=== PATIENT | female | born 1975 | race Caucasian/White ===

== ENCOUNTER 2021-07-19 21:49 | Emergency (ER) | payer OTHER, SELFPAY ==
[2021-07-19 22:13] VITALS: BP 134/78; PULSE 82; RESP 14; TEMP 36.7; O2SAT 98; BMI 38.0
[2021-07-20 02:16] VITALS: BP 127/75; PULSE 82; RESP 24; O2SAT 100
--- NOTE | 2021-07-20 03:51 | ED.GENADULT ---
HPI - General Adult General Chief complaint: Extremity Problem Stated complaint: ?Shingles/Feet swelling Time Seen by Provider: 07/20/21 03:42 Source: patient and family Mode of arrival: ambulatory Limitations: no limitations History of Present Illness HPI narrative: 46 years old female came in for evaluation of increased lower extremities edema, also rash on the left side of the neck. Patient was chronic lymphedema use Lasix p.r.n., came in for increase bilateral lower extremity edema for the past few days, patient declined chest pain or shortness of breath, no calf tenderness, no recent travel or prolonged immobilization, no history of DVT or PE. Patient also complaining of rash and itching on the left side of the neck , and under her eyelid,started 2 days ago patient declined any change of her daily routine or changing the detergent or the soap, no concern of allergy to food either. Related Data Previous Rx's Medication Instructions Recorded prednisone 20 mg tablet 20 mg PO BID #10 tab 07/20/21 Allergies Allergy/AdvReac Type Severity Reaction Status Date / Time No Known Allergies Allergy Verified 07/19/21 22:12 Review of Systems Review of Systems: All other systems are reviewed and are negative Constitutional: Reports as per HPI and Reports no additional constitutional complaints Eyes: Reports as per HPI and Reports no additional eye complaints Reports system reviewed and no additional complaints, except as documented Cardiovascular: Reports as per HPI and Reports no additional cardiovascular complaints Respiratory: Reports as per HPI and Reports no additional respiratory complaints Gastrointestinal: Reports as per HPI and Reports no additional gastrointestinal complaints Genitourinary: Reports no additional female genitourinary complaints Musculoskeletal: Reports no additional musculoskeletal complaints Skin/Breast: Reports system reviewed and no additional complaints, except as docu Psychiatric: Reports no additional psychiatric complaints Endocrine: Reports no additional endocrine complaints Hematologic/Lymphatic: Reports no additional hematologic/lymphatic complaints Allergic/Immunologic: Reports no additional allergic/immunologic complaints Reports system reviewed and no additional complaints, except as documented and Reports Abnormal speech present [facility] Social History Social History Advance Directives: No Patient : No Physical Exam ED Vital Signs: Vital Signs - 24 hr 07/19/21 22:13 07/20/21 02:16 Temperature 98.1 F Pulse Rate 82 82 Respiratory Rate 14 24 H Blood Pressure 134/78 127/75 Pulse Oximetry 98 100 BMI result Body Mass Index 38.0 vital signs have been reviewed as appeared to be correct. Blood pressure normal. Heart rate normal. Respiration rate normal. Temperature normal. Oxygen saturation normal. Appearance: Alert. Oriented X3. No acute distress. Head: Normal external exam. Normocephalic. Atraumatic. No Santos signs noted. No raccoon eyes noted Eyes: PERRLA. EOMI. Conjunctiva and sclera normal. Eyelids normal. ENT: TM's Normal. Pharynx normal. Uvula midline. Moist mucous membranes. No trismus noted. No drooling noted. No muffled voice noted. Neck: Normal inspection. Neck supple. FROM. No adenopathy. Thyroid Normal. No meningeal signs. No neck mass noted. CVS: Normal heart rate and rhythm. Heart sound normal. No murmurs noted. Pulses normal throughout. Respiratory: No respiratory distress. Painless inspiration. Breath sounds normal. No wheezes/rales/rhonchi noted. Chest nontender. No accessory muscle usage noted or decreased air movement noted. Abdomen: Soft and nontender. Bowel sounds normal in all 4 quadrants. No distention noted. No organomegaly noted. No visible injury noted. Back: No CVA tenderness. Full range of motion noted. Skin: Skin warm and dry. Normal skin color. Normal skin turgor. Left neck mild redness with hives like rash on the left side of the neck. No fluctuation or abscess formation. Extremities:+3 nonpitting edema of bilateral lower extremity edema. Extremities exhibit normal range of motion. Extremities nontender. Neuro: Oriented X 3. Cranial nerve exam: II-XII are grossly intact No motor deficit. No sensory deficit. Reflexes normal. Course Course Course Narrative: Assessment and plan. 46-year-old female came in for evaluation of increasing edema in lower extremities patient with chronic lymphedema and using Lasix. Labs are on remarkable, will instruct the patient to keep using Lasix with leg elevation and follow-up with PCP. No concern of DVT patient has no risk factor for it Focal area of hives will start the patient on prednisone. Discharge Plan Discharge Clinical Impression: Lower extremity edema, Hives Patient Disposition: Home, Self-Care Instructions: Lymphedema (ED) Prescriptions: New prednisone 20 mg tablet 20 mg PO BID Qty: 10 0RF Referrals: Physician,Unknown J [Primary Care Provider] - 2 days
[2021-07-20 04:04] VITALS: BP 98/60; PULSE 70; RESP 18; TEMP 36.6; O2SAT 100
[2021-07-20 04:07] LABS: MANUAL DIFF FLAG NO
[2021-07-20 04:08] LABS: Basophils Absolute Auto 0.1 X10*3/uL (0.0-0.2); Basophils Percent Auto 1.5 % (0-2); Eosinophils Absolute Auto 0.5 X10*3/uL (0.0-0.4); Eosinophils Percent Auto 5.6 % (0-4); Hematocrit 33.3 % (37.0-47.0); Hemoglobin 10.6 g/dl (12.0-16.0); Imm Gran Abs Auto 0.03 X10*3/uL (0.00-0.03); Imm Gran Pct Auto 0.3 % (0.0-0.4); Lymphocytes Absolute Auto 1.7 X10*3/uL (1.2-4.9); Lymphocytes Percent Auto 18.8 % (20-40); Mean Corpuscular HGB Conc 31.8 g/dl (31.0-35.0); Mean Corpuscular Hemoglobin 28.1 pg (27.0-33.0); Mean Corpuscular Volume 88.3 fL (80.0-98.0); Mean Platelet Volume 9.6 fL (9.4-12.3); Monocytes Absolute Auto 0.7 X10*3/uL (0.1-1.2); Monocytes Percent Auto 7.7 % (2-11); Neutrophils Percent Auto 66.1 % (45-73); Platelet Count 440 X10*3/uL (160-400); Red Blood Count 3.77 X10*6/uL (4.20-5.50); Red Cell Distribution Width 15.3 % (11.0-16.0); White Blood Count 9.1 X10*3/uL (4.8-10.8)
[2021-07-20] MEDS: predniSONE 20 MG TABLET 40 MG PO (04:13)
[2021-07-20 04:20] LABS: D Dimer High Sensitivity < 150 NG/ML
[2021-07-20 04:25] LABS: Alanine Aminotransferase 12 U/L (0-31); Albumin Level 3.7 g/dL (3.5-5.0); Alkaline Phosphatase 56 U/L (39-117); Anion Gap 13 (12-20); Aspartate Amino Transferase 21 U/L (5-31); Bilirubin Direct < 0.2 mg/dL (0.0-0.5); Bilirubin Total 0.2 mg/dL (0.0-1.0); Blood Urea Nitrogen 11 mg/dL (9-16); Calcium 8.8 mg/dL (8.4-10.2); Carbon Dioxide 25 mmol/L (22-29); Chloride 104 mmol/L (96-108); Creatinine Clr Calc Pharmacy 86.8; Estimated Glomerular Filt Rate > 60; Glucose Random 89 mg/dL (60-115); Lipase 24 U/L (8-78); Potassium 3.8 mmol/L (3.3-5.1); Sodium 138 mmol/L (135-145); Total Protein 6.1 g/dL (6.5-8.0)
[2021-07-20 04:30] LABS: B Type Natriuretic Peptide 26 pg/mL (<100); Troponin-I High Sensitivity < 3.5 ng/L (<3.5-17.0)
[2021-07-20 06:43] LABS: Appearance Urine CLEAR; Color Urine YELLOW; Glucose Urine UA NEG (NEG); Leukocyte Esterase Urine NEG (NEG); Nitrite Urine NEG (NEG); PH 5.5 (5.0-8.0); Specific Gravity - Urine 1.015 (1.005-1.025); Urine Blood NEG (NEG); Urine Ketones NEG (NEG); Urine Protein NEG (NEG-TRACE)
== END 2021-07-20 06:38 | disposition home or self-care (01) ==
PROVIDERS: Emergency Provider Emergency Medicine
DX: R60.0 Localized edema (principal); L50.9 Urticaria, unspecified; Z79.899 Other long term (current) drug therapy
CPT/HCPCS: 36415; 80048; 80076; 81003; 83690; 83880; 84484; 85025; 85379; 99283

== ENCOUNTER → 2022-10-11 10:50 | Outpatient (BNVA) | payer OTHER, SELFPAY | PROVIDERS: Visit Provider Orthopaedic Surgery ==

== ENCOUNTER 2022-10-27 10:59 | Day surgery (SDC) | payer OTHER, SELFPAY ==
[2022-10-27 11:41] VITALS: BMI 38.1
--- NOTE | 2022-10-27 12:49 | MHC.SHP ---
Pre-Procedural Eval Section A Date of Service: 10/27/22 The patient is an INPATIENT: No Changes since office visit: No Cold of Flu in the past 2 weeks, No New Medical Problems, No Changes in Medication and No Patient answered all questions The History & Physical has been completed within 30 days and I have reviewed it.: Yes Section B Chief Complaint: Carpal tunnel syndrome, right upper limb Allergies: Allergies Allergy/AdvReac Type Severity Reaction Status Date / Time No Known Allergies Allergy Verified 10/11/22 11:17 Plan I have reviewed the history and physical and performed a pertinent physical examination on my patient. No changes have occurred unless specified. Time Spent With Patient Time: Total time managing care of this patient today ____ minutes.
--- NOTE | 2022-10-27 12:49 | W.PM.OPN ---
Operative Note Operative Note Date of Service: 10/27/22 Narrative: Preop diagnosis: 1. Right Carpal tunnel syndrome Postop diagnosis: same Procedure: 1. Right Carpal tunnel release Surgeon: Elisa Singh MD Anesthesia: local block using 1% lidocaine with epinephrine Findings: Thickened transverse carpal ligament. EBL: Less than 5 mL Specimens: None Complications: None Disposition: Brought to recovery room in stable condition Plan: Follow-up for 10-14 days for wound check and suture removal Indications: The patient is 47 years old, with right carpal tunnel syndrome that has been unresponsive to nonoperative management. The risks and benefits of operative treatment including but not limited to risk of damage to blood vessels, nerves, tendons, infection, persistent pain, persistent symptoms, or possible need for additional surgery were discussed with the patient and the patient wishes to proceed with surgery. Procedure: Once consent was obtained a local block was performed using a combination of 1% lidocaine with epinephrine. The patient was then brought back to the operating suite and placed on the operative table in supine position. The right upper extremity was prepped and draped in a standard surgical fashion. Once assured that we had a good block, a 2.0 cm longitudinal incision was made centered over the carpal tunnel. The incision was made through the skin to the subcutaneous tissues using a #15 blade. Dissection was made down to the level of the transverse carpal ligament with care being taken to protect the palmar cutaneous nerve. Once the transverse carpal ligament was clearly visualized, a longitudinal incision was made in the transverse carpal ligament 1st using a #15 blade, then using tenotomy scissors under direct visualization. Care was taken to look for and protect the motor branch of the median nerve when seen in this area. Once satisfied with our carpal tunnel release the wound was copiously irrigated with normal saline and hemostasis was obtained with a brief period of local pressure. The skin edges were reapproximated with some 5.0 nylon suture material and a sterile dressing was applied. The patient appears to have tolerated the procedure well and with no complications. All digits were well vascularized at the conclusion of the case.
[2022-10-27 13:29] VITALS: BP 123/72; PULSE 87; RESP 18; O2SAT 100
== END 2022-10-27 14:43 | disposition home or self-care (01) ==
PROVIDERS: PCP Internal Medicine; Visit Provider Orthopaedic Surgery
PROC: (CPT 64721; principal; 2022-10-27 13:10)
DX: G56.01 Carpal tunnel syndrome, right upper limb (principal); R20.0 Anesthesia of skin; R20.2 Paresthesia of skin
CPT/HCPCS: 64721; J0171

== ENCOUNTER → 2022-11-09 08:37 | Outpatient (BNVA) | payer OTHER, SELFPAY | PROVIDERS: PCP Internal Medicine; Visit Provider Orthopaedic Surgery ==

== ENCOUNTER 2024-08-02 07:09 | Outpatient (REF) | payer OTHER, SELFPAY ==
--- NOTE | ~2024-08-02 | XR_ITS ---
EXAMINATION: XR HIP 2 OR MORE VIEWS LEFT HISTORY: M25.559 - Pain in unspecified hip COMPARISON: There are no prior studies for comparison. FINDINGS: A single AP view of the pelvis and two views of the left hip are submitted. Osseous mineralization is normal. There is no fracture or dislocation. The joint space is maintained. IUD is seen in the pelvis, to the left of midline. XR/XR hip LT min 2V IMPRESSION: Unremarkable examination of the left hip. Electronically signed by: Enrique Escobedo MD 08/02/2024 09:44 AM YANET
--- OUTSIDE RECORDS SUMMARY | 2024-08-03 07:13 | XMS_ITS | Data Portability ---
Author Organization [facility] Address [address] [place] [address] Care Team Providers Care Elastic Yarn Twister Name Role Phone CINTHYA MCDONNELL Primary Care Provider [phone] CINTHYA MCDONNELL Referring Provider [phone] Assessment No assessment recorded. Plan of Treatment Reminders Order Date Submit Date Provider Last Modified By Organization Details Last Modified Time Details Appointments PCP-Physi agata-30 Min 2024 02:00P M CINTHYA MCDONNELL MD Not available Not available Not available AMB TELEMED ([facility]MEL) 30 2024 11:30A M Yaya mclain MD Not available Not available Not available PCP-Offic e Visit-15 Min 2024 11:30A M Saima Sykes NP Not available Not available Not available Lab None recorded. Referral None recorded. Procedures None recorded. Surgeries None recorded. Imaging electroca rdiogram 2023 024 [email or web address] [facility], [address] [place], [address], 12/13/2023 12:04:22 Medication Orders Wegovy 1.7 mg/0.75 mL subcutane ous pen injector 2023 025 [facility], [address] [place], [address], 07/02/2024 10:14:30 Patient TargetsNo targets recorded. Patient InstructionsNo instructions recorded. Reason for Referral None Reported. Results Created Date Observation Date Name Description Value Unit Range Abnormal Flag Note LastModifiedBy Organization Detail LastModifiedTime 11/15/19 24 11/15/2023 COMPL ETE BLOOD COUNT NO DIFF white blood count 7.17 K/uL 3.5-11 .0 normal Not Available [facility] [address] [place] [address], [id number] 11/15/2023 16:25:45 11/15/19 24 11/15/2023 COMPL ETE BLOOD COUNT NO DIFF red blood count 4.19 M/uL 3.60-4 .80 normal Not Available [facility] [address] [place] [address], [id number] 11/15/2023 16:25:45 11/15/19 24 11/15/2023 COMPL ETE BLOOD COUNT NO DIFF hemoglobin 10.7 g/dL 12.0-1 6.0 low Not Available [facility] [address] [place] [address], [id number] 11/15/2023 16:25:45 11/15/19 24 11/15/2023 COMPL ETE BLOOD COUNT NO DIFF hematocrit 35.9 % 36.0-4 8.0 low Not Available [facility] [address] [place] [address], [id number] 11/15/2023 16:25:45 11/15/19 24 11/15/2023 COMPL ETE BLOOD COUNT NO DIFF mean corpuscular volume 85.7 fL 79.0-9 8.0 normal Not Available [facility] [address] [place] [address], [id number] 11/15/2023 16:25:45 11/15/19 24 11/15/2023 COMPL ETE BLOOD COUNT NO DIFF mean corpuscular hemoglobin 25.5 pg 25.4-3 4.6 normal Not Available [facility] [address] [place] [address], [id number] 11/15/2023 16:25:45 11/15/19 24 11/15/2023 COMPL ETE BLOOD COUNT NO DIFF mean corpuscular HGB conc 29.8 g/dL 30.0-3 6.0 low Not Available [facility] [address] [place] [address], [id number] 11/15/2023 16:25:45 11/15/19 24 11/15/2023 COMPL ETE BLOOD COUNT NO DIFF red cell distribution width 15.7 % 11.5-1 4.5 high Not Available [facility] [address] [place], [address] 11/15/2023 16:25:45 11/15/19 24 11/15/2023 COMPL ETE BLOOD COUNT NO DIFF platelet count 536 K/uL 150-40 0 high Not Available [facility] [address] [place] [address], [id number] 11/15/2023 16:25:45 11/15/19 24 11/15/2023 COMPL ETE BLOOD COUNT NO DIFF NRBC pct auto 0.0 /100_ WBC 0.0 normal Not Available [facility] [address] [place] [address], [id number] 11/15/2023 16:25:45 11/15/19 24 11/15/2023 COMPL ETE BLOOD COUNT NO DIFF neutrophils absolute auto 4.75 K/uL 1.5-7. 5 normal Not Available [facility] [address] [place] [address], [id number] 11/15/2023 16:25:45 11/15/19 24 11/15/2023 COMPL ETE BLOOD COUNT NO DIFF NRBC abs auto 0.00 K/uL 0.00 normal Not Available [facility] [address] [place] [address], [id number] 11/15/2023 16:25:45 11/15/19 24 11/15/2023 IRON PROFI LE iron 47.0 ug/dL 37-145 normal Not Available [facility] [address] [place] [address], [id number] 11/15/2023 16:37:27 11/15/19 24 11/15/2023 IRON PROFI LE total iron binding capacity 430.4 ug/dL 250-45 0 normal Not Available [facility] [address] [place] [address], 93692 11/15/2023 16:37:27 11/15/19 24 11/15/2023 IRON PROFI LE transferrin 301 mg/dL 200-36 0 normal Not Available [facility] [address] [place] [address], [id number] 11/15/2023 16:37:27 11/15/19 24 11/15/2023 IRON PROFI LE transferrin percent saturation 11 % 20-50 low Not Available [facility] Department [address] [place], [address] 11/15/2023 16:37:27 11/15/19 24 11/15/2023 TSH REFLE X FREE T4 free T4 (free thyroxine) TNP NG/dL 0.9-1. 7 Not Available [facility] [address] [place] [address], [id number] 11/15/2023 16:37:28 11/15/19 24 11/15/2023 TSH REFLE X FREE T4 TSH reflex free T4 2.56 uIU/m L 0.27-4 .20 normal Not Available [facility] [address] [place] [address], [id number] 11/15/2023 16:37:28 11/15/19 24 11/15/2023 COMPR EHENS BEVERLEY MET. PANEL sodium 140 mmol/ L 136-14 5 normal Not Available [facility] [address] [place] [address], [id number] 11/15/2023 16:40:02 11/15/19 24 11/15/2023 COMPR EHENS BEVERLEY MET. PANEL potassium 4.84 mmol/ L 3.5-5. 1 normal Not Available [facility] [address] [place] [address], [id number] 11/15/2023 16:40:02 11/15/19 24 11/15/2023 COMPR EHENS BEVERLEY MET. PANEL chloride 106 mmol/ L 98-107 normal Not Available [facility] [address] [place] [address], 52138 11/15/2023 16:40:02 11/15/19 24 11/15/2023 COMPR EHENS BEVERLEY MET. PANEL carbon dioxide 25 mmol/ L 22-29 normal Not Available [facility] [address] [place] [address], 26003 11/15/2023 16:40:02 11/15/19 24 11/15/2023 COMPR EHENS BEVERLEY MET. PANEL anion gap 14 mmol/ L 10-20 normal Not Available [facility] [address] [place] [address], 46154 11/15/2023 16:40:02 11/15/19 24 11/15/2023 COMPR EHENS BEVERLEY MET. PANEL blood urea nitrogen 11 mg/dL 6-20 normal Not Available [facility] [address] [place], [address] 11/15/2023 16:40:02 11/15/19 24 11/15/2023 COMPR EHENS BEVERLEY MET. PANEL creatinine 0.96 mg/dL 0.51-0 .95 high Not Available [facility] [address] [place], [address] 11/15/2023 16:40:02 11/15/19 24 11/15/2023 COMPR EHENS BEVERLEY MET. PANEL estimated glomerular filt rate 73 GFR Value : mL/mi n/1.7 3 squar e meter s Calcu latio n: CKD-E PI Creat inine Equat ion (2020 ) Chron ic Kidne y Disea se is defin ed as eithe r of the follo wing prese nt for >= 3 month s: - GFR less than 60 mL/mi n/1.7 3 squar e meter s. - Micro album in:Ur . Creat inine Ratio >= 30 mg/g or other marke rs of kidne y damag e Kidne y failu re is less than 15 mL/mi n/1.7 3 squar e meter s This test is not perfo rmed in patie nts under the age of 18. Not Available [facility] [address] [place], [address] 11/15/2023 16:40:02 11/15/19 24 11/15/2023 COMPR EHENS BEVERLEY MET. PANEL glucose 77 mg/dL 70-106 normal Not Available [facility] [address] [place], [address] 11/15/2023 16:40:02 11/15/19 24 11/15/2023 COMPR EHENS BEVERLEY MET. PANEL calcium 9.4 mg/dL 8.6-10 .3 normal Not Available [facility] [address] [place], [address] 11/15/2023 16:40:02 11/15/19 24 11/15/2023 COMPR EHENS BEVERLEY MET. PANEL bilirubin total 0.2 mg/dL 0.2-1. 2 normal Not Available [facility] [address] [place], [address] 11/15/2023 16:40:02 11/15/19 24 11/15/2023 COMPR EHENS BEVERLEY MET. PANEL aspartate amino transferase 33 U/L 5-32 high Not Available [facility] [address] [place], [address] 11/15/2023 16:40:02 11/15/19 24 11/15/2023 COMPR EHENS BEVERLEY MET. PANEL alanine aminotransfe rase 19 U/L 5-33 normal Not Available [facility] [address] [place], [address] 11/15/2023 16:40:02 11/15/19 24 11/15/2023 COMPR EHENS BEVERLEY MET. PANEL total protein 6.5 g/dL 6.4-8. 3 normal Not Available [facility] [address] [place] [address], [id number] 11/15/2023 16:40:02 11/15/19 24 11/15/2023 COMPR EHENS BEVERLEY MET. PANEL albumin level 4.2 g/dL 3.5-5. 2 normal Not Available [facility] [address] [place], [address] 11/15/2023 16:40:02 11/15/19 24 11/15/2023 COMPR EHENS BEVERLEY MET. PANEL globulin 2.4 gm/dL 2.0-3. 5 normal Not Available [facility] [address] [place], [address] 11/15/2023 16:40:02 11/15/19 24 11/15/2023 COMPR EHENS BEVERLEY MET. PANEL albumin globulin ratio 1.7 % 1.1-2. 5 normal Not Available [facility] [address] [place], [address] 11/15/2023 16:40:02 11/15/19 24 11/15/2023 COMPR EHENS BEVERLEY MET. PANEL alkaline phosphatase 80 U/L 35-104 normal Not Available [facility] [address] [place], [address] 11/15/2023 16:40:02 11/15/19 24 11/15/2023 LIPID PANEL WITH REFLE X triglyceride s 79 mg/dL 30-150 normal Refer ence Range s: <150 mg/dl Shalonda l 150-1 99 mg/dl Borde rline High 200-4 99 mg/dl High >500 mg/dl Very High Not Available [facility] [address] [place], [address] 11/15/2023 16:40:04 11/15/19 24 11/15/2023 LIPID PANEL WITH REFLE X cholesterol 193 mg/dL 100-20 0 normal Not Available [facility] [address] [place] [address], 78490 11/15/2023 16:40:04 11/15/19 24 11/15/2023 LIPID PANEL WITH REFLE X LDL cholesterol direct TNP mg/dL 0-100 Not Available [facility] [address] [place], [address] 11/15/2023 16:40:04 11/15/19 24 11/15/2023 LIPID PANEL WITH REFLE X LDL cholesterol calculated 106.0 mg/dL 0-100 high Natio nal Laura stero l Educa tion Progr am sugge sts the follo wing refer ence range : Optim al <100 mg/dL Near optim al/ab ove optim al 100-1 29 mg/dL Borde rline high 130-1 59 mg/dL High 160-1 89 mg/dL Very high >190 mg/dL Not Available [facility] [address] [place], [address] 11/15/2023 16:40:04 11/15/19 24 11/15/2023 LIPID PANEL WITH REFLE X HDL cholesterol 71.5 mg/dL 40-60 high Major risk facto r for CHD: <40 mg/dL Negat beverley risk facto r for CHD: >=60 mg/dL Not Available [facility] [address] [place] [address], 86733 11/15/2023 16:40:04 11/15/19 24 11/15/2023 LIPID PANEL WITH REFLE X chol HDL ratio 2.70 Risk CHOL/ HDL CHOL/ HDL Ratio Male Femal e 1/2 AVERA GE 3.43 3.27 AVERA GE 4.97 4.44 2 X AVERA GE 9.55 7.05 3 X AVERA GE 23.39 11.04 Not Available [facility] [address] [place], [address] 11/15/2023 16:40:04 11/15/19 24 11/15/2023 VITAM IN D 25-OH TOTAL vitamin D 25-oh total 32.4 NG/mL Refer ence Range : Defic ient <20 ng/mL Insuf ficie nt 21-29 ng/mL Suffi cient >30 ng/mL Not Available [facility] [address] [place] [address], [id number] 11/15/2023 16:43:31 11/15/19 24 11/15/2023 HEMOG LOBIN A1C hemoglobin A1C % 5.6 % 4.0-5. 7 normal % of the total HgB Inter preta tion ----- ----- ----- --- ----- ----- ----- - <5.7 Consi stent with the absen ce of diabe maria 5.7-6 .4 Consi stent with incre ased risk for diabe maria (pred iabet es) > or = to 6.5 Consi stent with Diabe maria Not Available [facility] [address] [place] [address], 23345 11/15/2023 16:59:15 11/15/19 24 11/15/2023 KAYY TIN ferritin 5.6 NG/mL 13-150 low Not Available [facility] [address] [place] [address], 63858 11/15/2023 17:11:27 11/15/19 24 11/15/2023 VITAM IN B12 AND FOLAT E vitamin B12 557 pg/mL 232-12 45 normal Not Available [facility] [address] [place] [address], 07172 11/15/2023 17:16:01 11/15/19 24 11/15/2023 VITAM IN B12 AND FOLAT E folate 8.1 NG/mL 4.8-18 .8 normal Not Available [facility] [address] [place] [address], [id number] 11/15/2023 17:16:01 11/15/19 24 11/15/2023 INSUL IN insulin 6.3 i??IU /mL 2.6-24 .9 normal Not Available [facility] [address] [place], [address] 11/15/2023 17:16:03 11/15/19 24 11/27/2023 TOXAS SURE SELEC T 14 KRISTI-D IS report summary FINAL . ===== ===== ===== ===== ===== ===== ===== ===== ===== ===== ===== ===== ===== === TOXAS SURE SELEC T 14 KRISTI-D IS ===== ===== ===== ===== ===== ===== ===== ===== ===== ===== ===== ===== ===== === Test Resul t Flag Units Drug Prese nt Trama dol >9434 ng/mg creat O-Dread methy ltram adol >9434 ng/mg creat N-Dread methy ltram adol >9434 ng/mg creat Sourc e of trama dol is a presc ripti on medic ation . O-dread methy ltram adol and N-dread methy ltram adol are expec sydni metab olite s of trama dol. ===== ===== ===== ===== ===== ===== ===== ===== ===== ===== ===== ===== ===== === Test Resul t Flag Units Ref Range Creat inine 53 mg/dL >=20 ===== ===== ===== ===== ===== ===== ===== ===== ===== ===== ===== ===== ===== === Decla red Medic ation s: Medic ation list was not provi ded. ===== ===== ===== ===== ===== ===== ===== ===== ===== ===== ===== ===== ===== === For clini agata consu ltati on, pleas e call . ===== ===== ===== ===== ===== ===== ===== ===== ===== ===== ===== ===== ===== === Not Available [facility] [address] [place] [address], [id number] 11/27/2023 18:10:53 11/15/1911/27/2023 TOXAS SURE SELEC T 14 KRISTI-D IS urine creatinine 53 mg/dL . REFER ENCE RANGE : Ref Range >=20 Not Available [facility] [address] [place] [address], 57839 11/27/2023 18:10:53 11/15/19 24 11/27/2023 TOXAS SURE SELEC T 14 KRISTI-D IS ethanol biomarkers NEGATI VE . Not Available [facility] [address] [place] [address], 09847 11/27/2023 18:10:53 11/15/1911/27/2023 TOXAS SURE SELEC T 14 KRISTI-D IS ethyl glucuronide NOT DETECT ED . Resul t Units : ng/mg creat Not Available [facility] [address] [place] [address], 89534 11/27/2023 18:10:53 11/15/1911/27/2023 TOXAS SURE SELEC T 14 KRISTI-D IS ethyl sulfate NOT DETECT ED . Resul t Units : ng/mg creat Not Available [facility] [address] [place] [address], 31342 11/27/2023 18:10:53 11/15/1911/27/2023 TOXAS SURE SELEC T 14 KRISTI-D IS amphetamines NEGATI VE . Not Available [facility] [address] [place] [address], 08436 11/27/2023 18:10:53 11/15/1911/27/2023 TOXAS SURE SELEC T 14 KRISTI-D IS methamphetam ine NOT DETECT ED . Resul t Units : ng/mg creat Not Available [facility] [address] [place] [address], 14045 11/27/2023 18:10:53 11/15/19 24 11/27/2023 TOXAS SURE SELEC T 14 KRISTI-D IS amphetamine NOT DETECT ED . Resul t Units : ng/mg creat Not Available [facility] [address] [place] [address], [id number] 11/27/2023 18:10:53 11/15/19 24 11/27/2023 TOXAS SURE SELEC T 14 KRISTI-D IS MDMA (ecstasy) NOT DETECT ED . Resul t Units : ng/mg creat Not Available [facility] [address] [place] [address], 34948 11/27/2023 18:10:53 11/15/19 24 11/27/2023 TOXAS SURE SELEC T 14 KRISTI-D IS mda (ecstasy mtb) NOT DETECT ED . Resul t Units : ng/mg creat Not Available [facility] [address] [place] [address], 35444 11/27/2023 18:10:53 11/15/19 24 11/27/2023 TOXAS SURE SELEC T 14 KRISTI-D IS benzodiazepi anitha NEGATI VE . Not Available [facility] [address] [place] [address], 37227 11/27/2023 18:10:53 11/15/19 24 11/27/2023 TOXAS SURE SELEC T 14 KRISTI-D IS diazepam NOT DETECT ED . Resul t Units : ng/mg creat Not Available [facility] [address] [place] [address], 90529 11/27/2023 18:10:53 11/15/19 24 11/27/2023 TOXAS SURE SELEC T 14 KRISTI-D IS desmethyldia zepam NOT DETECT ED . Resul t Units : ng/mg creat Not Available [facility] [address] [place] [address], [id number] 11/27/2023 18:10:53 11/15/19 24 11/27/2023 TOXAS SURE SELEC T 14 KRISTI-D IS oxazepam NOT DETECT ED . Resul t Units : ng/mg creat Not Available [facility] [address] [place] [address], 84097 11/27/2023 18:10:53 11/15/19 24 11/27/2023 TOXAS SURE SELEC T 14 KRISTI-D IS temazepam NOT DETECT ED . Resul t Units : ng/mg creat Expec sydni metab olism of benzo diaze pine class drugs : Paren t Drug Detec sydni Metab olite s ----- ----- - ----- ----- ----- ----- Diaze say: Desme thyld iazep am, Temaz epam, Oxaze say Chlor diaze poxid e: Desme thyld iazep am, Oxaze say Clora zepat e: Desme thyld iazep am, Oxaze say Halaz epam: Desme thyld iazep am, Oxaze say Temaz epam: Oxaze say Oxaze say: None Not Available [facility] [address] [place] [address], [id number] 11/27/2023 18:10:53 11/15/19 24 11/27/2023 TOXAS SURE SELEC T 14 KRISTI-D IS alprazolam NOT DETECT ED . Resul t Units : ng/mg creat Not Available [facility] [address] [place] [address], 34545 11/27/2023 18:10:53 11/15/19 24 11/27/2023 TOXAS SURE SELEC T 14 KRISTI-D IS alpha-hydrox yalprazolam NOT DETECT ED . Resul t Units : ng/mg creat Not Available [facility] [address] [place] [address], 27192 11/27/2023 18:10:53 11/15/19 24 11/27/2023 TOXAS SURE SELEC T 14 KRISTI-D IS desalkylflur azepam NOT DETECT ED . Resul t Units : ng/mg creat Not Available [facility] [address] [place] [address], 15373 11/27/2023 18:10:53 11/15/19 24 11/27/2023 TOXAS SURE SELEC T 14 KRISTI-D IS lorazepam NOT DETECT ED . Resul t Units : ng/mg creat Not Available [facility] [address] [place] [address], 78918 11/27/2023 18:10:53 11/15/19 24 11/27/2023 TOXAS SURE SELEC T 14 KRISTI-D IS alpha-hydrox ytriazolam NOT DETECT ED . Resul t Units : ng/mg creat Not Available [facility] [address] [place] [address], 10675 11/27/2023 18:10:53 11/15/19 24 11/27/2023 TOXAS SURE SELEC T 14 KRISTI-D IS clonazepam NOT DETECT ED . Resul t Units : ng/mg creat Not Available [facility] [address] [place] [address], 72962 11/27/2023 18:10:53 11/15/19 24 11/27/2023 TOXAS SURE SELEC T 14 KRISTI-D IS 7-aminoclona zepam NOT DETECT ED . Resul t Units : ng/mg creat Not Available [facility] [address] [place] [address], 71631 11/27/2023 18:10:53 11/15/1911/27/2023 TOXAS SURE SELEC T 14 KRISTI-D IS midazolam NOT DETECT ED . Resul t Units : ng/mg creat Not Available [facility] [address] [place] [address], [id number] 11/27/2023 18:10:53 11/15/1911/27/2023 TOXAS SURE SELEC T 14 KRISTI-D IS alpha-hydrox ymidazolam NOT DETECT ED . Resul t Units : ng/mg creat Not Available [facility] [address] [place] [address], 66819 11/27/2023 18:10:53 11/15/1911/27/2023 TOXAS SURE SELEC T 14 KRISTI-D IS flunitrazepa m NOT DETECT ED . Resul t Units : ng/mg creat Not Available [facility] [address] [place] [address], 73047 11/27/2023 18:10:53 11/15/19 24 11/27/2023 TOXAS SURE SELEC T 14 KRISTI-D IS desmethylflu nitrazepam NOT DETECT ED . Resul t Units : ng/mg creat Not Available [facility] [address] [place] [address], [id number] 11/27/2023 18:10:53 11/15/19 24 11/27/2023 TOXAS SURE SELEC T 14 KRISTI-D IS cocaine metabolite NEGATI VE . Not Available [facility] [address] [place] [address], 62653 11/27/2023 18:10:53 11/15/19 24 11/27/2023 TOXAS SURE SELEC T 14 KRISTI-D IS cocaine NOT DETECT ED . Resul t Units : ng/mg creat Not Available [facility] [address] [place] [address], [id number] 11/27/2023 18:10:53 11/15/19 24 11/27/2023 TOXAS SURE SELEC T 14 KRISTI-D IS benzoylecgon ine NOT DETECT ED . Resul t Units : ng/mg creat Not Available [facility] [address] [place] [address], 78921 11/27/2023 18:10:53 11/15/19 24 11/27/2023 TOXAS SURE SELEC T 14 KRISTI-D IS cocaethylene NOT DETECT ED . Resul t Units : ng/mg creat Not Available [facility] [address] [place] [address], 18815 11/27/2023 18:10:53 11/15/19 24 11/27/2023 TOXAS SURE SELEC T 14 KRISTI-D IS cannabinoids NEGATI VE . Not Available [facility] [address] [place] [address], [id number] 11/27/2023 18:10:53 11/15/19 24 11/27/2023 TOXAS SURE SELEC T 14 KRISTI-D IS carboxy-THC NOT DETECT ED . Resul t Units : ng/mg creat Not Available [facility] [address] [place] [address], [id number] 11/27/2023 18:10:53 11/15/19 24 11/27/2023 TOXAS SURE SELEC T 14 KRISTI-D IS 6-acetylmorp stephanie scr NEGATI VE . Not Available [facility] [address] [place] [address], [id number] 11/27/2023 18:10:53 11/15/19 24 11/27/2023 TOXAS SURE SELEC T 14 KRISTI-D IS 6-acetylmorp stephanie NOT DETECT ED . Resul t Units : ng/mg creat Not Available [facility] [address] [place] [address], [id number] 11/27/2023 18:10:53 11/15/19 24 11/27/2023 TOXAS SURE SELEC T 14 KRISTI-D IS opiate class NEGATI VE . Not Available [facility] [address] [place] [address], [id number] 11/27/2023 18:10:53 11/15/1911/27/2023 TOXAS SURE SELEC T 14 KRISTI-D IS codeine NOT DETECT ED . Resul t Units : ng/mg creat Not Available [facility] [address] [place] [address], [id number] 11/27/2023 18:10:53 11/15/19 24 11/27/2023 TOXAS SURE SELEC T 14 KRISTI-D IS morphine NOT DETECT ED . Resul t Units : ng/mg creat Not Available [facility] [address] [place] [address], [id number] 11/27/2023 18:10:53 11/15/19 24 11/27/2023 TOXAS SURE SELEC T 14 KRISTI-D IS normorphine NOT DETECT ED . Resul t Units : ng/mg creat Not Available [facility] [address] [place] [address], [id number] 11/27/2023 18:10:53 11/15/19 24 11/27/2023 TOXAS SURE SELEC T 14 KRISTI-D IS norcodeine NOT DETECT ED . Resul t Units : ng/mg creat Not Available [facility] [address] [place] [address], [id number] 11/27/2023 18:10:53 11/15/19 24 11/27/2023 TOXAS SURE SELEC T 14 KRISTI-D IS hydrocodone NOT DETECT ED . Resul t Units : ng/mg creat Not Available [facility] [address] [place] [address], [id number] 11/27/2023 18:10:53 11/15/19 24 11/27/2023 TOXAS SURE SELEC T 14 KRISTI-D IS hydromorphon e NOT DETECT ED . Resul t Units : ng/mg creat Not Available [facility] [address] [place], [address] 11/27/2023 18:10:53 11/15/19 24 11/27/2023 TOXAS SURE SELEC T 14 KRISTI-D IS dihydrocodei ne NOT DETECT ED . Resul t Units : ng/mg creat Not Available [facility] Department [address] [facility] [place], [address] 11/27/2023 18:10:53 11/15/19 24 11/27/2023 TOXAS SURE SELEC T 14 KRISTI-D IS norhydrocodo ne NOT DETECT ED . Resul t Units : ng/mg creat Expec sydni metab olism of opiat e class drugs : Paren t Drug Detec sydni Metab olite s ----- ----- - ----- ----- ----- ----- Codei ne: Major : Morph ine, [place] deine Minor : [place] codon e, [place] morph one, Dihyd rocod eine, Norhy droco done, Normo rphin e Morph ine: Major : Normo rphin e Minor : [place] morph one [place] codon e: [place] morph one, Dihyd rocod eine, Norhy droco done [place] morph one: None Dihyd rocod eine: None Heroi n: 6-Reji tylmo rphin e (if inclu ded), Morph ine, Normo rphin e Codei ne, in small amoun ts in toshia rison to morph ine, is often detec sydni when heroi n is the sourc e drug. Not Available [facility] Department [address] [facility] [place], [address] 11/27/2023 18:10:53 11/15/19 24 11/27/2023 TOXAS SURE SELEC T 14 KRISTI-D IS oxycodone class NEGATI VE . Not Available [facility] Department [address] [facility] [place], [address] 11/27/2023 18:10:53 11/15/19 24 11/27/2023 TOXAS SURE SELEC T 14 KRISTI-D IS oxycodone NOT DETECT ED . Resul t Units : ng/mg creat Not Available [facility] Department [address] [place] [address], [id number] 11/27/2023 18:10:53 11/15/19 24 11/27/2023 TOXAS SURE SELEC T 14 KRISTI-D IS oxymorphone NOT DETECT ED . Resul t Units : ng/mg creat Not Available [facility] Department [address] [place] [address], [id number] 11/27/2023 18:10:53 11/15/19 24 11/27/2023 TOXAS SURE SELEC T 14 KRISTI-D IS noroxycodone NOT DETECT ED . Resul t Units : ng/mg creat Not Available [facility] Department [address] [place] [address], [id number] 11/27/2023 18:10:53 11/15/19 24 11/27/2023 TOXAS SURE SELEC T 14 KRISTI-D IS noroxymorpho ne NOT DETECT ED . Resul t Units : ng/mg creat Expec sydni metab olism of oxyco done class drugs : Paren t Drug Detec sydni Metab olite s ----- ----- - ----- ----- ----- ----- Oxyco done: Oxymo rphon e, Norox ycodo ne, Norox ymorp david Oxymo rphon e: Norox ymorp david Not Available [facility] Department [address] [place] [address], [id number] 11/27/2023 18:10:53 11/15/19 24 11/27/2023 TOXAS SURE SELEC T 14 KRISTI-D IS methadone scr NEGATI VE . Not Available [facility] Department [address] [place] [address], [id number] 11/27/2023 18:10:53 11/15/19 24 11/27/2023 TOXAS SURE SELEC T 14 KRISTI-D IS methadone NOT DETECT ED . Resul t Units : ng/mg creat Not Available [facility] Department [address] [place] [address], [id number] 11/27/2023 18:10:53 11/15/19 24 11/27/2023 TOXAS SURE SELEC T 14 KRISTI-D IS EDDP (methadone mtb) NOT DETECT ED . Resul t Units : ng/mg creat Not Available [facility] Department [address] [place] [address], [id number] 11/27/2023 18:10:53 11/15/19 24 11/27/2023 TOXAS SURE SELEC T 14 KRISTI-D IS fentanyl analogues NEGATI VE . Not Available [facility] Department [address] [place] [address], [id number] 11/27/2023 18:10:53 11/15/19 24 11/27/2023 TOXAS SURE SELEC T 14 KRISTI-D IS fentanyl NOT DETECT ED . Resul t Units : ng/mg creat Not Available [facility] Department [address] [place] [address], [id number] 11/27/2023 18:10:53 11/15/19 24 11/27/2023 TOXAS SURE SELEC T 14 KRISTI-D IS norfentanyl NOT DETECT ED . Resul t Units : ng/mg creat Not Available [facility] Department [address] [place] [address], [address] 11/27/2023 18:10:53 11/15/19 24 11/27/2023 TOXAS SURE SELEC T 14 KRISTI-D IS sufentanil NOT DETECT ED . Resul t Units : ng/mg creat Not Available [facility] Department [address] [place] [address], [id number] 11/27/2023 18:10:53 11/15/19 24 11/27/2023 TOXAS SURE SELEC T 14 KRISTI-D IS alfentanil NOT DETECT ED . Resul t Units : ng/mg creat Not Available [facility] Department [address] [place] [address], [address] 11/27/2023 18:10:53 11/15/19 24 11/27/2023 TOXAS SURE SELEC T 14 KRISTI-D IS buprenorphin e scr NEGATI VE . Not Available [facility] Department [address] [place] [address], [id number] 11/27/2023 18:10:53 11/15/19 24 11/27/2023 TOXAS SURE SELEC T 14 KRISTI-D IS buprenorphin e NOT DETECT ED . Resul t Units : ng/mg creat Not Available [facility] Department [address] [place] [address], [address] 11/27/2023 18:10:53 11/15/19 24 11/27/2023 TOXAS SURE SELEC T 14 KRISTI-D IS norbuprenorp stephanie NOT DETECT ED . Resul t Units : ng/mg creat Not Available [facility] Department [address] [place] [address], [address] 11/27/2023 18:10:53 11/15/19 24 11/27/2023 TOXAS SURE SELEC T 14 KRISTI-D IS tapentadol scr NEGATI VE . Not Available [facility] Department [address] [place] [address], [address] 11/27/2023 18:10:53 11/15/19 24 11/27/2023 TOXAS SURE SELEC T 14 KRISTI-D IS tapentadol NOT DETECT ED . Resul t Units : ng/mg creat Not Available [facility] Department [address] [place] [address], [address] 11/27/2023 18:10:53 11/15/19 24 11/27/2023 TOXAS SURE SELEC T 14 KRISTI-D IS other opioids +POSIT BEVERLEY+ . Not Available [facility] Department [address] [place] [address], [address] 11/27/2023 18:10:53 11/15/19 24 11/27/2023 TOXAS SURE SELEC T 14 KRISTI-D IS tramadol >9434 . Resul t Units : ng/mg creat Not Available [facility] Department [address] [place] [address], [id number] 11/27/2023 18:10:53 11/15/19 24 11/27/2023 TOXAS SURE SELEC T 14 KRISTI-D IS O-desmethylt ramadol >9434 . Resul t Units : ng/mg creat Not Available [facility] Department [address] [place] [address], [address] 11/27/2023 18:10:53 11/15/19 24 11/27/2023 TOXAS SURE SELEC T 14 KRISTI-D IS N-desmethylt ramadol >9434 . Resul t Units : ng/mg creat Not Available [facility] Department [address] [place], [address] 11/27/2023 18:10:53 11/15/19 24 11/27/2023 TOXAS SURE SELEC T 14 KRISTI-D IS barbiturates NEGATI VE . Not Available [facility] Department [address] [place], [address] 11/27/2023 18:10:53 11/15/19 24 11/27/2023 TOXAS SURE SELEC T 14 KRISTI-D IS amobarbital NOT DETECT ED . Not Available [facility] Department [address] [place], [address] 11/27/2023 18:10:53 11/15/19 24 11/27/2023 TOXAS SURE SELEC T 14 KRISTI-D IS barbital NOT DETECT ED . Not Available [facility] Department [address] [place], [address] 11/27/2023 18:10:53 11/15/19 24 11/27/2023 TOXAS SURE SELEC T 14 KRISTI-D IS butabarbital NOT DETECT ED . Not Available [facility] Department [address] [place], [address] 11/27/2023 18:10:53 11/15/19 24 11/27/2023 TOXAS SURE SELEC T 14 KRISTI-D IS butalbital NOT DETECT ED . Not Available [facility] Department [address] [place], [address] 11/27/2023 18:10:53 11/15/19 24 11/27/2023 TOXAS SURE SELEC T 14 KRISTI-D IS mephobarbita l NOT DETECT ED . Not Available [facility] Department [address] [place], [address] 11/27/2023 18:10:53 11/15/19 24 11/27/2023 TOXAS SURE SELEC T 14 KRISTI-D IS pentobarbita l NOT DETECT ED . Not Available [facility] Department [address] [place], [address] 11/27/2023 18:10:53 11/15/19 24 11/27/2023 TOXAS SURE SELEC T 14 KRISTI-D IS phenobarbita l NOT DETECT ED . Not Available [facility] Department [address] [place], [address] 11/27/2023 18:10:53 11/15/19 24 11/27/2023 TOXAS SURE SELEC T 14 KRISTI-D IS secobarbital NOT DETECT ED . Not Available [facility] Department [address] [place], [address] 11/27/2023 18:10:53 11/15/19 24 11/27/2023 TOXAS SURE SELEC T 14 KRISTI-D IS thiopental NOT DETECT ED . Not Available [facility] Department [address] [place], [address] 11/27/2023 18:10:53 11/15/19 24 11/27/2023 TOXAS SURE SELEC T 14 KRISTI-D IS other hallucinogen s NEGATI VE . Not Available [facility] Department [address] [place] [address], [address] 11/27/2023 18:10:53 11/15/19 24 11/27/2023 TOXAS SURE SELEC T 14 KRISTI-D IS phencyclidin e NOT DETECT ED . Not Available [facility] Department [address] [place] [address], [address] 11/27/2023 18:10:53 11/15/19 24 11/27/2023 TOXAS SURE SELEC T 14 KRISTI-D IS level of detection: MELLY HARRISON THRES HOLDS ARE FOLLO WS: AMPHE TAMIN ES: 50 ng/mL BENZO DIAZE PINES : 20 ng/mL COCAI NE / METAB OLITE : 50 ng/mL SERENA OL BIOMA RKERS : ETG-5 00 ng/mL ,ETS- 250 ng/mL CANNA BINOI DS: total -20 ng/mL , carbo xy-TH C-2 ng/mL 6-REJI TYLMO RPHIN E: 10 ng/mL OPIAT E CLASS : 50 ng/mL OXYCO DONE CLASS : 50 ng/mL METHA DONE: 50 ng/mL BUPRE NORPH INE: bupre norph ine-1 .0 ng/mL , norbu preno rphin e-5 ng/mL FENTA NYL / ANALO GUES: fenta nyl-1 .0 ng/mL , other s-5.0 ng/mL TAPEN TADOL : 50 ng/mL TRAMA DOL: 50 ng/mL SHANICE TURAT ES: 200 ng/mL PCP: 25 ng/mL This test was devel oped and its perfo rmanc e eduardo cteri stics deter mined by [facility]. It has not been clear ed or appro franck by the Food and Drug Admin istra tion. Perfo rmed at: 01 - [facility] [address] [place] [id number] Lab Direc tor: Mayra martínez [facility] , Phone : [phone] Not Available [facility] Department [address] [place], [address] 11/27/2023 18:10:53 11/13/19 24 11/02/2023 home sleep study No observ ation record ed. [facility] [address] [place], [address], 11/14/2023 10:28:03 12/13/19 24 12/13/2023 elect rocar diogr am No observ ation record ed. [email or web address] [address], [address], 12/13/2023 12:04:21 12/18/19 elect rocar diogr am No observ ation record ed. [email or web address] [address], [address], 12/18/2023 11:55:01 06/19/19 25 06/19/2024 XR, hip, unila teral , 2 or 3 view No observ ation record ed. [address], [address], 06/21/2024 10:08:01 Result Notes None recorded. 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 puerperi um - delivere d 050727969 Completed 09/25/2019 Yaya Brock III, MD [address] [place], [address] , [facility] 0 06:21:13 Abscess of Bartholi n's gland 42073071 Completed 09/20/2019 Yaya Brock III, MD [address] [facility] [place], [address] , [facility] 0 06:47:55 Complica tion of pregnanc y, childbir th and/or puerperi 803799617 Completed 09/20/2019 Yaya Brock III, MD [address] [facility] [place], [address] , [facility] 0 06:47:17 Abdomina l pain 64188734 Completed 09/20/2019 Yaya Brock III, MD [address] [facility] [place], [address] , [facility] 0 06:47:23 Chronic pain syndrome 159566071 Active UTOX done 11/2023 SAIMA RANDLE NP [address] [facility] [place], [address] , [facility] 4 19:54:27 Degenera tion of cervical interver tebral disc 65338250 Completed 201302/02/2023 SAIMA RANDLE NP [address] [facility] [place], [address] , [facility] 3 09:37:18 Cervical spondylo sis 804254369 Completed 09/20/2019 Yaya Brock III, MD [address] [place], [address] , [facility] 0 06:48:07 Primary fibromya lgia syndrome 05788881 Active Not Available [facility] 4 16:46:28 Hypoglyc emia 229205879 Completed 09/25/2019 Yaya Brock III, MD [address] [place], [address] , [facility] 0 06:21:18 Fibromyo sitis 64720661 Completed 201309/20/2019 Yaya Brock III, MD [address] [place], [address] , [facility] 0 06:48:16 Lymphade nopathy 79926768 Completed 200409/20/2019 Yaya Brock III, MD [address] [place], [address] , [facility] 0 06:47:41 Streptoc occal sore throat 74235257 Completed 201309/20/2019 Yaya Brock III, MD [address] [facility] [place], [address] , [facility] 0 06:47:47 Spasm 56524557 Completed 201309/20/2019 Yaya Brock III, MD [address] [facility] [place], [address] , [facility] 0 06:47:49 Cyst of Bartholi n's gland duct 03713968 Completed 201309/20/2019 Yaya Brock III, MD [address] [place], [place] [address], [address] , [facility] 0 06:47:53 Epigastr ic pain 10356375 Completed 200509/20/2019 Yaya Brock III, MD [address] [place], [address] , [facility] 0 06:47:59 Pain in limb 39517008 Completed 201309/20/2019 Yaya Brock III, MD [address] [place], [address] , [facility] 0 06:48:02 Generali zed abdomina l pain 707151562 Completed 200809/20/2019 Yaya Brock III, MD [address] [place], [address] , [facility] 0 06:47:08 Musculos keletal disorder of the neck 945562865 Completed 201309/20/2019 Yaya Brock III, MD [address] [facility] [place], [address] , [facility] 0 06:47:11 Extrinsi c asthma with asthma attack Completed 201309/20/2019 Yaya Brock III, MD [address] [facility] [place], [address] , [facility] 0 06:47:25 Gastroes ophageal reflux disease 332860817 Active 2013 Not Available [facility] 4 16:46:28 Edema 966644611 Completed 201309/20/2019 Taking furosemi de 20mg daily. SAIMA RANDLE NP [address] [facility] [place], [address] , [facility] 2 11:37:44 Anemia 719706907 Completed 201309/20/2019 Yaya Brock III, MD [address] [place] [address] [place], [address] , [facility] 0 06:47:30 Malaise and fatigue 085324867 Completed 200409/20/2019 Yaya Brock III, MD [address] [place], [place] [address], [address] , [facility] 0 06:47:33 Low back pain 803258242 Completed 200809/20/2019 Yaya Brock III, MD [address] [place], [address] , [facility] 0 06:47:38 Pain in wrist 40855308 Completed 09/20/2019 Yaya Brock III, MD [address] [place], [address] , [facility] 0 06:47:51 Closed fracture proximal phalanx, toe 075980811 Completed 09/20/2019 Yaya Brock III, MD [address] [place], [address] , [facility] 0 06:47:21 Acute bronchit is 34330855 Completed 03/08/2019 ROSAURA CHACKO NP [address] [place], [address] , [facility] 9 13:13:04 Asthma 426251410 Active Not Available [facility] 4 16:46:28 Iron deficien cy 65292560 Active 06/12/24 iron infusion note Taking a multivit padilla with iron in it. Heme denied referral per notice 08/21/23 SAIMA RANDLE NP [address] [place], [address] , [facility] 5 10:23:14 Menopaus al flushing 238355151 Completed 09/20/2019 Yaya Brock III, MD [address] [place], [address] , [facility] 0 06:47:15 Mammogra phy abnormal 495243484 Completed 09/20/2019 SAIMA RANDLE NP [address] [place], [place] [address], [address] , [facility] 2 20:31:12 Hypothyr oidism 86656582 Active 2016 Not Available [facility] 4 16:46:28 Allergic rhinitis 22944704 Active 2020 Not Available [facility] 4 16:46:28 Degenera tion of lumbar interver tebral disc 40280494 Completed 202102/02/2023 SAIMA RANDLE NP [address] [place], [address] , [facility] 3 09:37:19 Arthropa thy of lumbar facet joint 285932985 Completed 202102/02/2023 SAIMA RANDLE NP [address] [place], [address] , [facility] 3 09:37:14 Insomnia 898437023 Active 2021 Taking trazodon e 50-100mg prn. Not Available [facility] 4 16:46:28 Edema 579841403 Active 2013 Not Available [facility] 4 16:46:28 Carpal tunnel syndrome 59432931 Completed 202207/17/2023 SAIMA RANDLE NP [address] [place], [address] , [facility] 4 14:26:58 Vitamin D deficien cy 48882540 Active 2023 Not Available [facility] 4 16:46:28 Obstruct beverley sleep apnea syndrome 98502920 Active 202305/17/24 sleep note: Selected MAT tx, referred to Dr. Chow at [facility]. SAIMA RANDLE NP [address] [place], [address] , [facility] 4 10:27:03 Pain of left hip joint 21544182099 9100 Active 2023 SAIMA RANDLE NP [address] [place], [address] , [facility] 4 13:36:02 Restless legs 21937146 Active 202305/17/24 sleep note: Continue to manage with PCP. Plan to refer to heme if iron deficien cy persists after iron infusion . SAIMA RANDLE NP [address] [place], [address] , [facility] 4 10:27:36 Notes:Some problems listed i n Documents: #[id number], #[id number], #[id number], #[id number], #[id number] could not be added to this patient's chart. Please review these documents and add these problems to the patient's chart manually as needed. Problem Notes None recorded. Procedures Surgical History Date Name Laterality Status Provider Name and Address Organization Details Recorded Time 07/23/19 25 Telemedicine Documentation completed Saima Sykes NP [address] [place], [address], [facility] 07/23/2024 12:49:53 05/14/20 24 Telemedicine Documentation completed Saima Sykes NP [address] [place], [address], [facility] 05/14/2024 12:37:40 03/26/20 24 Telemedicine Documentation completed Saima Sykes NP [address] [place], [address], [facility] 03/26/2024 12:17:40 01/23/20 24 Telemedicine Documentation completed Saima Sykes NP [address] [place], [address], [facility] 01/23/2024 12:35:51 12/13/19 24 BEDS-7 completed Saima Sykes NP [address] [place], [place] [address], [address], [facility] 12/13/2023 11:38:00 12/13/19 24 [place] Sleepiness Scale completed Saima Sykes NP [address] [place], [address], [facility] 12/13/2023 11:38:42 10/05/19 24 Egd biopsy single/multiple completed Swapna Barrett LPN [facility] 10/05/2023 13:30:17 10/05/19 24 Colon ca scrn not hi rsk ind completed Swapna Barrett LPN [facility] 10/05/2023 13:31:39 09/26/19 24 IUD Insertion completed Feroz Potts MD [address] [place], [place] [address], [address], [facility] 09/26/2023 15:41:17 09/26/19 24 IUD Removal completed Feroz Potts MD [address] [place], [place] [address], [address], [facility] 09/26/2023 15:41:10 07/17/19 24 [place] Sleepiness Scale completed Mavis Akers [facility] 07/17/2023 15:00:40 05/11/20 21 PHQ-9 Patient Health Questionnaire completed Yaya Brock III, MD [address] [place], [place] [address], [address], [facility] 05/11/2021 11:48:53 10/29/19 21 Date of Last Mammogram completed Lore Eileen [facility] 05/10/2021 19:21:12 10/29/19 21 Date of Last Pap Smear completed Lore Arellano [facility] 05/10/2021 20:06:48 05/04/20 20 PHQ-9 Patient Health Questionnaire completed Yaya Brock III, MD [address] [place], [place] [address], [address], [facility] 05/04/2020 12:26:14 04/26/20 19 Corticosteroid Injection completed Yaya Brock III, MD [address] [place], [place] [address], [address], [facility] 04/26/2019 12:11:40 08/18/19 19 PHQ-9 Patient Health Questionnaire completed Sapna Quezada [facility] 08/17/2018 08:45:01 07/20/19 17 PHQ-9 Patient Health Questionnaire completed Amelia Coleman MA [facility] 07/20/2016 10:56:05 03/16/20 16 Mirena IUD Insertion completed Angel Yu MD [address] [place], [place] [address], [address], [facility] 03/16/2016 12:37:21 03/16/20 16 Hysteroscopy with Endometrial Biopsy or IUD Removal completed Angel Yu MD [address] [place], [place] [address], [address], [facility] 03/16/2016 12:36:38 07/17/19 16 PHQ-9 Patient Health Questionnaire completed Shweta Holden MA [facility] 07/17/2015 08:44:49 06/05/19 16 Egd biopsy single/multiple completed Yaya Brock III, MD [address] [facility] [place], [address], [facility] 05/31/2017 09:30:46 07/09/19 15 PHQ-9 Patient Health Questionnaire completed Deya Kemp MA [facility] 07/09/2014 08:58:22 02/29/20 13 I&D DOCUMENTATION NURSE completed Angel Yu MD [address] [facility] [place], [address], [facility] 02/28/2013 13:03:51 02/17/20 11 Mirena IUD Insertion completed Sahara Sellers [facility] 02/16/2011 09:49:32 02/17/20 11 IUD Removal completed Sahara Sellers [facility] 02/16/2011 09:49:32 02/02/20 06 delivery completed Not Available [facility] 04/20/2011 06:32:15 appendectomy completed Not Available [facility] 04/20/2011 06:32:29 gastric bypass completed Not Available [facility] 04/20/2011 06:32:29 dental extraction completed Not Available [facility] 04/20/2011 06:32:29 tonsillectomy completed Not Available [facility] 04/20/2011 06:32:29 Imaging Results Imaging Date Name Status LastModified by Organization Details LastModified Time 11/02/2023 home sleep study completed [facility] [address] [place], [address], 11/14/2023 10:28:03 12/13/2023 electrocardiogram completed [email or web address] [place], [address], 12/13/2023 12:04:21 12/18/2023 electrocardiogram completed [email or web address] [address] [place], [address], 12/18/2023 11:55:01 06/19/2024 XR, hip, unilateral, 2 or 3 view completed [facility] [address] , [place], [address], 06/21/2024 10:08:01 Procedure Notes None recorded. Medical Equipment None Reported. Allergies Allergen ID Allergen Name Allergen Category Reaction Reaction Severity Criticality Documentation Date Start Date Code Code System Note Provider Name and Address Organization Details Recorded Time 460821 amoxicill in medicatio n rash moderate Not available 08/17/2018 723 RxNorm BORIS Le [place] - [facility] 9 08:42:22 Medications Name Sig Start Date [...] 32 gauge x /32 USE DIRECTED WITH SHALONDA active Not Available Not Available No t [...] height Body mass index (BMI) Body weight Body temperature Oxygen saturation Oxygen saturation in Arterial blood by Pulse oximetry Heart rate Systolic blood pressure Diastolic blood pressure Provider Name and Address Organization Details Last Updated DateTime 161.29 cm 38.4 kg/m2 27916.7 6 g 98 [degF] 98 % 98 % 90 /min 126 mm[Hg] 62 mm[Hg] Dena Roth [facility] 4 11:10:40 Date Recorded Body height Body mass index (BMI) Body weight Provider Name and Address Organization Details Last Updated DateTime 01/23/2024 161.29 cm 37.2 kg/m2 78693.97 g Saima Sykes NP [address] [place], [address], [facility] 01/23/2024 12:32:26 Date Recorded Body height Body mass index (BMI) Body weight Provider Name and Address Organization Details Last Updated DateTime 07/23/2024 161.29 cm 33.9 kg/m2 39863.72 g Saima Sykes, [employer] [address] [facility], [place], [address], [facility] 07/23/2024 12:46:28 Social History Question Answer [...] Carbs And Sugars. No Desserts, Processed Foods, Croatian [employer]. Information not available 07/09/2014 Which Illicit Or Recreational Drugs Have You Used? 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 If Yes, How Long? No Information not available 11/28/2013 An Tool Adjuster Involved? If Yes, Who? No Information not [...] no t available 07/09/2014 Cholesterol/HDL Screen 07/17/2015 [email or web address] Information not available 07/17/2015 Tetanus/Adacel Vaccine 07/03/2012 Adacel Information not available 07/09/2014 Pain Contract/Contro lled Substances Yes - Date 06/17/15 Dr Brock [email or web address] Information not available 06/19/2015 Marital Status [email or web address] Informatio n not available 11/28/2013 What Was [...] Tdap 4 completed SAIMA RANDLE NP [address] [place], [address], [facility] 07/18/2023 07:31:00 Influenza, split virus, trivalent, preservative 4 completed Not Available [facility] 06/22/2019 02:11:20 Td(adult) unspecified formulation 5 completed Not Available [facility] 07/21/2023 16:46:28 Tdap 3 completed Not Available [facility] 07/21/2023 16:46:29 Novel [id number] , preservative-free 9 completed Not Available [facility] 07/21/2023 16:46:29 Influenza, split virus, quadrivalent, preservative 5 completed Not Available [facility] 06/22/2019 02:11:26 influenza, intradermal, quadrivalent, preservative free 6 completed Not Available [facility] 06/22/2019 02:12:33 Influenza, split virus, quadrivalent, preservative 8 completed Not Available [facility] 07/21/2023 16:46:28 Influenza, split virus, quadrivalent, PF 7 completed Not Available [facility] 06/22/2019 02:15:35 Influenza, split virus, quadrivalent, preservative 0 completed Not Available [facility] 07/21/2023 16:46:28 COVID-19, mRNA, LNP-S, PF, 100 mcg/0.5mL dose or 50 mcg/0.25mL dose 1 completed Not Available [facility] 07/21/2023 16:46:28 COVID-19, mRNA, LNP-S, PF, 100 mcg/0.5mL dose or 50 mcg/0.25mL dose 1 completed Not Available [facility] 07/21/2023 16:46:28 Influenza, split virus, quadrivalent, preservative 1 completed Not Available [facility] 07/21/2023 16:46:28 Past Encounters Encounter ID Performer Location Encounter Start Date Encounter Closed Date Diagnosis/Indication Diagnosis SNOMED-CT Code Diagnosis ICD10 Code Diagnosis Note [id number] [facility] [place] [address] 08/08/2005 16:03:21 08/08/2005 16:27:50 [id number] [facility] [place] [address] 10/03/2005 16:10:39 11/24/2005 12:24:29 [id number] [facility] [place] [address] 11/01/2005 16:11:15 11/01/2005 16:54:42 [id number] [facility] [place] [address] 07/26/2005 09:10:13 07/26/2005 10:26:41 [id number] [facility] Clay [facility] [place] [address] 09/05/2005 16:10:21 09/05/2005 16:43:55 [id number] [facility] [place] [address] 7 11/29/2005 15:52:30 11/29/2005 16:20:48 [id number] [facility] [address] [place] [address] [place] [address] 12/13/2005 09:15:52 12/13/2005 09:53:04 [id number] [facility] Clay [facility] [place] [address] 12/27/2005 09:26:19 12/27/2005 10:07:06 [id number] [facility] [place] [address] 7 01/10/2006 09:18:34 01/10/2006 10:01:38 [id number] [facility] [place] [address] 01/17/2006 13:01:06 01/17/2006 13:59:34 [id number] HH - Outpatien t [address] [place], [place] [address] [address] 01/23/2006 00:00:00 11/02/2010 03:30:06 [id number] [facility] [address] [place] [address] 7 01/26/2006 14:37:18 01/26/2006 15:40:44 [id number] HH - In-Patien t [address] [place], [place] [address] [address] 02/01/2006 09:43:32 02/09/2006 11:27:59 [id number] [facility] [address] [place] [id number] 7 04/06/2006 13:57:38 04/06/2006 14:47:18 [id number] [facility] [address] [place] [address] 7 04/19/2006 15:57:34 04/19/2006 16:03:27 [id number] [facility] [address] [place] [address] 7 06/27/2006 11:00:50 06/27/2006 11:25:38 [id number] [facility] [address] [address] 02/16/2011 09:00:05 02/16/2011 10:43:57 [id number] [facility] [address] [place] [address] 7 03/17/2011 08:57:46 03/17/2011 09:43:32 [id number] Marlin Rolon [facility] [address] [place] [id number] 7 02/28/2013 09:08:26 02/28/2013 10:28:28 [id number] [facility] [address] [place] [address] [place] [address] 11/28/2013 12:10:23 11/28/2013 14:01:52 Chronic pain syndrome 174921953 Degenerati on of cervical intervertebral disc 95555603 Cervical spondylosis 147395977 Primary fi bromyalgia syndrome 69747056 [id number] Georgiana De [facility] [address] [place] [address] 6 01/29/2014 08:27:29 01/29/2014 09:24:04 Chronic pain syndrome 614167171 Degenerati on of cervical intervertebral disc 27998835 Cervical spondylosis 431596541 Primary fi bromyalgia syndrome 76018327 [id number] Deya Kemp MA [facility] [address] [place] [id number] 7 03/07/2014 15:26:46 03/10/2014 12:32:56 Hypoglycemia 783910572 increase protein Chronic pain syndrome 832669211 Cervical spondylosis 761532099 Fibromyositis 47913800 [id number] [facility] [address] [place] [id number] 6 06/26/2009 00:00:00 [id number] [facility] [address] [place] [address] 6 06/29/2010 00:00:00 [id number] [facility] [address] [place] [address] 6 06/30/2011 00:00:00 [id number] [facility] [address] [place] [address] 6 07/03/2012 00:00:00 [id number] [facility] [address] [place] [address] 6 07/05/2013 00:00:00 [id number] [facility] [address] [place] [phone] 6 05/07/2009 00:00:00 [id number] [facility] [address] [place] [address] 6 10/13/2009 00:00:00 [id number] [facility] [address] [place] [address] 6 12/25/2009 00:00:00 [id number] [facility] [address] [place] [id number] 6 05/05/2010 00:00:00 [id number] [facility] [address] [place] [phone] 6 06/21/2010 00:00:00 [id number] [facility] [address] [place] [address] [place] [address] 6 01/12/2011 00:00:00 [id number] [facility] [address] [place] [address] [place] [address] 6 07/18/2012 00:00:00 [id number] [facility] [address] [place] [address] [place] [address] 6 02/28/2013 00:00:00 [id number] [facility] [address] [place] [phone] 6 04/05/2013 00:00:00 [id number] [facility] [address] [place] [address] [place] [address] 6 07/03/2013 00:00:00 [id number] [facility] [address] [place] [address] 6 10/10/2013 00:00:00 [id number] Georgiana De [facility] [address] [place] [address] 6 03/26/2014 08:40:46 03/26/2014 09:41:43 Chronic pain syndrome 098880460 Degenerati on of cervical intervertebral disc 78051382 Cervical spondylosis 267877949 Primary fi bromyalgia syndrome 08714786 [id number] Deya Kemp MA [facility] [address] [place] [address] 7 04/09/2014 08:12:34 04/09/2014 09:21:36 Chronic pain syndrome 353338728 she is following with Dr Uribe. Fibromyositis 10094545 i ncrease the gabapentin one more time. if unsuccessf ul, then stop gabapentin . Edema 747749392 she use s the furosemide as needed. Gastroesop hageal reflux disease 344460402 Influenza vaccine needed [id number] 106 Pt presents for influenza vaccinatio n. Patient screened with questions from Flu protocol. Patient presents for influenza vaccinatio n. Patient screened with questions from [id number] Flu Protocol. Discussed importance of influenza vaccine due to the patient's risk of contractin g the disease. A handout was given to enchance understand ing of the effects and side effects of the vaccine. [id number] Angeles Solis [facility] [address] [place] [address] 04/15/2014 08:58:17 04/15/2014 09:42:51 Influenza vaccine needed [id number] 106 Pt presents for influenza vaccinatio n. Patient screened with questions from Flu protocol. Patient presents for influenza vaccinatio n. Patient screened with questions from Flu Protocol. Discussed importance of influenza vaccine due to the patient's risk of contractin g the disease. A handout was given to jomar understand ing of the effects and side effects of the vaccine. [id number] Georgiana De [facility] [address] [place] [address] [place] [address] 6 05/21/2014 08:28:32 05/21/2014 09:39:34 Chronic pain syndrome 088797684 Degenerati on of cervical intervertebral disc 09641436 Cervical spondylosis 328313994 Primary fi bromyalgia syndrome 24993999 [id number] Amelia Lenz MA [facility] [address] [place] [address] 7 07/09/2014 08:25:45 07/09/2014 09:38:44 Adult health examination 421066271 Full code status. Plan colonoscop y at age 50 unless change in symptoms or family history. Mammogram will be booked for next year. Discussed abstinence , contracept ion and safe sex. Self Breast Examinatio n taught Encourage aerobic exercise 5x/week Discussed importance of healthy/ba lanced diet. Encouraged high fiber, adequate calcium, minimizing caffeine and alcohol. Fibromyositis 06782036 A dvised patient to take Cymbalta and instructed in use and potential side effects. Pt. took this medication successful ly in the past but discontinu ed since medication was not covered by insurance. Pt. has new insurance and would like to re-start if covered by new insurance. Pt. will follow up with no improvemen t or adverse side effects. Low back pain 436732707 Refill. Pt.'s new insurance no longer covers pain specialist . Will refer to new pain specialist . [id number] Jessi Yung MA [facility] [address] [place] [address] [place] [address] 07/16/2014 09:07:36 07/16/2014 09:31:44 Chronic pain syndrome 099866445 Degenerati on of cervical intervertebral disc 34009944 Cervical spondylosis 683116467 Primary fi bromyalgia syndrome 65113150 [id number] Georgiana De [facility] [address] [place], [place] [address] 09/17/2014 08:52:31 09/17/2014 09:32:00 Chronic pain syndrome 849147315 Degenerati on of cervical intervertebral disc 40815980 Cervical spondylosis 356085472 Primary fi bromyalgia syndrome 24327324 [id number] Jessi Yung [facility] [address] [place], [place] [address] 11/12/2014 09:04:36 11/12/2014 09:48:25 Chronic pain syndrome 424593658 Degenerati on of cervical intervertebral disc 70549354 Cervical spondylosis 148349107 Primary fi bromyalgia syndrome 80495697 [id number] Asia Wilde [facility] [address] [place] [address] [place] [address] 6 01/14/2015 09:00:57 01/14/2015 10:13:29 Chronic pain syndrome 152952537 Degenerati on of cervical intervertebral disc 25020073 Cervical spondylosis 295178200 Primary fi bromyalgia syndrome 56684294 [id number] [facility] [address] [facility] [address] [place] [address] 7 02/10/2015 16:02:02 02/10/2015 16:15:42 Closed fracture proximal phalanx, toe [id number] [facility] [id number] CADEN STEINBERG [facility] [address] [place], [place] [address] 03/18/2015 09:10:05 03/18/2015 10:06:52 Chronic pain syndrome 042266047 G89.4 Degenerati on of cervical intervertebral disc 33921098 M50.30 Cervical spondylosis 387 134881 M47.812 Primary fi bromyalgia syndrome 17435181 M79.7 [id number] Yaya Brock III, MD [facility] [address] [place] [address] 7 04/06/2015 13:20:18 04/06/2015 13:40:43 Acute bronchitis 57363038 J20.9 Asthma 802331445 J45.90 9 [id number] Octavia Hoff RN [address] [address] 7 04/15/2015 13:59:37 04/15/2015 14:21:50 Influenza vaccine needed 2940933150 106 Z23 Pt presents for influenza vaccinatio n. Patient screened with questions from 7209-9489 Flu protocol. Discussed importance of influenza vaccine due to the patient's risk of contractin g the disease. A handout was offered to enchance understand ing of the effects and side effects of the vaccine. [id number] Yaya Brock III, MD [address] [address] 05/13/2015 10:03:51 05/13/2015 10:52:11 Degeneration of cervical intervertebral disc 16271789 M50.30 she is not an operative candidate at this time. she has beenthroug h p.t. many times. and some injection therapy. she is managing well from a fucntional standpoint . she will see Dr Uribe next week for her last medication visit with him. I will take over medication management in June. She is aware of my plan as discussed above. Fibromyositis 37705741 M 79.7 on duloxetine at 60mg. will increase to 90 mg Chronic pain syndrome 37 4010255 G89.4 I will see her back in 1 month. Will then have pain contract signed, check UDS, and review GEOFFREY RAJAN. [id number] Yaya Brock III, MD [address] [address] 06/17/2015 08:16:34 06/17/2015 10:12:05 Chronic pain syndrome 160380972 G89.4 She has done very well minimizing her opiate use in the last month. try to get tramadol 100mg covered for steady use. , will use vicodin as needed ( as minimal as possible), and for muscle tightness soma as needed. GEOFFREY RAJAN consulted and on chart. Pain management contract signed today. Urine drug screen today. F/U 3 months. Degenerati on of cervical intervertebral disc 32694568 M50.30 she is not an operative candidate at this time. she has beenthroug h p.t. many times. and some injection therapy. she is managing well from a fucntional standpoint . She is in chiropract ic care as well. Fibromyositis 66880260 M 79.7 better on the cymbalta 90mg. [id number] Yaya Brock III, MD [address] [address] 7 07/17/2015 08:33:07 07/17/2015 09:18:29 Adult health examination 609565817 Z00.00 Full code status. Encouraged patient to discuss medical decisions with Health Care Proxy. Plan colonoscop y at age 50 unless change in symptoms or family history. Baseline mammogram age 50, unless earlier based on risk factors and discussion with patient. Discussed contracept ion and safe sex. Encouraged aerobic exercise 5x/week Discussed importance of healthy/ba lanced diet. Encouraged high fiber, adequate calcium, minimizing caffeine and alcohol. Screening mammography 24 833617 Z12.31 Iron deficiency 63783471 E61.1 History of. Will recheck. Menopausal flushing 1983 66837 N95.1 Would like FSH checked related to hot flashes. Pt. is getting Mirena taken out soon. Will f/u with results. History of multiple allergies 820878270 Z88.8 Uncontroll ed. Taking Zyrtec/[place] adryl and Flonase for allergies but continues to experience symptoms, including scratchy throat, puffy eyes, and fluids behind TMs. Allergic to animals, mold, dust, and trees. Had reaction to allergy shots in the past, even when taking Benadryl prior. Has not tried Singulair, which daughter takes successful ly. Has hardwood floors at home and cleans sheets regularly. Rx Singulair and instructed in use and potential side effects. F/u with no improvemen kye Randolph on of cervical intervertebral disc 54988589 M50.30 Controlled with Tramadol and Cymbalta. F/u PRN. Fibromyositis 65791132 M 79.7 Controlled with Cymbalta. F/u PRN. [id number] Yaya Brock III, MD [address] [address] 09/23/2015 08:49:36 09/23/2015 10:39:14 Chronic pain syndrome 950877859 G89.4 She had a tough month, has gone through the vicodin a bit faster than she usually does. We will give her 20 tabs today. Her pain has calmed and she is back to baseline. Contract on file. GEOFFREY VIDEO TAPE TRANSFERRER checked regularly. UDS is utd. Degenerati on of cervical intervertebral disc 94033979 M50.30 she hs new right hand and arm numbness/t ingling. She has weakness as well. We need to check a new MRI. has bee about 2 years since the last. continue chiropract ic and exercises. [id number] MD [facility] [address] [place] [address] 7 12/12/2015 13:53:53 12/12/2015 15:48:40 Injury of ankle 813983595 S99.912A Ankle and foot contusion from fall with normal xrays. Advised ankle support brace, RICE therapy, and Motrin/Tyl enol. F/u with PCP if not resolving or worsening over the next 1-2 weeks [id number] Yaya Brock III, MD [facility] [address] [place] [address] 7 12/23/2015 08:54:14 12/23/2015 10:03:48 Chronic pain syndrome 946810548 G89.4 She is stable on her current regimen of tramadol ER 100mg BID, hydrocodon e as needed for breakthrou gh pain. She uses soma as well as a muscle relaxant. She performs regular neck ROM and strengthen ing exercises. She is also followig with neurology and rheumatolo gy Pain contract in place. She needs UDS updated today. VIDEO TAPE TRANSFERRER checked regularly. Degenerati on of cervical intervertebral disc 93913526 M50.30 she hs new right hand and arm numbness/t ingling. She has weakness as well. We need to check a new MRI. has bee about 2 years since the last. continue chiropract ic and exercises. Injury of ankle 25188532 6 S99.912D take off ankle stirrup. rom exercises. moist heat to the tender lump medially Abnormal weight gain 161 466889 R63.5 decrease cymbalta from 90mg to 60 mg a day. call back 1 month with progress. [id number] MD Yash [facility] [address] [place] [address], [address] [address] 02/10/2016 09:31:04 02/25/2016 14:07:59 Contraception care 022015588 Z30.40 [id number] Feroz Potts MD [facility] [address] [place] [address] 7 02/24/2016 09:27:56 02/25/2016 15:26:26 Contraception care 419640074 Z30.40 [id number] Angel Yu MD [facility] [address] [place] [address] 7 03/16/2016 10:58:50 03/17/2016 14:51:46 Uses IUD (intrauterine device) contraception 446214329 Z97.5 Insertion of intrauterine contraceptive device 09958043 Z30.315 [id number] Yaya Brock III, MD [facility] [address] [address] 04/13/2016 09:05:12 04/13/2016 09:54:25 Chronic pain syndrome 807543176 G89.4 She has to be on the short acting formulatio n secondary to gastric bypass. That beng said, she does need to make sure that any controlled scripts come from me, or that I know about them before she gets from pharmacy. will restart her usual pain medicaton regimen. If she is recommednd ed any controlled meds by any specialist s, she will call me first to discuss/ prescribe. repeat uds today. [place] VIDEO TAPE TRANSFERRER checked today, appropriat e. And is checked at all rfs. Hypothyroidism 86418114 E03.9 on levothryox ine now. recheck numbers. [id number] Yaya Brock III, MD [facility] [address] [place] [address] 7 04/17/2016 15:17:38 04/17/2016 15:53:14 Pneumonia 008349751 J18.9 rest and hydrate. call me monday f not improved. [id number] Yaya Brock III, MD [facility] [address] [place] [address] 7 04/23/2016 11:38:59 04/23/2016 12:15:53 Influenza vaccine needed 2747837032 106 Z23 Pt presents for influenza vaccinatio n. Patient screened with questions from 1951-1731 Flu protocol. Discussed importance of influenza vaccine due to the patient's risk of contractin g the disease. A handout was offered to enhance understand ing of the effects and side effects of the vaccine. [id number] MD Santino Yoo III[address] [address] 7 07/20/2016 10:21:13 07/20/2016 12:44:03 Adult health examination 290294489 Z00.00 Full code status. Encouraged patient to discuss medical decisions with Health Care Proxy. Plan colonoscop y at age 50 unless change in symptoms or family history. Baseline mammogram age 50, unless earlier based on risk factors and discussion with patient. Discussed contracept ion and safe sex. Encouraged aerobic exercise 5x/week Discussed importance of healthy/ba lanced diet. Encouraged high fiber, adequate calcium, minimizing caffeine and alcohol. Hypothyroidism 86329762 E03.9 Acute asthma 472431256 J 45.901 Will give prednisone taper and then start back on Advair. Follow up as scheduled or sooner PRN. [id number] Yaya Brock III, MD [address] [address] 7 08/10/2016 08:08:20 08/10/2016 08:53:19 Chronic pain syndrome 015879991 G89.4 secondary to disc disease cervical spine. Contract in place.UDS is utd. GEOFFREY VIDEO TAPE TRANSFERRER checked at all rfs. she uses tramadol regularly, soma regularly, and vicodin intermitte ntly for pain exacerbati ons. she needs vicodin today. GEOFFREY VIDEO TAPE TRANSFERRER check, last fill 07/20/16 20 tabs. Asthma 249369506 J45.90 9 she is still feeling a hit flared.faisal gs clear. add some qvar to advair. At [facility] ed risk of sexually transmitted infection 822519240 Z20.2 she nad her boyfriend just broke up. she is concerned about risk. [id number] Yaya Brock III, MD [address] [address] 7 09/29/2016 08:09:11 09/29/2016 11:37:47 Medication monitoring 377229400 Z51.81 [id number] Yaya Brock III, MD [address] [address] 7 01/25/2017 08:14:49 01/25/2017 08:41:55 Chronic pain syndrome 171144990 G89.4 Things are stable. she would like the ability to take an extra soma on days when muscle tightness is severe. is ok. Contract in place. UDS is utd. [place] VIDEO TAPE TRANSFERRER checked at all refills. Neuropathy 205362922 G62 .[address] Mora. nothing specific found at this point. Degenerati on of cervical intervertebral disc 06658218 M50.30 underying issue causing the neck pain. Asthma 319186818 J45.90 9 mildinterm ittent. no current ics use. rare recent rescue use. [id number] Yaya Brock III, MD [address] [address] 04/06/2017 08:10:27 04/06/2017 13:00:14 Medication monitoring 354111031 Z51.81 Utox was obtained, temp was 96 degrees and color within normal limits/ka [id number] Yaya Brock III, MD [address] [address] 04/14/2017 13:15:33 04/14/2017 16:20:10 Influenza vaccine needed 9898335089 106 Z23 Pt presents for influenza vaccinatio n. Patient screened with questions from 7137-8975 Flu protocol. Patient presents for influenza vaccinatio n. Patient screened with questions from 1614-7636 Flu Protocol. Discussed importance of influenza vaccine due to the patient's risk of contractin g the disease. A handout was given to enchance understand ing of the effects and side effects of the vaccine. [id number] Yaya Brock III, MD [address] [address] 05/31/2017 09:10:20 05/31/2017 09:34:26 Chronic pain syndrome 434123302 G89.4 things are stable. she is using tramadol regularly and hydrocodon e for breakthrou gh. UDS is utd. contract in place. [place] [employer]SF[employer] checked at all rfs. Neuropathy 387050334 G62 .[address] Mora. nothing specific found at this point. he is setting up spinal tap as the last diagnostoc step. Degenerati on of cervical intervertebral disc 80461373 M50.30 underlying issue causing the neck pain. Asthma 660397721 J45.90 9 mild intermitte nt. no current ics use. rare recent rescue use. Gastroesop hageal reflux disease 654594582 K21.9 ppi Plantar fasciitis 768045 003 M72.2 [id number] Yaya Brock III, MD [address] [address] 08/25/2017 07:51:11 08/25/2017 08:15:16 Lower abdominal pain 84887925 R10.30 recurrent spells, but this was the worst she has had. she has had mltpl surgeries. I woul drecommend CT and cscope. Constipation 00581219 K5 9.00 she has had some issues with this chronicall y. start colace daily. Leukocytosis 048747816 D 72.829 recheck wbc. [id number] Mick Wells MD [facility] [address] [place] [address],[place] [address] 09/04/2017 10:59:14 09/04/2017 11:54:09 Abdominal pain 59215324 R10.9 Recurring episodes of abdominal pain, sometimes associated with nausea or vomiting, not well localized. CT finding of small bowel intussusce ption is in my experience due to normal phenomena of peristalsi s, not usually reproducib le. I doubt that is the cause of her symptoms. This certainly does not seem to be any definite or high-grade obstructio n on the CT. I have ordered a small bowel series to further investigat e the above findings. I will also wanted a gallbladde r ultrasound to rule out that as an etiology. [id number] Yaya Brock III, MD [address] [address] 09/28/2017 12:03:39 09/28/2017 13:52:59 Chronic pain syndrome 086538705 G89.4 [id number] Yaya Brock III, MD [address] [address] 02/14/2018 14:35:42 02/20/2018 14:31:47 Chronic pain syndrome 702681405 G89.4 things are stable. she is using tramadol regularly and hydrocodon e for breakthrou gh. UDS today. contract in place. [place] [employer] checked at all rfs. she is exercising some, which is great Neuropathy 974181388 G62 .9 stable. Degenerati on of cervical intervertebral disc 53062823 M50.30 underlying issue causing the neck pain. Asthma 887331287 J45.90 9 mild intermitte nt. no current ics use. rare recent rescue use. Gastroesop hageal reflux disease 233696662 K21.9 ppi Intussusce ption of intestine 27848204 K56.1 better. no recurrent sxs. Hypothyroidism 20431028 E03.9 [id number] Yaya Brock III, MD [address] [address] 06/15/2018 13:42:29 06/15/2018 16:26:09 Chronic pain syndrome 387196995 G89.4 things are stable. she is using tramadol regularly and hydrocodon e for breakthrou gh. UDS today. contract in place. [place] [employer] checked at all rfs. she is exercising some, which is great Neuropathy 963883464 G62 .9 stable. Degenerati on of cervical intervertebral disc 36637385 M50.30 underlying issue causing the neck pain. Asthma 447778181 J45.90 9 mild intermitte nt. no current ics use. rare recent rescue use. Gastroesop hageal reflux disease 918619377 K21.9 ppi Hypothyroidism 34135258 E03.9 Drug-induc ed constipation 85981096 K59.03 discussed movantik. she will stick with current regimen. Body mass index 30+ - obesity 491645251 Z68.39 she is exercising regularly now. [id number] MD Santino Yoo III[address] [address] 08/17/2018 08:38:08 08/17/2018 10:39:27 Adult health examination 906583807 Z00.00 labs are pretty much utd. last lipid wth excellent. she needs to lose weight. work on diet and exercise. Screening mammography 24 082164 Z12.31 Pain in right knee 38656 99115 81687 M25.561 correct the fallen arch with arch supports. let me know if that doesnt help. Allergic rhinitis 680865 04 J30.9 perennial allergic rhinitis, skin reactions, asthma. trial montelukas t. Chronic pain syndrome 37 5737952 G89.4 things are stable. she is using tramadol regularly and hydrocodon e for breakthrou gh. UDS today. contract in place. [place] [employer] checked at all rfs. she is exercising some, which is great Neuropathy 492566923 G62 .9 stable. Degenerati on of cervical intervertebral disc 25774335 M50.30 underlying issue causing the neck pain. Asthma 977649966 J45.90 9 mild intermitte nt. no current ics use. rare recent rescue use. Gastroesop hageal reflux disease 181740222 K21.9 ppi Hypothyroidism 87960171 E03.9 tsh good. Drug-induc ed constipation 63730125 K59.03 discussed movantik. she will stick with current regimen. Body mass index 30+ - obesity 623420642 Z68.39 she is exercising regularly now. [id number] Yaya Brock III, MD [facility] [address] [place] [address] 11/30/2018 14:38:25 11/30/2018 15:18:55 Low back pain 800039647 M54.5 walk, stretch, moist heat. will setup pt if that doesnt work. Allergic rhinitis 189602 04 J30.9 better on singulair Chronic pain syndrome 37 7604126 G89.4 things are stable. she is using tramadol regularly and hydrocodon e for breakthrou gh. UDS today. contract in place. [place] [employer] checked at all rfs. she is exercising some, which is great Neuropathy 154578291 G62 .9 stable. Degenerati on of cervical intervertebral disc 85277215 M50.30 underlying issue causing the neck pain. Asthma 638931939 J45.90 9 mild intermitte nt. no current ics use. rare recent rescue use. Gastroesop hageal reflux disease 201635949 K21.9 ppi Hypothyroidism 29840778 E03.9 tsh good. Drug-induc ed constipation 92299802 K59.03 discussed movantik. she will stick with current regimen. Body mass index 30+ - obesity 904250329 Z68.39 she is exercising regularly now. [id number] Yaya Brock III, MD [facility] [address] [place] [address] 04/26/2019 11:27:44 04/26/2019 12:18:51 Allergic rhinitis 90288565 J30.9 better on singulair Chronic pain syndrome 37 3698143 G89.4 neck has flared a bit. she will see how this goes. if doesnt improve soonish-ly , then re mri and referral to pain management for possible injection. she is using tramadol regularly and hydrocodon e for breakthrou gh. UDS today. contract in place. [employer] [employer] checked at all rfs. she is exercising some, which is great Neuropathy 910868159 G62 .9 stable. Degenerati on of cervical intervertebral disc 39893203 M50.30 underlying issue causing the neck pain. Asthma 512110011 J45.90 9 mild intermitte nt. no current ics use. rare recent rescue use. Gastroesop hageal reflux disease 268040751 K21.9 ppi Hypothyroidism 30495225 E03.9 tsh good. Drug-induc ed constipation 68748027 K59.03 discussed movantik. she will stick with current regimen. Body mass index 30+ - obesity 550253282 Z68.39 she is exercising regularly now. Adult heal th examination 083332393 Z00.00 labs today Plantar fasciitis 608500 003 M72.2 injected [id number] Yaya Brock III, MD [address] [address] 10/23/2019 10:43:16 10/23/2019 12:07:04 Eruption 547141437 R21 tinea vs eczematous . trial of topical steroid. Chronic constipation 236 599780 K59.09 try lactulose Allergic rhinitis 678875 04 J30.9 better on singulair Chronic pain syndrome 37 8904829 G89.4 neck has flared a bit. she will see how this goes. if doesnt improve soonish-ly , then re mri and referral to pain management for possible injection. she is using tramadol regularly and hydrocodon e for breakthrou gh. UDS today. contract in place. [employer] checked at all rfs. she is exercising some, which is great Neuropathy 797439090 G62 .9 stable. Degenerati on of cervical intervertebral disc 69865750 M50.30 underlying issue causing the neck pain. Asthma 007578011 J45.90 9 mild intermitte nt. no current ics use. rare recent rescue use. Gastroesop hageal reflux disease 838680146 K21.9 ppi Hypothyroidism 97287268 E03.9 tsh good. Body mass index 30+ - obesity 569939581 Z68.39 she is exercising regularly now. Low back pain 010532403 M54.5 check xray. she has a lot of morning stiffness. ok to use some morning alleve. monitor closely for stomach sxs. pt when they open. [id number] [facility] [address] [place] [address] 05/04/2020 11:50:31 05/04/2020 12:44:02 Adult health examination 956442771 Z00.00 Clara is having more [pain. see below. continue to work on weight loss, diet, exercise. full labs today. phq9 negative. Screening mammography 24 419327 Z12.31 Screening for malignant neoplasm of cervix 433223528 Z12.4 Chronic pain syndrome 37 6588735 G89.4 a flare. I will increase the strength of her as needed hydrocodon e ( same amt) I will refer her to [facility] to help us with med options. Pityriasis versicolor 56 709121 B36.0 Chronic constipation 236 107925 K59.09 lactulose helps. Allergic rhinitis 880024 04 J30.9 better on singulair Neuropathy 482029307 G62 .9 stable. Degenerati on of cervical intervertebral disc 53196527 M50.30 underlying issue causing the neck pain. Asthma 552565676 J45.90 9 mild intermitte nt. no current ics use. rare recent rescue use. Gastroesop hageal reflux disease 803504329 K21.9 ppi Hypothyroidism 56950251 E03.9 recheck tsh Body mass index 30+ - obesity 533465954 Z68.39 she is exercising regularly now. Low back pain 994344978 M54.5 disc related. [id number] [facility] [address] [place] [address] 05/11/2021 11:27:42 05/11/2021 12:07:36 Adult health examination 339184832 Z00.00 Clara is doing ok. labs today. phq9 negative. pap is utd. mammogram is utd.discus s cscope/col on screening. Screening mammography 24 354177 Z12.31 utd. Screening for malignant neoplasm of colon 458199659 Z12.11 I recommende d cscope. she is reluctant. she will consider. Chronic pain syndrome 37 3580415 G89.4 stable,due to cervical disc disease and fibromylag ia.she is functionin g well on current regimen. contract on file.UDS is due Chronic constipation 236 948539 K59.09 I will try some linzess and amitiza Neuropathy 335451710 G62 .9 stable. Degenerati on of cervical intervertebral disc 69326151 M50.30 underlying issue causing the neck pain. Asthma 212580877 J45.90 9 she has had a flare since uri.some prednisone Gastroesop hageal reflux disease 100844499 K21.9 ppi Hypothyroidism 87948756 E03.9 recheck tsh Body mass index 30+ - obesity 879585112 Z68.39 she is exercising regularly now. Lateral ep icondylitis of right humerus 7785203029 59361 M77.11 brace recommende d [id number] Yaya Brock III, MD [facility] [address] [place] [address] 11/02/2021 14:25:18 11/02/2021 15:43:38 Chronic pain syndrome 861374686 G89.4 stable,due to cervical disc disease and fibromyalg ia.she is functionin g well on current regimen. contract on file.UDS is due Chronic constipation 236 176883 K59.09 we tried amitiza, it didn work.she is doing better with the regular lactulose. Neuropathy 284451309 G62 .9 stable. Degenerati on of cervical intervertebral disc 09828554 M50.30 underlying issue causing the neck pain. Asthma 418119810 J45.90 9 she has had a flare since uri. Gastroesop hageal reflux disease 665959434 K21.9 ppi Hypothyroidism 42231084 E03.9 labs ok [place] Body mass index 30+ - obesity 900623819 Z68.39 she is exercising regularly now. [id number] Parrish Uribe MD [facility] [address] [place] [address] [place] [address] 12/03/2021 14:44:16 12/03/2021 16:03:19 Chronic pain syndrome 613034171 G89.4 Degenerati on of cervical intervertebral disc 52017027 M50.30 Primary fi bromyalgia syndrome 65212078 M79.7 Low back pain 490071585 M54.50 [id number] Parrish Uribe MD [facility] [address] [place] [address] [place] [address] 01/18/2022 14:22:53 01/18/2022 15:00:23 Chronic pain syndrome 870664631 G89.4 Degenerati on of cervical intervertebral disc 06730910 M50.30 Primary fi bromyalgia syndrome 28351794 M79.7 Degenerati on of lumbar intervertebral disc 39637072 M51.36 Arthropath y of lumbar facet joint 302921695 M47.640 [id number] Parrish Uribe MD [facility] [address] [place] [address] [place] [address] 02/10/2022 14:07:03 02/10/2022 14:33:33 Chronic pain syndrome 696598545 G89.4 Degenerati on of cervical intervertebral disc 66692623 M50.30 Primary fi bromyalgia syndrome 57908181 M79.7 Degenerati on of lumbar intervertebral disc 19201023 M51.36 Arthropath y of lumbar facet joint 024168801 M47.942 [id number] Ashley Gaitan MD [facility] [address] [place] [address] 05/09/2022 10:50:55 05/09/2022 12:05:53 Adult health examination 992133391 Z00.00 She is agreeable to her first colonoscop y. Pap smear done 10/28/20 WNL, repeat in 2025. Mammo done 10/28/20, she is agreeable for a repeat mammogram. Tetanus UTD 07/03/12. Flu vaccine UTD from work (04/07/22). STI screening declined. Planning dental care. Routine eye exam UTD. Discussed mindful eating and exercise. Seat belts and sunscreen encouraged . Check labs: CBC, CMP, TSH, A1C, & lipid panel. PHQ9 score 0. Follow up at annual physical, or sooner if needed. Screening mammography 24 943533 Z12.31 Mammo done 10/28/20, she is agreeable for a repeat mammogram. Screening for malignant neoplasm of cervix 114487041 Z12.4 Pap smear done 10/28/20 WNL, repeat in 2025. Screening for malignant neoplasm of colon 986939739 Z12.11 She is agreeable to her first colonoscop y. Bilateral wrist pain 675 3144008 0468752 M25.531 Patient has bilateral (R > L) wrist pain/numbn ess. 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 She has been wrist bracing and using NSAIDs prn with mild relief. Will refer to ortho. Body mass index 30+ - obesity 153040076 Z68.38 BMI 38.9 and weight 213lbs 6oz. She reports 20lb weight gain in the past couple of months. Check thyroid levels to rule out thyroid etiology. Continue healthy diet and exercise. Consider referral to medical weight program. Allergic rhinitis 577261 04 J30.9 Well managed with OTC meds. Arthropath y of lumbar facet joint 561511781 M47.816 See above under chronic pain syndrome . Chronic pain syndrome 37 3661507 G89[address] Uribe. She is taking She is taking Lyrica 100mg BID, chlorzoxaz one 500mg BID prn, and tramadol 100mg BID prn. Degenerati on of cervical intervertebral disc 12722134 M50.30 See above under chronic pain syndrome . Degenerati on of lumbar intervertebral disc 68086087 M51.36 See above under chronic pain syndrome . Primary fi bromyalgia syndrome 94305130 M79.7 See above under chronic pain syndrome . Asthma 789349723 J45.90 9 Well managed with Symbicort BID and Ventolin prn. Edema 470515829 R60.9 Continue furosemide 20mg daily prn. Gastroesop hageal reflux disease 620943087 K21.9 Continue omeprazole 40mg daily. Hypothyroidism 69579124 E03.9 Clara is taking levothyrox ine 50mcg daily. Check thyroid levels today. Insomnia 659024670 G47.0 0 Well managed with trazodone 50-100mg nightly prn. Iron deficiency 47691987 E61.1 Continue multivitam in with iron. [id number] MD [facility] [address] [place] [address] [place] [address] 05/03/2022 14:42:34 05/03/2022 15:31:40 Chronic pain syndrome 431528981 G89.4 Degenerati on of cervical intervertebral disc 89674715 M50.30 Primary fi bromyalgia syndrome 26140392 M79.7 Degenerati on of lumbar intervertebral disc 37731810 M51.36 Arthropath y of lumbar facet joint 558504613 M47.891 [id number] MD [facility] [address] [place] [address] [place] [address] 06/27/2022 10:45:12 06/27/2022 11:18:55 Chronic pain syndrome 536600747 G89.4 Degenerati on of cervical intervertebral disc 54763970 M50.30 Primary fi bromyalgia syndrome 28387451 M79.7 Degenerati on of lumbar intervertebral disc 59267331 M51.36 Arthropath y of lumbar facet joint 077529465 M47.514 [id number] Ashley Gaitan MD [facility] [address] [place] [address] 07/29/2022 13:24:55 07/29/2022 13:53:04 Congestion of nasal sinus 42440308 R09.81 Has had chronic congestion now w/ signficant amount of otc/prescr ibed therapies failed. Recommend we trial nasal steroid not trialed however needs further imaging d/t chronicity of symptoms. Will send to [facility] per pt request. [id number] MD [facility] [address] [place] [address] [place] [address] 08/29/2022 11:55:30 08/29/2022 12:43:27 Chronic pain syndrome 772025985 G89.4 Primary fi bromyalgia syndrome 40159870 M79.7 Degenerati on of lumbar intervertebral disc 66880217 M51.36 Arthropath y of lumbar facet joint 801354335 M47.816 Lumbar radiculopathy 128 884851 M54.16 left [id number] SAIMA RANDLE NP [facility] [address] [place] [address] 11/07/2022 15:25:18 11/07/2022 16:21:58 Body mass index 30+ - obesity 571393880 Z68.38 Weight 233lbs 2oz and BMI 39.2. She has struggled with obesity all of her life, and there is a genetic component. We reviewed her diet/exerc ise, and she appears to be doing a good job with portion size, healthy food choices, and prioritizi ng protein. We discussed GLP-1 agonists, which she wanted to try. Trial Ozempic ordered below. She is aware of possible side effects. She denies any hx MTC or pancreatit is. She is aware of the administra tion surroundin g this medication . Plan is to increase to next dose after 1 month. Follow up in 3 months. Starting weight: 233lbs 2 oz Addendum: Clara has been participat ing in behavioral modificati ons (healthy diet & exercise) for at least 3 months. Chronic pain syndrome 37 8124355 G89[address] Uribe. She is taking She is taking Lyrica 100mg BID, chlorzoxaz one 500mg BID prn, and tramadol 100mg TID prn. She has requested to transfer pain management back to her primary care. I advised that since this has been her regimen for some time now, I am willing to take it over. [facility] today. UTOX obtained today as well. Arthropath y of lumbar facet joint 021860927 M47.816 See above under chronic pain syndrome . Degenerati on of cervical intervertebral disc 78460075 M50.30 See above under chronic pain syndrome . Degenerati on of lumbar intervertebral disc 18151088 M51.36 See above under chronic pain syndrome . Primary fi bromyalgia syndrome 81728821 M79.7 See above under chronic pain syndrome . Edema 117317891 R60.9 Continue furosemide 20mg daily prn. Check CMP & microalbum in today. Hypothyroidism 87851872 E03.9 Clara is taking levothyrox ine 50mcg daily. TSH NL 05/2022, no need to repeat. Iron deficiency 07295804 E61.1 Continue multivitam in with iron. Check iron profiel today. Carpal laureano giovani syndrome 63900903 G56.01 She had the right wrist operated on last week, and notes it has been going well. She has an EMG scheduled for the left wrist. Continue to follow with orthopedic s. [id number] Parrish Uribe MD [facility] [address] [place] [address] [place] [address] 10/24/2022 10:59:08 10/24/2022 12:13:15 Chronic pain syndrome 364279376 G89.4 Primary fi bromyalgia syndrome 89725306 M79.7 Degenerati on of lumbar intervertebral disc 69211767 M51.36 Arthropath y of lumbar facet joint 711056164 M47.981 [id number] Ashley Gaitan MD [address] [address] 01/26/2023 13:26:46 01/26/2023 14:24:38 Body mass index 30+ - obesity 180920086 Z68.38 Weight is 213 pounds 6 ounces and BMI is 35.8. She is down 20 pounds since 2 months ago. She has been taking Saxenda 3 mg daily without side effects. She was commended on her progress thus far. We reviewed her diet and exercise. It appears that there is room to improve in the exercise category. She is encouraged to continue with her healthy habits. Continue Saxenda 3 mg daily. Follow-up at [facility] on 05/15/23. [id number] Ashley Gaitan MD [facility] [address] [place] [address] 07/17/2023 13:50:44 07/17/2023 14:39:27 Adult health examination 054814942 Z00.00 Colonoscop y is pending.Pa p smear 10/2020, repeat in 5 years (2025).Emma mo 06/2022, repeat ordered mammo below.Teta nus done 2012, booster administer ed today.Flu vaccine UTD.Dental care is due.Routin e eye exam is UTD.Discus sed mindful eating & exercise. Seat belts and sunscreen encouraged .Check labs: CBC, CMP, TSH, A1C, vitamin D, iron profile, ferritin, toxassure, microalbum in, & lipid panel.PHQ9 score 1. Follow up at annual physical, or sooner if needed. Screening mammography 24 910507 Z12.31 Mammo 06/2022, repeat ordered mammo below. Administra tion of diphtheria, pertussis, and tetanus vaccine 975871416 Z23 Tetanus booster administer ed today. Screening for malignant neoplasm of cervix 214734840 Z12.4 Pap smear done 10/28/20 WNL, repeat in 2025. Screening for malignant neoplasm of colon 658497838 Z12.11 She is agreeable to her first colonoscop y. Body mass index 30+ - obesity 046318980 Z68.38 Weight is 209 pounds and BMI 35.1. He has lost 4 pounds since the previous visit. We have not been able to get Saxenda due to stock issues. She has been taking bupropion XL 150 mg daily and naltrexone 50 mg once daily. She denies any side effects to these. Diet/exerc ise were reviewed. Allergic rhinitis 374736 04 J30.9 She is managing with OTC medication s. However, symptoms are still bothersome . She is seeing ENT, who is advising skin allergy testing. She has to call them to schedule. Chronic pain syndrome 37 1857030 G89.4 Clara no longer sees Dr. Uribe. She is taking She is taking Lyrica 100mg BID, chlorzoxaz one 500mg BID prn, and tramadol 100mg BID prn. CSRP 11/2022, repeat UTOX today. Arthropath y of lumbar facet joint 304641207 M47.816 See above under chronic pain syndrome . Degenerati on of cervical intervertebral disc 99003791 M50.30 See above under chronic pain syndrome . Degenerati on of lumbar intervertebral disc 74264362 M51.36 See above under chronic pain syndrome . Primary fi bromyalgia syndrome 12296762 M79.7 See above under chronic pain syndrome . Asthma 116641277 J45.90 9 Well managed with Symbicort BID and Ventolin prn. Edema 610358889 R60.9 Continue furosemide 20mg daily prn. Gastroesop hageal reflux disease 817821914 K21.9 Continue omeprazole 40mg daily and TUMS prn. Hypothyroidism 13502776 E03.9 Clara is taking levothyrox ine 50mcg daily. Check thyroid levels today. Insomnia 548621258 G47.0 0 Well managed with trazodone 50-100mg nightly prn. Iron deficiency 46688465 E61.1 She is not able to tolerate iron, even Slow Fe. Check CBC, iron profile, and ferritin today. Vitamin D deficiency 347 04681 E55.9 She is currently supplement ing with vitmain D 50,000 units weekly. Check vitamin D today. Sleep disorder 05570746 G47.9 Patient has had a month movement issues and irregular breathing at night when asleep. There is some question of KATHRYN as well as sleep movement disorder. Check home sleep study and referral sent to sleep medicine. [facility] ion care management [id number] Z30.9 She has had the IUD in for ~7 years, it is time to replace. Referral sent to [facility]. [id number] MD [facility] [address] [place] [phone] 08/29/2023 11:27:46 08/29/2023 12:30:20 Iron deficiency anemia [id number] D50.9 AnemiaIn 2019, the [employer] n has issued recommenda tions regarding GI evaluation of iron deficiency anemia (De GUERRERO, et al. Gastroente rology 2019Jan 17.) Same-day bidirectio nal endoscopy is recommende d. In our pt? s case, the etiology is highly likely her gastric bypass but, to leave no stone unturned, we have recommende d EGD and colonoscop y with 2-day liquid diet and a gallon of polyethyle ne glycol prep on each day spread out throughout the whole day.We can anticipate a difficult colonoscop y because she has a long and redundant colon as a result of her morbid obesity. In addition, after her multiple abdominal operations , we can anticipate adhesions. We have discussed this with the patient and she is aware that the procedure may not be able to be completed. In her case, is almost certainly explained by her previous gastric bypass as explained below. Chronic id iopathic constipation [id number] K59.04 She has a lifelong history of constipati on and this is probably related to her redundant long colon that of course increases the transfer time and allows for more efficient water absorption . She has previously not had easy results MiraLAX, Senokot, and lactulose and we will try a guanylate cyclase activator (once-adal y linaclotid e (290 ? ? ?g). If that does not work, we could try the chloride channel activator Lubiprosto ne Amitiza. History of bariatric surgical procedure [id number] Z98.84 After bariatric surgery, patients have a malnutriti on syndrome, that is what the surgery is all about. Not surprising ly therefore, this can cause deficienci es in vitamin B 12, iron, calcium, fat soluble vitamins (A, D, E, K), thiamine and folate. I am certain that multiple additional issues are involved that we are not aware of as yet. To avoid deficienci es, she should have regular f/u with her bariatric team. [id number] Feroz Potts MD [facility] [address] [place] [phone] 08/29/2023 12:53:11 08/29/2023 13:47:25 Contraception care management [id number] Z30.9 Wants IUD R&R Risks and side effects explained. [id number] Feroz Potts MD [facility] [address] [phone] 09/26/2023 14:35:09 09/26/2023 15:28:58 Uses IUD (intrauterine device) contraception [id number] Z97.5 [id number] CINTHYA MCDONNELL MD [facility] [address] [place] [phone] 7 11/15/2023 11:20:54 11/15/2023 14:05:43 Body mass index 30+ - obesity [id number] Z68.38 Weight is 224lbs 2oz, she has gained 3lbs since last month. She is not responding to naltrexone or buproprion . She has an upcoming appointmen t with the weight program, seeing Saima Sykes 12/13/23. Diet/exerc ise were reviewed. Allergic rhinitis 985236 04 J30.9 She is managing with OTC medication s. She saw ENT who noted a mild deviated septum, but did not recommend surgery. She would like a second opinion, ordered below. Chronic pain syndrome 37 9811219 G89.4 Clara no longer sees Dr. Uribe. She is taking She is taking Lyrica 100mg BID, chlorzoxaz one 500mg BID prn, and tramadol 100mg BID prn. CSRP signed today 11/15/23, repeat UTOX today. Arthropath y of lumbar facet joint [id number] M47.816 See above under chronic pain syndrome . Degenerati on of cervical intervertebral disc 98283100 M50.30 See above under chronic pain syndrome . Degenerati on of lumbar intervertebral disc 80332254 M51.36 See above under chronic pain syndrome . Primary fi bromyalgia syndrome 06320517 M79.7 See above under chronic pain syndrome . Asthma 210650615 J45.90 9 Well managed with Symbicort BID and Ventolin prn. Edema 031643883 R60.9 Continue furosemide 20mg daily prn. Gastroesop hageal reflux disease 142893246 K21.9 Continue omeprazole 40mg daily (indefinit chato as recommende d by GI) and TUMS prn. She is aware of chronic PPI use risks. Hypothyroidism 81997779 E03.9 Continue levothyrox ine 50mcg daily. Check thyroid levels today. Insomnia 661229406 G47.0 0 Well managed with trazodone 50-100mg nightly prn. Iron deficiency 55129409 E61.1 She is not able to tolerate iron, even Slow Fe. Check CBC, iron profile, and ferritin today. Consider infusions if ferritin is low. Vitamin D deficiency 347 98985 E55.9 She is no longer supplement ing with vitamin D, check vitamin D level today. Deviated nasal septum 12 3637996 J34.2 She has a deviated septum, but her ENT did not think surgery is indicated. She would like a second opinion, ordered below. Pain of le ft hip joint [id number] 75930 M25.552 Left hip/buttoc k pain could represent sciatica. Symptoms are intermitte nt. Recommende d PT, she is agreeable. Also check left hip x-ray per patient request. If symptoms worsen/per sist, consider ortho referral and/or MRI. Obstructiv e sleep apnea syndrome 61557913 G47.33 Patient with mild KATHRYN per HST done 11/02/23. She is not interested in CPAP at this time, she wants to consider ENT surgery for her deviated septum. In the meantime, recommende d sleeping on the side, with HOB elevated, and continued work on weight loss. [id number] Ashley Gaitan MD [facility] [address] [place] [phone] 12/13/2023 11:04:18 12/13/2023 11:46:37 Body mass index 30+ - obesity 066392283 Z68.38 Clara presents for OM consult. She was prescribed Saxenda by her PCP and was having difficulty getting this medication as there have been supply issues. Today we discussed diet, labs, ekg. Her lowest and highest adult weight: 175# was lowest adult weight 2002. Highest weight was 319# in 2001.Curre nt Diet: None but is on Saxenda which is suppressin g her appetite.D ieting/bar iatric surgery history: Gastric bypass surgery in 2001. in 2005 and she gained some of the weight back. She is also hypothyroi dExercise habits: No exercise. She works 80 hours a weekPerson al and weight goals: 175#John rs: Hypothyroi dism and work scheduleMe ds tried: Saxenda. She has been on this medication and is now on 2.1mg and will increase to 3mg. She has lost 4#. Today she will start 3mg Saxenda.We ight related Complicati ons: Asthma worse with weight gain. Back and knee painPlan: Diet given to follow. She will consume 100gms of protein daily with less than 50 gms of carbs and 1700 agata/day. . She will attempt to wean herself off simple carbs and not eat after 6pm. I will prescribe Wegovy as a weekly injection once she completes Saxenda 3mg dose which is next week. Side effects and mechanism of action discussed. She will RTC in 6 weeks.I spent a total of 50 minutes today on this patient encounter which included:? Preparing to see the patient with review of medical record including prior visits? Obtaining history and performing a medically appropriat e exam.? Ordering medication s? Documentin g clinical informatio n in the health record Obstructiv e sleep apnea syndrome [id number] G47.33 Had HST but some KATHRYN might be from deviated septum. She is following up with ENT Iron defic iency anemia 92100174 D50.9 She is being referred to hematology for IV iron infusions. Does not tolerate oral iron Insulin resistance 72760 5000 E88.819 We have discussed the adverse health consequenc es of obesity today as well the benefits of weight loss. We have focused on both diet and exercise management strategies in our discussion today. Will continue to monitor and assess. [id number] Ashley Gaitan MD [address] [phone] 01/23/2024 12:24:33 01/23/2024 13:46:53 Obesity 608404341 E66.9 Clara returns for follow up. She was able to get Wegovy 1.7mg. She transition ed from [facility] to [facility]. Diet: Coffee, Beninese yogurt, snack, Lunch: lean cuisine, dinner protein, vege. Exercise: She has been walking the dog a few times a week. Weight today 213.8#. She started at 224# so she has lost almost 11#. She denies side effects on Wegovy. On Saxenda she was a little nauseous. Plan: Continue Wegovy 1.7mg and continue with healthy lifestyle changes. RTC in 2 months. [id number] Ashley Gaitan MD [address] [phone] 03/26/2024 12:10:08 03/26/2024 12:20:29 Body mass index 30+ - obesity 882941661 Z68.38 Clara presents for follow up visit. She has had no side effects from Wegovy. Depression screen negative. Her diet has not changed since last visit. She is feeling better and has more energy. She is walking her new puppy daily. She is also working out with resistance bands. She has no appetite so she has to remind herself to eat. She is trying to eat more protein.Me dications to augment weight loss: Wegovy 2.4mg--she has been on this for 2 weeks.Init ial Weight: 224#KAYCEE (last office visit) weight: 213.8#Toda y? s weight: 204.4#Olmos ge since KAYCEE:9.4Tot al change:19. 6#Plan: Continue with Wegovy 2.4mg and healthy lifestyle changes. RTC 6 weeks. [id number] Ashley Gaitan MD [address] [phone] 05/14/2024 12:31:48 05/14/2024 12:41:35 Body mass index 30+ - obesity [id number] Z68.38 Clara presents for follow up visit. She has had no side effects from Wegovy 2.4mg. Depression screen negative. Her diet has not changed since last visit. Still has limited appetite. She is feeling better and has more energy. She is walking her new puppy daily but the weather isn't cooperatin g. She continues working out with resistance bands. She is down 3 sizes in her jeans.Medi cations to augment weight loss: Wegovy 2.4mg--she has been on this for 2 weeks.Init ial Weight: 224#KAYCEE (last office visit) weight: 204.4#Toda y? s weight: 198.8#Olmos ge since KAYCEE: 5.6Total change:25. 2#Plan: Continue with Wegovy 2.4mg and healthy lifestyle changes. RTC 6 weeks. [id number] Ashley Gaitan MD [address] [phone] 07/23/2024 12:43:13 07/23/2024 13:19:59 Body mass index 30+ - obesity [id number] E66.9 Clara presents for follow up visit. [...] Concerns Section Related Observation LastModified by Organization Detai ls LastModified Time None Recorded Concern Status LastModified by Organization Details LastModified Time None Recorded Advance Directives Directive N: Payers Encounter Date Sequence Insurance Name Policy Number Policy Dunaway Covered Member ID Dunaway Member ID Guarantor Name 12/13/2023 1 [facility] [id number] Clara L Marcil [id number] Clara L Marcil 01/23/2024 1 [facility] [id number] Clara L Marcil [id number] Clara L Marcil 03/26/2024 1 [facility] [id number] Clara L Marcil [id number] Clara L Marcil 05/14/2024 1 [facility] [id number] Clara L Marcil [id number] Clara L Marcil 07/23/2024 1 [facility] [id number] Clara L Marcil [id number] Clara L Marcil Notes Date Note Type Note Provider Name and Address Organization Details Recorded Time 4 text/html ObesityReported bypatient.Notes:Lowest and highest adult weight: 175# was lowest adult weight 2002. Highest weight was 319# in 2001.Current Diet: None but is on Saxenda which is suppressing her appetite.Dieting/bariatr ic surgery history: Gastric bypass surgery in 2001. in 2005 and she gained some of the weight back. She is also hypothyroidExercise habits: No exercise. She works 80 hours a weekPersonal and weight goals: 175#Barriers: Hypothyroidism and work scheduleMeds tried: Saxenda. She has been on this medication and is now on 2.1mg and will increase to 3mg. She has lost 4#. Today she will start 3mg Saxenda.Weight related Complications: Asthma worse with weight gain. Back and knee pain Ashley Gaitan MD [address] [place], [phone], [facility] 12/21/2023 18:22:28 4 text/html Clara returns for follow up. She was able to get Wegovy 1.7mg. She transitioned from Saxenda to Wegovy. Diet: Coffee, Beninese yogurt, snack, Lunch: lean cuisine, dinner protein, vege. Exercise: She has been walking the dog a few times a week. Weight today 213.8#. She started at 224# so she has lost almost 11#. She denies side effects on Wegovy. On Saxenda she was a little nauseous. Ashley Gaitan MD [address] [place], [phone], [facility] 01/23/2024 14:00:58 4 text/html ObesityReported bypatient.Notes:Clara presents for follow up visit. She has had no side effects from Wegovy. Depression screen negative. Her diet has not changed since last visit. She is feeling better and has more energy. She is walking her new puppy daily. She is also working out with resistance bands. She has no appetite so she has to remind herself to eat. She is trying to eat more protein.Medications to augment weight loss: Wegovy 2.4mg--she has been on this for 2 weeks. Initial Weight: 224# KAYCEE (last office visit) weight: 213.8# Today? ? ? s weight: 204.4# Change since KAYCEE:9.4 Total change:19.6# Ashley Gaitan MD [address] [place], [phone], [facility] 03/31/2024 11:37:53 4 text/html Clara presents for follow up visit. She has had no side effects from Wegovy 2.4mg. Depression screen negative. Her diet has not changed since last visit. Still has limited appetite. She is feeling better and has more energy. She is walking her new puppy daily but the weather isn't cooperating. She continues working out with resistance bands. She is down 3 sizes in her jeans.Medications to augment weight loss: Wegovy 2.4mg--she has been on this for 2 weeks.Initial Weight: 224#KAYCEE (last office visit) weight: 204.4#Today? s weight: 198.8#Change since KAYCEE: 5.6Total change:25.2#Plan: Continue with Wegovy 2.4mg and healthy lifestyle changes. RTC 6 weeks. Ashley Gaitan MD [address] [place], [phone], [facility] 05/19/2024 20:42:05 5 text/html Clara presents for follow up visit. She [...] since KAYCEE: 4.8Total change:30# Ashley Gaitan MD [address] [place] [address], [phone], [facility] 07/23/2024 19:02:09 OBGyn Episode Ob Episode Information Episode Created Date Number of Fetuses Patient Bloodtype Patient rh Status Prepregnancy Weight lbs Domestic Partner Domestic Partner Phone Father Name Wire Coater Status 06/23/19 07 1 CLOSED Fetus Data First Name Last Name Admitted to NICU Weight (g) Sex Living Outcome Pediatric Complications Fetus ID Race Codes Race Delivery Type [id number] Kurt Calculation Initial Kurt Date Initial Exam Date Initial Exam Provider Initial Ultrasound Date Last Menstrual Period Date Ultra Sound Weeks Gestation 0 Eighteen To Twenty Week Kurt Update Ultra Sound Date Fundal Height At Umbil Quickening Date Ultra Sound Latest Weeks Gestation Final Kurt Confirmed By Final Kurt Confirmed Date Final Kurt Date Ultra Sound Latest Days Gestation 0 0 Menstrual History Last Menstrual Date Menses Monthly On Bcp Conception Prior Menses Frequency Hcg Plus Date Menarche Onset Age Delivery Information Delivery Date Delivery Type Labor Anesthesia Weeks Gestation Incision Type Labor Labor Length Hrs Delivered By Post Complications Tubal Sterilization Discharge Date Comments 6 delivery Discharge Information Feeding Method Contraceptive Method Maternal HG B and HCT Levels
== END 2024-08-02 07:10 | disposition home or self-care (01) ==
LOC: HO.HOSX 07:09
PROVIDERS: Visit Provider Physician Assistant
DX: M53.3 Sacrococcygeal disorders, not elsewhere classified (principal); M25.552 Pain in left hip
CPT/HCPCS: 73502

== ENCOUNTER 2024-08-02 08:36 | Outpatient (AMB) | payer OTHER, SELFPAY ==
--- OUTSIDE RECORDS SUMMARY | 2024-08-02 08:54 | XMS_ITS | Continuity of Care Document ---
Author Organization [facility] Address [address] [place] [address] Care Team Providers Care Cellophane Worker Name Role Phone CINTHYA MCDONNELL Primary Care Provider CINTHYA MCDONNELL Referring Provider Assessment No assessment recorded. Plan of Treatment Reminders Order Date Submit Date Provider Last Modified By Organization Details Last Modified Time Details Appointments PCP-Phys ical-30 Min 2024 02:00P M CINTHYA MCDONNELL MD Not available Not available Not available AMB TELEMED (OSMEL) 30 2024 11:30A M Yaya mclain MD Not available Not available Not available PCP-Offi ce Visit-15 Min 2024 11:30A M Saima Sykes NP Not available Not available Not available Lab None recorded . Referral None recorded . Procedures None recorded . Surgeries None recorded . Imaging None recorded . Medication Orders None recorded . Patient TargetsNo targets recorded. Patient InstructionsNo instructions recorded. Reason for Referral None Reported. 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 puerperi - delivere d [id number] Completed 09/25/2019 Yaya Brock III, MD [address] [place] [address] [place], [address] , [facility] 0 06:21:13 Abscess of Bartholi n's gland 33723748 Completed 09/20/2019 Yaya Brock III, MD [address] [place] [address] [place], [address] , [facility] 0 06:47:55 Complica tion of pregnanc y, childbir th and/or puerperi um 341581649 Completed 09/20/2019 Yaya Brock III, MD [address] [facility] [place], [address] , [facility] 0 06:47:17 Abdomina l pain 46248028 Completed 09/20/2019 Yaya Brock III, MD [address] [facility] [place], [address] , [facility] 0 06:47:23 Chronic pain syndrome 532803596 Active UTOX done 11/2023 SAIMA RANDLE NP [address] [facility] [place], [address] , [facility] 4 19:54:27 Degenera tion of cervical interver tebral disc 67834377 Completed 201302/02/2023 SAIMA RANDLE NP [address] [facility] [place], [address] , [facility] 3 09:37:18 Cervical spondylo sis 873750869 Completed 09/20/2019 Yaya Brock III, MD [address] [place] [address] [place], [address] , [facility] 0 06:48:07 Primary fibromya lgia syndrome 90321114 Active Not Available [facility] 4 16:46:28 Hypoglyc emia 051326635 Completed 09/25/2019 Yaya Brock III, MD [address] [place] [address] [place], [address] , [facility] 0 06:21:18 Fibromyo sitis 12652574 Completed 201309/20/2019 Yaya Brock III, MD [address] [facility] [place], [address] , [facility] 0 06:48:16 Lymphade nopathy 11371478 Completed 200409/20/2019 Yaya Brock III, MD [address] [facility] [place], [address] , [facility] 0 06:47:41 Streptoc occal sore throat 52618459 Completed 201309/20/2019 Yaya Brock III, MD [address] [facility] [place], [address] , [facility] 0 06:47:47 Spasm 78271097 Completed 201309/20/2019 Yaya Brock III, MD [address] [facility] [place], [address] , [facility] 0 06:47:49 Cyst of Bartholi n's gland duct 94354588 Completed 201309/20/2019 Yaya Brock III, MD [address] [facility] [place], [address] , [facility] 0 06:47:53 Epigastr ic pain 40814243 Completed 200509/20/2019 Yaya Brock III, MD [address] [facility] [place], [address] , [facility] 0 06:47:59 Pain in limb 90565835 Completed 201309/20/2019 Yaya Brock III, MD [address] [facility] [place], [address] , [facility] 0 06:48:02 Generali zed abdomina l pain 505831137 Completed 200809/20/2019 Yaya Brock III, MD [address] [facility] [place], [address] , [facility] 0 06:47:08 Musculos keletal disorder of the neck 608479062 Completed 201309/20/2019 Yaya Brock III, MD [address] [facility] [place], [address] , [facility] 0 06:47:11 Extrinsi c asthma with asthma attack Completed 201309/20/2019 Yaya Brock III, MD [address] [facility] [place], [address] , [facility] 0 06:47:25 Gastroes ophageal reflux disease 455692720 Active 2013 Not Available [facility] 4 16:46:28 Edema 021768927 Completed 201309/20/2019 Taking furosemi de 20mg daily. SAIMA RANDLE NP [address] [facility] [place], [address] , [facility] 2 11:37:44 Anemia 377904653 Completed 201309/20/2019 Yaya Brock III, MD [address] [facility] [place], [address] , [facility] 0 06:47:30 Malaise and fatigue 578087040 Completed 200409/20/2019 Yaya Brock III, MD [address] [facility] [place], [address] , [facility] 0 06:47:33 Low back pain 609391267 Completed 200809/20/2019 Yaya Brock III, MD [address] [facility] [place], [address] , [facility] 0 06:47:38 Pain in wrist 58995169 Completed 09/20/2019 Yaya Brock III, MD [address] [facility] [place], [address] , [facility] 0 06:47:51 Closed fracture proximal phalanx, toe 652111420 Completed 09/20/2019 Yaya Brock III, MD [address] [facility] [place], [address] , [facility] 0 06:47:21 Acute bronchit is 13650679 Completed 03/08/2019 ROSAURA CHACKO NP [address] [place], [address] , [facility] 9 13:13:04 Asthma 529334253 Active Not Available [facility] 4 16:46:28 Iron deficien cy 23825898 Active 06/12/24 iron infusion note Taking a multivit padilla with iron in it. Heme denied referral per notice 08/21/23 SAIMA RANDLE NP [address] [place] [address], [address] , [facility] 5 10:23:14 Menopaus al flushing 791197824 Completed 09/20/2019 Yaya Brock III, MD [address] [place] [address], [address] , [facility] 0 06:47:15 Mammogra phy abnormal 942985018 Completed 09/20/2019 SAIMA RANDLE NP [address] [place] [address], [address] , [facility] 2 20:31:12 Hypothyr oidism 34777298 Active 2016 Not Available [facility] 4 16:46:28 Allergic rhinitis 92588750 Active 2020 Not Available [facility] 4 16:46:28 Degenera tion of lumbar interver tebral disc 47735644 Completed 202102/02/2023 SAIMA RANDLE NP [address] [place] [address], [address] , [facility] 3 09:37:19 Arthropa thy of lumbar facet joint 712249399 Completed 202102/02/2023 SAIMA RANDLE NP [address] [place], [place] [address], [address] , [facility] 3 09:37:14 Insomnia 031997631 Active 2021 Taking trazodon e 50-100mg prn. Not Available [facility] 4 16:46:28 Edema 794285735 Active 2013 Not Available [facility] 4 16:46:28 Carpal tunnel syndrome 03177815 Completed 202207/17/2023 YAMILE MEDINA [facility] [place], [address] , [facility] 4 14:26:58 Vitamin D deficien cy 74799874 Active 2023 Not Available [facility] 4 16:46:28 Obstruct naya sleep apnea syndrome 16560492 Active 202305/17/24 sleep note: Selected MAT tx, referred to Dr. Chow at [facility] in [facility]. SAIMA RANDLE NP [address] [place] [address] [place], [address] , [facility] 4 10:27:03 Pain of left hip joint 75530218733 9100 Active 2023 SAIMA RANDLE NP [address] [place] [address] [place], [address] , [facility] 4 13:36:02 Restless legs 66082125 Active 202305/17/24 sleep note: Continue to manage with PCP. Plan to refer to heme if iron deficien cy persists after iron infusion . SAIMA RANDLE NP [address] [place] [address] [place], [address] , [facility] 4 10:27:36 Notes:Some problems listed i n Documents: #[id number], #[id number], #[id number], #[id number], #[id number] could not be added to this patient's chart. Please review these documents and add these problems to the patient's chart manually as needed. Problem Notes None recorded. Procedures Surgical History Date Name Laterality Status Provider Name and Address Organization Details Recorded Time 07/23/19 25 Telemedicine Documentation completed YAMILE Nuñez [facility] [place], [address], [facility] 07/23/2024 12:49:53 05/14/20 24 Telemedicine Documentation completed Saima Sykes NP [address] [facility] [place], [address], [facility] 05/14/2024 12:37:40 03/26/20 24 Telemedicine Documentation completed Saima Sykes NP [address] [facility] [place], [address], [facility] 03/26/2024 12:17:40 01/23/20 24 Telemedicine Documentation completed Saima Sykes NP [address] [facility] [place], [address], [facility] 01/23/2024 12:35:51 12/13/19 24 BEDS-7 completed Saima Sykes NP [address] [facility] [place], [address], [facility] 12/13/2023 11:38:00 12/13/19 24 Purmela Sleepiness Scale completed Saima Sykes NP [address] [place], [place] [address], [address], [facility] 12/13/2023 11:38:42 10/05/19 24 Egd biopsy single/multiple completed Swapna Barrett LPN [facility] 10/05/2023 13:30:17 10/05/19 24 Colon ca scrn not hi rsk ind completed Swapna Barrett LPN [facility] 10/05/2023 13:31:39 09/26/19 24 IUD Insertion completed Feroz oPtts MD [address] [place], [place] [address], [address], [facility] 09/26/2023 15:41:17 09/26/19 24 IUD Removal completed Feroz Potts MD [address] [place], [place] [address], [address], [facility] 09/26/2023 15:41:10 07/17/19 24 Purmela Sleepiness Scale completed CHRISTIANO Morel [facility] 07/17/2023 15:00:40 05/11/20 21 PHQ-9 Patient Health Questionnaire completed Yaya Brock III, MD [address] [facility] [place], [address], [facility] 05/11/2021 11:48:53 10/29/19 21 Date of Last Mammogram completed Lore Eileen [facility] 05/10/2021 19:21:12 10/29/19 21 Date of Last Pap Smear completed Lore Arellano [facility] 05/10/2021 20:06:48 05/04/20 20 PHQ-9 Patient Health Questionnaire completed Yaya Brock III, MD [address] [place], [place] [address], [address], [facility] 05/04/2020 12:26:14 04/26/20 19 Corticosteroid Injection completed Yaya Brock III, MD [address] [place], [place] [address], [address], [facility] 04/26/2019 12:11:40 08/18/19 19 PHQ-9 Patient Health Questionnaire completed Sapna Quezada [facility] 08/17/2018 08:45:01 07/20/19 17 PHQ-9 Patient Health Questionnaire completed Amelia Coleman MA [facility] 07/20/2016 10:56:05 03/16/20 16 Mirena IUD Insertion completed Angel Yu MD [address] [place], [place] [address], [address], [facility] 03/16/2016 12:37:21 03/16/20 16 Hysteroscopy with Endometrial Biopsy or IUD Removal completed Angel Yu MD [address] [place], [place] [address], [address], [facility] 03/16/2016 12:36:38 07/17/19 16 PHQ-9 Patient Health Questionnaire completed Shweta Holden MA [facility] 07/17/2015 08:44:49 06/05/19 16 Egd biopsy single/multiple completed Yaya Brock III, MD [address] [place], [place] [address], [address], [facility] 05/31/2017 09:30:46 07/09/19 15 PHQ-9 Patient Health Questionnaire completed Deya Kemp MA [facility] 07/09/2014 08:58:22 02/29/20 13 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 completed Angel Yu MD [address] [place] [address], [address], [facility] 02/28/2013 13:03:51 02/17/20 11 Mirena IUD Insertion completed Sahara Sellers [facility] 02/16/2011 09:49:32 02/17/20 11 IUD Removal completed Sahara [facility] 02/16/2011 09:49:32 02/02/20 06 delivery completed Not Available [facility] 04/20/2011 06:32:15 appendectomy completed Not Available [facility] 04/20/2011 06:32:29 gastric bypass completed Not Available [facility] 04/20/2011 06:32:29 dental extraction completed Not Available [facility] 04/20/2011 06:32:29 tonsillectomy completed Not Available [facility] 04/20/2011 06:32:29 Imaging Results None recorded. Procedure Notes None recorded. Medical Equipment None Reported. Allergies Allergen ID Allergen Name Allergen Category Reaction Reaction Severity Criticality Documentation Date Start Date Code Code System Note Provider Name and Address Organization Details Recorded Time [id number] amoxicill in medicatio n rash moderate Not available 08/17/2018 723 RxNorm BORIS Le, [facility] 9 08:42:22 Medications Name Sig Start Date Stop Date Status Note LastModified by Organization Details LastModified Time cvs budesonid e nasal spray 32 mcg/act susp active Not Available Not Available Not Available omeprazol e dr 40 mg cpdr 10/22 completed Not Available Not Available Not Available baclofen 10 mg tabs active Not Available Not Available Not Available orphenadr ine citrate er 100 mg tb12 active Not Available Not Available Not Available furosemid e 20 mg tabs active Not Available Not Available Not Available omeprazol e 20 mg cpdr active Not Available Not Available Not Available duloxetin e hcl 30 mg cpep active Not Available Not Available Not Available ventolin hfa 108 (90 base) mcg/actae rs 05/11 completed Not Available Not Available Not Available promethaz ine vc plain 6.25-5 mg/5ml syrp active Not Available Not Available Not Available levothyro xine sodium 50 mcg tabs 10/22 completed Not Available Not Available Not Available nitrofura ntoin monohydra te/macroc rystals 100 mg caps 10/22 completed Not Available Not Available Not Available albuterol sulfate hfa 108 (90 base) mcg/act aers 05/04 completed Not Available Not Available Not Available tizanidin e hcl 4 mg tabs active Not Available Not Available Not Available carisopro dol 350 mg tabs 10/22 completed Not Available Not Available Not Available Prescript ion - Clarifica tion 08/10 completed scripts done in the last 12 months Not Available Not Available Not Available fluconazo le 150 mg tabs 10/22 completed Not Available Not Available Not Available Prescript ion - Prior Authoriza tion Request 05/11 completed Not Available Not Available Not Available trazodone hydrochlo ride 50 mg tabs 10/22 completed Not Available Not Available Not Available monteluka st sodium 10 mg tabs 10/22 completed Not Available Not Available Not Available azithromy izabel 500 mg tabs active Not Available Not Available Not Available hydrocodo ne/acetam inophen 7.5-325 mg tabs 10/22 completed Not Available Not Available Not Available sulfameth oxazole/t rimethopr im ds 800-160 mg tabs 10/22 completed Not Available Not Available Not Available tramadol hcl 50 mg tabs 10/22 completed Not Available Not Available Not Available trazodone hcl 50 mg tabs active Not Available Not Available Not Available duloxetin e hcl 60 mg cpep active Not Available Not Available Not Available prior authoriza tion request active Not Available Not Available Not Available advair diskus 500-50 mcg/dose aepb 05/04 completed Not Available Not Available Not Available carisopro dol 350 mg tablet TAKE 1 TABLET BY MOUTH 4 TIMES A DAY FOR 28 DAYS FOR MUSCLE PAIN 01/18 completed Not Available Not Available Not Available Mirena 21 mcg/24 hr (up to 8 years) 52 mg intrauter ine device Take by intraute rine route. 10/10 completed this is pt's third device Not Available Not Available Not Available Qvar 80 mcg/actua tion Metered Aerosol oral inhaler Inhale 1 puff twice a day by inhalati on route. 01/25 completed Not Available Not Available Not Available prednison e 10 mg tablet Take 5 tabs daily x 2 days, then 4 tabs daily x 2 days, then 3 tabs daily x 2 days, then 2 tabs daily x 2 days, then 1 tab daily x 2 days 09/01 completed States not taking Not Available Not Available Not Available venlafaxi ne ER 75 mg capsule,e xtended release 24 hr TAKE ONE CAPSULE BY MOUTH EVERYDAY FOR 1 WEEK, THEN INCREASE TO TWICE DAILY active Not Available Not Available No t Available gabapenti n 600 mg tablet Take 1 tablet twice a day by oral route. 02/09 completed Not Available Not Available Not Available Carafate 100 mg/mL oral suspensio n Take 10 mL 4 times a day by oral route as needed. 01/25 completed Not Available Not Available Not Available trazodone 50 mg tablet TAKE 1 TO 2 TABLETS BY MOUTH EVERY DAY AT BEDTIME NEEDED active Not Available Not Available No t Available triamcino lone acetonide 0.5 % topical cream APPLY THIN COAT TO AFFECTED AREA TWICE A DAY 05/09 completed Not Available Not Available Not Available ketoconaz ole 200 mg tablet 2 tabs q day for 10 days 05/11 completed Not Available Not Available Not Available azithromy izabel 250 mg tablet TAKE 2 TABLETS BY MOUTH TODAY, THEN TAKE 1 TABLET DAILY FOR 4 DAYS active Not Available Not Available No t Available tizanidin e 4 mg tablet Take 1 tablet every 8 hours by oral route as directed for 30 days. 2014 active Not Available Not Available Not Avai lable fluconazo le 150 mg tablet TAKE 1 TABLET (150 MG) BY ORAL ROUTE ONCE, MAY REPEAT IN 72 HOURS IF SYMPTOMS PERSIST active Not Available Not Available No t Available chlorzoxa zone 500 mg tablet TAKE 1 TABLET BY MOUTH THREE TIMES A DAY NEEDED FOR 30 DAYS active Not Available Not Available No t Available hydrocodo ne 5 mg-acetam inophen 325 mg tablet 1 TABLET BY MOUTH THREE TIMES DAILY X 1 WEEK THEN 1 TAB TWICE DAILY X 1 WEEK, THEN 1 TAB NEEDED 2013 active Not Available Not Available Not Avai lable promethaz ine 6.25 mg/5 mL oral syrup 2010 active Not Available Not Available Not Avai lable Phenergan -Codeine 6.25 mg-10 mg/5 mL oral syrup 1 TO 2 TSP QHS PRN 2009 active Not Available Not Available Not Avai lable naltrexon e 50 mg tablet TAKE 1/4 TABLET BY MOUTH DAILY X4DAYS TAKE ONE-HALF TABLET DAILY X4DAYS THEN TAKE 1 TABLET EVERY DAY active Not Available Not Available No t Available prednison e 20 mg tablet TAKE 1 TABLET BY MOUTH TWICE A DAY 06/12 completed States not taking Not Available Not Available Not Available gabapenti n 400 mg capsule 2 tabs bid 01/25 completed Not Available Not Available Not Available Nexium 40 mg capsule,d elayed release 2009 active Not Available Not Available Not Avai lable Flonase 50 mcg/actua tion nasal spray,tuan pension Inhale 2 sprays every day by intranas al route. 04/13 completed EMR reviewed , no records on file. Cued as meka vale Pending OV: 03/07/14 Not Available Not Available Not Available sulfameth oxazole 800 mg-trimet hoprim 160 mg tablet Take 1 tablet twice a day by oral route for 10 days. 10/22 completed Not Available Not Available Not Available hydrocodo ne 10 mg-acetam inophen 325 mg tablet TAKE 1 TABLET BY MOUTH EVERY DAY NEEDED FOR 14 DAYS. 05/09 completed Not Available Not Available Not Available omeprazol e 40 mg capsule,d elayed release TAKE 1 CAPSULE BY MOUTH EVERY DAY NEEDED. active Not Available Not Available No t Available doxycycli ne monohydra te 100 mg tablet 06/15 completed Not Available Not Available Not Available tramadol 50 mg tablet TAKE 2 TABLETS BY MOUTH 3 TIMES A DAY NEEDED FOR 28 DAYS active Not Available Not Available No t Available ciclopiro x 8 % topical solution APPLY ONCE DAILY PREFERRA DAISHA AT BEDTIME OR 8 HRS BEFORE WASHING. 2009 active Not Available Not Available Not Avai lable terbinafi ne HCl 250 mg tablet 09/27 completed Not Available Not Available Not Available methocarb destiny 750 mg tablet TAKE 1 TABLET EVERY 4 HOURS BY ORAL ROUTE. active Not Available Not Available No t Available gabapenti n 800 mg tablet Take 1 tablet 4 times a day by oral route. 2013 active Not Available Not Available Not Avai lable phenazopy ridine 100 mg tablet TAKE 1 TABLET BY MOUTH 3 TIMES A DAY 07/16 completed Not Available Not Available Not Available baclofen 10 mg tablet TAKE 1 TABLET(S ) 3 TIMES A DAY BY ORAL ROUTE NEEDED. 2014 active last ov 07/09/14 Not Available Not Available Not Available benzonata te 100 mg capsule 10/21 completed States not taking Not Available Not Available Not Available levothyro xine 50 mcg tablet TAKE 1 TABLET BY MOUTH EVERY DAY active Not Available Not Available No t Available hydrocodo ne 7.5 mg-acetam inophen 325 mg tablet 1 tablet q day as needed for severe pain 07/20 completed Not Available Not Available Not Available Promethaz ine VC 6.25 mg-5 mg/5 mL oral syrup 1-2 tsp qhs as needed 2014 active Not Available Not Available Not Avai lable prednison e 50 mg tablet 1 tab q day for 5 days with food. 11/02 completed Not Available Not Available Not Available orphenadr ine citrate ER 100 mg tablet,ex tended release TAKE 1 TABLET(S ) TWICE A DAY BY ORAL ROUTE NEEDED FOR 30 DAYS. active Not Available Not Available No t Available gabapenti n 300 mg capsule Take 1 capsule 3 times a day by oral route for 30 days. 02/09 completed Not Available Not Available Not Available omeprazol e 20 mg capsule,d elayed release TAKE 1 CAPSULE TWICE A DAY BY ORAL ROUTE 05/31 completed Not Available Not Available Not Available monteluka st 10 mg tablet TAKE 1 TABLET BY MOUTH EVERY DAY 11/02 completed Not Available Not Available Not Available hydrocodo ne 5 mg-acetam inophen 500 mg tablet TAKE 1 TABLET BY MOUTH TWICE DAILY NEEDED FOR PAIN active Not Available Not Available No t Available codeine 10 mg-guaife nesin 100 mg/5 mL oral liquid 08/17 completed Not Available Not Available Not Available hydrochlo rothiazid e 25 mg tablet 2009 active Not Available Not Available Not Avai lable furosemid e 20 mg tablet TAKE 1 TABLET BY MOUTH EVERY DAY NEEDED active Not Available Not Available No t Available gabapenti n 100 mg capsule TAKE 1 CAP AT BED FOR 3 NIGHTS, THEN TAKE 2 CAPS AT BED, THEN 3 CAPS AT BEDTIME active Not Available Not Available No t Available ergocalci ferol (vitamin D2) 1,250 mcg (50,000 unit) capsule TAKE 1 CAPSULE BY MOUTH EVERY WEEK active Not Available Not Available No t Available Transderm -Scop 1 mg over 3 days transderm al patch 02/14 completed Not Available Not Available Not Available oxycodone -acetamin ophen 7.5 mg-325 mg tablet 05/02 completed Not Available Not Available Not Available levofloxa izabel 750 mg tablet Take 1 tablet every day by oral route for 10 days. 07/20 completed Not Available Not Available Not Available methylpre dnisolone 4 mg tablets in a dose pack TAKE 6 TABLETS ON DAY 1 DIRECTED ON PACKAGE AND DECREASE BY 1 TAB EACH DAY FOR A TOTAL OF 6 DAYS active Not Available Not Available No t Available Tessalon 200 mg capsule 2009 active Not Available Not Available Not Avai lable itraconaz ole 100 mg capsule 2010 active Not Available Not Available Not Avai lable naproxen 500 mg tablet 06/06 completed Not Available Not Available Not Available Flexeril 10 mg tablet 04/03 completed Not Available Not Available Not Available amoxicill in 500 mg-potass ium clavulana te 125 mg tablet 06/15 completed Not Available Not Available Not Available Ventolin HFA 90 mcg/actua tion aerosol inhaler INHALE 2 PUFFS BY MOUTH EVERY 6 TO 8 HOURS active Not Available Not Available No t Available oxycodone 5 mg tablet TAKE 1 TABLET BY MOUTH EVERY 6 HOURS NEEDED FOR PAIN 06/12 completed Not Available Not Available Not Available azithromy izabel 500 mg tablet Take 1 tablet every day by oral route with meals for 5 days. 2014 active Not Available Not Available Not Avai lable bupropion HCl XL 150 mg 24 hr tablet, extended release TAKE 1 TABLET BY MOUTH EVERY DAY DIRECTED active Not Available Not Available No t Available nitrofura ntoin monohydra te/macroc rystals 100 mg capsule TAKE 1 CAPSULE BY MOUTH TWICE A DAY FOR 7 DAYS 07/16 completed Not Available Not Available Not Available duloxetin e 30 mg capsule,d elayed release TAKE 1 CAPSULE( S) EVERY DAY BY ORAL ROUTE 02/09 completed weight gain Not Available Not Available Not Available duloxetin e 60 mg capsule,d elayed release TAKE ONE CAPSULE BY MOUTH EVERY DAY 02/09 completed Not Available Not Available Not Available lactulose 10 gram/15 mL oral solution TAKE 30 ML BY MOUTH EVERY DAY 11/02 completed Not Available Not Available Not Available pregabali n 100 mg capsule TAKE 1 CAPSULE BY MOUTH TWICE A DAY active Not Available Not Available No t Available tramadol ER 100 mg tablet,ex tended release 24 hr TAKE 1 TABLET BY MOUTH TWICE A DAY 04/13 completed Not Available Not Available Not Available Symbicort 160 mcg-4.5 mcg/actua tion HFA aerosol inhaler INHALE 2 PUFFS TWICE A DAY 09/01 completed States not taking Not Available Not Available Not Available Amitiza 8 mcg capsule Take 1 capsule twice a day by oral route. 11/02 completed Not Available Not Available Not Available GaviLyte- G 236 gram-22.7 4 gram-6.74 gram-5.86 gram oral solution USE DIRECTED PER MD INSTRUCT IONS FOR 2 DAYS 10/10 completed Not Available Not Available Not Available Slow Fe 142 mg (45 mg iron) tablet,ex tended release TAKE 1 TABLET BY MOUTH EVERY DAY 10/10 completed Not Available Not Available Not Available lactulose 20 gram/30 mL oral solution 30 ml q day 10/10 completed Not Available Not Available Not Available Vicodin ES 7.5 mg-300 mg tablet Take 1 tablet every 6 hours by oral route. active Not Available Not Available No t Available Vicodin 5 mg-300 mg tablet Take 1 tablet every 4 hours by oral route. active prn Not Available Not Available No t Available Linzess 290 mcg capsule TAKE 1 CAPSULE BY MOUTH EVERY DAY active Not Available Not Available No t Available Trulicity 0.75 mg/0.5 mL subcutane ous pen injector Inject by subcutan eous route for 28 days. 11/22 completed Not Available Not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
--- NOTE | 2024-08-02 09:00 | A.OFFVIS_ITS ---
Vital Signs 08/02/24 09:04 Height 5 ft 3 in Weight 194 lb BMI 34.4 Intake Visit Reasons: Newprob-Pain of left hip Intake Note: Clara is a 49 year old female who presents today for a new problem visit with complaints of left hip pain. Patient reports ongoing pain for about a year. No hx of injury. She mentions thought it was her sciatic nerve but her pain is constant. Patent states that her pain is worse when she is getting from a sitting position and end of the day Allergies No Known Allergies Allergy (Verified 08/02/24 09:02) HPI HPI Newprob-Pain of left hip: Details: Ms. Umana this is a 49-year-old female who presents to office today for evaluation of left buttock pain that will occasionally wraps around to the lateral aspect of the hip. She does endorse 1 day of groin pain. Her pain has been present for the past year. Denies any injury or trauma. She thought that this was her sciatic nerve but her pain has remained consistent. When she has episodes of sciatica she has pain that radiates down the entire left lower ex tremity. However, she reports that her pain has been localized to the left buttock radiating up her back in a burning sensation. When she is standing for long periods of time this seems to worsen her symptoms. 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 Reports lateral sided hip pain with internal and external rotation. No tenderness to palpation over the greater trochanteric bursa. 4/5 strength with resisted hip flexion, knee extension, abduction, and abduction. Able to perform straight leg raise with mild reproduction of symptoms. NVI. Assessment & Plan Assessment & Plan (1) SI (sacroiliac) joint dysfunction: Code(s): M53.3 - Sacrococcygeal disorders, not elsewhere classified Category: Medical Plan Ms. Dong vasquez is a 49-year-old female who presents to office today for evaluation of left buttock pain that will occasionally wraps around to the lateral aspect of the hip. She does endorse 1 day of groin pain. Her pain has been present for the past year. Denies any injury or trauma. She thought that this was her sciatic nerve but her pain has remained consistent. When she has episodes of sciatica she has pain that radiates down the entire left lower extremity. However, she reports that her pain has been localized to the left buttock radiating up her back in a burning sensation. When she is standing for long periods of time this seems to worsen her symptoms. Additionally, she had tried to physical therapy sessions and was unable to continue. On the office today, we discussed the role of continuing physical therapy versus MRI imaging. I will order an MRI of the L-spine for further investigation of possible nerve impingement. She will follow up with Dr. Vale for MRI review, sooner if needed. X-rays of the left hip which were obtained while in the office today and were reviewed by me, Sunshine Merritt PA-C, revealed no acute fracture or dislocation. The hip joint is well preserved. Orders: Orders XR hip LT min 2V Today M25.559 - Pain in unspecified hip MR lumbar spine wo con Today M53.3 - Sacrococcygeal disorders, not elsewhere classified Coding Level of Care Code New Pt Level 4 (43014) Diagnoses SI (sacroiliac) joint dysfunction M53.3
[2024-08-02 09:04] VITALS: BMI 34.4
== END 2024-08-02 09:22 | disposition home or self-care (01) ==
PROVIDERS: PCP Internal Medicine; Visit Provider Physician Assistant
DX: M53.3 Sacrococcygeal disorders, not elsewhere classified (principal)
CPT/HCPCS: 99204

== ENCOUNTER → 2024-08-02 08:49 | Outpatient (BNV) | payer OTHER, SELFPAY | PROVIDERS: Visit Provider Radiology Diagnostic Radiology | DX: M25.552 Pain in left hip (principal) | CPT/HCPCS: 73502 ==

== ENCOUNTER → 2024-08-23 08:03 | Outpatient (BNV) | payer OTHER, SELFPAY | PROVIDERS: Visit Provider Radiology Diagnostic Radiology | DX: M53.3 Sacrococcygeal disorders, not elsewhere classified (principal) | CPT/HCPCS: 72195 ==

== ENCOUNTER 2024-08-23 08:11 | Outpatient (REF) | payer OTHER, SELFPAY ==
--- OUTSIDE RECORDS SUMMARY | 2024-08-23 08:16 | XMS_ITS | Clinical Summary ---
Author Organization [facility] Address [address] [place] [address] Care Team Providers Care [employer] Counter Person Name Role Phone Yaya Brock MD Primary Care Provider Un available Allergies Active Allergy Reactions Severity Noted Date Comments Amoxicillin Rash/Dermatitis 06/06/2018 Medications Medication Sig Dispensed Refills Start Date End Date Status tramadol (ULTRAM) 50 MG tablet Take 50 mg by mouth every 6 hours as needed. 0 Active carisoprodol (SOMA) 350 MG tablet Take 350 mg by mouth 3 times daily as needed. 0 Active trazodone (DESYREL) 50 MG tablet Take 50 mg by mouth at bedtime. 0 Active omeprazole (PRILOSEC) 40 MG capsule Take 40 mg by mouth daily. 0 Active Levothyroxine Sodium 50 MCG Cap Take by mouth. 0 Active Albuterol Sulfate (VENTOLIN HFA IN) Inhale into the lungs. 0 Active Active Problems Problem Noted Date Uncomplicated asthma 05/22/2018 Fibromyalgia Hypothyroid Immunizations Name Administration Dates Next Due Influenza (> 6 Months) 03/27/2019 Family History Medical History Relation Name Comments Cancer of the Lung Father 71 Thyroid Disorder Maternal Grandmother Arthritis Mother Relation Name Status Comments Brother Alive Father Maternal Grandfather Maternal Grandmother Mother Alive Paternal Grandfather Paternal Grandmother Social History Tobacco Use Types Packs/Day Years Used Date Smoking Tobacco: Never Smokeless Tobacco: Never Alcohol Use Standard Drinks/Week Comments Yes 0 (1 standard drink = 0.6 oz pur e alcohol) socially Sex Assigned at Date Recorded Not on file Last Filed Vital Signs Vital Sign Reading Time Taken Comments Blood Pressure 110/78 06/26/2018 9:28 AM EST Pulse 118 06/26/2018 9:28 AM EST Temperature 37.1 ??C (98.8 ??F) 06/26/2018 9:28 AM ES T Respiratory Rate 16 06/26/2018 9:28 AM EST Oxygen Saturation 97% 06/26/2018 9:28 AM EST Inhaled Oxygen Concentration - - Weight 98 kg (216 lb) 06/26/2018 9:28 AM EST Height 160 cm (5' 3 ) 06/26/2018 9:28 AM EST Body Mass Index 38.26 06/26/2018 9:28 AM EST Plan of Treatment Health Maintenance Due Date Last Done Comments Covid-19 Vaccine (#1) 1975 DTAP/TDAP/TD (1 - Tdap) 1994 PNEUMOCOCCAL VACCINE FOR HIGH RISK PATIENTS (#1) 06/01 CHOLESTEROL SCREENING 1995 CERVICAL CANCER SCREENING 1996 BASELINE HEALTH EXAM 40-64 2015 MAMMOGRAM 2015 INFLUENZA (#1) 2024 03/27/2019 BMI CHECK/ADVISE 06/05/2024 Care Teams Automotive [employer] Counter Person Relationship Specialty Start Date End Date Yaya Brock MD PCP - General Family Practice 11/10/23
--- OUTSIDE RECORDS SUMMARY | 2024-08-23 08:16 | XMS_ITS | Encounter Summary ---
Author Organization [facility] Address [address] [place] [address] Care Team Providers Care Python Developer Name Role Phone Aliya Servin MD Primary Care Provider nathalie Beth, Pcp Primary Care Provider Yaya Farr MD Primary Care Provider Un available Encounter Details Date Type Department Care Team Description 05/23/2018 Release of Information Medical Records [address] [place] [id number] Abstract, Provider Social History Tobacco Use Types Packs/Day Years Used Date Smoking Tobacco: Never Smokeless Tobacco: Never Alcohol Use Standard Drinks/Week Comments Yes 0 (1 standard drink = 0.6 oz pur e alcohol) socially Sex Assigned at Date Recorded Not on file documented as of this encounter Plan of Treatment Not on file documented as of this encounter Visit Diagnoses Not on filedocumented in this encounter Care Teams Python Developer Relationship Specialty Start Date End Date Aliya Servin MD PCP - General Internal Medicine 05/22/1803/06 Count Includes [facility], Pcp PCP - General Internal Medicine 04/03/23 11/09/23 Yaya Brock MD PCP - General Family Practice 11/10/23 documented as of this encounter
== END 2024-08-23 08:12 | disposition home or self-care (01) ==
LOC: HO.MRI 08:11
PROVIDERS: Visit Provider Physician Assistant
DX: M53.3 Sacrococcygeal disorders, not elsewhere classified (principal)
CPT/HCPCS: 72195

== ENCOUNTER 2024-09-10 08:51 | Outpatient (REF) | payer OTHER, SELFPAY ==
--- NOTE | ~2024-09-10 | XR_ITS ---
EXAMINATION: XR LUMBOSACRAL SPINE CLINICAL INFORMATION: M54.9 - Dorsalgia, unspecified COMPARISON: None available. TECHNIQUE: Three views of the lumbosacral spine. FINDINGS: There is a mild to moderate right convex thoracolumbar scoliosis apex at T11. There is a normal lumbar lordosis. There is no subluxation. No fractures, compression deformities, or suspicious bone lesions. Moderate disc space narrowing at L5-S1. Disc spaces otherwise preserved in the lumbar region. Mild facet degeneration L4-S1. Facets normally aligned. No soft tissue abnormalities. XR/XR lumbar spine 2-3V IMPRESSION: 1. Mild degenerative spondylosis most significant at L5-S1. 2. Mild to moderate right convex thoracolumbar scoliosis. Electronically signed by: Rosalino Wiseman MD 09/10/2024 12:23 PM EDT
--- OUTSIDE RECORDS SUMMARY | 2024-09-10 10:28 | XMS_ITS | Data Portability ---
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 insurance. Pt. will follow up with no improvemen t or adverse side effects. Low back pain 309891421 Refill. Pt.'s new insurance no longer covers pain specialist . Will refer to new pain specialist . [id number] Jessi Yung MA [facility] [address] [place] [address] [place] [address] 6 07/16/2014 09:07:36 07/16/2014 09:31:44 Chronic pain syndrome 762382955 Degenerati on of cervical intervertebral disc 39459160 Cervical spondylosis 725922240 Primary fi bromyalgia syndrome 27860922 [id number] Georgiana De [facility] [address], [place] [address] 6 09/17/2014 08:52:31 09/17/2014 09:32:00 Chronic pain syndrome 654518449 Degenerati on of cervical intervertebral disc 74539402 Cervical spondylosis 871446930 Primary fi bromyalgia syndrome 66382931 [id number] Jessi Yung [facility] [address], [place] [address] 11/12/2014 09:04:36 11/12/2014 09:48:25 Chronic pain syndrome 551762776 Degenerati on of cervical intervertebral disc 60861577 Cervical spondylosis 047956364 Primary fi bromyalgia syndrome 09229662 [id number] Asia Wilde [facility] [address] [place] [address] [place] [address] 6 01/14/2015 09:00:57 01/14/2015 10:13:29 Chronic pain syndrome 598520702 Degenerati on of cervical intervertebral disc 31030875 Cervical spondylosis 053912848 Primary fi bromyalgia syndrome 20136476 [id number] [facility] [address] [facility] [address] [place] [address]-138 7 02/10/2015 16:02:02 02/10/2015 16:15:42 Closed fracture proximal phalanx, toe 548885647 R [facility] [place] [id number] CADEN STEINBERG [facility] [address] [place] [address] [place] [address] 6 03/18/2015 09:10:05 03/18/2015 10:06:52 Chronic pain syndrome 382192542 G89.4 Degenerati on of cervical intervertebral disc 04846497 M50.30 Cervical spondylosis 387 058533 M47.812 Primary fi bromyalgia syndrome 63445875 M79.7 [id number] Yaya Brock III, MD [facility] [address] [place] [address]922 7 04/06/2015 13:20:18 04/06/2015 13:40:43 Acute bronchitis 36085445 J20.9 Asthma 258767174 J45.90 9 [id number] Octavia Hoff RN [address] [address] 7 04/15/2015 13:59:37 04/15/2015 14:21:50 Influenza vaccine needed 6583249232 106 Z23 Pt presents for influenza vaccinatio n. Patient screened with questions from 5316-3165 Flu protocol. Discussed importance of influenza vaccine due to the patient's risk of contractin g the disease. A handout was offered to enchance understand ing of the effects and side effects of the vaccine. [id number] Yaya Brock III, MD [address] [address] 7 05/13/2015 10:03:51 05/13/2015 10:52:11 Degeneration of cervical intervertebral disc 30996155 M50.30 she is not an operative candidate at this time. she has beenthroug h p.t. many times. and some injection therapy. she is managing well from a fucntional standpoint . she will see Dr Uribe next week for her last medication visit with him. I will take over medication management in June. She is aware of my plan as discussed above. Fibromyositis 33653031 M 79.7 on duloxetine at 60mg. will increase to 90 mg Chronic pain syndrome 37 6472842 G89.4 I will see her back in 1 month. Will then have pain contract signed, check UDS, and review GEOFFREY RAJAN. [id number] Yaya Brock III, MD [address] [address] 7 06/17/2015 08:16:34 06/17/2015 10:12:05 Chronic pain syndrome 877642540 G89.4 She has done very well minimizing [...] months. Degenerati on of cervical intervertebral disc 12900755 M50.30 she is not an operative candidate at this time. she has beenthroug h p.t. many times. and some injection therapy. she is managing well from a fucntional standpoint . She is in chiropract ic care as well. Fibromyositis 61495228 M 79.7 better on the cymbalta 90mg. [id number] Yaya Brock III, MD [address] [address] 7 07/17/2015 08:33:07 07/17/2015 09:18:29 Adult health examination 576636934 Z00.00 Full code status. Encouraged patient to [...] minimizing caffeine and alcohol. Screening mammography 24 929446 Z12.31 Iron deficiency 46837969 E61.1 History of. Will recheck. Menopausal flushing 1983 77179 N95.1 Would like FSH checked related to hot flashes. Pt. is getting Mirena taken out soon. Will f/u with results. History of multiple allergies 636314293 Z88.8 Uncontroll ed. Taking Zyrtec/Neville adryl and [...] kye Randolph on of cervical intervertebral disc 92310104 M50.30 Controlled with Tramadol and Cymbalta. F/u PRN. Fibromyositis 46715848 M 79.7 Controlled with Cymbalta. F/u PRN. [id number] Yaya Brock III, MD [address] [address] 7 09/23/2015 08:49:36 09/23/2015 10:39:14 Chronic pain syndrome 176567898 G89.4 She had a tough month, has gone through the vicodin a bit faster than she usually does. We will give her 20 tabs today. Her pain has calmed and she is back to baseline. Contract on file. GEOFFREY SILK SOAKER checked regularly. UDS is utd. Degenerati on of cervical intervertebral disc 39490497 M50.30 she hs new right hand and arm numbness/t ingling. She has weakness as well. We need to check a new MRI. has bee about 2 years since the last. continue chiropract ic and exercises. [id number] Yaya Brock III, MD [facility] [address] [place] [address]805 7 12/12/2015 13:53:53 12/12/2015 15:48:40 Injury of ankle 817743634 S99.912A Ankle and foot contusion from fall with normal xrays. Advised ankle support brace, RICE therapy, and Motrin/Tyl enol. F/u with PCP if not resolving or worsening over the next 1-2 weeks [id number] Yaya Brock III, MD [facility] [address] [place] [address]92[address]508 7 12/23/2015 08:54:14 12/23/2015 10:03:48 Chronic pain syndrome 866826820 G89.4 She is stable on her current regimen of tramadol ER 100mg BID, hydrocodon e as needed for breakthrou gh pain. She uses soma as well as a muscle relaxant. She performs regular neck ROM and strengthen ing exercises. She is also followig with neurology and rheumatolo gy Pain contract in place. She needs UDS updated today. SILK SOAKER checked regularly. Degenerati on of cervical intervertebral disc 31765059 M50.30 she hs new right hand and arm numbness/t ingling. She has weakness as well. We need to check a new MRI. has bee about 2 years since the last. continue chiropract ic and exercises. Injury of ankle 73323756 6 S99.912D take off ankle stirrup. rom exercises. moist heat to the tender lump medially Abnormal weight gain 161 131315 R63.5 decrease cymbalta from 90mg to 60 mg a day. call back 1 month with progress. [id number] Feroz Potts MD [facility] [address] [place] [address], [address] [address] 7 02/10/2016 09:31:04 02/25/2016 14:07:59 Contraception care 898253514 Z30.40 [id number] Feroz Potts MD [facility] [address] [place] [address] 41038[address] 7 02/24/2016 09:27:56 02/25/2016 15:26:26 Contraception care 203680408 Z30.40 [id number] Angel Yu MD [facility] [address] [place] [address] 73449-479 7 03/16/2016 10:58:50 03/17/2016 14:51:46 Uses IUD (intrauterine device) contraception 476560743 Z97.5 Insertion of intrauterine contraceptive device 02600977 Z30.240 [id number] Yaya Brock III, MD [address] [address] 7 04/13/2016 09:05:12 04/13/2016 09:54:25 Chronic pain syndrome 957535206 G89.4 She has to be on the [...] to discuss/ prescribe. repeat uds today. [place] SILK SOAKER checked today, appropriat e. And is checked at all rfs. Hypothyroidism 10357659 E03.9 on levothryox ine now. recheck numbers. [id number] Yaya Brock III, MD [facility] [address] [place] [address] 17702-701 7 04/17/2016 15:17:38 04/17/2016 15:53:14 Pneumonia 799221295 J18.9 rest and hydrate. call me monday f not improved. [id number] Yaya Brock III, MD [facility] [address] [address] 7 04/23/2016 11:38:59 04/23/2016 12:15:53 Influenza vaccine needed 1584313690 106 Z23 Pt presents for influenza vaccinatio n. Patient screened with questions from 4199-4766 Flu protocol. Discussed importance of influenza vaccine due to the patient's risk of contractin g the disease. A handout was offered to enhance understand ing of the effects and side effects of the vaccine. [id number] Yaya Brock III, MD [address] [address] 7 07/20/2016 10:21:13 07/20/2016 12:44:03 Adult health examination 647126474 Z00.00 Full code status. Encouraged patient to [...] adequate calcium, minimizing caffeine and alcohol. Hypothyroidism 82519771 E03.9 Acute asthma 245237007 J 45.901 Will give prednisone taper and then start back on Advair. Follow up as scheduled or sooner PRN. [id number] Yaya Brock III, MD [address] [address]237 7 08/10/2016 08:08:20 08/10/2016 08:53:19 Chronic pain syndrome 114216476 G89.4 secondary to disc disease cervical spine. Contract in place.UDS is utd. GEOFFREY SILK SOAKER checked at all rfs. she uses tramadol regularly, soma regularly, and vicodin intermitte ntly for pain exacerbati ons. she needs vicodin today. GEOFFREY SILK SOAKER check, last fill 07/20/16 20 tabs. Asthma 570145918 J45.90 9 she is still feeling a hit flared.faisal gs clear. add some qvar to advair. At [facility] risk of sexually transmitted infection 428382322 Z20.2 she nad her boyfriend just broke up. she is concerned about risk. [id number] Yaya Brock III, MD [address] [address] 7 09/29/2016 08:09:11 09/29/2016 11:37:47 Medication monitoring 142448343 Z51.81 [id number] Yaya Brock III, MD [address] [address]25[address]200 7 01/25/2017 08:14:49 01/25/2017 08:41:55 Chronic pain syndrome 106685597 G89.4 Things are stable. she would like the ability to take an extra soma on days when muscle tightness is severe. is ok. Contract in place. UDS is utd. [place] SILK SOAKER checked at all refills. Neuropathy 480549147 G62 .[address] Mora. nothing specific found at this point. Degenerati on of cervical intervertebral disc 89398075 M50.30 underying issue causing the neck pain. Asthma 155496611 J45.90 9 mildinterm ittent. no current ics use. rare recent rescue use. [id number] Yaya Brock III, MD [address] [address] 7 04/06/2017 08:10:27 04/06/2017 13:00:14 Medication monitoring 829171446 Z51.81 Utox was obtained, temp was 96 degrees and color within normal limits/ka [id number] Yaya Brock III, MD [address] [address] 7 04/14/2017 13:15:33 04/14/2017 16:20:10 Influenza vaccine needed 7268447104 106 Z23 Pt presents for influenza vaccinatio n. Patient screened with questions from 6593-8210 Flu protocol. Patient presents for influenza vaccinatio n. Patient screened with questions from 6926-1565 Flu Protocol. Discussed importance of influenza vaccine due to the patient's risk of contractin g the disease. A handout was given to enchance understand ing of the effects and side effects of the vaccine. [id number] Yaya Brock III, MD [address] [address] 7 05/31/2017 09:10:20 05/31/2017 09:34:26 Chronic pain syndrome 149785661 G89.4 things are stable. she is using tramadol regularly and hydrocodon e for breakthrou gh. UDS is utd. contract in place. [place] SILK SOAKER checked at all rfs. Neuropathy 261064428 G62 .[address] Mora. nothing specific found at this point. he is setting up spinal tap as the last diagnostoc step. Degenerati on of cervical intervertebral disc 66244030 M50.30 underlying issue causing the neck pain. Asthma 087399461 J45.90 9 mild intermitte nt. no current ics use. rare recent rescue use. Gastroesop hageal reflux disease 963966232 K21.9 ppi Plantar fasciitis 591135 003 M72.2 [id number] Yaya Brock III, MD [address] [address] 7 08/25/2017 07:51:11 08/25/2017 08:15:16 Lower abdominal pain 40569250 R10.30 recurrent spells, but this was the worst she has had. she has had mltpl surgeries. I woul drecommend CT and cscope. Constipation 43207558 K5 9.00 she has had some issues with this chronicall y. start colace daily. Leukocytosis 081929250 D 72.829 recheck wbc. [id number] Mick Wells MD [facility] [address] [place] [address],[place] [address] 7 09/04/2017 10:59:14 09/04/2017 11:54:09 Abdominal pain 24438760 R10.9 Recurring episodes of abdominal pain, sometimes [...] to rule out that as an etiology. [id number] Yaya Brock III, MD [address] [address]918 7 09/28/2017 12:03:39 09/28/2017 13:52:59 Chronic pain syndrome 428894464 G89.4 [id number] Yaya Brock III, MD [address] [address] 7 02/14/2018 14:35:42 02/20/2018 14:31:47 Chronic pain syndrome 586465622 G89.4 things are stable. she is using tramadol regularly and hydrocodon e for breakthrou gh. UDS today. contract in place. [place] SILK SOAKER checked at all rfs. she is exercising some, which is great Neuropathy 258204943 G62 .9 stable. Degenerati on of cervical intervertebral disc 26365648 M50.30 underlying issue causing the neck pain. Asthma 651893236 J45.90 9 mild intermitte nt. no current ics use. rare recent rescue use. Gastroesop hageal reflux disease 068271853 K21.9 ppi Intussusce ption of intestine 79953822 K56.1 better. no recurrent sxs. Hypothyroidism 53718508 E03.9 [id number] Yaya Brock III, MD [address] [address] 7 06/15/2018 13:42:29 06/15/2018 16:26:09 Chronic pain syndrome 872493533 G89.4 things are stable. she is using tramadol regularly and hydrocodon e for breakthrou gh. UDS today. contract in place. [place] SILK SOAKER checked at all rfs. she is exercising some, which is great Neuropathy 901659172 G62 .9 stable. Degenerati on of cervical intervertebral disc 96834896 M50.30 underlying issue causing the neck pain. Asthma 105914745 J45.90 9 mild intermitte nt. no current ics use. rare recent rescue use. Gastroesop hageal reflux disease 651938812 K21.9 ppi Hypothyroidism 39257219 E03.9 Drug-induc ed constipation 38823299 K59.03 discussed movantik. she will stick with current regimen. Body mass index 30+ - obesity 962456929 Z68.39 she is exercising regularly now. [id number] Yaya Brock III, MD [address] [address] 7 08/17/2018 08:38:08 08/17/2018 10:39:27 Adult health examination 790320250 Z00.00 labs are pretty much utd. last lipid wth excellent. she needs to lose weight. work on diet and exercise. Screening mammography 24 672456 Z12.31 Pain in right knee 07731 76940 82008 M25.561 correct the fallen arch with arch supports. let me know if that doesnt help. Allergic rhinitis 471451 04 J30.9 perennial allergic rhinitis, skin reactions, asthma. trial montelukas t. Chronic pain syndrome 37 8696361 G89.4 things are stable. she is using tramadol regularly and hydrocodon e for breakthrou gh. UDS today. contract in place. [place] SILK SOAKER checked at all rfs. she is exercising some, which is great Neuropathy 650316349 G62 .9 stable. Degenerati on of cervical intervertebral disc 92453515 M50.30 underlying issue causing the neck pain. Asthma 428284094 J45.90 9 mild intermitte nt. no current ics use. rare recent rescue use. Gastroesop hageal reflux disease 161140148 K21.9 ppi Hypothyroidism 39358168 E03.9 tsh good. Drug-induc ed constipation 24888381 K59.03 discussed movantik. she will stick with current regimen. Body mass index 30+ - obesity 619831429 Z68.39 she is exercising regularly now. [id number] Yaya Brock III, MD [facility] [address] [place] [address] 7 11/30/2018 14:38:25 11/30/2018 15:18:55 Low back pain 894963248 M54.5 walk, stretch, moist heat. will setup pt if that doesnt work. Allergic rhinitis 975805 04 J30.9 better on singulair Chronic pain syndrome 37 0727470 G89.4 things are stable. she is using tramadol regularly and hydrocodon e for breakthrou gh. UDS today. contract in place. GEOFFREY SILK SOAKER checked at all rfs. she is exercising some, which is great Neuropathy 360382096 G62 .9 stable. Degenerati on of cervical intervertebral disc 52211659 M50.30 underlying issue causing the neck pain. Asthma 968555183 J45.90 9 mild intermitte nt. no current ics use. rare recent rescue use. Gastroesop hageal reflux disease 552687737 K21.9 ppi Hypothyroidism 46049752 E03.9 tsh good. Drug-induc ed constipation 26915521 K59.03 discussed movantik. she will stick with current regimen. Body mass index 30+ - obesity 339754495 Z68.39 she is exercising regularly now. [id number] Yaya Brock III, MD [facility] [address] [place] [address] 7 04/26/2019 11:27:44 04/26/2019 12:18:51 Allergic rhinitis 73547720 J30.9 better on singulair Chronic pain syndrome 37 5533888 G89.4 neck has flared a bit. she will see how this goes. if doesnt improve soonish-ly , then re mri and referral to pain management for possible injection. she is using tramadol regularly and hydrocodon e for breakthrou gh. UDS today. contract in place. GEOFFREY SILK SOAKER checked at all rfs. she is exercising some, which is great Neuropathy 314878174 G62 .9 stable. Degenerati on of cervical intervertebral disc 44972377 M50.30 underlying issue causing the neck pain. Asthma 960673206 J45.90 9 mild intermitte nt. no current ics use. rare recent rescue use. Gastroesop hageal reflux disease 737720799 K21.9 ppi Hypothyroidism 76079732 E03.9 tsh good. Drug-induc ed constipation 89685880 K59.03 discussed movantik. she will stick with current regimen. Body mass index 30+ - obesity 446999575 Z68.39 she is exercising regularly now. Adult heal th examination 198284373 Z00.00 labs today Plantar fasciitis 973165 003 M72.2 injected [id number] Yaya Brock III, MD [address] [address] 10/23/2019 10:43:16 10/23/2019 12:07:04 Eruption 963994417 R21 tinea vs eczematous . trial of topical steroid. Chronic constipation 236 976398 K59.09 try lactulose Allergic rhinitis 790203 04 J30.9 better on singulair Chronic pain syndrome 37 1868969 G89.4 neck has flared a bit. she will see how this goes. if doesnt improve soonish-ly , then re mri and referral to pain management for possible injection. she is using tramadol regularly and hydrocodon e for breakthrou gh. UDS today. contract in place. GEOFFREY SILK SOAKER checked at all rfs. she is exercising some, which is great Neuropathy 493445731 G62 .9 stable. Degenerati on of cervical intervertebral disc 23155108 M50.30 underlying issue causing the neck pain. Asthma 780523070 J45.90 9 mild intermitte nt. no current ics use. rare recent rescue use. Gastroesop hageal reflux disease 322987839 K21.9 ppi Hypothyroidism 79919932 E03.9 tsh good. Body mass index 30+ - obesity 748684214 Z68.39 she is exercising regularly now. Low back pain 394019012 M54.5 check xray. she has a lot of morning stiffness. ok to use some morning alleve. monitor closely for stomach sxs. pt when they open. [id number] Yaya Brock III, MD [facility] [address] [place] [address] 05/04/2020 11:50:31 05/04/2020 12:44:02 Adult health examination 562568295 Z00.00 Clara is having more [pain. see below. continue to work on weight loss, diet, exercise. full labs today. phq9 negative. Screening mammography 24 205128 Z12.31 Screening for malignant neoplasm of cervix 829470447 Z12.4 Chronic pain syndrome 37 4723904 G89.4 a flare. I will increase the strength of her as needed hydrocodon e ( same amt) I will refer her to [facility] to help us with med options. Pityriasis versicolor 56 388836 B36.0 Chronic constipation 236 613168 K59.09 lactulose helps. Allergic rhinitis 328245 04 J30.9 better on singulair Neuropathy 163939763 G62 .9 stable. Degenerati on of cervical intervertebral disc 31871073 M50.30 underlying issue causing the neck pain. Asthma 635134814 J45.90 9 mild intermitte nt. no current ics use. rare recent rescue use. Gastroesop hageal reflux disease 573621099 K21.9 ppi Hypothyroidism 74603009 E03.9 recheck tsh Body mass index 30+ - obesity 125559822 Z68.39 she is exercising regularly now. Low back pain 253485765 M54.5 disc related. [id number] Yaya Brock III, MD [facility] [address] [place] [address] 05/11/2021 11:27:42 05/11/2021 12:07:36 Adult health examination 275307782 Z00.00 Clara is doing ok. labs today. phq9 negative. pap is utd. mammogram is utd.discus s cscope/col on screening. Screening mammography 24 092615 Z12.31 utd. Screening for malignant neoplasm of colon 583894724 Z12.11 I recommende d cscope. she is reluctant. she will consider. Chronic pain syndrome 37 3249521 G89.4 stable,due to cervical disc disease and fibromylag ia.she is functionin g well on current regimen. contract on file.UDS is due Chronic constipation 236 305150 K59.09 I will try some linzess and amitiza Neuropathy 995368004 G62 .9 stable. Degenerati on of cervical intervertebral disc 78733073 M50.30 underlying issue causing the neck pain. Asthma 739091238 J45.90 9 she has had a flare since uri.some prednisone Gastroesop hageal reflux disease 749085262 K21.9 ppi Hypothyroidism 39349533 E03.9 recheck tsh Body mass index 30+ - obesity 630839745 Z68.39 she is exercising regularly now. Lateral ep icondylitis of right humerus 9933582152 24058 M77.11 brace recommende d [id number] Yaya Brock III, MD [facility] [address] [place] [address] 11/02/2021 14:25:18 11/02/2021 15:43:38 Chronic pain syndrome 331966711 G89.4 stable,due to cervical disc disease and fibromyalg ia.she is functionin g well on current regimen. contract on file.UDS is due Chronic constipation 236 373865 K59.09 we tried amitiza, it didn work.she is doing better with the regular lactulose. Neuropathy 097679487 G62 .9 stable. Degenerati on of cervical intervertebral disc 38469281 M50.30 underlying issue causing the neck pain. Asthma 591877756 J45.90 9 she has had a flare since uri. Gastroesop hageal reflux disease 757426580 K21.9 ppi Hypothyroidism 45422992 E03.9 labs ok May Body mass index 30+ - obesity 600513914 Z68.39 she is exercising regularly now. [id number] Parrish Uribe MD [facility] [address] [place] [address] [place] [address] 12/03/2021 14:44:16 12/03/2021 16:03:19 Chronic pain syndrome 405040722 G89.4 Degenerati on of cervical intervertebral disc 13212155 M50.30 Primary fi bromyalgia syndrome 44714236 M79.7 Low back pain 390034000 M54.50 [id number] Parrish Uribe MD [facility] [address] [place] [address] [place] [address] 01/18/2022 14:22:53 01/18/2022 15:00:23 Chronic pain syndrome 522839131 G89.4 Degenerati on of cervical intervertebral disc 01763388 M50.30 Primary fi bromyalgia syndrome 73967248 M79.7 Degenerati on of lumbar intervertebral disc 98230937 M51.36 Arthropath y of lumbar facet joint 809601643 M47.603 [id number] Parrish Uribe MD [facility] [address] [place] [address] [place] [address] 02/10/2022 14:07:03 02/10/2022 14:33:33 Chronic pain syndrome 521065902 G89.4 Degenerati on of cervical intervertebral disc 83742322 M50.30 Primary fi bromyalgia syndrome 68444937 M79.7 Degenerati on of lumbar intervertebral disc 25799837 M51.36 Arthropath y of lumbar facet joint 153174500 M47.110 [id number] Ashley Gaitan MD [facility] [address] [place] [address] 05/09/2022 10:50:55 05/09/2022 12:05:53 Adult health examination 975895526 Z00.00 She is agreeable to her first [...] or sooner if needed. Screening mammography 24 996586 Z12.31 Mammo done 10/28/20, she is agreeable for a repeat mammogram. Screening for malignant neoplasm of cervix 513218911 Z12.4 Pap smear done 10/28/20 WNL, repeat in 2025. Screening for malignant neoplasm of colon 783459013 Z12.11 She is agreeable to her first colonoscop y. Bilateral wrist pain 861 5298831 7775521 M25.531 Patient has bilateral (R > L) wrist pain/numbn ess. 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 She has been wrist bracing and using NSAIDs prn with mild relief. Will refer to ortho. Body mass index 30+ - obesity 297051348 Z68.38 BMI 38.9 and weight 213lbs 6oz. She reports 20lb weight gain in the past couple of months. Check thyroid levels to rule out thyroid etiology. Continue healthy diet and exercise. Consider referral to medical weight program. Allergic rhinitis 951440 04 J30.9 Well managed with OTC meds. Arthropath y of lumbar facet joint 591554718 M47.816 See above under chronic pain syndrome . Chronic pain syndrome 37 9511354 G89[address] Uribe. She is taking She is taking Lyrica 100mg BID, chlorzoxaz one 500mg BID prn, and tramadol 100mg BID prn. Degenerati on of cervical intervertebral disc 25502911 M50.30 See above under chronic pain syndrome . Degenerati on of lumbar intervertebral disc 79768363 M51.36 See above under chronic pain syndrome . Primary fi bromyalgia syndrome 32965228 M79.7 See above under chronic pain syndrome . Asthma 702704227 J45.90 9 Well managed with Symbicort BID and Ventolin prn. Edema 047817153 R60.9 Continue furosemide 20mg daily prn. Gastroesop hageal reflux disease 986808041 K21.9 Continue omeprazole 40mg daily. Hypothyroidism 59260454 E03.9 Clara is taking levothyrox ine 50mcg daily. Check thyroid levels today. Insomnia 959177048 G47.0 0 Well managed with trazodone 50-100mg nightly prn. Iron deficiency 50146787 E61.1 Continue multivitam in with iron. [id number] MD [facility] [address] [place] [address] [place] [address] 05/03/2022 14:42:34 05/03/2022 15:31:40 Chronic pain syndrome 821881554 G89.4 Degenerati on of cervical intervertebral disc 67946841 M50.30 Primary fi bromyalgia syndrome 96576164 M79.7 Degenerati on of lumbar intervertebral disc 39105504 M51.36 Arthropath y of lumbar facet joint 391224270 M47.087 [id number] MD [facility] [address] [place] [address] [place] [address] 06/27/2022 10:45:12 06/27/2022 11:18:55 Chronic pain syndrome 431362516 G89.4 Degenerati on of cervical intervertebral disc 76452289 M50.30 Primary fi bromyalgia syndrome 63344298 M79.7 Degenerati on of lumbar intervertebral disc 22294744 M51.36 Arthropath y of lumbar facet joint 018357634 M47.396 [id number] Ashley Gaitan MD [facility] [address] [place] [address] 07/29/2022 13:24:55 07/29/2022 13:53:04 Congestion of nasal sinus 46557999 R09.81 Has had chronic congestion now w/ signficant amount of otc/prescr ibed therapies failed. Recommend we trial nasal steroid not trialed however needs further imaging d/t chronicity of symptoms. Will send to [facility] per pt request. [id number] MD [facility] [address] [place] [address] [place] [address] 08/29/2022 11:55:30 08/29/2022 12:43:27 Chronic pain syndrome 903082138 G89.4 Primary fi bromyalgia syndrome 73601304 M79.7 Degenerati on of lumbar intervertebral disc 28205912 M51.36 Arthropath y of lumbar facet joint 853562506 M47.816 Lumbar radiculopathy 128 654826 M54.16 left [id number] SAIMA RANDLE NP [facility] [address] [place] [address] 11/07/2022 15:25:18 11/07/2022 16:21:58 Body mass index 30+ - obesity 979014085 Z68.38 Weight 233lbs 2oz and BMI 39.2. [...] least 3 months. Chronic pain syndrome 37 [address]85328 G[address] Uribe. She is taking She is taking Lyrica 100mg BID, chlorzoxaz one 500mg BID prn, and tramadol 100mg TID prn. She has requested to transfer pain management back to her primary care. I advised that since this has been her regimen for some time now, I am willing to take it over. [facility] UTOX obtained today as well. Arthropath y of lumbar facet joint 009850378 M47.816 See above under chronic pain syndrome . Degenerati on of cervical intervertebral disc 80438352 M50.30 See above under chronic pain syndrome . Degenerati on of lumbar intervertebral disc 96374727 M51.36 See above under chronic pain syndrome . Primary fi bromyalgia syndrome 16475248 M79.7 See above under chronic pain syndrome . Edema 245480649 R60.9 Continue furosemide 20mg daily prn. Check CMP & microalbum in today. Hypothyroidism 92169272 E03.9 Clara is taking levothyrox ine 50mcg daily. TSH NL 05/2022, no need to repeat. Iron deficiency 31999097 E61.1 Continue multivitam in with iron. Check iron profiel today. 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 She has an EMG scheduled for the left wrist. Continue to follow with orthopedic s. [id number] Parrish Uribe MD [facility] [address] [place] [address] [place] [address] 10/24/2022 10:59:08 10/24/2022 12:13:15 Chronic pain syndrome 051772236 G89.4 Primary fi bromyalgia syndrome 73056345 M79.7 Degenerati on of lumbar intervertebral disc 81229217 M51.36 Arthropath y of lumbar facet joint 222240719 M47.389 [id number] Ashley Gaitan MD [address] [address] 01/26/2023 13:26:46 01/26/2023 14:24:38 Body mass index 30+ - obesity 168639674 Z68.38 Weight is 213 pounds 6 ounces [...] Continue Saxenda 3 mg daily. Follow-up at [facility] on 05/15/23. [id number] Ashley Gaitan MD [facility] [address] [address] 07/17/2023 13:50:44 07/17/2023 14:39:27 Adult health examination 839952933 Z00.00 Colonoscop y is pending.Pa p smear [...] or sooner if needed. Screening mammography 24 909909 Z12.31 Mammo 06/2022, repeat ordered mammo below. Administra tion of diphtheria, pertussis, and tetanus vaccine 419131726 Z23 Tetanus booster administer ed today. Screening for malignant neoplasm of cervix 309066628 Z12.4 Pap smear done 10/28/20 WNL, repeat in 2025. Screening for malignant neoplasm of colon 669444121 Z12.11 She is agreeable to her first colonoscop y. Body mass index 30+ - obesity 617449311 Z68.38 Weight is 209 pounds and BMI 35.1. He has lost 4 pounds since the previous visit. We have not been able to get Saxenda due to stock issues. She has been taking bupropion XL 150 mg daily and naltrexone 50 mg once daily. She denies any side effects to these. Diet/exerc ise were reviewed. Allergic rhinitis 091244 04 J30.9 She is managing with OTC medication s. However, symptoms are still bothersome . She is seeing ENT, who is advising skin allergy testing. She has to call them to schedule. Chronic pain syndrome 37 2254192 G89.4 Clara no longer sees Dr. Uribe. She is taking She is taking Lyrica 100mg BID, chlorzoxaz one 500mg BID prn, and tramadol 100mg BID prn. CSRP 11/2022, repeat UTOX today. Arthropath y of lumbar facet joint 679648989 M47.816 See above under chronic pain syndrome . Degenerati on of cervical intervertebral disc 63328745 M50.30 See above under chronic pain syndrome . Degenerati on of lumbar intervertebral disc 34845811 M51.36 See above under chronic pain syndrome . Primary fi bromyalgia syndrome 23531937 M79.7 See above under chronic pain syndrome . Asthma 221741913 J45.90 9 Well managed with Symbicort BID and Ventolin prn. Edema 222010692 R60.9 Continue furosemide 20mg daily prn. Gastroesop hageal reflux disease 944494756 K21.9 Continue omeprazole 40mg daily and TUMS prn. Hypothyroidism 87937393 E03.9 Clara is taking levothyrox ine 50mcg daily. Check thyroid levels today. Insomnia 578183737 G47.0 0 Well managed with trazodone 50-100mg nightly prn. Iron deficiency 85567516 E61.1 She is not able to tolerate iron, even Slow Fe. Check CBC, iron profile, and ferritin today. Vitamin D deficiency 347 66937 E55.9 She is currently supplement ing with vitmain D 50,000 units weekly. Check vitamin D today. Sleep disorder 10209900 G47.9 Patient has had a month movement issues and irregular breathing at night when asleep. There is some question of KATHYRN as well as sleep movement disorder. Check home sleep study and referral sent to sleep medicine. [facility] care management 622523055 Z30.9 She has had the IUD in for ~7 years, it is time to replace. Referral sent to [facility]. [id number] Yaya han MD [facility] [address] [place] [phone] 08/29/2023 11:27:46 08/29/2023 12:30:20 Iron deficiency anemia 14806407 D50.9 AnemiaIn 2019, the [employer] [employer] n has issued recommenda [...] as explained below. Chronic id iopathic constipation 26886232 K59.04 She has a lifelong history of [...] ne Amitiza. History of bariatric surgical procedure 888793728 Z98.84 After bariatric surgery, patients have a [...] have regular f/u with her bariatric team. [id number] Feroz Potts MD [facility] [address] [place] [phone] 08/29/2023 12:53:11 08/29/2023 13:47:25 Contraception care management 036053418 Z30.9 Wants IUD R&R Risks and side effects explained. [id number] Feroz Potts MD [facility] [address] [address] 09/26/2023 14:35:09 09/26/2023 15:28:58 Uses IUD (intrauterine device) contraception 486518748 Z97.5 [id number] CINTHYA MCDONNELL MD [facility] [address] [place] [phone] 11/15/2023 11:20:54 11/15/2023 14:05:43 Body mass index 30+ - obesity 049311263 Z68.38 Weight is 224lbs 2oz, she has gained 3lbs since last month. She is not responding to naltrexone or buproprion . She has an upcoming appointmen t with the weight program, seeing Saima Sykes 12/13/23. Diet/exerc ise were reviewed. Allergic rhinitis 729551 04 J30.9 She is managing with OTC medication s. She saw ENT who noted a mild deviated septum, but did not recommend surgery. She would like a second opinion, ordered below. Chronic pain syndrome 37 4571808 G89.4 Clara no longer sees Dr. Uribe. She is taking She is taking Lyrica 100mg BID, chlorzoxaz one 500mg BID prn, and tramadol 100mg BID prn. CSRP signed today 11/15/23, repeat UTOX today. Arthropath y of lumbar facet joint 220794775 M47.816 See above under chronic pain syndrome . Degenerati on of cervical intervertebral disc 76170539 M50.30 See above under chronic pain syndrome . Degenerati on of lumbar intervertebral disc 87885132 M51.36 See above under chronic pain syndrome . Primary fi bromyalgia syndrome 72485209 M79.7 See above under chronic pain syndrome . Asthma 391222563 J45.90 9 Well managed with Symbicort BID and Ventolin prn. Edema 605935213 R60.9 Continue furosemide 20mg daily prn. Gastroesop hageal reflux disease 977779698 K21.9 Continue omeprazole 40mg daily (indefinit chato as recommende d by GI) and TUMS prn. She is aware of chronic PPI use risks. Hypothyroidism 14091427 E03.9 Continue levothyrox ine 50mcg daily. Check thyroid levels today. Insomnia 832463352 G47.0 0 Well managed with trazodone 50-100mg nightly prn. Iron deficiency 28975942 E61.1 She is not able to tolerate iron, even Slow Fe. Check CBC, iron profile, and ferritin today. Consider infusions if ferritin is low. Vitamin D deficiency 347 55337 E55.9 She is no longer supplement ing with vitamin D, check vitamin D level today. Deviated nasal septum 12 5967924 J34.2 She has a deviated septum, but her ENT did not think surgery is indicated. She would like a second opinion, ordered below. Pain of le ft hip joint 9059440666 61599 M25.552 Left hip/buttoc k pain could represent sciatica. Symptoms are intermitte nt. Recommende d PT, she is agreeable. Also check left hip x-ray per patient request. If symptoms worsen/per sist, consider ortho referral and/or MRI. Obstructiv e sleep apnea syndrome 76351125 G47.33 Patient with mild KATHRYN per HST done 11/02/23. She is not interested in CPAP at this time, she wants to consider ENT surgery for her deviated septum. In the meantime, recommende d sleeping on the side, with HOB elevated, and continued work on weight loss. [id number] Ashley Gaitan MD [facility] [address] [place] [phone] 12/13/2023 11:04:18 12/13/2023 11:46:37 Body mass index 30+ - obesity 666919947 Z68.38 Clara presents for OM consult. She [...] health record Obstructiv e sleep apnea syndrome 66211660 G47.33 Had HST but some KATHRYN might be from deviated septum. She is following up with ENT Iron defic iency anemia 06935546 D50.9 She is being referred to hematology for IV iron infusions. Does not tolerate oral iron Insulin resistance 27011 5000 E88.819 We have discussed the adverse health consequenc es of obesity today as well the benefits of weight loss. We have focused on both diet and exercise management strategies in our discussion today. Will continue to monitor and assess. [id number] Ashley Gaitan MD [address] [address] 01/23/2024 12:24:33 01/23/2024 13:46:53 Obesity 750117632 E66.9 Clara returns for follow up. She was able to get Wegovy 1.7mg. She transition ed from [facility] to [facility]. Diet: Coffee, [place]ican yogurt, snack, Lunch: lean cuisine, dinner protein, vege. Exercise: She has been walking the dog a few times a week. Weight today 213.8#. She started at 224# so she has lost almost 11#. She denies side effects on Wegovy. On Saxenda she was a little nauseous. Plan: Continue Wegovy 1.7mg and continue with healthy lifestyle changes. RTC in 2 months. [id number] Ashley Gaitan MD [address] [address] 03/26/2024 12:10:08 03/26/2024 12:20:29 Body mass index 30+ - obesity 507238276 Z68.38 Clara presents for follow up visit. [...] and healthy lifestyle changes. RTC 6 weeks. [id number] Ashley Gaitan MD [address] [address] 05/14/2024 12:31:48 05/14/2024 12:41:35 Body mass index 30+ - obesity 249588612 Z68.38 Clara presents for follow up visit. [...] and healthy lifestyle changes. RTC 6 weeks. [id number] Ashley Gaitna MD [address] [address] 07/23/2024 12:43:13 07/23/2024 13:19:59 Body mass index 30+ - obesity 544498362 E66.9 Clara presents for follow up visit. [...] such as cereal bars. RTC 12 weeks. [id number] Carin Aura [facility] [address] [place] [address] 09/05/2024 13:53:02 09/05/2024 14:50:58 Screening mammography 91988048 Z12.31 Has mammo at [facility] in 2 weeks Administra tion of diphtheria, pertussis, and tetanus vaccine 342554381 Z23 Screening for malignant neoplasm of cervix 279778271 Z12.4 Last pap 2020 NILM and HPV neg but no endocervic al component, patient would like to reschedule for repeat pap Screening for malignant neoplasm of colon 087923895 Z12.11 Last colonoscop y Advance care planning 71 2612644 Z71.89 HCP form discussed and given to patient. Hepatitis C screening 41 8837380 Z11.59 The USPSTF recommends one time screening for hepatitis C virus (HCV) infection in adults aged 18 to 79 years. Influenza vaccine needed 8375555655 106 Z23 Patient recommende d to go to their local pharmacy to have influenza vaccine administer ed. Discussed importance of influenza vaccine due to the patient's risk of contractin g the disease. A handout was offered to enhance understand ing of the effects and side effects of the vaccine. Depression screening 171 958467 Z13.31 PHQ 9 Score: {{0 1* 2 3 4 5 6 7 8 9 10 11 1 2 13 14 15 16 17 18 19 20 21 2 2 23 24 25 26 27}} Result: {{positive negative* }} Follow up plan: PHQ9 is negative. Return for PHQ9 with CPE in 1 year. Patient will call sooner if they develop mood changes. General ex amination of patient 181108963 Z00.00 Patient should discuss medical decisions with Health Care Proxy. Recommende d screenings included colonoscop y screening age 45, earlier based on family history/ri sk factors; annual mammogram age 40, unless earlier based on risk factors and discussion with patient; bone density age 65, unless risk factors for earlier screening; one time screen for hepatitis C if born between 2818-6693 or has risk factors. Reviewed vaccines and current recommenda tions. Basic health topics include aerobic exercise, importance of healthy/ba lanced diet and minimizing caffeine and alcohol. Primary fi bromyalgia syndrome 43549308 M79.7 Patient is taking tramadol 50mg two tablets TID PRN (but is needed to take all medication s) and pregabalin 100mg PO BID. She has ongoing nerve and hip pain, and would like to try increasing pregabalin with the hope of decreasing the tramadol. Will increase pregabalin from 100mg PO BID to 150mg PO BID. Discussed side effects of medication s. Vitamin D deficiency 347 58831 E55.9 Repleting with vitamin D 50,000 units (1250 mcg) PO WEEKLY x 12 weeks. She should then stop the high dose and return to daily dosing of over the counter vitamin D. She should also increase vitamin D in the diet with foods rich in vitamin D (for example: salmon, trout, figs, dried apricots, vitamin D fortified low fat/nonfat milk and yogurt, mushrooms) . History of bariatric surgical procedure 329147133 Z98.84 History of bypass surgery; has not been taking vitamins. Encouraged her to take bariatric vitamins. Asthma 048840861 J45.90 9 Taking wixella 1 puff BID and rinsing mouth after use. Has prn albutrol, not using more than monthly. Gastroesop hageal reflux disease 449402762 K21.9 Discussed dietary management of GERD and common triggers (coffee, carbonated drinks including omar vitaliy, peppermint , citrus, tomatoes, chocolate, fatty foods spicy foods, and fried foods). Patient advised to avoid alcohol. Discussed smaller portions, sitting upright during meals, and avoiding meals 3 hours prior to bed time. Hypothyroidism 32358178 E03.9 Obstructiv e sleep apnea syndrome 16892894 G47.33 Health Concerns Section Related Observation LastModified by Organization Sariah pitt LastModified Time None Recorded Concern Status LastModified by Organization Details LastModified Time None Recorded Advance Directives Directive N: Payers Encounter Date Sequence Insurance Name Policy Number Policy Dunaway Covered Member ID Dunaway Member ID Guarantor Name 01/23/2024 1 [facility] [id number] Clara Umana [id number] Clara Umana 03/26/2024 1 [facility] [id number] Clara Umana [id number] Clara Umana 05/14/2024 1 [facility] [id number] Clara [place] [id number] Clara Umana 07/23/2024 1 [facility] [id number] Clara [place] [id number] Clara Umana Notes Date Note Type Note Provider Name and Address Organization Details Recorded Time 01/23/2024 text/html Clara returns for follow up. She was able to get Wegovy 1.7mg. She transitioned from Saxenda to Wegovy. Diet: Coffee, [place] yogurt, snack, Lunch: lean cuisine, dinner protein, vege. Exercise: She has been walking the dog a few times a week. Weight today 213.8#. She started at 224# so she has lost almost 11#. She denies side effects on Wegovy. On Saxenda she was a little nauseous. Ashley Gaitan MD [address] [place] [address], [phone], [facility] 01/23/2024 14:00:58 03/26/2024 text/html ObesityReported bypatient.Notes:Clara presents for follow up [...] KAYCEE:9.4 Total change:19.6# Ashley Gaitan MD [address] [place], [phone], [facility] 03/31/2024 11:37:53 05/14/2024 text/html Clara presents fo r follow up visit. She has had no [...] changes. RTC 6 weeks. Ashley Gaitan MD [address] [place] [address], [phone], [facility] 05/19/2024 20:42:05 07/23/2024 text/html Clara presents fo r follow [...] since KAYCEE: 4.8Total change:30# Ashley Gaitan MD [address] [place] [address], [phone], [facility] 07/23/2024 19:02:09 OBGyn Episode Ob Episode Information Episode Created Date Number of Fetuses Patient Bloodtype Patient rh Status Prepregnancy Weight lbs Domestic Partner Domestic Partner Phone Father Name Boilermaker Pipe Fitter Status 06/23/19 07 1 CLOSED Fetus Data [...]
== END 2024-09-10 08:52 | disposition home or self-care (01) ==
LOC: HO.HOSX 08:51
PROVIDERS: Visit Provider Physical Medicine & Rehabilitation
DX: M54.9 Dorsalgia, unspecified (principal)
CPT/HCPCS: 72100

== ENCOUNTER 2024-09-10 08:51 | Outpatient (AMB) | payer OTHER, SELFPAY ==
--- NOTE | 2024-09-10 08:54 | A.OFFVIS_ITS ---
Intake Visit Reasons: New Pt - Lumbar Spine MRI Review Intake Note: Clara is a 49 year old female who presents today as a new patient with complaints pelvic/lower back pain. She was last seen with Sunshine Merritt in July of 2023 where she reported that pain has been present for the past year. Denies any injury or trauma. She thought that this was her sciatic nerve but her pain has remained consistent. When she has episodes of sciatica she has pain that radiates down the entire left lower extremity. However, she reports that her pain has been localized to the left buttock radiating up her back in a burning sensation. When she is standing for long periods of time this seems to worsen her symptoms. Additionally, she had tried to physical therapy sessions and was unable to continue. An MRI was ordered of L-spine for further investigation of possible nerve impingement, although pelvic MRI was done instead. Allergies No Known Allergies Allergy (Verified 09/10/24 08:58) Medication List - Last Reconciled 09/10/24 by Ira Tinoco MD albuterol sulfate 90 mcg/actuation (Ventolin HFA) 0 mcg inhalation budesonide 32 mcg/actuation intranasal chlorzoxazone 500 mg PO TID PRN ergocalciferol (vitamin D2) 1,250 mcg PO QWEEK furosemide 20 mg PO DAILY lactulose mL PO levothyroxine 50 mcg PO DAILY linaclotide (Linzess) mcg PO DAILY omeprazole 40 mg PO DAILY oxycodone 5 mg PO Q6H PRN prednisone 20 mg PO BID pregabalin 100 mg PO BID tramadol 50 mg PO Q4H PRN trazodone 100 mg PO BEDTIME PRN HPI Comments Details: Today's my 1st time to see patient. Patient saw Orthopedics Sunshine NEGRETE on 08/02/2024 complaining of left hip pain. Sunshine's diagnosis was SI joint dysfunction. Sunshine did order lumbar spine MRI but, not sure what happened, order was changed to pelvis MRI was instead. Left hip x-ray 07/29/2024 unremarkable. Pelvis x-ray 08/23/2024 reported no acute signal abnormalities and sacrum or coccyx, bilateral SI joints are unremarkable, no significant soft tissue abnormalities. But reported heterogeneous marrow signal noted throughout, finding is nonspecific in nature, significance unknown. No history of radiation therapy, pulmonary disease, smoking. History of iron deficiency anemia. 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 Left sided, buttocks, goes up to lower back, [place] and numb in the area. In the past week, goes down to the left leg, this is new, did not radiate to the left foot. Denies foot or leg numbness. Feels weakness on left leg. Denies inciting injuries. Had sciatic issue in the past, though that was never seen by specialist in the past. For past year, it has been worse and ongoing. 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 Patient was appropriately conversant and oriented. Good historian. MSK: No specific abnormalities found on inspection of the spine and all extremities. Tender on right SI joint and right piriformis. Mildly tender right GT. Lumbar ROM was full but lumbar extension exacerbates pain. Bilateral hip, knee and ankle ROM WNL. No ligamentous laxity or crepitance. No increased effusion. Straight-leg raising test negative. FABERE test positive bilateral, causing left SI joint pain. Gillet test show stiffness on left side. Rolan test is negative. Piriformis test is positive on left. Scour test is negative. Strength is 5/5 in all muscle groups tested. No increased tone noted. Neurological: Neurologic examination of the upper and lower extremities was nonfocal with intact sensation, muscle stretch reflexes and without focal motor deficits. No focal/real weakness but she does have give-way weakness in left hip flexion due to pain. Ken?s negative bilaterally. Babinski was down going bilaterally. Clonus was negative. Gait is non-antalgic without loss of balance. Results Reviewed Results Reviewed: Ordering Physician: Sunshine Merritt PA-C Date of Service: 08/23/24 Procedure(s): MR pelvis wo con Accession Number(s): [id number] cc: Sunshine Merritt PA-C; Physician,Unknown ~ CLINICAL HISTORY: M53.3 - Sacrococcygeal disorders, not elsewhere classified MRI pelvis without contrast Comparison: None Findings: No significant focal bony signal abnormalities identified. Heterogeneous marrow signal noted throughout. Lower sacrum and coccyx demonstrate increased signal on T1 series. No specific signal abnormality noted on T2 sequences. Finding is nonspecific in nature, significance unknown. Marrow heterogeneity can result from pulmonary disease, anemia and tobacco abuse. Please also correlate regarding any prior radiation therapy. No acute signal abnormalities are noted in the sacrum or coccyx. Bilateral SI joints are unremarkable. No significant soft tissue abnormalities identified. Impression: Heterogeneous marrow signal throughout all structures as above Localized abnormal signal in sacrum without edema, bone destruction or focal abnormality Please correlate regarding radiation therapy, anemia, pulmonary diseases or tobacco abuse I have no prior studies for comparison This document has been electronically signed by: Ankush Hayden MD on 08/27/2024 18:39:56 I reviewed records from the following: Ortho Assessment & Plan Assessment & Plan (1) SI (sacroiliac) joint dysfunction: Code(s): M53.3 - Sacrococcygeal disorders, not elsewhere classified Category: Medical Plan Exam and history suggesteive of left SI joint dysfunction. No signs of lumbar radiculopathy. We discussed results of pelvis MRI. We discussed treatment options for SI joint injection. In the end we agreed, that the eaasiest way to rule out if this is related to lumbar spine is to do lumbar x-ray today, specifically looking at L5-S1 disc space. If there is disc space narrowing at L5-S1, then I could probably justify getting lumbar MRI to further evaluate. If x-rays normal, then we could refer her to pain management for SI joint injection under fluoroscopy or ultrasound. Assessment and plan discussed with patient, and patient was agreeable. All questions were answered thoroughly. Total of 45 minutes spent today including chart review, results review, history taking, physical examination, discussion of assessment and plan, and coordination of care. Ira Tinoco MD, RAÚL Board Certified, [place] [employer] and [employer] (ABPMR) Board Certified, [place] [employer] (ABEM) Orders: Orders XR lumbar spine 2-3V Today M54.9 - Dorsalgia, unspecified Medications: Discontinued prednisone Discontinued Reason: Patient Completed Course 20 mg PO BID 10 tabs 0RF Coding Level of Care Code New Pt Level 4 (68318) Diagnoses SI (sacroiliac) joint dysfunction M53.3
--- OUTSIDE RECORDS SUMMARY | 2024-09-10 09:26 | XMS_ITS | Encounter Summary ---
Author Organization [employer] [facility] Address [address] [place] [address] Care Team Providers Care Director Of Student Financial Services Name Role Phone Aliya Servin MD Primary Care Provider nathalie Beth, Pcp Primary Care Provider Yaya Farr MD Primary Care Provider Un available Encounter Details Date Type Department Care Team Description 05/23/2018 Release of Information Medical Records [address] [place] [id number] Abstract, Provider Social History Tobacco Use Types [...] on filedocumented in this encounter Care Teams Director Of Student Financial Services Relationship Specialty Start Date End Date Aliya Servin MD PCP - General Internal Medicine 05/22/1803/06 [facility], Pcp PCP - General Internal Medicine 04/03/23 11/09/23 Yaya Brock MD PCP - General Family Practice 11/10/23 documented as of this encounter
--- OUTSIDE RECORDS SUMMARY | 2024-09-10 09:26 | XMS_ITS | Clinical Summary ---
Author Organization [facility] Address [address] [place] [address] Care Team Providers Care Coconut Cooker Name Role Phone Yaya Brock MD Primary [...] BASELINE HEALTH EXAM 40-64 2015 MAMMOGRAM 2015 BMI CHECK/ADVISE 06/05/2024 INFLUENZA (Season Ended) 2025 03/27/2019 Care Teams Coconut Cooker Relationship Specialty Start Date End Date Yaya Brock MD PCP - General Family Practice 11/10/23
== END 2024-09-10 10:34 | disposition home or self-care (01) ==
LOC: HO.HOS 08:51
PROVIDERS: Visit Provider Physical Medicine & Rehabilitation
DX: M53.3 Sacrococcygeal disorders, not elsewhere classified (principal)
CPT/HCPCS: 99204

== ENCOUNTER → 2024-09-10 09:25 | Outpatient (BNV) | payer OTHER, SELFPAY | PROVIDERS: Visit Provider Radiology Diagnostic Radiology | DX: M54.9 Dorsalgia, unspecified (principal); M47.896 Other spondylosis, lumbar region; M41.9 Scoliosis, unspecified | CPT/HCPCS: 72100 ==

== ENCOUNTER → 2024-09-24 18:00 | Outpatient (BNV) | payer OTHER, SELFPAY | PROVIDERS: Visit Provider Radiology Diagnostic Radiology | DX: M51.26 Other intervertebral disc displacement, lumbar region (principal) | CPT/HCPCS: 72148 ==

== ENCOUNTER 2024-09-24 18:01 | Outpatient (REF) | payer OTHER, SELFPAY ==
--- NOTE | ~2024-09-24 | MR_ITS ---
EXAMINATION: MR LUMBAR SPINE WITHOUT CONTRAST CLINICAL INFORMATION: Other intervertebral disc displacement, lumbar region. COMPARISON: Correlated to x-ray dated September 10, 2024 demonstrated spondylosis at L5-S1 and scoliosis, thoracolumbar spine. TECHNIQUE: MRI of the lumbar spine was obtained using routine sequences without contrast. FINDINGS: Last rib-bearing vertebra labeled T12. No bone marrow STIR signal abnormality. Marginal osteophyte formation and disc desiccation, T10-11, T11-12, T12-L1, L5-S1 and L4-5 levels. Conus medullaris ends at pedicle of L2 with normal signal. There is a 1 mm retrolisthesis at L5-S1 likely degenerative. T10-11: Bilateral facet joint hypertrophy as well as ligamentum flavum. Reduced AP diameter of the thecal sac. No compression upon neural elements. T11-12: Bilateral facet joint hypertrophy as well as ligamentum flavum resulting in dorsal indentation to the thecal sac. No compression upon neural elements. No gross neuroforamina stenosis. T12-L1: There is a right subarticular disc herniation resulting in ventral deformity of the distal thoracic spinal cord. No cord signal abnormality. No neuroforamina stenosis. L1-2: Broad-based disc bulging. Facet joint and ligamentum flavum hypertrophy. No compression upon neural elements. L2-3: Broad-based disc bulging. Facet joint and ligamentum flavum hypertrophy. No compression upon neural elements. L3-4: Broad-based disc bulging. Facet joint and ligamentum flavum hypertrophy. No compression upon neural elements. L4-5: Broad-based disc bulging. Facet joint and ligamentum flavum hypertrophy. Reduced AP diameter of the thecal sac and bilateral neuroforamina narrowing. L5-S1: There is a central disc herniation resulting in ventral deformity of the thecal sac and abutting the S1 nerve roots on the lateral recesses. Facet joint hypertrophy. Bilateral neuroforamina stenosis likely encroaching the L5 exiting nerve roots, left greater than the right side. No prevertebral compartment hematoma, mass or fluid collection. MR/MR lumbar spine wo con IMPRESSION: Central disc herniation L5-S1 abutting the S1 nerve roots on the lateral recesses. Right subarticular disc herniation T12-L1 resulting in ventral deformity of the spinal cord without cord edema and or myelopathy. Bilateral neuroforamina narrowing at L5-S1 on a degenerative basis encroaching the L5 exiting nerve roots. Low position of the conus medullaris without tethered cord. Electronically signed by: Abdelrahman Samano MD 09/25/2024 06:11 AM EDT
--- OUTSIDE RECORDS SUMMARY | 2024-09-24 19:08 | XMS_ITS | Encounter Summary ---
Author Organization [facility] Address [address] [place] [address] Care Team Providers Care Aviation Support Equipment Repairer Name Role Phone Aliya Servin MD Primary Care Provider nathalie Beth, Pcp Primary Care Provider Yaya Frar MD Primary Care Provider Un available Encounter Details Date Type Department Care Team Description 03/11/2021 Telephone Cardio [facility] [address] [facility] [address] [place] [phone] Aliya Servin MD Social History Tobacco Use Types Packs/Day Years [...] on filedocumented in this encounter Care Teams Aviation Support Equipment Repairer Relationship Specialty Start Date End Date Aliya Servin MD PCP - General Internal Medicine 05/22/1803/06 Kirit, Pcp PCP - General Internal Medicine 04/03/23 11/09/23 Yaya Brock MD PCP - General Family Practice 11/10/23 documented as of this encounter
--- OUTSIDE RECORDS SUMMARY | 2024-09-24 19:08 | XMS_ITS | Clinical Summary ---
Author Organization [facility] Address [address] [place] [address] Care Team Providers Care Assistant News Director Name Role Phone Yaya Brock MD Primary [...] INFLUENZA (Season Ended) 2025 03/27/2019 Care Teams Assistant News Director Relationship Specialty Start Date End Date Yaya Brock MD PCP - General Family Practice 11/10/23
--- OUTSIDE RECORDS SUMMARY | 2024-09-24 19:08 | XMS_ITS | Data Portability ---
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 Influenza vaccine needed 1746468756 106 Z23 Pt presents for influenza vaccinatio n. Patient screened with questions from 5566-4948 Flu protocol. Discussed importance of influenza vaccine due to the patient's risk of contractin g the disease. A handout was offered to enchance understand ing of the effects and side effects of the vaccine. [id number] Yaya Brock III, MD [address] [address] 05/13/2015 10:03:51 05/13/2015 10:52:11 Degeneration of cervical intervertebral disc 29106987 M50.30 she is not an operative candidate at this time. she has beenthroug h p.t. many times. and some injection therapy. she is managing well from a fucntional standpoint . she will see Dr Uribe next week for her last medication visit with him. I will take over medication management in June. She is aware of my plan as discussed above. Fibromyositis 09014306 M 79.7 on duloxetine at 60mg. will increase to 90 mg Chronic pain syndrome 37 0436507 G89.4 I will see her back in 1 month. Will then have pain contract signed, check UDS, and review GEOFFREY RAJAN. [id number] Yaya Brock III, MD [address] [address] 06/17/2015 08:16:34 06/17/2015 10:12:05 Chronic pain syndrome 089825871 G89.4 She has done very well minimizing [...] months. Degenerati on of cervical intervertebral disc 55163219 M50.30 she is not an operative candidate at this time. she has beenthroug h p.t. many times. and some injection therapy. she is managing well from a fucntional standpoint . She is in chiropract care as well. Fibromyositis 53744486 M 79.7 better on the cymbalta 90mg. [id number] Yaya Brock III, MD [address] [address] 07/17/2015 08:33:07 07/17/2015 09:18:29 Adult health examination 512400766 Z00.00 Full code status. Encouraged patient to [...] minimizing caffeine and alcohol. Screening mammography 24 833447 Z12.31 Iron deficiency 22878259 E61.1 History of. Will recheck. Menopausal flushing 1983 04854 N95.1 Would like FSH checked related to hot flashes. Pt. is getting Mirena taken out soon. Will f/u with results. History of multiple allergies 890926543 Z88.8 Uncontroll ed. Taking Zyrtec/Neville adryl and [...] kye Randolph on of cervical intervertebral disc 36516898 M50.30 Controlled with Tramadol and Cymbalta. F/u PRN. Fibromyositis 84177044 M 79.7 Controlled with Cymbalta. F/u PRN. [id number] Yaya Brock III, MD [address] [address] 09/23/2015 08:49:36 09/23/2015 10:39:14 Chronic pain syndrome 600772612 G89.4 She had a tough month, has gone through the vicodin a bit faster than she usually does. We will give her 20 tabs today. Her pain has calmed and she is back to baseline. Contract on file. GEOFFREY COATING OPERATOR checked regularly. UDS is utd. Degenerati on of cervical intervertebral disc 22203382 M50.30 she hs new right hand and arm numbness/t ingling. She has weakness as well. We need to check a new MRI. has bee about 2 years since the last. continue chiropract ic and exercises. [id number] Yaya Brock III, MD [facility] [address] [place] [address] 12/12/2015 13:53:53 12/12/2015 15:48:40 Injury of ankle 659866440 S99.912A Ankle and foot contusion from fall with normal xrays. Advised ankle support brace, RICE therapy, and Motrin/Tyl enol. F/u with PCP if not resolving or worsening over the next 1-2 weeks [id number] Yaya Brock III, MD [facility] [address] [place] [address] 7 12/23/2015 08:54:14 12/23/2015 10:03:48 Chronic pain syndrome 447758317 G89.4 She is stable on her current regimen of tramadol ER 100mg BID, hydrocodon e as needed for breakthrou gh pain. She uses soma as well as a muscle relaxant. She performs regular neck ROM and strengthen ing exercises. She is also followig with neurology and rheumatolo gy Pain contract in place. She needs UDS updated today. COATING OPERATOR checked regularly. Degenerati on of cervical intervertebral disc 04993310 M50.30 she hs new right hand and arm numbness/t ingling. She has weakness as well. We need to check a new MRI. has bee about 2 years since the last. continue chiropract ic and exercises. Injury of ankle 95299511 6 S99.912D take off ankle stirrup. rom exercises. moist heat to the tender lump medially Abnormal weight gain 161 561210 R63.5 decrease cymbalta from 90mg to 60 mg a day. call back 1 month with progress. [id number] Feroz Potts MD [facility] [address] [place] [address], [address] [place] [address] 02/10/2016 09:31:04 02/25/2016 14:07:59 Contraception care 164874412 Z30.40 [id number] Feroz Potts MD [facility] [address] [facility], [address] [place] [address] 02/24/2016 09:27:56 02/25/2016 15:26:26 Contraception care 472299258 Z30.40 [id number] Angel Yu MD [facility] [address] [facility], [address] [place] [address] 03/16/2016 10:58:50 03/17/2016 14:51:46 Uses IUD (intrauterine device) contraception 540314253 Z97.5 Insertion of intrauterine contraceptive device 34985908 Z30.241 [id number] Yaya Brock III, MD [facility] [address] [address] 04/13/2016 09:05:12 04/13/2016 09:54:25 Chronic pain syndrome 524348214 G89.4 She has to be on the [...] to discuss/ prescribe. repeat uds today. [place] COATING OPERATOR checked today, appropriat e. And is checked at all rfs. Hypothyroidism 55772852 E03.9 on levothryox ine now. recheck numbers. [id number] Yaya Brock III, MD [facility] [address] [place] [address] 04/17/2016 15:17:38 04/17/2016 15:53:14 Pneumonia 886745563 J18.9 rest and hydrate. call me monday f not improved. [id number] Yaya Brock III, MD [facility] [address] [address] 7 04/23/2016 11:38:59 04/23/2016 12:15:53 Influenza vaccine needed 2569534886 106 Z23 Pt presents for influenza vaccinatio n. Patient screened with questions from 2330-9221 Flu protocol. Discussed importance of influenza vaccine due to the patient's risk of contractin g the disease. A handout was offered to enhance understand ing of the effects and side effects of the vaccine. [id number] Yaya Brock III, MD [address] [address] 07/20/2016 10:21:13 07/20/2016 12:44:03 Adult health examination 005690958 Z00.00 Full code status. Encouraged patient to [...] adequate calcium, minimizing caffeine and alcohol. Hypothyroidism 81891977 E03.9 Acute asthma 966098963 J 45.901 Will give prednisone taper and then start back on Advair. Follow up as scheduled or sooner PRN. [id number] MD Fan Yoo [address] [address] 08/10/2016 08:08:20 08/10/2016 08:53:19 Chronic pain syndrome 799796689 G89.4 secondary to disc disease cervical spine. Contract in place.UDS is utd. GEOFFREY COATING OPERATOR checked at all rfs. she uses tramadol regularly, soma regularly, and vicodin intermitte ntly for pain exacerbati ons. she needs vicodin today. GEOFFREY COATING OPERATOR check, last fill 07/20/16 20 tabs. Asthma 993532111 J45.90 9 she is still feeling a hit flared.faisal gs clear. add some qvar to advair. At [facility] risk of sexually transmitted infection 558284749 Z20.2 she nad her boyfriend just broke up. she is concerned about risk. [id number] MD Santino Yoo [address] [address] 09/29/2016 08:09:11 09/29/2016 11:37:47 Medication monitoring 161478665 Z51.81 [id number] MD Santino Yoo [address] [address] 01/25/2017 08:14:49 01/25/2017 08:41:55 Chronic pain syndrome 880207893 G89.4 Things are stable. she would like the ability to take an extra soma on days when muscle tightness is severe. is ok. Contract in place. UDS is utd. GEOFFREY COATING OPERATOR checked at all refills. Neuropathy 987597275 G62 .[address] Mora. nothing specific found at this point. Degenerati on of cervical intervertebral disc 57061197 M50.30 underying issue causing the neck pain. Asthma 010301433 J45.90 9 mildinterm ittent. no current ics use. rare recent rescue use. [id number] Yaya Brock III, MD [address] [address] 04/06/2017 08:10:27 04/06/2017 13:00:14 Medication monitoring 220887761 Z51.81 Utox was obtained, temp was 96 degrees and color within normal limits/ka [id number] Yaya Brock III, MD [address] [address] 04/14/2017 13:15:33 04/14/2017 16:20:10 Influenza vaccine needed 7441997968 106 Z23 Pt presents for influenza vaccinatio n. Patient screened with questions from 8043-4443 Flu protocol. Patient presents for influenza vaccinatio n. Patient screened with questions from 2838-8013 Flu Protocol. Discussed importance of influenza vaccine due to the patient's risk of contractin g the disease. A handout was given to enchance understand ing of the effects and side effects of the vaccine. [id number] Yaya Brock III, MD [address] [address] 05/31/2017 09:10:20 05/31/2017 09:34:26 Chronic pain syndrome 926589053 G89.4 things are stable. she is using tramadol regularly and hydrocodon e for breakthrou gh. UDS is utd. contract in place. GEOFFREY COATING OPERATOR checked at all rfs. Neuropathy 028024627 G62 .[address] Mora. nothing specific found at this point. he is setting up spinal tap as the last diagnostoc step. Degenerati on of cervical intervertebral disc 21282297 M50.30 underlying issue causing the neck pain. Asthma 681153438 J45.90 9 mild intermitte nt. no current ics use. rare recent rescue use. Gastroesop hageal reflux disease 052819041 K21.9 ppi Plantar fasciitis 674621 003 M72.2 [id number] Yaya Brock III, MD [address] [address] 08/25/2017 07:51:11 08/25/2017 08:15:16 Lower abdominal pain 89695190 R10.30 recurrent spells, but this was the worst she has had. she has had mltpl surgeries. I woul drecommend CT and cscope. Constipation 37949507 K5 9.00 she has had some issues with this chronicall y. start colace daily. Leukocytosis 109136100 D 72.829 recheck wbc. [id number] Mick Wells MD [facility] [address] [place] [address] 09/04/2017 10:59:14 09/04/2017 11:54:09 Abdominal pain 46339516 R10.9 Recurring episodes of abdominal pain, sometimes [...] to rule out that as an etiology. [id number] Yaya Brock III, MD [address] [address] 09/28/2017 12:03:39 09/28/2017 13:52:59 Chronic pain syndrome 598689740 G89.4 [id number] Yaya Brock III, MD [address] [address] 02/14/2018 14:35:42 02/20/2018 14:31:47 Chronic pain syndrome 393195361 G89.4 things are stable. she is using tramadol regularly and hydrocodon e for breakthrou gh. UDS today. contract in place. GEOFFREY COATING OPERATOR checked at all rfs. she is exercising some, which is great Neuropathy 527495338 G62 .9 stable. Degenerati on of cervical intervertebral disc 41886391 M50.30 underlying issue causing the neck pain. Asthma 451676785 J45.90 9 mild intermitte nt. no current ics use. rare recent rescue use. Gastroesop hageal reflux disease 059927651 K21.9 ppi Intussusce ption of intestine 86223815 K56.1 better. no recurrent sxs. Hypothyroidism 01360574 E03.9 [id number] Yaya Brock III, MD [address] [address] 06/15/2018 13:42:29 06/15/2018 16:26:09 Chronic pain syndrome 441422166 G89.4 things are stable. she is using tramadol regularly and hydrocodon e for breakthrou gh. UDS today. contract in place. [place] COATING OPERATOR checked at all rfs. she is exercising some, which is great Neuropathy 224519316 G62 .9 stable. Degenerati on of cervical intervertebral disc 65519215 M50.30 underlying issue causing the neck pain. Asthma 221909972 J45.90 9 mild intermitte nt. no current ics use. rare recent rescue use. Gastroesop hageal reflux disease 646451505 K21.9 ppi Hypothyroidism 80495630 E03.9 Drug-induc ed constipation 92162637 K59.03 discussed movantik. she will stick with current regimen. Body mass index 30+ - obesity 211270003 Z68.39 she is exercising regularly now. [id number] Yaya Brock III, MD [address] [address] 08/17/2018 08:38:08 08/17/2018 10:39:27 Adult health examination 300676907 Z00.00 labs are pretty much utd. last lipid wth excellent. she needs to lose weight. work on diet and exercise. Screening mammography 24 297082 Z12.31 Pain in right knee 12891 75280 02198 M25.561 correct the fallen arch with arch supports. let me know if that doesnt help. Allergic rhinitis 441627 04 J30.9 perennial allergic rhinitis, skin reactions, asthma. trial montelukas t. Chronic pain syndrome 37 1110506 G89.4 things are stable. she is using tramadol regularly and hydrocodon e for breakthrou gh. UDS today. contract in place. [place] COATING OPERATOR checked at all rfs. she is exercising some, which is great Neuropathy 228215536 G62 .9 stable. Degenerati on of cervical intervertebral disc 24279347 M50.30 underlying issue causing the neck pain. Asthma 088974051 J45.90 9 mild intermitte nt. no current ics use. rare recent rescue use. Gastroesop hageal reflux disease 764364656 K21.9 ppi Hypothyroidism 55269429 E03.9 tsh good. Drug-induc ed constipation 71731335 K59.03 discussed movantik. she will stick with current regimen. Body mass index 30+ - obesity 279625263 Z68.39 she is exercising regularly now. [id number] Yaya Brock III, MD [address] [address] 11/30/2018 14:38:25 11/30/2018 15:18:55 Low back pain 936547397 M54.5 walk, stretch, moist heat. will setup pt if that doesnt work. Allergic rhinitis 044473 04 J30.9 better on singulair Chronic pain syndrome 37 0983893 G89.4 things are stable. she is using tramadol regularly and hydrocodon e for breakthrou gh. UDS today. contract in place. [place] COATING OPERATOR checked at all rfs. she is exercising some, which is great Neuropathy 698674047 G62 .9 stable. Degenerati on of cervical intervertebral disc 20261344 M50.30 underlying issue causing the neck pain. Asthma 670644102 J45.90 9 mild intermitte nt. no current ics use. rare recent rescue use. Gastroesop hageal reflux disease 750277353 K21.9 ppi Hypothyroidism 02096970 E03.9 tsh good. Drug-induc ed constipation 36041486 K59.03 discussed movantik. she will stick with current regimen. Body mass index 30+ - obesity 742367191 Z68.39 she is exercising regularly now. [id number] Yaya Brock III, MD [address] [address] 04/26/2019 11:27:44 04/26/2019 12:18:51 Allergic rhinitis 54804531 J30.9 better on singulair Chronic pain syndrome 37 8174412 G89.4 neck has flared a bit. she will see how this goes. if doesnt improve soonish-ly , then re mri and referral to pain management for possible injection. she is using tramadol regularly and hydrocodon e for breakthrou gh. UDS today. contract in place. GEOFFREY COATING OPERATOR checked at all rfs. she is exercising some, which is great Neuropathy 757108395 G62 .9 stable. Degenerati on of cervical intervertebral disc 61312275 M50.30 underlying issue causing the neck pain. Asthma 025288839 J45.90 9 mild intermitte nt. no current ics use. rare recent rescue use. Gastroesop hageal reflux disease 554078058 K21.9 ppi Hypothyroidism 30203670 E03.9 tsh good. Drug-induc ed constipation 50579795 K59.03 discussed movantik. she will stick with current regimen. Body mass index 30+ - obesity 899695295 Z68.39 she is exercising regularly now. Adult heal th examination 214780353 Z00.00 labs today Plantar fasciitis 503840 003 M72.2 injected [id number] Yaya Brock III, MD [facility] [address] [place] [address] 10/23/2019 10:43:16 10/23/2019 12:07:04 Eruption 333939126 R21 tinea vs eczematous . trial of topical steroid. Chronic constipation 236 135186 K59.09 try lactulose Allergic rhinitis 533202 04 J30.9 better on singulair Chronic pain syndrome 37 2431620 G89.4 neck has flared a bit. she will see how this goes. if doesnt improve soonish-ly , then re mri and referral to pain management for possible injection. she is using tramadol regularly and hydrocodon e for breakthrou gh. UDS today. contract in place. GEOFFREY COATING OPERATOR checked at all rfs. she is exercising some, which is great Neuropathy 155639247 G62 .9 stable. Degenerati on of cervical intervertebral disc 16725811 M50.30 underlying issue causing the neck pain. Asthma 167385620 J45.90 9 mild intermitte nt. no current ics use. rare recent rescue use. Gastroesop hageal reflux disease 524201074 K21.9 ppi Hypothyroidism 44264576 E03.9 tsh good. Body mass index 30+ - obesity 526911555 Z68.39 she is exercising regularly now. Low back pain 597939968 M54.5 check xray. she has a lot of morning stiffness. ok to use some morning alleve. monitor closely for stomach sxs. pt when they open. [id number] Yaya Brock III, MD [address] [address] 05/04/2020 11:50:31 05/04/2020 12:44:02 Adult health examination 660018104 Z00.00 Clara is having more [pain. see below. continue to work on weight loss, diet, exercise. full labs today. phq9 negative. Screening mammography 24 213700 Z12.31 Screening for malignant neoplasm of cervix 476805209 Z12.4 Chronic pain syndrome 37 8573388 G89.4 a flare. I will increase the strength of her as needed hydrocjohn gimenez ( same amt) I will refer her to [facility] to help us with med options. Pityriasis versicolor 56 950475 B36.0 Chronic constipation 236 349412 K59.09 lactulose helps. Allergic rhinitis 661637 04 J30.9 better on singulair Neuropathy 849351727 G62 .9 stable. Degenerati on of cervical intervertebral disc 38821415 M50.30 underlying issue causing the neck pain. Asthma 350398893 J45.90 9 mild intermitte nt. no current ics use. rare recent rescue use. Gastroesop hageal reflux disease 195466389 K21.9 ppi Hypothyroidism 69485052 E03.9 recheck tsh Body mass index 30+ - obesity 936848438 Z68.39 she is exercising regularly now. Low back pain 596492163 M54.5 disc related. [id number] Yaya Brock III, MD [address] [address] 05/11/2021 11:27:42 05/11/2021 12:07:36 Adult health examination 007964023 Z00.00 Clara is doing ok. labs today. phq9 negative. pap is utd. mammogram is utd.discus s cscope/col on screening. Screening mammography 24 296381 Z12.31 utd. Screening for malignant neoplasm of colon 840395731 Z12.11 I recommende d cscope. she is reluctant. she will consider. Chronic pain syndrome 37 6397600 G89.4 stable,due to cervical disc disease and fibromylag ia.she is functionin g well on current regimen. contract on file.UDS is due Chronic constipation 236 514782 K59.09 I will try some linzess and amitiza Neuropathy 806616372 G62 .9 stable. Degenerati on of cervical intervertebral disc 11459388 M50.30 underlying issue causing the neck pain. Asthma [id number] J45.90 9 she has had a flare since uri.some prednisone Gastroesop hageal reflux disease 599005866 K21.9 ppi Hypothyroidism 98989367 E03.9 recheck tsh Body mass index 30+ - obesity 553040760 Z68.39 she is exercising regularly now. Lateral ep icondylitis of right humerus 3895123199 34673 M77.11 brace recommende d [id number] Yaya Brock III, MD [facility] [address] [place] [address] 7 11/02/2021 14:25:18 11/02/2021 15:43:38 Chronic pain syndrome 444226926 G89.4 stable,due to cervical disc disease and fibromyalg ia.she is functionin g well on current regimen. contract on file.UDS is due Chronic constipation 236 751327 K59.09 we tried amitiza, it didn work.she is doing better with the regular lactulose. Neuropathy 989575842 G62 .9 stable. Degenerati on of cervical intervertebral disc 82073260 M50.30 underlying issue causing the neck pain. Asthma 631192607 J45.90 9 she has had a flare since uri. Gastroesop hageal reflux disease 231718623 K21.9 ppi Hypothyroidism 07009930 E03.9 labs ok May Body mass index 30+ - obesity 126626915 Z68.39 she is exercising regularly now. [id number] Parrish Uribe MD [facility] [address] [place] [address] [place] [address] 12/03/2021 14:44:16 12/03/2021 16:03:19 Chronic pain syndrome 296541825 G89.4 Degenerati on of cervical intervertebral disc 15801569 M50.30 Primary fi bromyalgia syndrome 54923029 M79.7 Low back pain 908530171 M54.50 [id number] Parrish Urbie MD [facility] [address] [place] [address] [place] [address] 01/18/2022 14:22:53 01/18/2022 15:00:23 Chronic pain syndrome 176263517 G89.4 Degenerati on of cervical intervertebral disc 54238846 M50.30 Primary fi bromyalgia syndrome 33671249 M79.7 Degenerati on of lumbar intervertebral disc 57157519 M51.36 Arthropath y of lumbar facet joint 380512653 M47.958 [id number] Parrish Uribe MD [facility] [address] [place] [address] [place] [address] 02/10/2022 14:07:03 02/10/2022 14:33:33 Chronic pain syndrome 009847500 G89.4 Degenerati on of cervical intervertebral disc 36903794 M50.30 Primary fi bromyalgia syndrome 25840261 M79.7 Degenerati on of lumbar intervertebral disc 11420099 M51.36 Arthropath y of lumbar facet joint 494552133 M47.245 [id number] Ashley Gaitan MD [facility] [address] [place] [phone] 05/09/2022 10:50:55 05/09/2022 12:05:53 Adult health examination 190530718 Z00.00 She is agreeable to her first [...] or sooner if needed. Screening mammography 24 413145 Z12.31 Mammo done 10/28/20, she is agreeable for a repeat mammogram. Screening for malignant neoplasm of cervix 546450388 Z12.4 Pap smear done 10/28/20 WNL, repeat in 2025. Screening for malignant neoplasm of colon 147266907 Z12.11 She is agreeable to her first colonoscop y. Bilateral wrist pain 657 0316147 6396750 M25.531 Patient has bilateral (R > L) wrist pain/numbn ess. 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 She has been wrist bracing and using NSAIDs prn with mild relief. Will refer to ortho. Body mass index 30+ - obesity 849872443 Z68.38 BMI 38.9 and weight 213lbs 6oz. She reports 20lb weight gain in the past couple of months. Check thyroid levels to rule out thyroid etiology. Continue healthy diet and exercise. Consider referral to medical weight program. Allergic rhinitis 385472 04 J30.9 Well managed with OTC meds. Arthropath y of lumbar facet joint 628196171 M47.816 See above under chronic pain syndrome . Chronic pain syndrome 37 8472984 G89[address] Uribe. She is taking She is taking Lyrica 100mg BID, chlorzoxaz one 500mg BID prn, and tramadol 100mg BID prn. Degenerati on of cervical intervertebral disc 23091300 M50.30 See above under chronic pain syndrome . Degenerati on of lumbar intervertebral disc 58142373 M51.36 See above under chronic pain syndrome . Primary fi bromyalgia syndrome 75292841 M79.7 See above under chronic pain syndrome . Asthma 763479005 J45.90 9 Well managed with Symbicort BID and Ventolin prn. Edema 037098662 R60.9 Continue furosemide 20mg daily prn. Gastroesop hageal reflux disease 639736210 K21.9 Continue omeprazole 40mg daily. Hypothyroidism 35058759 E03.9 Clara is taking levothyrox ine 50mcg daily. Check thyroid levels today. Insomnia 753508147 G47.0 0 Well managed with trazodone 50-100mg nightly prn. Iron deficiency 23660326 E61.1 Continue multivitam in with iron. [id number] MD [facility] [address] [place] [address] [place] [address] 05/03/2022 14:42:34 05/03/2022 15:31:40 Chronic pain syndrome 852055649 G89.4 Degenerati on of cervical intervertebral disc 47635733 M50.30 Primary fi bromyalgia syndrome 52855975 M79.7 Degenerati on of lumbar intervertebral disc 01255840 M51.36 Arthropath y of lumbar facet joint 167355683 M47.870 [id number] Parrish Uribe MD [facility] [address] [place] [address] [place] [address] 06/27/2022 10:45:12 06/27/2022 11:18:55 Chronic pain syndrome 784956626 G89.4 Degenerati on of cervical intervertebral disc 82043188 M50.30 Primary fi bromyalgia syndrome 60142581 M79.7 Degenerati on of lumbar intervertebral disc 65729547 M51.36 Arthropath y of lumbar facet joint 153721020 M47.471 [id number] Ashley Gaitan MD [facility] [address] [place] [address] 07/29/2022 13:24:55 07/29/2022 13:53:04 Congestion of nasal sinus 87396663 R09.81 Has had chronic congestion now w/ signficant amount of otc/prescr ibed therapies failed. Recommend we trial nasal steroid not trialed however needs further imaging d/t chronicity of symptoms. Will send to [facility] per pt request. [id number] MD [facility] [address] [place] [address] [place] [address] 08/29/2022 11:55:30 08/29/2022 12:43:27 Chronic pain syndrome 924641180 G89.4 Primary fi bromyalgia syndrome 19769789 M79.7 Degenerati on of lumbar intervertebral disc 51490030 M51.36 Arthropath y of lumbar facet joint 363024106 M47.816 Lumbar radiculopathy 128 927292 M54.16 left [id number] SAIMA RANDLE, YAMILE [facility] [address] [place] [address] 11/07/2022 15:25:18 11/07/2022 16:21:58 Body mass index 30+ - obesity 069147267 Z68.38 Weight 233lbs 2oz and BMI 39.2. [...] least 3 months. Chronic pain syndrome 37 8305481 G89[address] Uribe. She is taking She is taking Lyrica 100mg BID, chlorzoxaz one 500mg BID prn, and tramadol 100mg TID prn. She has requested to transfer pain management back to her primary care. I advised that since this has been her regimen for some time now, I am willing to take it over. [facility]. UTOX obtained today as well. Arthropath y of lumbar facet joint 522616841 M47.816 See above under chronic pain syndrome . Degenerati on of cervical intervertebral disc 31455209 M50.30 See above under chronic pain syndrome . Degenerati on of lumbar intervertebral disc 42154855 M51.36 See above under chronic pain syndrome . Primary fi bromyalgia syndrome 62552407 M79.7 See above under chronic pain syndrome . Edema 546695758 R60.9 Continue furosemide 20mg daily prn. Check CMP & microalbum in today. Hypothyroidism 86676223 E03.9 Clara is taking levothyrox ine 50mcg daily. TSH NL 05/2022, no need to repeat. Iron deficiency 53773090 E61.1 Continue multivitam in with iron. Check iron profiel today. 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 She has an EMG scheduled for the left wrist. Continue to follow with orthopedic s. [id number] Parrish Uribe MD [facility] [address] [place] [address] [place] [address] 10/24/2022 10:59:08 10/24/2022 12:13:15 Chronic pain syndrome 347410467 G89.4 Primary fi bromyalgia syndrome 23821660 M79.7 Degenerati on of lumbar intervertebral disc 09324796 M51.36 Arthropath y of lumbar facet joint 494850469 M47.542 [id number] Ashley Gaitan MD [address] [address] 01/26/2023 13:26:46 01/26/2023 14:24:38 Body mass index 30+ - obesity 769371724 Z68.38 Weight is 213 pounds 6 ounces [...] Continue Saxenda 3 mg daily. Follow-up at [facility] on 05/15/23. [id number] Ashley Gaitan MD [facility] [address] [place] [phone] 7 07/17/2023 13:50:44 07/17/2023 14:39:27 Adult health examination 188472357 Z00.00 Colonoscop y is pending.Pa p smear 10/2020, repeat in 5 years (2025).Emma mo 06/2022, repeat ordered mammo below.Harley richardsons done 2012, booster administer ed today.Flu vaccine UTD.Dental care is due.Routin e eye exam is UTD.Discus sed mindful eating & exercise. Seat belts and sunscreen encouraged .Check labs: CBC, CMP, TSH, A1C, vitamin D, iron profile, ferritin, toxassure, microalbum in, & lipid panel.PHQ9 score 1. Follow up at annual physical, or sooner if needed. Screening mammography 24 824387 Z12.31 Mammo 06/2022, repeat ordered mammo below. Administra tion of diphtheria, pertussis, and tetanus vaccine 946954510 Z23 Tetanus booster administer ed today. Screening for malignant neoplasm of cervix 231746973 Z12.4 Pap smear done 10/28/20 WNL, repeat in 2025. Screening for malignant neoplasm of colon 728895797 Z12.11 She is agreeable to her first colonoscop y. Body mass index 30+ - obesity 394929588 Z68.38 Weight is 209 pounds and BMI 35.1. He has lost 4 pounds since the previous visit. We have not been able to get Saxenda due to stock issues. She has been taking bupropion XL 150 mg daily and naltrexone 50 mg once daily. She denies any side effects to these. Diet/exerc ise were reviewed. Allergic rhinitis 707106 04 J30.9 She is managing with OTC medication s. However, symptoms are still bothersome . She is seeing ENT, who is advising skin allergy testing. She has to call them to schedule. Chronic pain syndrome 37 4595283 G89.4 Clara no longer sees Dr. Uribe. She is taking She is taking Lyrica 100mg BID, chlorzoxaz one 500mg BID prn, and tramadol 100mg BID prn. CSRP 11/2022, repeat UTOX today. Arthropath y of lumbar facet joint 824892688 M47.816 See above under chronic pain syndrome . Degenerati on of cervical intervertebral disc 94621739 M50.30 See above under chronic pain syndrome . Degenerati on of lumbar intervertebral disc 12851375 M51.36 See above under chronic pain syndrome . Primary fi bromyalgia syndrome 66732365 M79.7 See above under chronic pain syndrome . Asthma 873768525 J45.90 9 Well managed with Symbicort BID and Ventolin prn. Edema 214790068 R60.9 Continue furosemide 20mg daily prn. Gastroesop hageal reflux disease 926854326 K21.9 Continue omeprazole 40mg daily and TUMS prn. Hypothyroidism 63053795 E03.9 Clara is taking levothyrox ine 50mcg daily. Check thyroid levels today. Insomnia 177049219 G47.0 0 Well managed with trazodone 50-100mg nightly prn. Iron deficiency 09518975 E61.1 She is not able to tolerate iron, even Slow Fe. Check CBC, iron profile, and ferritin today. Vitamin D deficiency 347 65100 E55.9 She is currently supplement ing with vitmain D 50,000 units weekly. Check vitamin D today. Sleep disorder 73460445 G47.9 Patient has had a month movement issues and irregular breathing at night when asleep. There is some question of KATHRYN as well as sleep movement disorder. Check home sleep study and referral sent to sleep medicine. [facility] management 731448098 Z30.9 She has had the IUD in for ~7 years, it is time to replace. Referral sent to [facility]. [id number] [facility] [address] [place] [phone] 08/29/2023 11:27:46 08/29/2023 12:30:20 Iron deficiency anemia 61132012 D50.9 AnemiaIn 2020, the [employer] has issued recommenda [...] as explained below. Chronic id iopathic constipation 34780944 K59.04 She has a lifelong history of [...] ne Amitiza. History of bariatric surgical procedure 089460533 Z98.84 After bariatric surgery, patients have a [...] have regular f/u with her bariatric team. [id number] Feroz Potts MD [facility] [address] [place] [phone] 08/29/2023 12:53:11 08/29/2023 13:47:25 Contraception care management 425461538 Z30.9 Wants IUD R&R Risks and side effects explained. [id number] Feroz Potts MD [facility] [address] [address] 09/26/2023 14:35:09 09/26/2023 15:28:58 Uses IUD (intrauterine device) contraception 947099071 Z97.5 [id number] CINTHYA MCDONNELL MD [facility] [address] [place] [phone] 7 11/15/2023 11:20:54 11/15/2023 14:05:43 Body mass index 30+ - obesity 235263094 Z68.38 Weight is 224lbs 2oz, she has gained 3lbs since last month. She is not responding to naltrexone or buproprion . She has an upcoming appointmen t with the weight program, seeing Saima Sykes 12/13/23. Diet/exerc ise were reviewed. Allergic rhinitis 125689 04 J30.9 She is managing with OTC medication s. She saw ENT who noted a mild deviated septum, but did not recommend surgery. She would like a second opinion, ordered below. Chronic pain syndrome 37 9364084 G89.4 Clara no longer sees Dr. Uribe. She is taking She is taking Lyrica 100mg BID, chlorzoxaz one 500mg BID prn, and tramadol 100mg BID prn. CSRP signed today 11/15/23, repeat UTOX today. Arthropath y of lumbar facet joint 342345351 M47.816 See above under chronic pain syndrome . Degenerati on of cervical intervertebral disc 13906103 M50.30 See above under chronic pain syndrome . Degenerati on of lumbar intervertebral disc 86589898 M51.36 See above under chronic pain syndrome . Primary fi bromyalgia syndrome 52736359 M79.7 See above under chronic pain syndrome . Asthma 726645474 J45.90 9 Well managed with Symbicort BID and Ventolin prn. Edema 349160602 R60.9 Continue furosemide 20mg daily prn. Gastroesop hageal reflux disease 025370846 K21.9 Continue omeprazole 40mg daily (indefinit chato as recommende d by GI) and TUMS prn. She is aware of chronic PPI use risks. Hypothyroidism 49963491 E03.9 Continue levothyrox ine 50mcg daily. Check thyroid levels today. Insomnia 557848809 G47.0 0 Well managed with trazodone 50-100mg nightly prn. Iron deficiency 80488476 E61.1 She is not able to tolerate iron, even Slow Fe. Check CBC, iron profile, and ferritin today. Consider infusions if ferritin is low. Vitamin D deficiency 347 23970 E55.9 She is no longer supplement ing with vitamin D, check vitamin D level today. Deviated nasal septum 12 0991363 J34.2 She has a deviated septum, but her ENT did not think surgery is indicated. She would like a second opinion, ordered below. Pain of le ft hip joint 0736882575 41402 M25.552 Left hip/buttoc k pain could represent sciatica. Symptoms are intermitte nt. Recommende d PT, she is agreeable. Also check left hip x-ray per patient request. If symptoms worsen/per sist, consider ortho referral and/or MRI. Obstructiv e sleep apnea syndrome 72720347 G47.33 Patient with mild KATHRYN per HST done 11/02/23. She is not interested in CPAP at this time, she wants to consider ENT surgery for her deviated septum. In the meantime, recommende d sleeping on the side, with HOB elevated, and continued work on weight loss. [id number] Ashley Gaitan MD [facility] [address] [place] [phone] 12/13/2023 11:04:18 12/13/2023 11:46:37 Body mass index 30+ - obesity 049995767 Z68.38 Clara presents for OM consult. She [...] health record Obstructiv e sleep apnea syndrome 10516323 G47.33 Had HST but some KATHRYN might be from deviated septum. She is following up with ENT Iron defic iency anemia 96565642 D50.9 She is being referred to hematology for IV iron infusions. Does not tolerate oral iron Insulin resistance 98706 5000 E88.819 We have discussed the adverse health consequenc es of obesity today as well the benefits of weight loss. We have focused on both diet and exercise management strategies in our discussion today. Will continue to monitor and assess. [id number] Ashley Gaitan MD [facility] [address] [place] [phone] 01/23/2024 12:24:33 01/23/2024 13:46:53 Obesity 414585880 E66.9 Clara returns for follow up. She was able to get Wegovy 1.7mg. She transition ed from Saxenda to Wegovy. Diet: Coffee, Nepalese yogurt, snack, Lunch: lean cuisine, dinner protein, vege. Exercise: She has been walking the dog a few times a week. Weight today 213.8#. She started at 224# so she has lost almost 11#. She denies side effects on Wegovy. On Saxenda she was a little nauseous. Plan: Continue Wegovy 1.7mg and continue with healthy lifestyle changes. RTC in 2 months. [id number] Ashley Gaitan MD [address] [address] 03/26/2024 12:10:08 03/26/2024 12:20:29 Body mass index 30+ - obesity 528331060 Z68.38 Clara presents for follow up visit. [...] and healthy lifestyle changes. RTC 6 weeks. [id number] Ashley Gaitan MD [address] [address] 05/14/2024 12:31:48 05/14/2024 12:41:35 Body mass index 30+ - obesity 074329252 Z68.38 Clara presents for follow up visit. [...] and healthy lifestyle changes. RTC 6 weeks. [id number] Ashley Gaitan MD [address] [address] 07/23/2024 12:43:13 07/23/2024 13:19:59 Body mass index 30+ - obesity 682839016 E66.9 Clara presents for follow up visit. [...] such as cereal bars. RTC 12 weeks. [id number] Carin Aura [facility] [address] [place] [phone] 7 09/05/2024 13:53:02 09/05/2024 14:50:58 Screening mammography 74411115 Z12.31 Has mammo at [facility] in 2 weeks Administra tion of diphtheria, pertussis, and tetanus vaccine 930200020 Z23 Screening for malignant neoplasm of cervix 478211288 Z12.4 Last pap 2020 NILM and HPV neg but no endocervic al component, patient would like to reschedule for repeat pap Screening for malignant neoplasm of colon 044509703 Z12.11 Last colonoscop y Advance care planning 71 4136262 Z71.89 HCP form discussed and given to patient. Hepatitis C screening 41 7604015 Z11.59 The USPSTF recommends one time screening for hepatitis C virus (HCV) infection in adults aged 18 to 79 years. Influenza vaccine needed 4996866703 106 Z23 Patient recommende d to go to their local pharmacy to have influenza vaccine administer ed. Discussed importance of influenza vaccine due to the patient's risk of contractin g the disease. A handout was offered to enhance understand ing of the effects and side effects of the vaccine. Depression screening 171 816445 Z13.31 PHQ 9 Score: {{0 1* 2 [...] mood changes. General ex amination of patient 171398957 Z00.00 Patient should discuss medical decisions with [facility] Care Proxy. Recommende d screenings included colonoscop y screening age 45, earlier based on family history/ri sk factors; annual mammogram age 40, unless earlier based on risk factors and discussion with patient; bone density age 65, unless risk factors for earlier screening; one time screen for hepatitis C if born between 5813-2466 or has risk factors. Reviewed vaccines and current recommenda tions. Basic health topics include aerobic exercise, importance of healthy/ba lanced diet and minimizing caffeine and alcohol. Primary fi bromyalgia syndrome 23870770 M79.7 Patient is taking tramadol 50mg two [...] of medication s. Vitamin D deficiency 347 33683 E55.9 Repleting with vitamin D 50,000 units [...] mushrooms) . History of bariatric surgical procedure 058937965 Z98.84 History of bypass surgery; has not been taking vitamins. Encouraged her to take bariatric vitamins. Asthma 026137297 J45.90 9 Taking wixella 1 puff BID and rinsing mouth after use. Has prn albutrol, not using more than monthly. Gastroesop hageal reflux disease 259938392 K21.9 Discussed dietary management of GERD and common triggers (coffee, carbonated drinks including omar vitaliy, peppermint , citrus, tomatoes, chocolate, fatty foods spicy foods, and fried foods). Patient advised to avoid alcohol. Discussed smaller portions, sitting upright during meals, and avoiding meals 3 hours prior to bed time. Hypothyroidism 02343224 E03.9 Obstructiv e sleep apnea syndrome 87620800 G47.33 Health Concerns Section Related Observation LastModified by Organization Sariah pitt LastModified Time None Recorded Concern Status LastModified by Organization Details LastModified Time None Recorded Advance Directives Directive N: Payers Encounter Date Sequence Insurance Name Policy Number Policy Dunaway Covered Member ID Dunaway Member ID Guarantor Name 01/23/2024 1 [facility] [id number] Clara Umana [id number] Clara Umana 03/26/2024 1 [facility] [id number] Clara Umana [id number] Clara Umana 05/14/2024 1 [facility] [id number] Clara Umana [id number] Clara Umana 07/23/2024 1 [facility] [id number] Clara [place] [id number] Clara Umana Notes Date Note Type Note Provider Name and Address Organization Details Recorded Time 01/23/2024 text/html Clara returns for follow up. She was able to get Wegovy 1.7mg. She transitioned from Saxenda to Wegovy. Diet: Coffee, Nepalese yogurt, snack, Lunch: lean cuisine, dinner protein, vege. Exercise: She has been walking the dog a few times a week. Weight today 213.8#. She started at 224# so she has lost almost 11#. She denies side effects on Wegovy. On Saxenda she was a little nauseous. Ashley Gaitan MD [address] [place] [address], [phone], [facility] 01/23/2024 14:00:58 03/26/2024 text/html ObesityReported bypatient.Notes:Clara presents [...] since KAYCEE:9.4 Total change:19.6# Ashley Gaitan MD [address] [place] [address], [phone], [facility] 03/31/2024 11:37:53 05/14/2024 text/html Clara presents fo [...] been on this for 2 weeks.Initial Weight: 224#AKYCEE (last office visit) weight: 204.4#Today? s weight: 198.8#Change since KAYCEE: 5.6Total change:25.2#Plan: Continue with Wegovy 2.4mg and healthy lifestyle changes. RTC 6 weeks. Ashley Gaitan MD [address] [place], [phone], [facility] 05/19/2024 20:42:05 07/23/2024 text/html Clara presents fo [...] since KAYCEE: 4.8Total change:30# Ashley Gaitan MD [address] [place], [phone], [facility] 07/23/2024 19:02:09 OBGyn Episode Ob Episode Information Episode Created Date Number of Fetuses Patient Bloodtype Patient rh Status Prepregnancy Weight lbs Domestic Partner Domestic Partner Phone Father Name Blade Balancer Status 06/23/19 07 1 CLOSED Fetus Data [...]
== END 2024-09-24 18:02 | disposition home or self-care (01) ==
LOC: HO.MRI 18:01
PROVIDERS: Visit Provider Physical Medicine & Rehabilitation
DX: M51.26 Other intervertebral disc displacement, lumbar region (principal)
CPT/HCPCS: 72148

== ENCOUNTER 2024-10-04 09:05 | Outpatient (AMB) | payer OTHER, SELFPAY ==
--- NOTE | 2024-10-04 09:17 | MHC.OFFVIS ---
Vital Signs 10/04/24 09:18 Height 5 ft 3 in Weight 194 lb BMI 34.4 Intake Visit Reasons: OV - Lumbar Spine MRI Review Intake Note: Clara is a 49 year old female who presents today for a Lumbar Spine MRI Review. We have previously discussed the possibility of a referral to pain mgmt for SI joint injection under fluoroscopy or ultrasound. IMPRESSION: Central disc herniation L5-S1 abutting the S1 nerve roots on the lateral recesses. Right subarticular disc herniation T12-L1 resulting in ventral deformity of the spinal cord without cord edema and or myelopathy. Bilateral neuroforamina narrowing at L5-S1 on a degenerative basis encroaching the L5 exiting nerve roots. Low position of the conus medullaris without tethered cord. Allergies No Known Allergies Allergy (Verified 10/04/24 09:18) HPI Comments Details: Patient saw [facility] on 08/02/2024 complaining of left hip pain. Sunshine's diagnosis was SI joint dysfunction. Sunshine did order lumbar spine MRI but, not sure what happened, order was changed to pelvis MRI was instead. Left hip x-ray 07/29/2024 unremarkable. Pelvis x-ray 08/23/2024 reported no acute signal abnormalities and sacrum or coccyx, bilateral SI joints are unremarkable, no significant soft tissue abnormalities. But reported heterogeneous marrow signal noted throughout, finding is nonspecific in nature, significance unknown. No history of radiation therapy, pulmonary disease, smoking. History of iron deficiency anemia. 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 Left sided, buttocks, goes up to lower back, [place] and numb in the area. In the past week, goes down to the left leg, this is new, did not radiate to the left foot. Denies foot or leg numbness. Feels weakness on left leg. Denies inciting injuries. Had sciatic issue in the past, though that was never seen by specialist in the past. For past year, it has been worse and ongoing. Treatment done so far: physical therapy - January-February 2024, told by PT to have bursitis hip, graduated to HEP but did not get better, more pain NSAIDs Other history of plantar fasciitis - treated with prednisone Fibromyalgia - on lyrica, tramadol Patient says pain is about the same. She feels weakness on left foot. Pain level is 8/10 most of the day. Worse with prolonged sitting, standing, reaching over. Bothered with paresthesias going down left leg. On last visit, we did an x-ray which showed decreased space L5-S1. At which time, I went ahead order lumbar MRI. Today's review of lumbar MRI. We reviewed images together, see below. 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 Patient was appropriately conversant and oriented. Good historian. MSK/neuro: No specific abnormalities found on inspection of the spine and all extremities. Positive left slump sit. Give-way weakness in left dorsiflexion. Reflexes intact and symmetric bilateral patellar and ankle. Negative Babinski. Antalgic gait. Results Reviewed Results Reviewed: Ordering Physician: Ira Vale Date of Service: 09/24/24 Procedure(s): MR lumbar spine wo con Accession Number(s): [id number] cc: Ira Vale~ EXAMINATION: MR LUMBAR SPINE WITHOUT CONTRAST CLINICAL INFORMATION: Other intervertebral disc displacement, lumbar region. COMPARISON: Correlated to x-ray dated September 10, 2024 demonstrated spondylosis at L5-S1 and scoliosis, thoracolumbar spine. TECHNIQUE: MRI of the lumbar spine was obtained using routine sequences without contrast. FINDINGS: Last rib-bearing vertebra labeled T12. No bone marrow STIR signal abnormality. Marginal osteophyte formation and disc desiccation, T10-11, T11-12, T12-L1, L5-S1 and L4-5 levels. Conus medullaris ends at pedicle of L2 with normal signal. There is a 1 mm retrolisthesis at L5-S1 likely degenerative. T10-11: Bilateral facet joint hypertrophy as well as ligamentum flavum. Reduced AP diameter of the thecal sac. No compression upon neural elements. T11-12: Bilateral facet joint hypertrophy as well as ligamentum flavum resulting in dorsal indentation to the thecal sac. No compression upon neural elements. No gross neuroforamina stenosis. T12-L1: There is a right subarticular disc herniation resulting in ventral deformity of the distal thoracic spinal cord. No cord signal abnormality. No neuroforamina stenosis. L1-2: Broad-based disc bulging. Facet joint and ligamentum flavum hypertrophy. No compression upon neural elements. L2-3: Broad-based disc bulging. Facet joint and ligamentum flavum hypertrophy. No compression upon neural elements. L3-4: Broad-based disc bulging. Facet joint and ligamentum flavum hypertrophy. No compression upon neural elements. L4-5: Broad-based disc bulging. Facet joint and ligamentum flavum hypertrophy. Reduced AP diameter of the thecal sac and bilateral neuroforamina narrowing. L5-S1: There is a central disc herniation resulting in ventral deformity of the thecal sac and abutting the S1 nerve roots on the lateral recesses. Facet joint hypertrophy. Bilateral neuroforamina stenosis likely encroaching the L5 exiting nerve roots, left greater than the right side. No prevertebral compartment hematoma, mass or fluid collection. MR/MR lumbar spine wo con IMPRESSION: Central disc herniation L5-S1 abutting the S1 nerve roots on the lateral recesses. Right subarticular disc herniation T12-L1 resulting in ventral deformity of the spinal cord without cord edema and or myelopathy. Bilateral neuroforamina narrowing at L5-S1 on a degenerative basis encroaching the L5 exiting nerve roots. Low position of the conus medullaris without tethered cord. Electronically signed by: Abdelrahman Samano MD 09/25/2024 06:11 AM EDT Ordering Physician: Ira Vale Date of Service: 09/10/24 Procedure(s): XR lumbar spine 2-3V Accession Number(s): [id number] cc: Physician,Unknown ; Ira Vale~ EXAMINATION: XR LUMBOSACRAL SPINE CLINICAL INFORMATION: M54.9 - Dorsalgia, unspecified COMPARISON: None available. TECHNIQUE: Three views of the lumbosacral spine. FINDINGS: There is a mild to moderate right convex thoracolumbar scoliosis apex at T11. There is a normal lumbar lordosis. There is no subluxation. No fractures, compression deformities, or suspicious bone lesions. Moderate disc space narrowing at L5-S1. Disc spaces otherwise preserved in the lumbar region. Mild facet degeneration L4-S1. Facets normally aligned. No soft tissue abnormalities. XR/XR lumbar spine 2-3V IMPRESSION: 1. Mild degenerative spondylosis most significant at L5-S1. 2. Mild to moderate right convex thoracolumbar scoliosis. Electronically signed by: Rosalino Wiseman MD 09/10/2024 12:23 PM EDT RP Assessment & Plan Assessment & Plan (1) Lumbar disc herniation: Code(s): M51.26 - Other intervertebral disc displacement, lumbar region Category: Medical (2) SI (sacroiliac) joint dysfunction: Code(s): M53.3 - Sacrococcygeal disorders, not elsewhere classified Category: Medical Plan MRI does show disc protrusion, midline, L5-S1, with foraminal narrowing, disc close to the S1 nerve roots, perhaps worse on the left than right. Consistent with her symptoms. She has done other conservative management including physical therapy and anti-inflammatory medications. Her exam shows left give-way weakness on dorsiflexion. Reflexes are intact. We discussed other treatment options and we agreed on pursuing epidural injections 1st. She may benefit from either a left S1 transforaminal or on L5-S1 interlaminar approach. Referring to pain management for the injection. Discussed red flags to follow/watch out for. Deferring any neuro spine surgery at this time, we will see how she does after injection 1st. Hoping that epidural injection would help with the left leg pain and paresthesias and weakness. This possible she may need a left SI joint injection in the future to help with the back/buttocks pain. We talked about better shoe wear as well. Assessment and plan discussed with patient, and patient was agreeable. All questions were answered thoroughly. Follow up with me after injection. Ira Tinoco MD, RAÚL Board Certified, [place] [employer] and [employer] (ABPMR) Board Certified, [place] [employer] (ABEM) Orders: Referrals Pain Management Referral M51.26 - Other intervertebral disc displacement, lumbar region Coding Level of Care Code Est Pt Level 4 (58319) Complex EM visit Add On G2211 Diagnoses Lumbar disc herniation M51.26 SI (sacroiliac) joint dysfunction M53.3
[2024-10-04 09:18] VITALS: BMI 34.4
--- OUTSIDE RECORDS SUMMARY | 2024-10-04 09:37 | XMS_ITS | Clinical Summary ---
Author Organization [facility] Address [address] [place] [address] Care Team Providers Care Cardiac Exercise Specialist Name Role Phone Yaya Brock MD Primary [...] INFLUENZA (Season Ended) 2025 03/27/2019 Care Teams Cardiac Exercise Specialist Relationship Specialty Start Date End Date Yaya Brock MD PCP - General Family Practice 11/10/23
--- OUTSIDE RECORDS SUMMARY | 2024-10-04 09:38 | XMS_ITS | Continuity of Care Document ---
Author Organization [facility] Address [address] [place] [address] Care Team Providers Care Learning Technologist Name Role Phone CINTHYA MCDONNELL Primary Care Provider [phone] CINTHYA MCDONNELL Referring Provider Assessment No assessment recorded. Plan of Treatment Reminders Order Date Submit Date Provider Last Modified By Organization Details Last Modified Time Details Appointments AMB TELEMED (OSMEL) 30 2024 12:00P M Yaya mclain MD Not available Not [...] and the puerperi um - delivere d [id number] Completed 09/25/2019 Yaya Brock III, MD [address] [facility] [place], [address] , [facility] 0 06:21:13 Abscess of Bartholi n's gland 43817925 Completed 09/20/2019 Yaya Brock III, MD [address] [facility] [place], [address] , [facility] 0 06:47:55 Complica tion of pregnanc y, childbir th and/or puerperi um 036915738 Completed 09/20/2019 Yaya Brock III, MD [address] [facility] [place], [address] , [facility] 0 06:47:17 Abdomina l pain 71202573 Completed 09/20/2019 Yaya Brock III, MD [address] [facility] [place], [address] , [facility] 0 06:47:23 Chronic pain syndrome 001397392 Active UTOX done 11/2023 SAIMA RANDLE NP [address] [facility] [place], [address] , [facility] 4 19:54:27 Degenera tion of cervical interver tebral disc 15895591 Completed 201302/02/2023 SAIMA RANDLE NP [address] [facility] [place], [address] , [facility] 3 09:37:18 Cervical spondylo sis 886948095 Completed 09/20/2019 Yaya Brock III, MD [address] [place] [address] [place], [address] , [facility] 0 06:48:07 Primary fibromya lgia syndrome 83961347 Active Not Available [facility] 4 16:46:28 Hypoglyc emia 765310358 Completed 09/25/2019 Yaya Brock III, MD [address] [facility] [place], [address] , [facility] 0 06:21:18 Fibromyo sitis 65653823 Completed 201309/20/2019 Yaya Brock III, MD [address] [facility] [place], [address] , [facility] 0 06:48:16 Lymphade nopathy 65619368 Completed 200409/20/2019 Yaya Brock III, MD [address] [facility] [place], [address] , [facility] 0 06:47:41 Streptoc occal sore throat 84245346 Completed 201309/20/2019 Yaya Brock III, MD [address] [facility] [place], [address] , [facility] 0 06:47:47 Spasm 68489369 Completed 201309/20/2019 Yaya Brock III, MD [address] [facility] [place], [address] , [facility] 0 06:47:49 Cyst of Bartholi n's gland duct 22324554 Completed 201309/20/2019 Yaya Brock III, MD [address] [facility] [place], [address] , [facility] 0 06:47:53 Epigastr ic pain 98606325 Completed 200509/20/2019 Yaya Brock III, MD [address] [facility] [place], [address] , [facility] 0 06:47:59 Pain in limb 59776375 Completed 201309/20/2019 Yaya Brock III, MD [address] [facility] [place], [address] , [facility] 0 06:48:02 Generali zed abdomina l pain 613304219 Completed 200809/20/2019 Yaya Brock III, MD [address] [facility] [place], [address] , [facility] 0 06:47:08 Musculos keletal disorder of the neck 488688102 Completed 201309/20/2019 Yaya Brock III, MD [address] [facility] [place], [address] , [facility] 0 06:47:11 Extrinsi c asthma with asthma attack Completed 201309/20/2019 Yaya Brock III, MD [address] [facility] [place], [address] , [facility] 0 06:47:25 Gastroes ophageal reflux disease 706423821 Active 2013 Not Available [facility] 4 16:46:28 Edema 738294040 Completed 201309/20/2019 Taking furosemi de 20mg daily. SAIMA RANDLE NP [address] [facility], [address] , [facility] 2 11:37:44 Anemia 501316758 Completed 201309/20/2019 Yaya Brock III, MD [address] [place], [place] [address], [address] , [facility] 0 06:47:30 Malaise and fatigue 536404509 Completed 200409/20/2019 Yaya Brock III, MD [address] [place], [place] [address], [address] , [facility] 0 06:47:33 Low back pain 177993534 Completed 200809/20/2019 Yaya Brock III, MD [address] [place] [address] [place], [address] , [facility] 0 06:47:38 Pain of wrist region 10397305 Completed 09/20/2019 Yaya Brock III, MD [address] [place] [address] [place], [address] , [facility] 0 06:47:51 Closed fracture proximal phalanx, toe 810576693 Completed 09/20/2019 Yaya Brock III, MD [address] [facility] [place], [address] , [facility] 0 06:47:21 Acute bronchit is 73614676 Completed 03/08/2019 ROSAURA CHACKO NP [address] [facility] [place], [address] , [facility] 9 13:13:04 Asthma 390906722 Active Not Available [facility] 4 16:46:28 Iron deficien cy 08944097 Active 06/12/24 iron infusion note Taking a multivit padilla with iron in it. Heme denied referral per notice 08/21/23 SAIMA RANDLE NP [address] [facility] [place], [address] , [facility] 5 10:23:14 Menopaus al flushing 440690201 Completed 09/20/2019 Yaya Brock III, MD [address] [facility] [place], [address] , [facility] 0 06:47:15 Mammogra phy abnormal 025728797 Completed 09/20/2019 SAIMA RANDLE NP [address] [place] [address] [place], [address] , [facility] 2 20:31:12 Hypothyr oidism 47669639 Active 2016 Not Available [facility] 4 16:46:28 Allergic rhinitis 68166127 Active 2020 Not Available [facility] 4 16:46:28 Degenera tion of lumbar interver tebral disc 64291237 Completed 202102/02/2023 SAIMA RANDLE NP [address] [place] [address] [place], [address] , [facility] 3 09:37:19 Arthropa thy of lumbar facet joint 647214657 Completed 202102/02/2023 SAIMA RANDLE NP [address] [facility] [place], [address] , [facility] 3 09:37:14 Insomnia 073210597 Active 2021 Taking trazodon e 50-100mg prn. Not Available [facility] 4 16:46:28 Edema 805251538 Active 2013 Not Available [facility] 4 16:46:28 Carpal tunnel syndrome 01178699 Completed 202207/17/2023 SAIMA RANDLE NP [address] [facility] [place], [address] , [facility] 4 14:26:58 Vitamin D deficien cy 52888761 Active 2023 Not Available [facility] 4 16:46:28 Obstruct naya sleep apnea syndrome 06400468 Active 202305/17/24 sleep note: Selected MAT tx, referred to Dr. Chow at [facility]. SAIMA RANDLE NP [address] [place], [place] [address], [address] , [facility] 4 10:27:03 Pain of left hip joint 08876668957 9100 Active 2023 SAIMA RANDLE NP [address] [place], [place] [address], [address] , [facility] 4 13:36:02 Restless legs 33094844 Active 202305/17/24 sleep note: Continue to manage with PCP. Plan to refer to heme if iron deficien cy persists after iron infusion . SAIMA RANDLE NP [address] [place], [place] [address], [address] , [facility] 4 10:27:36 Notes:Some problems listed i n Documents: #[id number], #[id number], #[id number], #[id number], #[id number] could not be added to this patient's chart. Please review these documents and add these problems to the patient's chart manually as needed. Problem Notes None recorded. Procedures Surgical History Date Name Laterality Status Provider Name and Address Organization Details Recorded Time 10/01/19 25 Telemedicine Documentation completed Yaya Reyes MD [address] [place], [place] [address], [address], [facility] 10/01/2024 05:53:49 07/23/19 25 Telemedicine Documentation completed Saima Sykes NP [address] [facility] [place], [address], [facility] 07/23/2024 12:49:53 05/14/20 24 Telemedicine Documentation completed Saima Sykes NP [address] [facility] [place], [address], [facility] 05/14/2024 12:37:40 03/26/20 24 Telemedicine Documentation completed Saima Sykes NP [address] [facility] [place], [address], [facility] 03/26/2024 12:17:40 01/23/20 24 Telemedicine Documentation completed Saima Sykes NP [address] [facility] [place], [address], [facility] 01/23/2024 12:35:51 12/13/19 24 BEDS-7 completed Saima Sykes NP [address] [facility] [place], [address], [facility] 12/13/2023 11:38:00 12/13/19 24 Adams Sleepiness Scale completed Saima Sykes NP [address] [facility] [place], [address], [facility] 12/13/2023 11:38:42 10/05/19 24 Egd biopsy single/multiple completed Swapna Barrett LPN [facility] 10/05/2023 13:30:17 10/05/19 24 Colon ca scrn not hi rsk ind completed Swapna Barrett LPN [facility] 10/05/2023 13:31:39 09/26/19 24 IUD Insertion completed Feroz Potts MD [address] [place], [place] [address], [address], [facility] 09/26/2023 15:41:17 09/26/19 24 IUD Removal completed Feroz Potts MD [address] [place], [place] [address], [address], [facility] 09/26/2023 15:41:10 07/17/19 24 Adams Sleepiness Scale completed Mavis Akers [facility] 07/17/2023 15:00:40 05/11/20 21 PHQ-9 Patient Health Questionnaire completed Yaya Brock III, MD [address] [place], [place] [address], [address], [facility] 05/11/2021 11:48:53 10/29/19 21 Date of Last Mammogram completed Lore Eileen [facility] 05/10/2021 19:21:12 10/29/19 21 Date of Last Pap Smear completed Lore Arellano [facility] 05/10/2021 20:06:48 05/04/20 20 PHQ-9 Patient Health Questionnaire completed Yaya Brock III, MD [address] [place], [place] [address], [address], [facility] 05/04/2020 12:26:14 04/26/20 19 Corticosteroid Injection completed Yaya Brock III, MD [address] [place], [place] [address], [address], [facility] 04/26/2019 12:11:40 08/18/19 19 PHQ-9 Patient Health Questionnaire completed Sapna Quezada [facility] 08/17/2018 08:45:01 07/20/19 17 PHQ-9 Patient Health Questionnaire completed Amelia Coleman MA [facility] 07/20/2016 10:56:05 03/16/20 16 Mirena IUD Insertion completed Angel Yu MD [address] [place], [place] [address], [address], [facility] 03/16/2016 12:37:21 03/16/20 16 Hysteroscopy with Endometrial Biopsy or IUD Removal completed Angel Yu MD [address] [place], [place] [address], [address], [facility] 03/16/2016 12:36:38 07/17/19 16 PHQ-9 Patient Health Questionnaire completed Shweta Holden MA [facility] 07/17/2015 08:44:49 06/05/19 16 Egd biopsy single/multiple completed Yaya Brock III, MD [address] [place], [address], [facility] 05/31/2017 09:30:46 07/09/19 15 PHQ-9 Patient Health Questionnaire completed Deya Kemp MA [facility] 07/09/2014 08:58:22 02/29/20 13 I&D TEMPLATE REPRODUCTION TECHNICIAN completed Angel Yu MD [address] [facility] [place], [address], [facility] 02/28/2013 13:03:51 02/17/20 11 Mirena IUD Insertion completed Saharaguido Sellers [facility] 02/16/2011 09:49:32 02/17/20 11 IUD Removal completed Sahara Sellers [facility] 02/16/2011 09:49:32 02/02/20 06 delivery completed Not Available [facility] 04/20/2011 06:32:15 appendectomy completed Not Available [facility] 04/20/2011 06:32:29 gastric bypass completed Not Available [facility] 04/20/2011 06:32:29 dental extraction completed Not Available [facility] 04/20/2011 06:32:29 tonsillectomy completed Not Available [facility] 04/20/2011 06:32:29 Imaging Results None recorded. Procedure Notes None recorded. Medical Equipment None Reported. Allergies Allergen ID Allergen Name Allergen Category Reaction Reaction Severity Criticality Documentation Date Start Date Code Code System Note Provider Name and Address Organization Details Recorded Time 294733 amoxicill in medicatio n rash moderate Not available 08/17/2018 723 RxNorm BORIS Le, [facility] 9 08:42:22 Medications Name Sig Start Date [...] mg capsule TAKE 1 CAPSULE BY MOUTH EVERY 12 HOURS FOR 7 DAYS active Not Available Not Available No t Available duloxetin e 30 mg capsule,d elayed [...] Needle 32 gauge x USE DIRECTED WITH SAXENDA active Not Available [...] Not Available Not Available Not Available Vitals None Recorded Social History Question Answer Notes LastModified by Organizat ion Details LastModified Time Tobacco Smoking Status Never Smoker Not Available [facility] 04/20/2011 06:22:17 Do You Have An Advance [...] Carbs And Sugars. No Desserts, Processed Foods, C[employer]. Information not available 07/09/2014 Which Illicit Or Recreational Drugs Have You Used? Pt Denies Information not available 07/09/2014 Education 4 Year College Information not available 11/28/2013 What Is Your Occupation? [employer]: [employer] [place] Information not available 11/28/2013 Work Status Full-time Information n ot available 11/28/2013 Living Situation Other Children Information not available 11/28/2013 Disabled? If Yes, How Long? No Information not available 11/28/2013 An Panel Laminator Involved? If Yes, Who? No Information not [...] no t available 07/09/2014 Cholesterol/HDL Screen 07/17/2015 [email or web address] Information not available 07/17/2015 Tetanus/Adacel Vaccine 07/03/2012 [...] by Organization Details LastModified Time Father Malignant neoplasm of lung 71 deceas ed (previ ously [...] Not available 09/23/2015 09:05:18 Paternal Grandfather Malignant neoplasm of prostate previo usly record ed as cancer -prost ate Not available 09/23/2015 09:05:18 Paternal Grandfather Malignant neoplasm of lung previo usly record ed as [...] Tdap 4 completed SAIMA RANDLE NP [address] [place], [address], [facility] 07/18/2023 07:31:00 Influenza, split virus, trivalent, preservative 4 completed Not Available [facility] 06/22/2019 02:11:20 Td(adult) unspecified formulation 5 completed Not Available [facility] 07/21/2023 16:46:28 Tdap 3 completed Not Available [facility] 07/21/2023 16:46:29 Novel [id number]-[id number] , preservative-free 9 completed Not Available [facility] 07/21/2023 16:46:29 Influenza, split virus, quadrivalent, preservative 5 completed Not Available [facility] 06/22/2019 02:11:26 influenza, intradermal, quadrivalent, preservative free 6 completed Not Available [facility] 06/22/2019 02:12:33 Influenza, split virus, quadrivalent, preservative 8 completed Not Available [facility] 07/21/2023 16:46:28 Influenza, split virus, quadrivalent, PF 7 completed Not Available [facility] 06/22/2019 02:15:35 Influenza, split virus, quadrivalent, preservative 0 completed Not Available [facility] 07/21/2023 16:46:28 COVID-19, mRNA, LNP-S, PF, 100 mcg/0.5mL dose or 50 mcg/0.25mL dose 1 completed Not Available [facility] 07/21/2023 16:46:28 COVID-19, mRNA, LNP-S, PF, 100 mcg/0.5mL dose or 50 mcg/0.25mL dose 1 completed Not Available [facility] 07/21/2023 16:46:28 Influenza, split virus, quadrivalent, preservative 1 completed Not Available [facility] 07/21/2023 16:46:28 Past Encounters Encounter ID Performer Location Encounter Start Date Encounter Closed Date Diagnosis/Indication Diagnosis SNOMED-CT Code Diagnosis ICD10 Code Diagnosis Note [id number] CINTHYA MCDONNELL MD [facility] [address] [place] [address] 09/05/2024 13:53:02 09/05/2024 14:50:58 Screening mammography 72052403 Z12.31 Has mammo at [facility] in 2 weeks Administra tion of diphtheria, pertussis, and tetanus vaccine 023778965 Z23 Screening for malignant neoplasm of cervix 556232239 Z12.4 Last pap 2020 NILM and HPV neg but no endocervic al component, patient would like to reschedule for repeat pap Screening for malignant neoplasm of colon 341953315 Z12.11 Last colonoscop y Advance care planning 71 4836857 Z71.89 HCP form discussed and given to patient. Hepatitis C screening 41 9523005 Z11.59 The USPSTF recommends one time screening for hepatitis C virus (HCV) infection in adults aged 18 to 79 years. Influenza vaccine needed 6078929343 106 Z23 Patient recommende d to go to their local pharmacy to have influenza vaccine administer ed. Discussed importance of influenza vaccine due to the patient's risk of contractin g the disease. A handout was offered to enhance understand ing of the effects and side effects of the vaccine. Depression screening 171 854387 Z13.31 PHQ 9 Score: {{0 1* 2 [...] mood changes. General ex amination of patient 126877560 Z00.00 Patient should discuss medical decisions with Health Care Proxy. Recommende d screenings included colonoscop y screening age 45, earlier based on family history/ri sk factors; annual mammogram age 40, unless earlier based on risk factors and discussion with patient; bone density age 65, unless risk factors for earlier screening; one time screen for hepatitis C if born between 0389-2960 or has risk factors. Reviewed vaccines and current recommenda tions. Basic health topics include aerobic exercise, importance of healthy/ba lanced diet and minimizing caffeine and alcohol. Primary fi bromyalgia syndrome 48468662 M79.7 Patient is taking tramadol 50mg two [...] of medication s. Vitamin D deficiency 347 41957 E55.9 Repleting with vitamin D 50,000 units [...] mushrooms) . History of bariatric surgical procedure 742651557 Z98.84 History of bypass surgery; has not been taking vitamins. Encouraged her to take bariatric vitamins. Asthma 705100707 J45.90 9 Taking wixella 1 puff BID and rinsing mouth after use. Has prn albutrol, not using more than monthly. Gastroesop hageal reflux disease 184278393 K21.9 Discussed dietary management of GERD and common triggers (coffee, carbonated drinks including omar vitaliy, peppermint , citrus, tomatoes, chocolate, fatty foods spicy foods, and fried foods). Patient advised to avoid alcohol. Discussed smaller portions, sitting upright during meals, and avoiding meals 3 hours prior to bed time. Hypothyroidism 08862999 E03.9 Obstructiv e sleep apnea syndrome 33399589 G47.33 [id number] MD [facility] [address] [place] [phone] 09/30/2024 07:56:03 09/30/2024 12:34:46 Iron deficiency anemia 48658524 D50.9 GI blood loss has been excluded with EGD and colonoscop y. Iron deficiency anemia is explained by her previous gastric bypass that causes malabsorpt ion. She has responded to iron infusions and no further GI tests are needed. Chronic id iopathic constipation 33683759 K59.04 She has a lifelong history of constipati on and this is probably related to her redundant long colon that of course increases the transfer time and allows for more efficient water absorption . We have tried a guanylate cyclase activator (once-adal y linaclotid e (290 ? ? ?g) with poor results but it may work better with adjusting her use of lactulose from prn to taking 15 mL once daily and to adjust the dose prn. If that does not work, we could try the chloride channel activator Lubiprosto ne Amitiza. History of bariatric surgical procedure 776117100 Z98.84 After bariatric surgery, patients have a [...] have regular f/u with her bariatric team. Health Concerns Section Related Observation LastModified by Organization Detai ls LastModified Time None Recorded Concern Status LastModified by Organization Details LastModified Time None Recorded Payers Encounter Date Sequence Insurance Name Policy Number Policy Dunaway Covered Member ID Dunaway Member ID Guarantor Name 09/30/[address] [place] [address] [id number] Clara Aranda [id number] Clara Aranda Notes Date Note Type Note Provider Name and Address Organization Details Recorded Time 09/30/2024 text/html Clara ARANDA 1975 is a 49 year old woman who had been referred in 2023 for Iron deficiency anemia. We proceeded with EGD and colonoscopy that showed an unusually long and redundant colon with as well as previous gastric bypass melanosis coli but no other pathology. She has received iron infusions and her iron deficiency anemia resolved.she has a long history of severe constipation and has had multiple abdominal operations. Her constipation began during childhood and she has used multiple laxatives. At her last visit on 08/29/2023, we had prescribed Linzess 290 mcg daily but this has not helped. She still can have up to 14 days without spontaneous evacuation. After 3 to 4 days without evacuation, she starts lactulose 30 mL daily and that also often does not work for several days. The next stool will be Millard type -VII with mucus. She never has hard stool. Lactulose causes bloating but not many cramps.She has had a gastric bypass at [facility] and subsequently an operation for an internal hernia, intussusception, as well as hiatal hernia repair. She had been prescribed a GLP-1 agonist Wegovy.No other GI or hepatobiliary complaints.Pmh: Obesity; BMI: 35. Gastric bypass. chronic pain syndrome (Clara no longer sees Dr. Uribe.) 2 C-sections. Laparotomy for repair of biliary internal hernia and intussusception. Hiatal hernia repair. APPY. Obstetric complications. Cervical dysplasia. Chronic pain syndrome. asthma. edema, gerd, hypothyroidism, fibromyalgiaMeds: Linzess 290 mcg daily. Naltrexone, levothyroxine, tramadol, chlorzoxazone prn, pregabalin, omeprazole. Furosemide, wixela, ventolin, bupropion, trazodone, vit d, iron, lactulose 30 mL as needed. Wegovy.Allergies: amoxicillinSH: . 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 No smoking, EtOH or illicit drugs.FH: Brother with polyps, details unavailable.LABS:2023: Colonoscopy: Unusually long and redundant. Melanosis coli.10/05/2023: EGD: Gastric bypass. Irregular Z-line. Biopsies from stomach and jejunum: Normal.09/05/2024, 11/07/2022, 11/02/2021, 05/04/2020, etc.: EtOH biomarkers: Positive.09/05/2024: BMP, A1c, CMP, TSH: Normal.08/28/2024: WBC 9.6 hemoglobin 14.1 platelet 520,000 MCV 93 RDW 14.Ferritin: 56. 25 D: 29.11/15/2023: WBC 7.2 hemoglobin 10.7 platelet 536,000 MCV 86 RDW 16.Iron saturation 11% ferritin 5. B12, folate: Normal.07/17/2023: WBC 8.1 hemoglobin 11.9 platelet 517,000 MCV 87 RDW 15.Iron saturation 10% ferritin 6. CMP, TFTs: Normal.08/31/2017: Abdominal/pelvic CT: Small bowel intussusception in the left lower quadrant. Gastric bypass. Redundant colon. Yaya Reyes MD [address] [place] [address], [phone], [facility] 10/01/2024 05:56:07 OBGyn Episode No OBEpisode recorded.
== END 2024-10-04 10:11 | disposition home or self-care (01) ==
LOC: HO.HOS 09:06
PROVIDERS: Visit Provider Physical Medicine & Rehabilitation
DX: M51.26 Other intervertebral disc displacement, lumbar region (principal); M53.3 Sacrococcygeal disorders, not elsewhere classified
CPT/HCPCS: 99214

== ENCOUNTER → 2024-10-04 09:05 | Outpatient (BNVA) | payer OTHER, SELFPAY | PROVIDERS: Visit Provider Physical Medicine & Rehabilitation ==

== ENCOUNTER 2024-11-28 06:07 | Outpatient (REF) | payer OTHER, SELFPAY ==
--- NOTE | ~2024-11-28 | FL_ITS ---
EXAMINATION: FL GUIDANCE ONLY HISTORY: M51.26 - Other intervertebral disc displacement, lumbar region COMPARISON: None available. TECHNIQUE: Fluoroscopy time: 0.2 minutes. Cumulative Dose: 3.472 mGy. DAP: 0.0184 mGym2 Images: 3. FINDINGS: Fluoroscopic spot films of the lumbar spine is straight a needle and contrast material in the region of a left-sided facet joint. FL/FL guidance in treatment room IMPRESSION: Fluoroscopy during procedure. Please see procedure report for additional information. Electronically signed by: Enrique Escobedo MD 11/28/2024 11:39 AM EDT
== END 2024-11-28 06:08 | disposition home or self-care (01) ==
LOC: CF 06:07
PROVIDERS: Visit Provider Internal Medicine
DX: M54.16 Radiculopathy, lumbar region (principal); M51.26 Other intervertebral disc displacement, lumbar region
CPT/HCPCS: 62323; J2003; J3301; Q9967

== ENCOUNTER 2024-11-28 09:39 | Outpatient (AMB) | payer OTHER, SELFPAY ==
[2024-11-28 09:41] VITALS: BP 103/69; PULSE 76; RESP 16; O2SAT 100; BMI 34.4
--- NOTE | 2024-11-28 09:41 | A.OFFVIS_ITS ---
Vital Signs 11/28/24 09:41 11/28/24 10:42 Height 5 ft 3 in 5 ft 3 in Weight 194 lb 194 lb BMI 34.4 34.4 BP 103/69 102/63 Blood Pressure Location Lt brachial Lt brachial Position Sitting Sitting Respiration 16 16 Pulse 76 78 Pulse Source Pulse Oximeter Pulse Oximeter Pulse Oximetry (%) 100 100 Oxygen Delivery Method Room Air Room Air Intake Visit Reasons: L5-S1 interlaminar JAY Allergies No Known Allergies Allergy (Verified 10/04/24 09:18) HPI HPI L5-S1 interlaminar JAY: Details: Patient presents for scheduled procedure. Denies any recent cough, cold, infection, fever or other significant changes in medical history since last office visit. 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 The patient was placed in the prone position. The lumbar area was widely prepped with chloraprep and draped in sterile fashion. Fluoroscopic guidance was used to identify the desired interlaminar space and for needle placement. Subcutaneous 0.5% lidocaine was used to anesthetize the skin overlying the target. A 20-gauge Collins needle was advanced to the epidural space using loss of resistance to contrast technique under fluoroscopic AP and contralateral oblique views. There was no evidence of heme or CSF and no paresthesias were elicited with needle placement. Confirmation of epidural needle placement was performed with 1cc of omnipaque 180. Next 3 ml 0.5% lidocaine mixed with 80 mg triamcinilone was administered epidurally with no pain elicited on injection. The needle tract tubing was then cleared with 1 ml of 0.5% lidocaine. The needle was removed, skin cleansed and a sterile bandage was applied. The patient tolerated the procedure well and no complications were encountered. Following the procedure the patient's vital signs were stable. The patient was discharged home in good condition with post-procedural instructions. Time Out: Immediately prior to the procedure, the following was verbally confirmed that there is a signed consent form and that the correct patient, planned procedure, site and side are consistent with documentation and that necessary equipment and/or blood products are available prior to the start of the case. Complications: none EBL: <2 cc Coding 46569 - Caudal/Lumbar Epidural/Interlaminar with fluoroscopy Procedure code (CPT) selection complete Assessment & Plan Assessment & Plan (1) Lumbar radiculopathy: Code(s): M54.16 - Radiculopathy, lumbar region Category: Medical Plan Patient is status post left L5-S1 parasagittal interlaminar epidural steroid injection. Patient tolerated procedure well and was discharged home in stable condition with discharge instructions. All questions were answered. We will follow-up via telephone or in clinic to assess response to therapy. A follow-up appointment was made during today's visit. Orders: Orders FL guidance in treatment room 11/28/24 M51.26 - Other intervertebral disc displacement, lumbar region Coding Level of Care Code Procedure Only Diagnoses Lumbar radiculopathy M54.16 CPT Codes Coding - Joint 11: 14523 - Caudal/Lumbar Epidural/Interlaminar with fluoroscopy ([id number])
[2024-11-28 10:42] VITALS: BP 102/63; PULSE 78; RESP 16; O2SAT 100; BMI 34.4
== END 2024-11-28 10:54 | disposition home or self-care (01) ==
LOC: HO.PMCPRC 09:39
PROVIDERS: Visit Provider Internal Medicine
DX: M54.16 Radiculopathy, lumbar region (principal)
CPT/HCPCS: 62323

== ENCOUNTER 2025-01-01 10:36 | Outpatient (AMB) | payer OTHER, SELFPAY ==
--- OUTSIDE RECORDS SUMMARY | 2024-09-15 12:45 | XMS_ITS | Encounter Summary ---
Author Organization [facility] Address [address] [place] [phone] Phone Care Team Providers Care Green Marketing Analyst Name Role Phone Yaya Brock MD Primary Care Provider [phone] Encounter Details Date Type Department Care Team (Late st Contact Info) Description 09/15/2024 12:45 PM EDT Hospital Encounter [facility] [address] [place] [phone] Tersea Riley PA-C [address] [place] [address] [phone] [email or web address] Social History Tobacco Use Types Packs/Day Years [...] on filedocumented in this encounter Care Teams Green Marketing Analyst Relationship Specialty Start Date End Date Yaya Brock MD [email or web address] PCP - General Family Medicine 05/06/22 documented as of this encounter Additional Source Comments The information contained in this document represents components of the legal health record. It is not the complete legal health record.[facility]
--- NOTE | 2025-01-01 10:38 | MHC.OFFVIS ---
Vital Signs 01/01/25 10:39 Height 5 ft 3 in Weight 171 lb BMI 30.3 BP 111/66 Blood Pressure Location Lt brachial Position Sitting Respiration 16 Pulse 93 Pulse Source Pulse Oximeter Pulse Oximetry (%) 99 Oxygen Delivery Method Room Air Intake Visit Reasons: Left GTB Inj Vacuum Tester Cans Required: No Home Coordinator: Home Coordinator Present Accompanied by: lAexis Sandoval Allergies No Known Allergies Allergy (Verified 01/01/25 10:40) Medication List - Last Reconciled 01/01/25 by Shira Palacios LPN albuterol sulfate 90 mcg/actuation (Ventolin HFA) 0 mcg inhalation chlorzoxazone 500 mg PO TID PRN furosemide 20 mg PO DAILY lactulose mL PO levothyroxine 50 mcg PO DAILY linaclotide (Linzess) mcg PO DAILY omeprazole 40 mg PO DAILY pregabalin 100 mg PO BID semaglutide (weight loss) (Wegovy) 2.4 mg subcut QWEEK tramadol 50 mg PO Q4H PRN trazodone 100 mg PO BEDTIME PRN HPI HPI Left GTB Inj: Details: Patient presents for scheduled procedure. Denies any recent cough, cold, infection, fever or other significant changes in medical history since last office visit. 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 The site was prepped with Chloraprep. With the patient in lateral position and the use of ultrasound the greater trochanter was identified. A 21-gauge 3.5 echostim needle was then advanced toward the trochanteric bursa using an inplane technique. Once in position, and after negative aspiration, 40mg triamcinilone mixed with 0.5% ropivcaine (4mL total) was injected. There was no evidence of paresthesias throughout needle placement. The needle was withdrawn. An image of the US guided needle placement was saved to the record. The patient tolerated the procedure well and there was no evidence of procedural complications. The patient was observed in the procedure room for 20 minutes, vitals were stable, and discharged in stable condition. Coding 64101 - Glenohumeral with ultrasound guidance Procedure code (CPT) selection complete Assessment & Plan Assessment & Plan (1) Greater trochanteric pain syndrome: Code(s): M25.559 - Pain in unspecified hip Category: Medical Plan Patient is status post left GTB injection under US. Patient tolerated procedure well and was discharged home in stable condition with discharge instructions. All questions were answered. Coding Level of Care Code Procedure Only Diagnoses Greater trochanteric pain syndrome M25.559 CPT Codes Coding - Joint 8: 74348 - Glenohumeral with ultrasound guidance ([id number])
[2025-01-01 10:39] VITALS: BP 111/66; PULSE 93; RESP 16; O2SAT 99; BMI 30.3
--- OUTSIDE RECORDS SUMMARY | 2025-01-01 11:36 | XMS_ITS | Encounter Summary ---
Author Organization [employer] [facility] Address [address] [place] [address] Care Team Providers Care Music Manager Name Role Phone Aliya Servin MD Primary Care Provider nathalie Beth, Pcp Primary Care Provider Yaya Farr MD Primary Care Provider Un available Encounter Details Date Type Department Care Team Description 03/11/2021 Telephone Cardio [facility] [address] [place] [phone] Aliya Servin MD Social History Tobacco Use [...] on filedocumented in this encounter Care Teams Music Manager Relationship Specialty Start Date End Date Aliya Servin MD PCP - General Internal Medicine 05/22/1803/06 [facility], Pcp PCP - General Internal Medicine 04/03/23 11/09/23 Yaya Brock MD PCP - General Family Practice 11/10/23 documented as of this encounter
== END 2025-01-01 11:07 | disposition home or self-care (01) ==
LOC: HO.PMC 10:36
PROVIDERS: Visit Provider Internal Medicine
DX: M25.559 Pain in unspecified hip (principal)
CPT/HCPCS: 20611

== ENCOUNTER → 2025-01-01 10:36 | Outpatient (BNVA) | payer OTHER, SELFPAY | PROVIDERS: Visit Provider Internal Medicine | DX: M25.552 Pain in left hip (principal) | CPT/HCPCS: 20611; J2795; J3301 ==

== ENCOUNTER 2025-01-22 09:47 | Outpatient (AMB) | payer OTHER, SELFPAY ==
--- OUTSIDE RECORDS SUMMARY | 2024-09-15 12:45 | XMS_ITS | Encounter Summary ---
Author Organization [facility] Address [address] [place] [phone] Phone Care Team Providers Care Basket Weaver Name Role Phone Yaya Brock MD Primary Care Provider [phone] Encounter Details Date Type Department Care Team (Late st Contact Info) Description 09/15/2024 12:45 PM EDT Hospital Encounter [facility] [address] [place] [phone] Teresa Riley PA-C [address] [place] [address] [phone] [email or web address] Social History Tobacco Use Types Packs/Day Years Used Date Smoking Tobacco: Never Smokeless Tobacco: Never Alcohol Use Standard Drinks/Week Comments Yes 0 (1 standard drink = 0.6 oz pur e alcohol) on occasion Education Answer Date Recorded Are you interested in more education? Not on ceasar e 10/01/2022 Are you concerned about learning? Not on file 10/01/2022 No 10/01/2022 No 10/01/2022 Digital Access Answer Date Recorded No 10/30/2022 No 10/30/2022 Reliable internet access at home? Not on file 10/30/2022 Device with a working camera? Not on file Comments Unknown Sex and Gender Information Value Date Recorded Sex Assigned at Not on file Legal Sex Female 6:54 PM EST Gender Identity Not on file Sexual Orientation Not on file documented as of this encounter Plan of Treatment Not on file documented as of this encounter Procedures Procedure Name Priority Date/Time Associated Diagnosis Comments XR RIBS 3 OR MORE VIEWS WITH PA CHEST (RIGHT) Routine 09/15/2024 12:53 PM EDT Closed fracture of multiple ribs of right side, initial encounter documented in this encounter Results * XR RIBS 3 OR MORE VIEWS WITH PA CHEST (RIGHT) (09/15/2024 12:53 PM EDT) Anatomical Region Laterality Modality Chest Computed Radiogr aphy 09/15/2024 1:48 PM EDT Impressions 09/15/2024 1:51 PM EDT Acute not significantly displaced anterolateral right eighth and possibly ninth rib fracture deformities. No pneumothorax. Narrative 09/15/2024 1:51 PM EDT XR RIBS 3 OR MORE VIEWS WITH PA CHEST (RIGHT) Referring clinician's provided indication for this examination in Epic: Pain COMPARISON: FINDINGS: Acute not significantly displaced anterolateral right eighth and possibly ninth rib fracture deformities. PA evaluation of the chest demonstrates no focal consolidation, pleural effusion, pulmonary edema, or pneumothorax. Cardiomediastinal silhouette is normal. Procedure Note Remy Munroe MD - 09/15/2024 XR RIBS 3 OR MORE VIEWS WITH PA CHEST (RIGHT) Referring clinician's provided indication for this examination in Epic:Pain COMPARISON: FINDINGS: Acute not significantly displaced anterolateral right eighth and possiblyninth rib fracture deformities. PA evaluation of the chest demonstrates no focal consolidation, pleuraleffusion, pulmonary edema, or pneumothorax. Cardiomediastinal silhouetteis normal. IMPRESSION: Acute not significantly displaced anterolateral right eighth and possiblyninth rib fracture deformities. No pneumothorax. Teresa NEGRETE-C IMG XR CHEST Final Result documented in this encounter Visit Diagnoses Not on filedocumented in this encounter Care Teams Basket Weaver Relationship Specialty Start Date End Date Yaya Brock MD [email or web address] PCP - General Family Medicine 05/06/22 documented as of this encounter Additional Source Comments The information contained in this document represents components of the legal health record. It is not the complete legal health record.[facility]
--- NOTE | 2025-01-22 09:52 | A.OFFVIS_ITS ---
Vital Signs 01/22/25 09:54 Height 5 ft 3 in Weight 177 lb BMI 31.4 BP 113/70 Blood Pressure Location Lt brachial Position Sitting Respiration 16 Pulse 81 Pulse Source Pulse Oximeter Pulse Oximetry (%) 98 Oxygen Delivery Method Room Air Intake Visit Reasons: Follow up Bartender Manager Required: No Allergies No Known Allergies Allergy (Verified 01/22/25 09:54) [facility] HPI Follow up: Details: History of Present Illness The patient is a 49-year-old female presenting with follow-up for chronic pain management after a recent left greater trochanteric bursa injection. Last month's treatment provided temporary relief; however, the pain resumed after about a week. She has continued with physical therapy exercises for the lateral hip without notable improvement. Her chronic low back pain persists, initially easing after a previous injection but gradually returning. The pain localizes to the left side, radiating into the buttock and hip with occasional numbness, worsening with prolonged occupational activity. Pain Description - Onset: Pain returned after initial relief from injection - Quality: Sharp pain with numbness - Location: Left side, extending into buttock and hip - Exacerbating factors: Prolonged sitting and standing - Relieving factors: Temporary relief from injections: JAY, GTB injection. Exhausted oral meds and PT. Physical Exam Musculoskeletal: Pain reproduced with rotation, bending forward, and [id number] movements. Endplate degeneration at L5-S1 with Modic changes noted. 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 Axial component appears to be vertebrogenic, worse with anterior column loading. - Commence prior authorization and scheduling for basivertebral nerve ablation targeting L5-S1, potentially including L4, under general anesthesia. - Procedural consent discussing potential failure post-operative care requirements, and recovery timelines thoroughly communicated. Patient was informed and verbally consented to the use of an ambient scribe for clinic note documentation during this visit. Discussion Notes I discussed with the patient the potential benefits and risks of undertaking tibial nerve ablation to manage the chronic pain attributed primarily to L5-S1 endplate degeneration with Modic changes. I provided information about the procedure's planning, highlighting a 20% risk of mismapping due to anatomical variability. The patient was advised on post-procedure expectations, emphasizing adequate recovery time, and the discussion included a potential multi-level approach to ablation, covering any inklings of problems at other lumbar levels. The patient consented to proceed, understanding that if insurance approves, the intervention will be executed as a day procedure under general anesthesia. Patient Instructions - Await contact from speech language pathology assistant for insurance approval updates. - Review provided educational materials on the BVN ablation procedure. - Plan for adequate recovery time post-procedure, securing days off work as discussed. Coding Level of Care Code Est Pt Level 4 (51531) Diagnoses Vertebrogenic low back pain M54.51 Lumbar radiculopathy M54.16 Greater trochanteric pain syndrome M25.559
[2025-01-22 09:54] VITALS: BP 113/70; PULSE 81; RESP 16; O2SAT 98; BMI 31.4
--- OUTSIDE RECORDS SUMMARY | 2025-01-22 10:38 | XMS_ITS | Encounter Summary ---
Author Organization [employer] [facility] Address [address] [place] [address] Care Team Providers Care Distillation Operator Name Role Phone Aliya Servin MD Primary Care Provider nathalie Beth, Pcp Primary Care Provider Yaya Farr MD Primary Care Provider Un available Encounter Details Date Type Department Care Team Description 03/11/2021 Telephone Cardio PVC [facility] [address] [place] [phone] Aliya Servin MD Social History Tobacco Use [...] on filedocumented in this encounter Care Teams Distillation Operator Relationship Specialty Start Date End Date Aliya Servin MD PCP - General Internal Medicine 05/22/1803/06 [facility], Pcp PCP - General Internal Medicine 04/03/23 11/09/23 Yaya Brock MD PCP - General Family Practice 11/10/23 documented as of this encounter
== END 2025-01-22 10:46 | disposition home or self-care (01) ==
LOC: HO.PMC 09:48
PROVIDERS: Visit Provider Internal Medicine
DX: M54.51 Vertebrogenic low back pain (principal); M54.16 Radiculopathy, lumbar region; M25.559 Pain in unspecified hip
CPT/HCPCS: 99214

== ENCOUNTER 2025-03-12 10:47 | Day surgery (SDC) | payer OTHER, SELFPAY ==
--- OUTSIDE RECORDS SUMMARY | 2024-09-15 12:45 | XMS_ITS | Encounter Summary ---
Author Organization [facility] Address [address] [place] [phone] Phone Care Team Providers Care Account Liaison Name Role Phone Yaya Brock MD Primary Care Provider [phone] Encounter Details Date Type Department Care Team (Late st Contact Info) Description 09/15/2024 12:45 PM EDT Hospital Encounter [facility] [address] [place] [phone] Teresa Riley PA-C [address] [place] [address] [phone] Social History Tobacco Use Types Packs/Day Years [...] on filedocumented in this encounter Care Teams Account Liaison Relationship Specialty Start Date End Date Yaya Brock MD [email or web address] PCP - General Family Medicine 05/06/22 documented as of this encounter Additional Source Comments The information contained in this document represents components of the legal health record. It is not the complete legal health record.[facility]
--- OUTSIDE RECORDS SUMMARY | 2025-02-24 12:32 | XMS_ITS | Clinical Summary ---
Author Organization [facility] Address [address] [place] [id number] Phone Care Team Providers Care Business Applications Manager Name Role Phone Yaya Brock MD Primary Care Provider [phone] Allergies Active Allergy Reactions Criticality Noted Date Comments Amoxicillin Rash Medium 05/06/2022 Medications traZODone (DESYREL) 50 MG tablet trazodone 50 mg tablet TAKE 1 TO 2 TABLETS BY MOUTH EVERY DAY AT BEDTIME Active traMADoL (ULTRAM) 50 mg tablet tramadol 50 mg tablet Take 2 tablets twice a day by oral route as needed for 28 days. Active pregabalin (LYRICA) 100 MG capsule Lyrica 100 mg capsule Take 1 capsule twice a day by oral route as directed for 30 days. Active omeprazole (PRILOSEC) 40 MG capsule omeprazole 40 mg capsule,delayed release TAKE 1 CAPSULE BY MOUTH EVERY DAY Active levothyroxine (SYNTHROID, LEVOTHROID) 50 MCG tablet levothyroxine 50 mcg tablet TAKE 1 TABLET BY MOUTH EVERY DAY Active lactulose bulk (CONSTULOSE) 10 gram/15 mL solution lactulose 20 gram/30 mL oral solution 30 ml q day Active furosemide (LASIX) 20 MG tablet furosemide 20 mg tablet TAKE 1 TABLET BY MOUTH EVERY DAY Active ergocalciferol (DRISDOL) 50,000 unit capsule Take 1 capsule by mouth once a week. 2 Active chlorzoxazone (PARAFON FORTE) 500 mg tablet 2 Active budesonide-for moterol (SYMBICORT) 160-4.5 mcg/actuation inhaler Active albuterol 90 mcg/actuation inhaler Ventolin HFA 90 mcg/actuation aerosol inhaler INHALE 2 PUFFS BY MOUTH EVERY 6 TO 8 HOURS Active predniSONE (DELTASONE) 20 MG tablet 3 tablets X 3 days, 2 tablets X 3 days , 1 tablet X 3 days 18 tablet 2 Active Additional Information Patient not taking.Reported on 09/15/2024 fluticasone propion-salmet Jay (ADVAIR DISKUS) 250-50 mcg/dose DISKUSIndicati ons:maintenanc e therapy for asthma Inhale 250 mcg/actuation of fluticasone into the lungs 2 (two) times a day. Indications: controller medication for asthma Active iron sucrose complex (VENOFER IV)Indications :FIRST vENOFER INFUSON ON 02/19/24 Inject 250 mg into the vein as needed. Indications: FIRST vENOFER INFUSON ON 02/19/24 Active chlorzoxazone (PARAFON FORTE) 500 mg tablet Take 1 tablet by mouth 3 (three) times a day as needed. 4 Active Active Problems Problem Noted Date Diagnosed Date Multiple closed fractures of ribs of right side 09/15/2024 Iron deficiency anemia, unspecified 02/02/2024 Asthma 05/06/2022 Chronic pain disorder 05/06/2022 Iron deficiency 05/06/2022 Primary fibromyalgia syndrome 05/06/2022 Arthropathy of lumbar facet joint 05/04/2022 Degeneration of lumbar intervertebral disc 05/04 Allergic rhinitis 05/10/2021 Hypothyroidism 07/20/2016 DDD (degenerative disc disease), cervical 2013 Gastroesophageal reflux disease 03/24/2014 Immunizations Immunization Administration Dates Next Due Flu H1n1 Tiv Preservative Free 04/11/2009 INFLUENZA, SPLIT VIRUS, TRIV ALENT W/ PRESERVATIVE IM 04/15/2014 Influenza Quadrivalent Prese rvative Free IM 04/14/2017 Influenza Quadrivalent Prese rvative Free Intradermal 04/23/2016 Influenza Quadrivalent w/ Preservative IM 04/25/2021,03/02/2020,03/05/2018,2014 Td, unspecified formulation 06/05/2004 Tdap 07/03/2012 Social History Tobacco Use Types Packs/Day Years Used Date Smoking Tobacco: Never Smokeless Tobacco: Never Tobacco Cessation:Counseling Given: Not Answered Alcohol Use Standard Drinks/Week Comments Yes 0 [...] on file Sexual Orientation Not on file Last Filed Vital Signs Vital Sign Reading Time Taken Comments Blood Pressure 108/74 09/15/2024 12:33 PM EDT Pulse 77 09/15/2024 12:33 PM EDT Temperature 36.3 C (97.3 F) 09/15/2024 12:33 PM EDT Respiratory Rate 16 09/15/2024 12:33 PM EDT Oxygen Saturation 99% 09/15/2024 12:33 PM EDT Inhaled Oxygen Concentration - - Weight 97.5 kg (215 lb) 07/09/2022 11:12 AM EST Height 160 cm (5' 3 ) 07/09/2022 11:12 AM EST Body Mass Index 38.09 07/09/2022 11:12 AM EST Plan of Treatment Health Maintenance Due Date Last Done Comments LIPID PANEL 1975 TSH LEVEL 1975 DEPRESSION SCREENING 1987 HEPATITIS C SCREENING 1993 HIV ONE-TIME SCREENING (18-65 YEARS) 1993 PNEUMOCOCCAL VACCINES (0-49 years) (1 of 2 - PCV) 1994 PAP SMEAR 1996 SCREENING FOR DIABETES 2010 MAMMOGRAM 2015 COLOGUARD 2020 COLONOSCOPY 2020 COLORECTAL CANCER SCREENING 2020 FIT TEST 2020 FOBT 2020 SIGMOIDOSCOPY 2020 VIRTUAL COLONOSCOPY 2020 INFLUENZA VACCINE (#1) 2025 , 03/02/2020, 03/05/2018, Additional history exists COVID-19 VACCINE (3 - season) 2025 07/28/2020, 06/30/2020 Adult Td,Tdap Booster 07/17/2033 07/17/2023 , 07/03/2012, 06/05/2004 SMOKING STATUS SCREENING (Once After 26 Yrs) Completed 07/09/2022 HEPATITIS A VACCINES Aged Out No long er eligible based on patient's age to complete this topic HIB VACCINES Aged Out No longer eligi ble based on patient's age to complete this topic MENINGOCOCCAL VACCINES (ACWY) Aged Out No longer eligible based on patient's age to complete this topic MENINGOCOCCAL VACCINES (B) Aged Out N o longer eligible based on patient's age to complete this topic Medical Devices Not on file Insurance [place] [address] [place] [place] [address] [place], [place] [address] [place], [place] [address] Care Teams Business Applications Manager Relationship Specialty Start Date End Date Yaya Brock MD [email or web address] PCP - General Family Medicine 05/06/22 Additional Source Comments The information contained in this document represents components of the legal health record. It is not the complete legal health record.[facility]
[2025-03-10 07:29] VITALS: BMI 31.4
--- NOTE | 2025-03-11 11:53 | HO.ANESPROP2 ---
Documented by User: Abbey Edmondson NP 03/11/25 11:59 HPI - Anesthesia Eval Consult details Narrative: 49 yr old female for Intracept RFA - L5 and S1 (possible L4) Basivertebral nerve ablation Chronic lymphadema: on prn lasix Asthma: well controlled with rare albuterol use GERD: PPI daily with good control Anesthesia Pre-Procedure Meds Is the patient on any of the following meds?: GLP1/DPP4 (last dose 03/01/25) PMFSH Active Problems Active Problems: All Active Problems (Updated 12/31/24 @ 13:18 by Gonzales Romero MD) Vertebrogenic low back pain (Acute) Greater trochanteric pain syndrome (Acute) Lumbar radiculopathy (Acute) Lumbar disc herniation (Acute) SI (sacroiliac) joint dysfunction (Acute) Numbness and tingling in left hand (Acute) Carpal tunnel syndrome of right wrist (Acute) Past Medical History Medical History Fibromyalgia Acid reflux Hypothyroid Asthma Surgical History Surgical History History of colon resection History of carpal tunnel surgery of right wrist History of surgery History of surgery History of surgery H/O colonoscopy Hx of appendectomy Hx of tonsillectomy Social History Social History Patient Tobacco Use Status: Never used Tobacco Use of substances other than those prescribed or required for medical reasons: No Are you DNR?: No Advance Directives: No Advance Directives Information Provided: Yes : No Poor oral hygiene: No Current occupational status: employed 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 / [employer] Meds Allergies Allergy/AdvReac Type Severity Reaction Status Date / Time amoxicillin Allergy Mild Rash Verified 03/12/25 11:01 Home Medications ?Medication ?Instructions ?Recorded ?Confirmed ?Last Taken ?Type albuterol sulfate 90 mcg/actuation 0 mcg inhalation 10/11/22 01/22/25 Unknown History aerosol inhaler (Ventolin HFA) chlorzoxazone 500 mg tablet 500 mg PO TID PRN 10/11/22 01/22/25 Unknown History furosemide 20 mg tablet 20 mg PO DAILY 10/11/22 01/22/25 Unknown History lactulose 10 gram/15 mL oral ml PO 10/11/22 01/22/25 Unknown History solution levothyroxine 50 mcg tablet 50 mcg PO DAILY 10/11/22 03/12/25 03/12/25 History omeprazole 40 mg capsule,delayed 40 mg PO DAILY 10/11/22 01/22/25 Unknown History release pregabalin 100 mg capsule 100 mg PO BID 10/11/22 03/12/25 03/12/25 History tramadol 50 mg tablet 50 mg PO Q4H PRN 10/11/22 01/22/25 Unknown History trazodone 50 mg tablet 100 mg PO BEDTIME PRN 10/11/22 01/22/25 Unknown History linaclotide 290 mcg capsule mcg PO DAILY 08/02/24 01/22/25 Unknown History (Rhona) semaglutide (weight loss) 2.4 2.4 mg subcut QWEEK 01/01/25 01/22/25 03/01/25 History mg/0.75 mL subcutaneous pen injector (Carolyn) Exam Height,Weight and Vital Signs: Height 5 ft 3 in Weight 80.286 kg Documented by User: Julio C Jain MD 03/12/25 12:28 [facility] Past Medical History Medical History Fibromyalgia Acid reflux Hypothyroid Asthma Functional capacity: independent ambulation Family History Family history of problems with anesthesia: No Surgical History Surgical History History of colon resection History of carpal tunnel surgery of right wrist History of surgery History of surgery History of surgery H/O colonoscopy Hx of appendectomy Hx of tonsillectomy History of Problems with Anesthesia: No Social History Social History Patient Tobacco Use Status: Never used Tobacco Use of substances other than those prescribed or required for medical reasons: No Are you DNR?: No Advance Directives: No Advance Directives Information Provided: Yes : No Poor oral hygiene: No Current occupational status: employed 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 [employer] / [employer] Meds Allergies Allergy/AdvReac Type Severity Reaction Status Date / Time amoxicillin Allergy Mild Rash Verified 03/12/25 11:01 Home Medications ?Medication ?Instructions ?Recorded ?Confirmed ?Last Taken ?Type albuterol sulfate 90 mcg/actuation 0 mcg inhalation 10/11/22 01/22/25 Unknown History aerosol inhaler (Ventolin HFA) chlorzoxazone 500 mg tablet 500 mg PO TID PRN 10/11/22 01/22/25 Unknown History furosemide 20 mg tablet 20 mg PO DAILY 10/11/22 01/22/25 Unknown History lactulose 10 gram/15 mL oral ml PO 10/11/22 01/22/25 Unknown History solution levothyroxine 50 mcg tablet 50 mcg PO DAILY 10/11/22 03/12/25 03/12/25 History omeprazole 40 mg capsule,delayed 40 mg PO DAILY 10/11/22 01/22/25 Unknown History release pregabalin 100 mg capsule 100 mg PO BID 10/11/22 03/12/25 03/12/25 History tramadol 50 mg tablet 50 mg PO Q4H PRN 10/11/22 01/22/25 Unknown History trazodone 50 mg tablet 100 mg PO BEDTIME PRN 10/11/22 01/22/25 Unknown History linaclotide 290 mcg capsule mcg PO DAILY 08/02/24 01/22/25 Unknown History (Linzess) semaglutide (weight loss) 2.4 2.4 mg subcut QWEEK 01/01/25 01/22/25 03/01/25 History mg/0.75 mL subcutaneous pen injector (Wegovy) Exam Exam Date and Time: 03/12/2025 Airway Mallampati Class: II TM Dist: >3cm Neck ROM: Full Heart: rrr Lungs: ctab vesicular Assessment and Plan Assessment Anesthesia Assessment: Anesthesia Plan Discussed and Chart Reviewed Final Anesthetic Review Family History of Problems with Anesthesia: No History of Problems with Anesthesia: No NPO: Yes ASA Class: II Final Preanesthetic Review: No Changes in Pt Med Stat, Meds/Allgs Chart Reviewed, Consent Obtained/Reviewed and Anes Risks/Benef Reviewed Patient Risk: Low Procedure Risk: Low Anesthetic Plan Anesthetic Plan: GA Disposition: Standard PACU
[2025-03-12] VITALS (11 sets, daily range): BP systolic 96–119; BP diastolic 53–76; PULSE 83–109; RESP 10–16; TEMP 36.4–37.2; O2SAT 96–99; BMI 31.7
--- NOTE | ~2025-03-12 | FL_ITS ---
EXAMINATION: XR FLUOROSCOPY WITH IMAGES CLINICAL INFORMATION: L5-S1 intracept RFA COMPARISON: None available. TECHNIQUE: Fluoroscopy provided to: Gonzales Melgoza Fluoroscopy time: 0.8 minutes DAP: 2.1 mGycm2 Images: 3 FINDINGS: 3 images obtained during the procedure. A radiologist was not present during imaging. Today's dictation is only for administrative purposes to document intraoperative fluoroscopy. FL/FL guidance in OR IMPRESSION: Fluoroscopy during procedure. Please see procedure report for additional information.. Electronically signed by: Paulie Cuellar MD 03/12/2025 03:04 PM EDT
[2025-03-12 11:11] LABS: UPreg QC Valid YES
[2025-03-12] MEDS: Lactated Ringers 1,000 ML 100 ML IVCONT (11:36)
[2025-03-12 12:13] LABS: MRSA Nasal PCR NEGATIVE (Negative); SA Nasal PCR POSITIVE (Negative)
--- NOTE | 2025-03-12 12:30 | MHC.SHP ---
Pre-Procedural Eval Section A - 24 Hr Update-Section A only Date of Service: 03/12/25 The patient is an INPATIENT: No Changes since office visit: Yes Patient answered all questions The patient has been examined within 24 hours of the surgical procedure. The History & Physical has been completed within 30 days and I have reviewed it.: No Section B - Complete if H&P > 30 days Chief Complaint: Vertebrogenic low back pain,Radiculopathy, lumbar Relevant Family History (Specify if Yes): No Relevant Social History: None Present Medications: see Short Stay Collaborative assessment Medical History: No relevant PMH History of Previous Operations: No relevant previous surgery Allergies: Allergies Allergy/AdvReac Type Severity Reaction Status Date / Time amoxicillin Allergy Mild Rash Verified 03/12/25 11:01 Review of Systems Sugical H&P ROS: Negative: Constitution, Cardiovascular and Respiratory Exam Surgical H&P Exam: Normal: HEENT, Normal: Heart and Normal: Lungs Plan Diagnosis/Plan: Unchanged I have reviewed the history and physical and performed a pertinent physical examination on my patient. No changes have occurred unless specified. Time Spent With Patient Time: Total time managing care of this patient today ____ minutes.
--- NOTE | 2025-03-12 14:23 | PM.OP ---
Brief Operative Note Date of Service: 03/12/25 Pre-op diagnosis: Vertebrogenic low back pain Post-op diagnosis: same Procedure: Basivertebral nerve ablation L4, L5, S1 (Intracept) Surgeon: Gonzales Romero MD Was an Dry Finisher used for this Procedure?: No Estimated blood loss (mL): 20 Pathology: none sent Condition: stable Disposition: PACU
--- NOTE | 2025-03-12 14:58 | P.OP_ITS ---
Operative Note Operative Note Date of Service: 03/12/25 Narrative: Preoperative diagnosis: Vertebrogenic low back pain Postoperative diagnosis: Same Procedure: Basivertebral nerve (BVN) ablation ? Intracept Procedure L4, L5, S1 Procedure Time Out: Patient ID confirmed, correct procedure to be performed, correct site and/or side for procedure as per marked location and correct medication(s), including antibiotic to be used for the procedure. Description of Procedure: After receiving anesthesia in the supine position, the patient was placed prone on the operating room table and all pressure points were appropriately padded. The back was sterilely prepped and draped. The C-arm was sterilely draped and moved into position to visualize the S1 vertebral body in the AP and lateral plane. The skin entry point was identified using AP and lateral fluoroscopy. A skin incision was made with 15 scalpel blade. The introducer cannula with bevel tip was then introduced through the skin, subcutaneous tissue and paraspinal muscle until bony contact was made at the left S1 pedicle. The position was checked in the AP and lateral plane. Using a mallet, the trocar was then advanced through the pedicle to the posterior aspect of the vertebral body using a combination of AP and lateral views to ensure appropriate traversing of the pedicle and no breaching of the pedicle medially. Once the trocar was in the posterior aspect of the S1 vertebral body, the trocar was removed from the cannula and the curved cannula assembly with the nitinol J-stylet was inserted. The spin wheel was rotated counterclockwise pe rmitting excursion of the J-stylet. The curved cannula assembly was then advanced using a mallet in 1-2 mm increments. The J-stylet was observed to traverse the vertebral body in the AP and lateral views. The J-stylet was removed and replaced with the straight stylet to reach the BVN target. Target was reached when the tip of the stylet was 50% anterior of the posterior wall of the S1 in the lateral view (midway between the superior and inferior endplates) and it crossed the midline of the S1 spinous process in the AP view. The stylet was then removed. The bipolar radiofrequency (RF) probe was connected to the generator and then inserted into the introducer cannula in its ablation position. The spin wheel was rotated clockwise to retract the PEEK sleeve to expose the proximal electrode on the radiofrequency probe. The BVN was then ablated using [employer]?s targeted RFG algorithm. While the ablation was occurring at S1, the C-arm was moved to visualize the target at the the L5 vertebral body. The superolateral right L5 pedicle was identified for access. The same process was utilized to place the tip of the cannular 50% anterior of the posterior wall of the L5 in the lateral view (m idway between the superior and inferior endplates) and it crossed the midline of the L5 spinous process in the AP view. The stylet was then removed. The bipolar radiofrequency (RF) probe was removed from the previous vertebral body, the tip cleaned and was inserted into the introducer cannula in its ablation position. The spin wheel was rotated clockwise to retract the PEEK sleeve to expose the pr oximal electrode on the radiofrequency probe. The BVN was then ablated using [employer]?s targeted RFG algorithm. While the ablation was occurring at L5, the C-arm was moved to visualize the target at the L4 vertebral body using the approach similar to the L5 vertebral body. The superolateral left L4 pedicle was identified, and the skin entry point identified. Same steps were followed as for L5. Target was reached when the tip of the stylet was 50% anterior of the posterior wall of the L4 in the lateral view (midway between the superior and inferior endplates) and it crossed the midline of the L4 spinous process in the AP view. The stylet was then removed. The bipolar radiofrequency (RF) probe was removed from the previous vertebral body, the tip cleaned and was inserted into the introducer cannula in its ablation position. The spin wheel was rotated clockwise to retract the PEEK sleeve to expose the proximal electrode on the radiofrequency probe. The BVN was then ablated using [employer]?s targeted RFG algorithm. With all ablations completed, the instruments were removed from the vertebral bodies. The surgical wounds were closed with 2-0 silk sutures and a sterile dressing was applied. The patient was returned to the supine position and the anesthesia reversed. The patient tolerated the procedure well and was brought to the recovery room. The patient was provided post-op and follow up instructions. Complications: None Estimate Blood Loss: 50 mL
== END 2025-03-12 16:32 | disposition home or self-care (01) ==
PROVIDERS: Nurse Practitioner; Registered Nurse Emergency; PCP Family Medicine; Visit Provider Internal Medicine
PROC: (CPT 64628; principal; 2025-03-12 12:30)
DX: M54.51 Vertebrogenic low back pain (principal); M51.16 Intervertebral disc disorders with radiculopathy, lumbar region; R20.0 Anesthesia of skin; G89.29 Other chronic pain; M79.7 Fibromyalgia; J45.909 Unspecified asthma, uncomplicated; M25.552 Pain in left hip
CPT/HCPCS: 64628; 64629; 81025; 87640; 87641; C1889; J0690; J1100; J1885; J2003; J2405; J2704; J3010

== ENCOUNTER → 2025-03-12 10:47 | Outpatient (BNV) | payer OTHER, SELFPAY | PROVIDERS: PCP Family Medicine; Visit Provider Internal Medicine | DX: M54.51 Vertebrogenic low back pain (principal) | CPT/HCPCS: 64628; 64629 ==

== ENCOUNTER 2025-03-21 10:02 | Outpatient (AMB) | payer OTHER, SELFPAY ==
--- OUTSIDE RECORDS SUMMARY | 2024-09-15 12:45 | XMS_ITS | Encounter Summary ---
Author Organization [facility] Address [address] [place] [phone] Phone Care Team Providers Care Packaging Operator Name Role Phone Yaya Brock MD Primary Care Provider [phone] Encounter Details Date Type Department Care Team (Late st Contact Info) Description 09/15/2024 12:45 PM EDT Hospital Encounter [facility] [address] [place] [phone] Teresa Riley PA-C [address] [place] [address] [phone] [email or web address] Social History Tobacco Use Types Packs/Day Years [...] on filedocumented in this encounter Care Teams Packaging Operator Relationship Specialty Start Date End Date Yaya Brock MD [email or web address] PCP - General Family Medicine 05/06/22 documented as of this encounter Additional Source Comments The information contained in this document represents components of the legal health record. It is not the complete legal health record.[facility]
[2025-03-21 10:07] VITALS: BP 127/67; PULSE 84; RESP 16; O2SAT 96; BMI 31.5
--- NOTE | 2025-03-21 10:07 | A.OFFVIS_ITS ---
Vital Signs 03/21/25 10:07 Height 5 ft 3 in Weight 178 lb BMI 31.5 BP 127/67 Blood Pressure Location Rt brachial Position Sitting Respiration 16 Pulse 84 Pulse Source Pulse Oximeter Pulse Oximetry (%) 96 Oxygen Delivery Method Room Air Intake Visit Reasons: S/p L5 and S1 (Poss L4) BVN 03/12/25 Butt Presser Required: No Accompanied by: Self / Same As Patient Allergies amoxicillin Allergy (Mild, Verified 03/21/25 10:07) Rash HPI Comments Details: Patient presents the office today for follow-up, 10 days status post intracept basivertebral nerve ablation L4, L5, S1 She reports tolerating the procedure well. Pain today is rated as a 2/10. Endorses 75-80% pain relief since the procedure with improvement in function and mobility. Patient has been able to get in and out of bed and stand straight without difficulty, was not able to do this prior to the procedure. She has noticed significant improvement in her activity and daily life since the procedure. Denies any untoward effects of the procedure. Denies fevers, chills, incisional drainage, nausea, vomiting, headache. [facility] Medical History Fibromyalgia Acid reflux Hypothyroid Asthma Surgical History History of colon resection History of carpal tunnel surgery of right wrist History of surgery History of surgery History of surgery H/O colonoscopy Hx of appendectomy Hx of tonsillectomy Social History Patient Tobacco Use Status: Never used Tobacco Current occupational status: employed 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 / [employer] Review of Systems Const All systems reviewed & are unremarkable except as noted in HPI and below Physical Exam Exam Exam: General: awake, alert, oriented. Answers questions appropriately. Fully engaged in examination. Skin: warm, dry, intact HEENT: Normocephalic. Hearing intact. Cardiac: External chest normal in appearance. Respiratory: No cough, audible wheezing or stridor. Abdomen: without gross distension. MS: No obvious swelling or deformities. Neurological: Oriented to person, place, time and situation. Thought process intact. No gait abnormalities appreciated. Psychiatric: Appropriate mood and affect. Good judgment and insight. Postop incisions: Areas was cleansed with chloraprep, dressing was taken down, insertion sites visualized and without redness/irritation/drainage. Steri- Strips applied. Patient tolerated well. Vital Signs: Last Vital Signs Pulse 84 03/21/25 10:07 Resp 16 03/21/25 10:07 BP 127/67 03/21/25 10:07 Pulse Ox 96 03/21/25 10:07 Oxygen Delivery Method Room Air 03/21/25 10:07 BMI result Body Mass Index 31.5 Results Reviewed Results Reviewed: Ordering Physician: Ira Vale Date of Service: 09/24/24 Procedure(s): MR lumbar spine wo con Accession Number(s): [id number] cc: Ira Vale~ EXAMINATION: MR LUMBAR SPINE WITHOUT CONTRAST CLINICAL INFORMATION: Other intervertebral disc displacement, lumbar region. COMPARISON: Correlated to x-ray dated September 10, 2024 demonstrated spondylosis at L5-S1 and scoliosis, thoracolumbar spine. TECHNIQUE: MRI of the lumbar spine was obtained using routine sequences without contrast. FINDINGS: Last rib-bearing vertebra labeled T12. No bone marrow STIR signal abnormality. Marginal osteophyte formation and disc desiccation, T10-11, T11-12, T12-L1, L5-S1 and L4-5 levels. Conus medullaris ends at pedicle of L2 with normal signal. There is a 1 mm retrolisthesis at L5-S1 likely degenerative. T10-11: Bilateral facet joint hypertrophy as well as ligamentum flavum. Reduced AP diameter of the thecal sac. No compression upon neural elements. T11-12: Bilateral facet joint hypertrophy as well as ligamentum flavum resulting in dorsal indentation to the thecal sac. No compression upon neural elements. No gross neuroforamina stenosis. T12-L1: There is a right subarticular disc herniation resulting in ventral deformity of the distal thoracic spinal cord. No cord signal abnormality. No neuroforamina stenosis. L1-2: Broad-based disc bulging. Facet joint and ligamentum flavum hypertrophy. No compression upon neural elements. L2-3: Broad-based disc bulging. Facet joint and ligamentum flavum hypertrophy. No compression upon neural elements. L3-4: Broad-based disc bulging. Facet joint and ligamentum flavum hypertrophy. No compression upon neural elements. L4-5: Broad-based disc bulging. Facet joint and ligamentum flavum hypertrophy. Reduced AP diameter of the thecal sac and bilateral neuroforamina narrowing. L5-S1: There is a central disc herniation resulting in ventral deformity of the thecal sac and abutting the S1 nerve roots on the lateral recesses. Facet joint hypertrophy. Bilateral neuroforamina stenosis likely encroaching the L5 exiting nerve roots, left greater than the right side. No prevertebral compartment hematoma, mass or fluid collection. MR/MR lumbar spine wo con IMPRESSION: Central disc herniation L5-S1 abutting the S1 nerve roots on the lateral recesses. Right subarticular disc herniation T12-L1 resulting in ventral deformity of the spinal cord without cord edema and or myelopathy. Bilateral neuroforamina narrowing at L5-S1 on a degenerative basis encroaching the L5 exiting nerve roots. Low position of the conus medullaris without tethered cord. Electronically signed by: Abdelrahman Samano MD 09/25/2024 06:11 AM EDT RP Ordering Physician: Ira Vale Date of Service: 09/10/24 Procedure(s): XR lumbar spine 2-3V Accession Number(s): [id number] cc: Physician,Unknown ; Ira Vale~ EXAMINATION: XR LUMBOSACRAL SPINE CLINICAL INFORMATION: M54.9 - Dorsalgia, unspecified COMPARISON: None available. TECHNIQUE: Three views of the lumbosacral spine. FINDINGS: There is a mild to moderate right convex thoracolumbar scoliosis apex at T11. There is a normal lumbar lordosis. There is no subluxation. No fractures, compression deformities, or suspicious bone lesions. Moderate disc space narrowing at L5-S1. Disc spaces otherwise preserved in the lumbar region. Mild facet degeneration L4-S1. Facets normally aligned. No soft tissue abnormalities. XR/XR lumbar spine 2-3V IMPRESSION: 1. Mild degenerative spondylosis most significant at L5-S1. 2. Mild to moderate right convex thoracolumbar scoliosis. Electronically signed by: Rosalino Wiseman MD 09/10/2024 12:23 PM EDT RP Assessment & Plan Assessment & Plan (1) Vertebrogenic low back pain: Code(s): M54.51 - Vertebrogenic low back pain Category: Medical (2) Lumbar radiculopathy: Code(s): M54.16 - Radiculopathy, lumbar region Category: Medical (3) Greater trochanteric pain syndrome: Code(s): M25.559 - Pain in unspecified hip Category: Medical Plan Patient presented to the office today for follow-up, 10 days status post intercept BVN procedure. Tolerated procedure well, endorses 75-80% pain relief with improvement in function and mobility since the procedure. Dressing change, as per above. Follow up with Dr. Romero as needed. Coding Level of Care Code Est Pt Level 3 (13857) Complex EM visit Add On G2211 Diagnoses Vertebrogenic low back pain M54.51 Lumbar radiculopathy M54.16 Greater trochanteric pain syndrome M25.559
--- OUTSIDE RECORDS SUMMARY | 2025-03-21 11:42 | XMS_ITS | Clinical Summary ---
Author Organization [facility] Address [address] [place] [phone] Phone Care Team Providers Care Traveling Operator Name Role Phone Yaya Brock MD Primary Care Provider [phone] Allergies Active Allergy Reactions Criticality Noted Date [...] Not on file Insurance [place] [address] [place], [place] [address] [place], [place] [address] [place], [place] [address] Care Teams Traveling Operator Relationship Specialty Start Date End Date Yaya Brock MD [email or web address] PCP - General Family Medicine 05/06/22 Additional Source Comments The information contained in this document represents components of the legal health record. It is not the complete legal health record.[facility]
--- OUTSIDE RECORDS SUMMARY | 2025-03-21 11:42 | XMS_ITS | Encounter Summary ---
Author Organization [email or web address] [facility] Address [address] [place] [address] Care Team Providers Care Ceramic Chemist Name Role Phone Aliya Servin MD Primary Care Provider nathalie Beth, Pcp Primary Care Provider Yaya Farr MD Primary Care Provider Un available Encounter Details Date Type Department Care Team Description 03/11/2021 Telephone Cardio P[facility] [address] [place] [phone] Aliya Servin MD Social History Tobacco Use [...] on filedocumented in this encounter Care Teams Ceramic Chemist Relationship Specialty Start Date End Date Aliya Servin MD PCP - General Internal Medicine 05/22/1803/06 [facility], Pcp PCP - General Internal Medicine 04/03/23 11/09/23 Yaya Brock MD PCP - General Family Practice 11/10/23 documented as of this encounter
--- OUTSIDE RECORDS SUMMARY | 2025-03-21 11:42 | XMS_ITS | Data Portability ---
Author Organization [facility] Address [address] [place] [address] Care Team Providers Care Health Promotion Coordinator Name Role Phone CINTHYA MCDONNELL Primary Care Provider CINTHYA MCDONNELL Referring Provider Assessment No assessment recorded. Plan of Treatment Reminders Order Date Submit Date Provider Last Modified By Organization Details Last Modified Time Details Appointments AMB OM TELEMED ([facility]) 15 2024 12:00P M Saima Sykes NP Not available Not available Not available AMB TELEMED ([facility]) 30 2025 02:00P M Yaya mclain MD Not available Not available Not available Lab bacteria l vaginosi s + vaginiti s panel, vaginal - NuSwab V6+ Lab Liz: [id number] 2024 025 [facility], [address] [place], [address], 01/13/2025 15:40:05 pap, IG + HPV 2024 025 [facility], [address] [place], [address], 12/24/2024 16:08:14 Referral None recorded . Procedures None recorded . Surgeries None recorded . Imaging None recorded . Medication Orders tramadol 50 mg tablet 2024 025 [facility], [address] [place], [address], 12/19/2024 12:18:56 pregabal in 150 mg capsule 2024 025 [facility]-[id number] [facility], [address] [place], [address], 03/15/2025 01:16:56 valacycl ovir 1 gram tablet 2024 025 [facility], [address] [place], [address], 12/19/2024 12:18:55 Patient TargetsNo targets recorded. Patient InstructionsNo instructions recorded. Reason for Referral None Reported. Results Created Date Observation Date Name Description Value Unit Range Abnormal Flag Note LastModifiedBy Organization Detail LastModifiedTime 09/06/1909/05/2024 COMPR EHENS BEVERLEY MET. PANEL sodium 138 mmol/ L 136-14 5 normal Not Available [facility] [address] [place] [address], [id number] 09/05/2024 21:15:33 09/06/19 25 09/05/2024 COMPR EHENS [place] MET. PANEL potassium 4.2 mmol/ L 3.5-5. 1 normal Not Available [facility] [address] [place] [address], [address] 09/05/2024 21:15:33 09/06/19 25 09/05/2024 COMPR EHENS BEVERLEY MET. PANEL chloride 99 mmol/ L 98-107 normal Not Available [facility] [address] [place] [address], 914[address] 09/05/2024 21:15:33 09/06/19 25 09/05/2024 COMPR EHENS B[place]LEY MET. PANEL carbon dioxide 27 mmol/ L 22-29 normal Not Available [facility] [address] [place] [address], 57[address] 09/05/2024 21:15:33 09/06/19 25 09/05/2024 COMPR EHENS BEVERLEY MET. PANEL anion gap 16 mmol/ L 10-20 normal Not Available [facility] [address] [place] [address], 459[address] 09/05/2024 21:15:33 09/06/19 25 09/05/2024 COMPR EHENS BEVERLEY MET. PANEL blood urea nitrogen 10 mg/dL 6-20 normal Not Available [facility] [address] [place], [address] 09/05/2024 21:15:33 09/06/19 25 09/05/2024 COMPR EHENS BEVERLEY MET. PANEL creatinine 0.79 mg/dL 0.51-0 .95 normal Not Available [facility] [address] [place], [address] 09/05/2024 21:15:33 09/06/19 25 09/05/2024 COMPR EHENS BEVERLEY MET. PANEL estimated glomerular filt rate 92 GFR Value : mL/mi n/1.7 3 squar [...] under the age of 18. Not Available [facility] [address] [place], [address] 09/05/2024 21:15:33 09/06/19 25 09/05/2024 COMPR EHENS BEVERLEY MET. PANEL glucose 79 mg/dL 70-106 normal Not Available [facility] [address] [place], [address] 09/05/2024 21:15:33 09/06/19 25 09/05/2024 COMPR EHENS BEVERLEY MET. PANEL calcium 9.2 mg/dL 8.6-10 .3 normal Not Available [facility] [address] [place], [address] 09/05/2024 21:15:33 09/06/19 25 09/05/2024 COMPR EHENS BEVERLEY MET. PANEL bilirubin total 0.3 mg/dL 0.2-1. 2 normal Not Available [facility] [address] [place], [address] 09/05/2024 21:15:33 09/06/19 25 09/05/2024 COMPR EHENS BEVERLEY MET. PANEL aspartate amino transferase 23 U/L 5-32 normal Not Available [facility] Department [address] [place], [address] 09/05/2024 21:15:33 09/06/19 25 09/05/2024 COMPR EHENS BEVERLEY MET. PANEL alanine aminotransfe rase 15 U/L 5-33 normal Not Available [facility] [address] [place], [address] 09/05/2024 21:15:33 09/06/19 25 09/05/2024 COMPR EHENS BEVERLEY MET. PANEL total protein 6.5 g/dL 6.4-8. 3 normal Not Available [facility] [address] [place], [address] 09/05/2024 21:15:33 09/06/19 25 09/05/2024 COMPR EHENS BEVERLEY MET. PANEL albumin level 4.2 g/dL 3.5-5. 2 normal Not Available [facility] [address] [place], [address] 09/05/2024 21:15:33 09/06/19 25 09/05/2024 COMPR EHENS BEVERLEY MET. PANEL globulin 2.3 gm/dL 2.0-3. 5 normal Not Available [facility] [address] [place], [address] 09/05/2024 21:15:33 09/06/19 25 09/05/2024 COMPR EHENS BEVERLEY MET. PANEL albumin globulin ratio 1.8 % 1.1-2. 5 normal Not Available [facility] [address] [place], [address] 09/05/2024 21:15:33 09/06/19 25 09/05/2024 COMPR EHENS BEVERLEY MET. PANEL alkaline phosphatase 89 U/L 35-104 normal Not Available [facility] Department [address] [place], [address] 09/05/2024 21:15:33 09/06/19 25 09/05/2024 LIPID PANEL WITH REFLE X triglyceride s 106 mg/dL 30-150 normal Refer ence Range s: <150 mg/dl Shalonda l 150-1 99 mg/dl Borde rline High 200-4 99 mg/dl High >500 mg/dl Very High Not Available [facility] [address] [place], [address] 09/05/2024 21:15:34 09/06/19 25 09/05/2024 LIPID PANEL WITH REFLE X cholesterol 179 mg/dL 100-20 0 normal Not Available [facility] [address] [place], [address] 09/05/2024 21:15:34 09/06/1909/05/2024 LIPID PANEL WITH REFLE X LDL cholesterol direct TNP mg/dL 0-100 Not Available [facility] [address] [place], [address] 09/05/2024 21:15:34 09/06/1909/05/2024 LIPID PANEL WITH REFLE X LDL cholesterol calculated 95.0 mg/dL 0-100 normal Natio nal Laura stero l Educa tion Progr am sugge sts the follo wing refer ence range : Optim al <100 mg/dL Near optim al/ab ove optim al 100-1 29 mg/dL Borde rline high 130-1 59 mg/dL High 160-1 89 mg/dL Very high >190 mg/dL Not Available [facility] [address] [place] [address], [address] 09/05/2024 21:15:34 09/06/1909/05/2024 LIPID PANEL WITH REFLE X HDL cholesterol 62.5 mg/dL 40-60 high Major risk facto r for CHD: <40 mg/dL Negat beverley risk facto r for CHD: >=60 mg/dL Not Available [facility] [address] [place], [address] 09/05/2024 21:15:34 09/06/1909/05/2024 LIPID PANEL WITH REFLE X chol HDL ratio 2.86 Risk CHOL/ HDL CHOL/ HDL Ratio Male Femal e 1/2 AVERA GE 3.43 3.27 AVERA GE 4.97 4.44 2 X AVERA GE 9.55 7.05 3 X AVERA GE 23.39 11.04 Not Available [facility] [address] [facility], [address] 09/05/2024 21:15:34 09/06/1909/05/2024 TSH REFLE X FREE T4 free T4 (free thyroxine) TNP NG/dL 0.9-1. 7 Not Available [facility] [address] [facility] [place] [address] 09/05/2024 21:15:35 09/06/1909/05/2024 TSH REFLE X FREE T4 TSH reflex free T4 2.61 uIU/m L 0.27-4 .20 normal Not Available [facility] [address] [place] [address] [place], [address] 09/05/2024 21:15:35 09/06/1909/06/2024 HEMOG LOBIN A1C hemoglobin A1C % 5.1 % 4.0-5. 7 normal % of the total HgB Inter preta tion ----- ----- ----- --- ----- ----- ----- - <5.7 Consi stent with the absen ce of diabe maria 5.7-6 .4 Consi stent with incre ased risk for diabe maria (pred iabet es) > or = to 6.5 Consi stent with Diabe maria Not Available [facility] [address] [place], [place] [address], [address] 09/06/2024 17:42:24 09/06/19 25 09/12/2024 TOXAS SURE SELEC T 14 KRISTI-D IS report summary FINAL . ===== ===== ===== ===== ===== ===== ===== ===== ===== ===== ===== ===== ===== === TOXAS SURE SELEC T 14 KRISTI-D IS ===== ===== ===== ===== ===== ===== ===== ===== ===== ===== ===== ===== ===== === Test Resul t Flag Units Drug Prese nt Ethyl Glucu ronid e 1967 ng/mg creat EtG is a metab olite of ethyl alcoh ol that may also be a ferme ntati on produ ct of gluco se. Incid ental expos ure to alcoh ol may also resul t in detec table level s of EtG. The absen ce of EtS, anoth er clarice ol metab olite , makes the prese nce of EtG due to incid ental expos ure or ferme ntati on of gluco se more likel y. EtG/E tS resul ts shoul d be inter prete d in the mike xt of all avail able clini agata and behav ioral infor matio n. Trama dol >1666 7 ng/mg creat O-Dread methy ltram adol >1666 7 ng/mg creat N-Dread methy ltram adol 7583 ng/mg creat Sourc e of trama dol is a presc ripti on medic ation . O-dread methy ltram adol and N-dread methy ltram adol are expec sydni metab olite s of trama dol. ===== ===== ===== ===== ===== ===== ===== ===== ===== ===== ===== ===== ===== === Test Resul t Flag Units Ref Range Creat inine 30 mg/dL >=20 ===== ===== ===== ===== ===== [...] ===== ===== ===== ===== === Not Available [facility] [address] [place] [address], 237[address] 09/12/2024 21:07:11 09/06/19 25 09/12/2024 TOXAS SURE SELEC T 14 KRISTI-D IS urine creatinine 30 mg/dL . REFER ENCE RANGE : Ref Range >=20 Not Available [facility] [address] [place] [address], 8[address] 09/12/2024 21:07:11 09/06/19 25 09/12/2024 TOXAS SURE SELEC T 14 KRISTI-D IS ethanol biomarkers +POSIT BEVERLEY+ . Not Available [facility] [address] [place] [address], 739[address] 09/12/2024 21:07:11 09/06/19 25 09/12/2024 TOXAS SURE SELEC T 14 KRISTI-D IS ethyl glucuronide 1967 . Resul t Units : ng/mg creat Not Available [facility] [address] [place] [address], 03071 09/12/2024 21:07:11 09/06/19 25 09/12/2024 TOXAS SURE SELEC T 14 KRISTI-D IS ethyl sulfate NOT DETECT ED . Resul t Units : ng/mg creat Not Available [facility] [address] [place] [address], [id number] 09/12/2024 21:07:11 09/06/19 25 09/12/2024 TOXAS SURE SELEC T 14 KRISTI-D IS amphetamines NEGATI VE . Not Available [facility] [address] [place] [address], 27519 09/12/2024 21:07:11 09/06/19 25 09/12/2024 TOXAS SURE SELEC T 14 KRISTI-D IS methamphetam ine NOT DETECT ED . Resul t Units : ng/mg creat Not Available [facility] [address] [place] [address], [id number] 09/12/2024 21:07:11 09/06/19 25 09/12/2024 TOXAS SURE SELEC T 14 KRISTI-D IS amphetamine NOT DETECT ED . Resul t Units : ng/mg creat Not Available [facility] [address] [place] [address], 36182 09/12/2024 21:07:11 09/06/19 25 09/12/2024 TOXAS SURE SELEC T 14 KRISTI-D IS MDMA (ecstasy) NOT DETECT ED . Resul t Units : ng/mg creat Not Available [facility] [address] [place] [address], [id number] 09/12/2024 21:07:11 09/06/19 25 09/12/2024 TOXAS SURE SELEC T 14 KRISTI-D IS mda (ecstasy mtb) NOT DETECT ED . Resul t Units : ng/mg creat Not Available [facility] [address] [place] [address], 59814 09/12/2024 21:07:11 09/06/19 25 09/12/2024 TOXAS SURE SELEC T 14 KRISTI-D IS benzodiazepi anitha NEGATI VE . Not Available [facility] [address] [place] [address], 39032 09/12/2024 21:07:11 09/06/1909/12/2024 TOXAS SURE SELEC T 14 KRISTI-D IS diazepam NOT DETECT ED . Resul t Units : ng/mg creat Not Available [facility] [address] [place] [address], 76952 09/12/2024 21:07:11 09/06/19 25 09/12/2024 TOXAS SURE SELEC T 14 KRISTI-D IS desmethyldia zepam NOT DETECT ED . Resul t Units : ng/mg creat Not Available [facility] [address] [place] [address], [id number] 09/12/2024 21:07:11 09/06/19 25 09/12/2024 TOXAS SURE SELEC T 14 KRISTI-D IS oxazepam NOT DETECT ED . Resul t Units : ng/mg creat Not Available [facility] [address] [place] [address], 48725 09/12/2024 21:07:11 09/06/19 25 09/12/2024 TOXAS SURE SELEC T 14 KRISTI-D IS [...] Oxaze say Oxaze say: None Not Available [facility] [address] [place] [address], 94251 09/12/2024 21:07:11 09/06/1909/12/2024 TOXAS SURE SELEC T 14 KRISTI-D IS alprazolam NOT DETECT ED . Resul t Units : ng/mg creat Not Available [facility] [address] [place] [address], [id number] 09/12/2024 21:07:11 09/06/1909/12/2024 TOXAS SURE SELEC T 14 KRISTI-D IS alpha-hydrox yalprazolam NOT DETECT ED . Resul t Units : ng/mg creat Not Available [facility] [address] [place] [address], [id number] 09/12/2024 21:07:11 09/06/1909/12/2024 TOXAS SURE SELEC T 14 KRISTI-D IS desalkylflur azepam NOT DETECT ED . Resul t Units : ng/mg creat Not Available [facility] [address] [place] [address], [id number] 09/12/2024 21:07:11 09/06/19 25 09/12/2024 TOXAS SURE SELEC T 14 KRISTI-D IS lorazepam NOT DETECT ED . Resul t Units : ng/mg creat Not Available [facility] [address] [place] [address], [id number] 09/12/2024 21:07:11 09/06/19 25 09/12/2024 TOXAS SURE SELEC T 14 KRISTI-D IS alpha-hydrox ytriazolam NOT DETECT ED . Resul t Units : ng/mg creat Not Available [facility] [address] [place] [address], [id number] 09/12/2024 21:07:11 09/06/19 25 09/12/2024 TOXAS SURE SELEC T 14 KRISTI-D IS clonazepam NOT DETECT ED . Resul t Units : ng/mg creat Not Available [facility] [address] [place] [address], [id number] 09/12/2024 21:07:11 09/06/19 25 09/12/2024 TOXAS SURE SELEC T 14 KRISTI-D IS 7-aminoclona zepam NOT DETECT ED . Resul t Units : ng/mg creat Not Available [facility] [address] [place] [address], [id number] 09/12/2024 21:07:11 09/06/19 25 09/12/2024 TOXAS SURE SELEC T 14 KRISTI-D IS midazolam NOT DETECT ED . Resul t Units : ng/mg creat Not Available [facility] [address] [place] [address], [id number] 09/12/2024 21:07:11 09/06/19 25 09/12/2024 TOXAS SURE SELEC T 14 KRISTI-D IS alpha-hydrox ymidazolam NOT DETECT ED . Resul t Units : ng/mg creat Not Available [facility] [address] [place] [address], [id number] 09/12/2024 21:07:11 09/06/19 25 09/12/2024 TOXAS SURE SELEC T 14 KRISTI-D IS flunitrazepa m NOT DETECT ED . Resul t Units : ng/mg creat Not Available [facility] [address] [place] [address], [id number] 09/12/2024 21:07:11 09/06/19 25 09/12/2024 TOXAS SURE SELEC T 14 KRISTI-D IS desmethylflu nitrazepam NOT DETECT ED . Resul t Units : ng/mg creat Not Available [facility] [address] [place] [address], [id number] 09/12/2024 21:07:11 09/06/19 25 09/12/2024 TOXAS SURE SELEC T 14 KRISTI-D IS cocaine metabolite NEGATI VE . Not Available [facility] [address] [place], [address] 09/12/2024 21:07:11 09/06/19 25 09/12/2024 TOXAS SURE SELEC T 14 KRITSI-D IS cocaine NOT DETECT ED . Resul t Units : ng/mg creat Not Available [facility] [address] [place], [address] 09/12/2024 21:07:11 09/06/19 25 09/12/2024 TOXAS SURE SELEC T 14 KRISTI-D IS benzoylecgon ine NOT DETECT ED . Resul t Units : ng/mg creat Not Available [facility] [address] [place] [address], [id number] 09/12/2024 21:07:11 09/06/19 25 09/12/2024 TOXAS SURE SELEC T 14 KRISTI-D IS cocaethylene NOT DETECT ED . Resul t Units : ng/mg creat Not Available [facility] [address] [place] [address], [id number] 09/12/2024 21:07:11 09/06/19 25 09/12/2024 TOXAS SURE SELEC T 14 KRISTI-D IS cannabinoids NEGATI VE . Not Available [facility] [address] [place] [address], [id number] 09/12/2024 21:07:11 09/06/19 25 09/12/2024 TOXAS SURE SELEC T 14 KRISTI-D IS carboxy-THC NOT DETECT ED . Resul t Units : ng/mg creat Not Available [facility] [address] [place] [address], [id number] 09/12/2024 21:07:11 09/06/19 25 09/12/2024 TOXAS SURE SELEC T 14 KRISTI-D IS 6-acetylmorp stephanie scr NEGATI VE . Not Available [facility] [address] [place] [address], [id number] 09/12/2024 21:07:11 09/06/19 25 09/12/2024 TOXAS SURE SELEC T 14 KRISTI-D IS 6-acetylmorp stephanie NOT DETECT ED . Resul t Units : ng/mg creat Not Available [facility] [address] [place] [address], [id number] 09/12/2024 21:07:11 09/06/19 25 09/12/2024 TOXAS SURE SELEC T 14 KRISTI-D IS opiate class NEGATI VE . Not Available [facility] [address] [place] [address], [id number] 09/12/2024 21:07:11 09/06/19 25 09/12/2024 TOXAS SURE SELEC T 14 KRISTI-D IS codeine NOT DETECT ED . Resul t Units : ng/mg creat Not Available [facility] [address] [place] [address], [id number] 09/12/2024 21:07:11 09/06/19 25 09/12/2024 TOXAS SURE SELEC T 14 KRISTI-D IS morphine NOT DETECT ED . Resul t Units : ng/mg creat Not Available [facility] [address] [place] [address], [id number] 09/12/2024 21:07:11 09/06/19 25 09/12/2024 TOXAS SURE SELEC T 14 KRISTI-D IS normorphine NOT DETECT ED . Resul t Units : ng/mg creat Not Available [facility] [address] [place] [address], [id number] 09/12/2024 21:07:11 09/06/19 25 09/12/2024 TOXAS SURE SELEC T 14 KRISTI-D IS norcodeine NOT DETECT ED . Resul t Units : ng/mg creat Not Available [facility] [address] [place] [address], [id number] 09/12/2024 21:07:11 09/06/19 25 09/12/2024 TOXAS SURE SELEC T 14 KRISTI-D IS hydrocodone NOT DETECT ED . Resul t Units : ng/mg creat Not Available [facility] [address] [place] [address], [id number] 09/12/2024 21:07:11 09/06/19 25 09/12/2024 TOXAS SURE SELEC T 14 KRISTI-D IS hydromorphon e NOT DETECT ED . Resul t Units : ng/mg creat Not Available [facility] [address] [place], [address] 09/12/2024 21:07:11 09/06/19 25 09/12/2024 TOXAS SURE SELEC T 14 KRISTI-D IS dihydrocodei ne NOT DETECT ED . Resul t Units : ng/mg creat Not Available [facility] [address] [place] [address], [id number] 09/12/2024 21:07:11 09/06/19 25 09/12/2024 TOXAS SURE SELEC T 14 KRISTI-D IS norhydrocodo ne NOT DETECT ED . Resul t Units : ng/mg creat Expec sydni metab olism of opiat e class drugs : Paren t Drug Detec sydni Metab olite s ----- ----- - ----- ----- ----- ----- Codei ne: Major : Morph ine, [place] deine Minor : Thicket codon e, Thicket morph one, Dihyd rocod eine, Norhy droco done, Normo rphin e Morph ine: Major : Normo rphin e Minor : Thicket morph one Thicket codon e: Thicket morph one, Dihyd rocod eine, Norhy droco done Thicket morph one: None Dihyd rocod eine: None Heroi n: 6-Reji tylmo rphin e (if inclu ded), Morph ine, Normo rphin e Codei ne, in small amoun ts in toshia rison to morph ine, is often detec sydni when heroi n is the sourc e drug. Not Available [facility] [address] [place] [address], [id number] 09/12/2024 21:07:11 09/06/19 25 09/12/2024 TOXAS SURE SELEC T 14 KRISTI-D IS oxycodone class NEGATI VE . Not Available [facility] [address] [place] [address], [id number] 09/12/2024 21:07:11 09/06/19 25 09/12/2024 TOXAS SURE SELEC T 14 KRISTI-D IS oxycodone NOT DETECT ED . Resul t Units : ng/mg creat Not Available [facility] [address] [place] [address], [id number] 09/12/2024 21:07:11 09/06/19 25 09/12/2024 TOXAS SURE SELEC T 14 KRISTI-D IS oxymorphone NOT DETECT ED . Resul t Units : ng/mg creat Not Available [facility] [address] [place] [address], [id number] 09/12/2024 21:07:11 09/06/19 25 09/12/2024 TOXAS SURE SELEC T 14 KRISTI-D IS noroxycodone NOT DETECT ED . Resul t Units : ng/mg creat Not Available [facility] [address] [place] [address], [id number] 09/12/2024 21:07:11 09/06/19 25 09/12/2024 TOXAS SURE SELEC T 14 KRISTI-D IS noroxymorpho ne NOT DETECT ED . Resul t Units : ng/mg creat Expec sydni metab olism of oxyco done class drugs : Paren t Drug Detec sydni Metab olite s ----- ----- - ----- ----- ----- ----- Oxyco done: Oxymo rphon e, Norox ycodo ne, Norox ymorp david Oxymo rphon e: Norox ymorp david Not Available [facility] [address] [place] [address], [id number] 09/12/2024 21:07:11 09/06/19 25 09/12/2024 TOXAS SURE SELEC T 14 KRISTI-D IS methadone scr NEGATI VE . Not Available [facility] [address] [place] [address], [id number] 09/12/2024 21:07:11 09/06/19 25 09/12/2024 TOXAS SURE SELEC T 14 KRISTI-D IS methadone NOT DETECT ED . Resul t Units : ng/mg creat Not Available [facility] [address] [place] [address], [id number] 09/12/2024 21:07:11 09/06/19 25 09/12/2024 TOXAS SURE SELEC T 14 KRISTI-D IS EDDP (methadone mtb) NOT DETECT ED . Resul t Units : ng/mg creat Not Available [facility] [address] [place] [address], [id number] 09/12/2024 21:07:11 09/06/19 25 09/12/2024 TOXAS SURE SELEC T 14 KRISTI-D IS fentanyl analogues NEGATI VE . Not Available [facility] [address] [place] [address], [id number] 09/12/2024 21:07:11 09/06/19 25 09/12/2024 TOXAS SURE SELEC T 14 KRISTI-D IS fentanyl NOT DETECT ED . Resul t Units : ng/mg creat Not Available [facility] [address] [place] [address], [id number] 09/12/2024 21:07:11 09/06/19 25 09/12/2024 TOXAS SURE SELEC T 14 KRISTI-D IS norfentanyl NOT DETECT ED . Resul t Units : ng/mg creat Not Available [facility] [address] [place] [address], [id number] 09/12/2024 21:07:11 09/06/19 25 09/12/2024 TOXAS SURE SELEC T 14 KRISTI-D IS sufentanil NOT DETECT ED . Resul t Units : ng/mg creat Not Available [facility] [address] [place] [address], [id number] 09/12/2024 21:07:11 09/06/19 25 09/12/2024 TOXAS SURE SELEC T 14 KRISTI-D IS alfentanil NOT DETECT ED . Resul t Units : ng/mg creat Not Available [facility] [address] [place] [address], [id number] 09/12/2024 21:07:11 09/06/19 25 09/12/2024 TOXAS SURE SELEC T 14 KRISTI-D IS buprenorphin e scr NEGATI VE . Not Available [facility] [address] [place] [address], [id number] 09/12/2024 21:07:11 09/06/19 25 09/12/2024 TOXAS SURE SELEC T 14 KRISTI-D IS buprenorphin e NOT DETECT ED . Resul t Units : ng/mg creat Not Available [facility] [address] [place] [address], [id number] 09/12/2024 21:07:11 09/06/19 25 09/12/2024 TOXAS SURE SELEC T 14 KRISTI-D IS norbuprenorp stephanie NOT DETECT ED . Resul t Units : ng/mg creat Not Available [facility] [address] [place] [address], [id number] 09/12/2024 21:07:11 09/06/19 25 09/12/2024 TOXAS SURE SELEC T 14 KRISTI-D IS tapentadol scr NEGATI VE . Not Available [facility] [address] [place] [address], [id number] 09/12/2024 21:07:11 09/06/19 25 09/12/2024 TOXAS SURE SELEC T 14 KRISTI-D IS tapentadol NOT DETECT ED . Resul t Units : ng/mg creat Not Available [facility] [address] [place] [address], [id number] 09/12/2024 21:07:11 09/06/19 25 09/12/2024 TOXAS SURE SELEC T 14 KRISTI-D IS other opioids +POSIT BEVERLEY+ . Not Available [facility] [address] [place] [address], [id number] 09/12/2024 21:07:11 09/06/19 25 09/12/2024 TOXAS SURE SELEC T 14 KRISTI-D IS tramadol >[id number] . Resul t Units : ng/mg creat Not Available [facility] [address] [place] [address], [id number] 09/12/2024 21:07:11 09/06/19 25 09/12/2024 TOXAS SURE SELEC T 14 KRISTI-D IS O-desmethylt ramadol >99833 . Resul t Units : ng/mg creat Not Available [facility] [address] [place] [address], [address] 09/12/2024 21:07:11 09/06/19 25 09/12/2024 TOXAS SURE SELEC T 14 KRISTI-D IS N-desmethylt ramadol 7583 . Resul t Units : ng/mg creat Not Available [facility] [address] [place] [address], [address] 09/12/2024 21:07:11 09/06/19 25 09/12/2024 TOXAS SURE SELEC T 14 KRISTI-D IS barbiturates NEGATI VE . Not Available [facility] [address] [place], [address] 09/12/2024 21:07:11 09/06/19 25 09/12/2024 TOXAS SURE SELEC T 14 KRISTI-D IS amobarbital NOT DETECT ED . Not Available [facility] [address] [place], [address] 09/12/2024 21:07:11 09/06/19 25 09/12/2024 TOXAS SURE SELEC T 14 KRISTI-D IS barbital NOT DETECT ED . Not Available [facility] [address] [place], [address] 09/12/2024 21:07:11 09/06/19 25 09/12/2024 TOXAS SURE SELEC T 14 KRISTI-D IS butabarbital NOT DETECT ED . Not Available [facility] [address] [place] [address], [address] 09/12/2024 21:07:11 09/06/19 25 09/12/2024 TOXAS SURE SELEC T 14 KRISTI-D IS butalbital NOT DETECT ED . Not Available [facility] [address] [place], [address] 09/12/2024 21:07:11 09/06/19 25 09/12/2024 TOXAS SURE SELEC T 14 KRISTI-D IS mephobarbita l NOT DETECT ED . Not Available [facility] [address] [place], [address] 09/12/2024 21:07:11 09/06/19 25 09/12/2024 TOXAS SURE SELEC T 14 KRISTI-D IS pentobarbita l NOT DETECT ED . Not Available [facility] [address] [place], [address] 09/12/2024 21:07:11 09/06/19 25 09/12/2024 TOXAS SURE SELEC T 14 KRISTI-D IS phenobarbita l NOT DETECT ED . Not Available [facility] [address] [place], [address] 09/12/2024 21:07:11 09/06/19 25 09/12/2024 TOXAS SURE SELEC T 14 KRISTI-D IS secobarbital NOT DETECT ED . Not Available [facility] [address] [place], [address] 09/12/2024 21:07:11 09/06/19 25 09/12/2024 TOXAS SURE SELEC T 14 KRISTI-D IS thiopental NOT DETECT ED . Not Available [facility] [address] [place], [address] 09/12/2024 21:07:11 09/06/19 25 09/12/2024 TOXAS SURE SELEC T 14 KRISTI-D IS other hallucinogen s NEGATI VE . Not Available [facility] [address] [place], [address] 09/12/2024 21:07:11 09/06/19 25 09/12/2024 TOXAS SURE SELEC T 14 KRISTI-D IS phencyclidin e NOT DETECT ED . Not Available [facility] [address] [place], [address] 09/12/2024 21:07:11 09/06/1909/12/2024 TOXAS SURE SELEC T 14 KRISTI-D IS level of detection: MELLY FONSECA NG THRES HOLDS ARE FOLLO WS: AMPHE TAMIN ES: 50 ng/mL BENZO DIAZE PINES : 20 ng/mL COCAI NE / METAB OLITE : 50 ng/mL CLARICE OL BIOMA RKERS : ETG-5 00 ng/mL [...] e eduardo cteri stics deter mined by [facility]. It has not been clear ed or appro franck by the Food and Drug Admin istra tion. Perfo rmed at: 01 - [facility] [address] [id number] Lab Direc tor: Mayra martínez [facility] , Phone : [phone] Not Available [facility] [address] [place] [address], [address] 09/12/2024 21:07:11 12/20/1912/24/2024 PAP IG AND HPV (APTI MA) diagnosis: COMMTAMMY LOWERY FOR INTRA EPITH ELIAL LESIO N OR MALSTANISLAW RICHARDSON . Not Available [facility] [address] [place] [address], [address] 12/24/2024 16:08:13 12/20/19 25 12/24/2024 PAP IG AND HPV (APTI MA) specimen adequacy COMMTAMMY T . Satis facto ry for evalu ation . Endoc ervic al and/o r squam ous metap lasti c cells (endo cervi agata compo nent) are prese nt. Not Available [facility] [address] [place] [address], [address] 12/24/2024 16:08:13 12/20/19 25 12/24/2024 PAP IG AND HPV (APTI MA) performed by MELLY Aldrich, Cytol ogist (ASCP ) Not Available [facility] [address] [place] [address], [address] 12/24/2024 16:08:13 12/20/19 25 12/24/2024 PAP IG AND HPV (APTI MA) . . . Not Available [facility] [address] [place] [address], [address] 12/24/2024 16:08:13 12/20/19 25 12/24/2024 PAP IG AND HPV (APTI MA) note COMMEN T . The Pap smear is a scree tien test desig david to aid in the detec tion of denton ligna nt and malig nant condi tions of the uteri ne cervi x. It is not a diagn ostic proce dure and shoul d not be used as the sole means of detec ting cervi agata cance r. Both false -posi tive and false -nega tive repor ts do occur . Not Available [facility] [address] [place] [address], [address] 12/24/2024 16:08:13 12/20/19 25 12/24/2024 PAP IG AND HPV (APTI MA) test methodology COMMEN T . This liqui d based ThinP rep(R ) pap test was danielle hernandez with the use of an image guide yordan goldman. Not Available [facility] [address] [place], [address] 12/24/2024 16:08:13 12/20/19 25 12/24/2024 PAP IG AND HPV (APTI MA) HPV aptima NEGATI VE negati ve This nucle ic acid ampli ficat ion test detec ts fourt een high- risk HPV types (16,1 8,31, 33,35 ,39,4 5,51, 52,56 ,58,5 9,66, 68) witho ut diffe renti ation . Perfo rmed at: 01 - [facility] [place] [address], [place] [address] Lab Direc tor: Oliva pickens MD, Phone : [phone] Perfo rmed at: 02 - [facility] [place] [address], [place] [address] Lab Direc tor: Oliva pickens MD, Phone : [phone] Not Available [facility] [address] [place], [address] 12/24/2024 16:08:13 12/26/19 25 12/20/2024 MAMMO , scree tien, tomos ynthe sis, bilat eral No observ ation record ed. [email or web address] [facility] [address], [place], [address], 01/02/2025 13:26:26 01/17/20 25 01/16/2025 MAMMO , diagn ostic , digit al, unila teral No observ ation record ed. OSMEL [facility] [address], [place], [address], 01/16/2025 12:39:43 03/12/2003/12/2025 fluor oscop ic guide d lumba r facet stero id injec tion (PROC ) No observ ation record ed. [facility] [address] [place], [address], 03/18/2025 13:47:00 03/12/2003/12/2025 RF, naya nce No observ ation record ed. [facility] [address] [place], [address], 03/18/2025 13:46:53 Result Notes None recorded. 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 puerperi um - delivere d 692036905 Completed 09/25/2019 Yaya Brock III, MD [address] [place] [address] [place], [address] , [facility] 0 06:21:13 Abscess of Bartholi n's gland 71548593 Completed 09/20/2019 Yaya Brock III, MD [address] [place] [address] [place], [address] , [facility] 0 06:47:55 Complica tion of pregnanc y, childbir th and/or puerperi 156387075 Completed 09/20/2019 Yaya Brock III, MD [address] [place] [address] [place], [address] , [facility] 0 06:47:17 Abdomina l pain 93113286 Completed 09/20/2019 Yaya Brock III, MD [address] [place] [address] [place], [address] , [facility] 0 06:47:23 Chronic pain syndrome 302491805 Active UTOX done 11/2023 SAIMA RANDLE NP [address] [facility] [place], [address] , [facility] 4 19:54:27 Cervical spondylo sis 829300989 Completed 09/20/2019 Yaya Brock III, MD [address] [facility] [place], [address] , [facility] 0 06:48:07 Primary fibromya lgia syndrome 60727091 Active Not Available [facility] 4 16:46:28 Hypogly emia 667894167 Completed 09/25/2019 Yaya Brock III, MD [address] [facility] [place], [address] , [facility] 0 06:21:18 Pain of wrist region 60552067 Completed 09/20/2019 Yaya Brock III, MD [address] [facility] [place], [address] , [facility] 0 06:47:51 Closed fracture proximal phalanx, toe 144234670 Completed 09/20/2019 Yaya Brock III, MD [address] [facility] [place], [address] , [facility] 0 06:47:21 Acute bronchit is 36750956 Completed 03/08/2019 ROSAURA CHACKO NP [address] [facility] [place], [address] , [facility] 9 13:13:04 Asthma 894489558 Active Not Available [facility] 4 16:46:28 Iron deficien cy 99342679 Active 06/12/24 iron infusion note Taking a multivit padilla with iron in it. Heme denied referral per notice 08/21/23 SAIMA RANDLE NP [address] [facility] [place], [address] , [facility] 5 10:23:14 Menopaus al flushing 655907443 Completed 09/20/2019 Yaya Brock III, MD [address] [facility] [place], [address] , [facility] 0 06:47:15 Mammogra phy abnormal 390723651 Completed 09/20/2019 SAIMA RANDLE NP [address] [facility] [place], [address] , [facility] 2 20:31:12 Lymphade nopathy 70844291 Completed 200409/20/2019 Yaya Brock III, MD [address] [facility], [address] , [facility] 0 06:47:41 Malaise and fatigue 936544994 Completed 200409/20/2019 Yaya Brock III, MD [address] [place], [place] [address], [address] , [facility] 0 06:47:33 Epigastr ic pain 75990817 Completed 200509/20/2019 Yaya Brock III, MD [address] [facility] [place], [address] , [facility] 0 06:47:59 Generali zed abdomina l pain 838936716 Completed 200809/20/2019 Yaya Brock III, MD [address] [place] [address] [place], [address] , [facility] 0 06:47:08 Low back pain 627092791 Completed 200809/20/2019 Yaya Brock III, MD [address] [facility], [address] , [facility] 0 06:47:38 Degenera tion of cervical interver tebral disc 90400765 Completed 201302/02/2023 SAIMA RANDLE NP [address] [facility], [address] , [facility] 3 09:37:18 Fibromyo sitis 41561297 Completed 201309/20/2019 Yaya Brock III, MD [address] [facility], [address] , [facility] 0 06:48:16 Streptoc occal sore throat 46258148 Completed 201309/20/2019 Yaya Brock III, MD [address] [place] [address] [place], [address] , [facility] 0 06:47:47 Spasm 64723758 Completed 201309/20/2019 Yaya Brock III, MD [address] [place] [address] [place], [address] , [facility] 0 06:47:49 Cyst of Bartholi n's gland duct 67614243 Completed 201309/20/2019 Yaya Brock III, MD [address] [place] [address] [place], [address] , [facility] 0 06:47:53 Pain in limb 62669832 Completed 201309/20/2019 Yaya Brock III, MD [address] [place] [address] [place], [address] , [facility] 0 06:48:02 Musculos keletal disorder of the neck 745602189 Completed 201309/20/2019 Yaya Brock III, MD [address] [place] [address] [place], [address] , [facility] 0 06:47:11 Extrinsi c asthma with asthma attack Completed 201309/20/2019 Yaya Brock III, MD [address] [place], [place] [address], [address] , [facility] 0 06:47:25 Gastroes ophageal reflux disease 106421990 Active 2013 Not Available [facility] 4 16:46:28 Edema 405637713 Completed 201309/20/2019 Taking furosemi de 20mg daily. SAIMA RANDLE NP [address] [facility], [address] , [facility] 2 11:37:44 Anemia 136208142 Completed 201309/20/2019 Yaya Brock III, MD [address] [place], [address] , [facility] 0 06:47:30 Edema 839348642 Active 2013 Not Available [facility] 4 16:46:28 Hypothyr oidism 01933480 Active 2016 Not Available [facility] 4 16:46:28 Allergic rhinitis 58702520 Active 2020 Not Available [facility] 4 16:46:28 Degenera tion of lumbar interver tebral disc 41297012 Completed 202102/02/2023 SAIMA RANDLE NP [address] [place], [address] , [facility] 3 09:37:19 Arthropa thy of lumbar facet joint 671889785 Completed 202102/02/2023 SAIMA RANDLE NP [address] [place], [address] , [facility] 3 09:37:14 Insomnia 326527425 Active 2021 Taking trazodon e 50-100mg prn. Not Available [facility] 4 16:46:28 Carpal tunnel syndrome 46999638 Completed 202207/17/2023 SAIMA RANDLE NP [address] [place], [address] , [facility] 4 14:26:58 Vitamin D deficien cy 28548552 Active 2023 Not Available [facility] 4 16:46:28 Obstruct beverley sleep apnea syndrome 89223780 Active 202305/17/24 sleep note: Selected MAT tx, referred to Dr. Chow at [facility] in [facility]. SAIMA RANDLE NP [address] [place], [address] , [facility] 4 10:27:03 Pain of left hip joint 06855420722 9100 Active 2023 SAIMA RANDLE NP [address] [place], [place] [address], [address] , [facility] 4 13:36:02 Restless legs syndrome 20683996 Active 202305/17/24 sleep note: Continue to manage with PCP. Plan to refer to heme if iron deficien cy persists after iron infusion . SAIMA RANDLE NP [address] [place], [place] [address], [address] , [facility] 4 10:27:36 Mass of left breast 53699900822 711988 Active 202412/25/24 left breast imaging, rec f/u imaging, already schedule d SAIMA RANDLE NP [address] [place], [place] [address], [address] , [facility] 5 13:26:21 Notes:Some problems listed i n Documents: #[id number], #[id number], #[id number], #[id number], #[id number], #[id number], #[id number], #[id number], #[id number] could not be added to this patient's chart. Please review these documents and add these problems to the patient's chart manually as needed. Problem Notes None recorded. Procedures Surgical History Date Name Laterality Status Provider Name and Address Organization Details Recorded Time 02/13/20 25 Telemedicine Documentation completed Saima Sykes NP [address] [place], [place] [address], [address], [facility] 02/12/2025 10:11:44 10/15/19 25 Telemedicine Documentation completed Yaya Reyes MD [address] [place], [place] [address], [address], [facility] 10/14/2024 13:07:26 10/01/19 25 Telemedicine Documentation completed Yaya Reyes MD [address] [place], [place] [address], [address], [facility] 10/01/2024 05:53:49 07/23/19 25 Telemedicine Documentation completed Saima Sykes NP [address] [facility], [address], [facility] 07/23/2024 12:49:53 05/14/20 24 Telemedicine Documentation completed Saima Sykes NP [address] [facility], [address], [facility] 05/14/2024 12:37:40 03/26/20 24 Telemedicine Documentation completed Saima Sykes NP [address] [facility], [address], [facility] 03/26/2024 12:17:40 01/23/20 24 Telemedicine Documentation completed Saima Sykes NP [address] [facility], [address], [facility] 01/23/2024 12:35:51 12/13/19 24 BEDS-7 completed Saima Sykes NP [address] [facility], [address], [facility] 12/13/2023 11:38:00 12/13/19 24 [place] Sleepiness Scale completed Saima Sykes NP [address] [facility], [address], [facility] 12/13/2023 11:38:42 10/05/19 24 Egd biopsy single/multiple completed Swapna Barrett LPN [facility] 10/05/2023 13:30:17 10/05/19 24 Colon ca scrn not hi rsk ind completed Swapna Barrett LPN [facility] 10/05/2023 13:31:39 09/26/19 24 IUD Insertion completed Feroz Potts MD [address] [place], [place] [address], [address], [facility] 09/26/2023 15:41:17 09/26/19 24 IUD Removal completed Feroz Potts MD [address] [place], [place] [address], [address], [facility] 09/26/2023 15:41:10 07/17/19 24 [place] Sleepiness Scale completed [facility] 07/17/2023 15:00:40 05/11/20 21 PHQ-9 Patient Health Questionnaire completed Yaya Brock III, MD [address] [place], [place] [address], [address], [facility] 05/11/2021 11:48:53 10/29/19 21 Date of Last Mammogram completed Loremichele Arellano [facility] 05/10/2021 19:21:12 10/29/19 21 Date of Last Pap Smear completed Lore Arellano [facility] 05/10/2021 20:06:48 05/04/20 20 PHQ-9 Patient Health Questionnaire completed Yaya Brock III, MD [address] [place], [place] [address], [address], [facility] 05/04/2020 12:26:14 04/26/20 19 Corticosteroid Injection completed Yaya Brock III, MD [address] [place], [place] [address], [address], [facility] 04/26/2019 12:11:40 08/18/19 19 PHQ-9 Patient Health Questionnaire completed Sapna Quezada [facility] 08/17/2018 08:45:01 07/20/19 17 PHQ-9 Patient Health Questionnaire completed Amelia Coleman MA [facility] 07/20/2016 10:56:05 03/16/20 16 Mirena IUD Insertion completed Angel Yu MD [address] [place], [place] [address], [address], [facility] 03/16/2016 12:37:21 03/16/20 16 Hysteroscopy with Endometrial Biopsy or IUD Removal completed Angel Yu MD [address] [place], [place] [address], [address], [facility] 03/16/2016 12:36:38 07/17/19 16 PHQ-9 Patient Health Questionnaire completed Shweta Holden MA [facility] 07/17/2015 08:44:49 06/05/19 16 Egd biopsy single/multiple completed Yaya Brock III, MD [address] [place], [address], [facility] 05/31/2017 09:30:46 07/09/19 15 PHQ-9 Patient Health Questionnaire completed Deya Kemp MA [facility] 07/09/2014 08:58:22 02/29/20 13 I&D CONTENT MANAGEMENT CONSULTANT completed Angel Yu MD [address] [place], [address], [facility] 02/28/2013 13:03:51 02/17/20 11 Mirena IUD Insertion completed Saharaguiod Sellers [facility] 02/16/2011 09:49:32 02/17/20 11 IUD Removal completed Sahara Sellers [facility] 02/16/2011 09:49:32 02/02/20 06 delivery completed Not Available [facility] 04/20/2011 06:32:15 appendectomy completed Not Available [facility] 04/20/2011 06:32:29 gastric bypass completed Not Available [facility] 04/20/2011 06:32:29 dental extraction completed Not Available [facility] 04/20/2011 06:32:29 tonsillectomy completed Not Available [facility] 04/20/2011 06:32:29 Imaging Results None recorded. Procedure Notes None recorded. Medical Equipment None Reported. Allergies Allergen ID Allergen Name Allergen Category Reaction Reaction Severity Criticality Documentation Date Start Date Code Code System Note Provider Name and Address Organization Details Recorded Time 066491 amoxicill in medicatio n rash moderate Not available 08/17/2018 723 RxNorm BORIS Le, [facility] 9 08:42:22 Medications Name Sig [...] REPEAT IN 72 HOURS IF SYMPTOMS PERSIST 2024 active Per case 12/02 Not Available Not Available Not Available chlorzoxa zone 500 mg tablet TAKE 1 TABLET BY MOUTH THREE TIMES A DAY NEEDED FOR 30 DAYS active Not Available Not Available No t Available valacyclo vir 1 gram tablet TAKE 1 TABLET BY MOUTH EVERY 12 HOURS DIRECTED active Not Available Not Available No [...] X4DAYS THEN TAKE 1 TABLET EVERY DAY 11/29 completed Not Available Not Available Not Available prednison e 20 mg tablet TAKE [...] TAKE 1 CAPSULE BY MOUTH EVERY DAY NEEDED active Not [...] completed Not Available Not Available Not Available cephalexi n 500 mg capsule TAKE 1 CAPSULE BY MOUTH THREE TIMES A DAY FOR 10 DAYS active Not Available Not Available No t Available Promethaz ine VC 6.25 mg-5 mg/5 [...] 1 CAPSULE BY MOUTH TWICE A DAY 10/10 completed dose was increase d Not Available Not Available Not Available pregabali n 150 mg capsule TAKE 1 CAPSULE TWICE A DAY BY ORAL ROUTE DIRECTED FOR 28 DAYS, FOR FIBROMYA LGIA. [...] gram-5.86 gram oral solution USE DIRECTED PER INSTRUCT IONS FOR 2 DAYS 10/10 completed [...] completed Not Available Not Available Not Available Wegovy 0.25 mg/0.5 mL subcutane ous pen injector Inject 0.25 mg every week by subcutan eous route. 03/07 completed case 10/23/23 Not Available Not Available Not Available Ozempic 0.25 mg or 0.5 mg (2 mg/3 mL) subcutane ous pen injector Inject by subcutan eous route for 42 days. 11/22 completed Not Available Not Available Not Available Vitals Date Recorded Body height Body mass index (BMI) Body weight Heart rate Oxygen saturation Oxygen saturation in Arterial blood by Pulse oximetry Systolic And Diastolic Provider Name and Address Organization Details Last Updated DateTime 161.29 cm 32.6 kg/m2 10259.1 2 g 101 /min 96 % 96 % 166/66 mm[Hg] BORIS Kramer [facility] 12:48:05 Date Recorded Body height Heart rate Systolic And Diastolic Provider Name and Address Organization Details Last Updated DateTime 12/19/2024 161.29 cm 92 /min 118/66 mm[Hg] Deya Kemp MA [facility] 12/19/2024 11:39:32 Date Recorded Body height Body mass index (BMI) Body weight Provider Name and Address Organization Details Last Updated DateTime 02/12/2025 161.29 cm 30.3 kg/m2 53410.07 g Saima Sykes NP [address] [place], [address], [facility] 02/12/2025 10:09:19 Social History Question Answer Notes LastModified by Organizat ion Details LastModified Time Tobacco Smoking Status Never Smoker Not Available [facility] 04/20/2011 06:22:17 Do You Have An Advance Directive? No Information not available 07/09/2014 Are You Blind Or Do You Have [...] Carbs And Sugars. No Desserts, Processed Foods, [place] Food. Information not available 07/09/2014 Which Illicit Or Recreational Drugs Have You Used? Pt Denies Information not available 07/09/2014 Education 4 Year College Information not available 11/28/2013 Work Status Full-time Information n ot available 11/28/2013 Living Situation Other Children Informat ion not available 11/28/2013 Disabled? If Yes, How Long? No Information not available 11/28/2013 An Pedicab Driver Involved? If Yes, Who? No Information not available 11/28/2013 Alcohol Use Yes Socially Information n ot available 11/28/2013 Do You Currently Or Have You Ever Used Recreational Drugs? If Yes, Specify No Information not available 11/28/2013 Any Addiction Or Substance/drug/a lcohol Abuse Issues? If Yes, Specify No [email or web address] [...] no t available 07/09/2014 Cholesterol/HDL Screen 07/17/2015 [email or web address] Information not available 07/17/2015 Tetanus/Adacel Vaccine 07/03/2012 Adacel Information not available 07/09/2014 Pain Contract/Control led Substances Yes - Date 06/17/15 Dr Vinod [email or web address] Information not available 06/19/2015 Marital Status [place] [id number] Informatio n not available 11/28/2013 What Was The Date Of Your Most Recent Tobacco Screening? 09/05/2024 Information not available 09/05/2024 How Many Children Do You Have? 2 15 (Autistic), 9. Information not available 07/09/2014 Are You Sexually Active? Yes [email or web address] Information not available 04/20/2011 How Much Tobacco Do You Smoke? No Information not available 07/09/2014 Do You Have Difficulty Walking Or Climbing Stairs? Yes Information not available 11/28/2013 Sex: Female Functional Status Question Answer Note LastModified by Organizat ion Details LastModified Time Do you or have you ever used any other forms of tobacco or nicotine? No [email or web address] Information not available 05/09/2022 What is your level of alcohol consumption? Occasional Socially [email or web address] Information not available 02/16/2011 Do you have difficulty doing errands alone? 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 No Information not available 11/28/2013 What is [...] Tdap 4 completed SAIMA RANDLE NP [address] [place], [address], [facility] 07/18/2023 07:31:00 Influenza, split virus, trivalent, preservative 4 completed Not Available [facility] 06/22/2019 02:11:20 Td(adult) unspecified formulation 5 completed Not Available [facility] 07/21/2023 16:46:28 Tdap 3 completed Not Available [facility] 07/21/2023 16:46:29 Novel zpeagktep-[id number] , preservative-free 9 completed Not Available [facility] 07/21/2023 16:46:29 Influenza, split virus, quadrivalent, preservative 5 completed Not Available [facility] 06/22/2019 02:11:26 influenza, intradermal, quadrivalent, preservative free 6 completed Not Available [facility] 06/22/2019 02:12:33 Influenza, split virus, quadrivalent, preservative 8 completed Not Available [facility] 07/21/2023 16:46:28 Influenza, split virus, quadrivalent, PF 7 completed Not Available [facility] 06/22/2019 02:15:35 Influenza, split virus, quadrivalent, preservative 0 completed Not Available [facility] 07/21/2023 16:46:28 COVID-19, mRNA, LNP-S, PF, [...] Diagnosis SNOMED-CT Code Diagnosis ICD10 Code Diagnosis IMO Codes Diagnosis Note [id number] Feroz Potts MD [facility] [address] [place] [address] 08/08/2005 16:03:21 08/08/2005 16:27:50 [id number] Feroz Potts MD [facility] [place] [address] [place] [id number] 7 10/03/2005 16:10:39 11/24/2005 12:24:29 [id number] Enrique Moore MD [facility] [address] [place] [address] 11/01/2005 16:11:15 11/01/2005 16:54:42 [id number] Angel Yu MD [facility] [place] [address] [place] [id number] 7 07/26/2005 09:10:13 07/26/2005 10:26:41 [id number] Angel Yu MD [facility] [address] [place] [address] 09/05/2005 16:10:21 09/05/2005 16:43:55 [id number] [facility] [address] [place] [address] 11/29/2005 15:52:30 11/29/2005 16:20:48 [id number] [facility] [place] [address] [place] [id number] 7 12/13/2005 09:15:52 12/13/2005 09:53:04 [id number] [facility] [address] [place] [address] 12/27/2005 09:26:19 12/27/2005 10:07:06 [id number] Enrique Moore MD [facility] [address] [place] [address] 01/10/2006 09:18:34 01/10/2006 10:01:38 [id number] Anton Abel [facility] [address] [place] [address] [place] [address] 01/17/2006 13:01:06 01/17/2006 13:59:34 [id number] Angel Yu MD - Outpatien t [address] [facility] [place] [id number] 01/23/2006 00:00:00 11/02/2010 03:30:06 [id number] Feroz Potts MD [facility] [address] [place] [address] [place] [address] 01/26/2006 14:37:18 01/26/2006 15:40:44 [id number] Enrique Moore MD - In-Patien t 242 [facility] [place] [id number] 02/01/2006 09:43:32 02/09/2006 11:27:59 [id number] Enrique Moore MD [facility] [address] [place] [address] [place] [address] 7 04/06/2006 13:57:38 04/06/2006 14:47:18 [id number] Enrique Moore MD [facility] [address] [place] [address] [place] [address] 7 04/19/2006 15:57:34 04/19/2006 16:03:27 [id number] Enrique Moore MD [facility] [address] [place] [address] [place] [address] 7 06/27/2006 11:00:50 06/27/2006 11:25:38 [id number] Sahara Sellers MD [facility] [address] [place] [address] [place] [address] 7 02/16/2011 09:00:05 02/16/2011 10:43:57 [id number] Sahara Sellers MD [facility] [address] [place] [address] [place] [address] 7 03/17/2011 08:57:46 03/17/2011 09:43:32 [id number] Angel Yu MD [facility] [address] [place] [address] [place] [address] 7 02/28/2013 09:08:26 02/28/2013 10:28:28 [id number] MD [facility] [address] [place] [address] 6 11/28/2013 12:10:23 11/28/2013 14:01:52 Chronic pain syndrome [id number] Degenerati on of cervical intervertebral disc 75436232 Cervical spondylosis 401627625 Primary fi bromyalgia syndrome 76061946 [id number] MD [facility] [address] [place] [address] 6 01/29/2014 08:27:29 01/29/2014 09:24:04 Chronic pain syndrome 890773015 Degenerati on of cervical intervertebral disc 59864282 Cervical spondylosis 360915344 Primary fi bromyalgia syndrome 43623427 [id number] Yaya Brock III, MD [facility] [address] [place] [address] 7 03/07/2014 15:26:46 03/10/2014 12:32:56 Hypoglycemia 514460422 increase protein Chronic pain syndrome 461084396 Cervical spondylosis 970556850 Fibromyositis 77362003 [id number] [facility] [address] [place] [address] 6 06/26/2009 00:00:00 [id number] [facility] [address] [place] [address] 6 06/29/2010 00:00:00 [id number] [facility] [address] [place] [address] 6 06/30/2011 00:00:00 [id number] [facility] [address] [place] [address] 6 07/03/2012 00:00:00 [id number] [facility] [address] [place] [address] 6 07/05/2013 00:00:00 [id number] [facility] [address] [place] [address]967 6 05/07/2009 00:00:00 [id number] [facility] [address] [place] [address]198 6 10/13/2009 00:00:00 [id number] [facility] [address] [place] [address] [place] [address] 6 12/25/2009 00:00:00 [id number] [facility] [address] [place] [id number] 6 05/05/2010 00:00:00 [id number] [facility] [address] [place] [address] 6 06/21/2010 00:00:00 [id number] [facility] [address] [place] [address] 6 01/12/2011 00:00:00 [id number] [facility] [address] [place] [address] 6 07/18/2012 00:00:00 [id number] [facility] [address] [place] [address] 6 02/28/2013 00:00:00 [id number] [facility] [address] [place] [address] 6 04/05/2013 00:00:00 [id number] [facility] [address] [place] [phone] 6 07/03/2013 00:00:00 [id number] [facility] [address] [place] [address] 6 10/10/2013 00:00:00 [id number] Parrish Uribe MD [facility] [address] [place] [address] 6 03/26/2014 08:40:46 03/26/2014 09:41:43 Chronic pain syndrome 810178540 Degenerati on of cervical intervertebral disc 75561671 Cervical spondylosis 476895690 Primary fi bromyalgia syndrome 61978726 [id number] Yaya Brock III, MD [facility] [address] [place] [phone] 7 04/09/2014 08:12:34 04/09/2014 09:21:36 Chronic pain syndrome 082714031 she is following with Dr Uribe. Fibromyositis 47754251 inc rease the gabapentin one more time. if unsuccessf ul, then stop gabapentin . Edema 516066978 she uses the furosemide as needed. Gastroesop hageal reflux disease 362122375 Influenza vaccine needed 1782718400 106 Pt presents for influenza vaccinatio n. Patient screened with questions from Flu protocol. Patient presents for influenza vaccinatio n. Patient screened with questions from Flu Protocol. Discussed importance of influenza vaccine due to the patient's risk of contractin g the disease. A handout was given to enchance understand ing of the effects and side effects of the vaccine. [id number] Primary Care Nurse [address] [address] 04/15/2014 08:58:17 04/15/2014 09:42:51 Influenza vaccine needed 8032479024 106 Pt presents for influenza vaccinatio n. Patient screened with questions from Flu protocol. Patient presents for influenza vaccinatio n. Patient screened with questions from Flu Protocol. Discussed importance of influenza vaccine due to the patient's risk of contractin g the disease. A handout was given to enchance understand ing of the effects and side effects of the vaccine. [id number] Parrish Uribe MD [facility] [address] [place] [address] [place] [address] 05/21/2014 08:28:32 05/21/2014 09:39:34 Chronic pain syndrome 819089959 Degenerati on of cervical intervertebral disc 24076487 Cervical spondylosis 798266137 Primary fi bromyalgia syndrome 41370031 [id number] TYLER Perez-LIZZ [address] [address] 7 07/09/2014 08:25:45 07/09/2014 09:38:44 Adult health examination [id number] Full code status. Plan colonoscop y at age 50 unless change in symptoms or family history. Mammogram will be booked for next year. Discussed abstinence , contracept ion and safe sex. Self Breast Examinatio n taught Encourage aerobic exercise 5x/week Discussed importance of healthy/ba lanced diet. Encouraged high fiber, adequate calcium, minimizing caffeine and alcohol. Fibromyositis 39648250 Adv ised patient to take Cymbalta and instructed in use and potential side effects. Pt. took this medication successful ly in the past but discontinu ed since medication was not covered by insurance. Pt. has new insurance and would like to re-start if covered by new insurance. Pt. will follow up with no improvemen t or adverse side effects. Low back pain 044150389 Re fill. Pt.'s new insurance no longer covers pain specialist . Will refer to new pain specialist . [id number] MD [facility] [address] [place] [address] [place] [address] 07/16/2014 09:07:36 07/16/2014 09:31:44 Chronic pain syndrome 425571966 Degenerati on of cervical intervertebral disc 54831411 Cervical spondylosis 702938365 Primary fi bromyalgia syndrome 71179119 [id number] MD [facility] [address] [place] [address] [place] [address] 6 09/17/2014 08:52:31 09/17/2014 09:32:00 Chronic pain syndrome 516568628 Degenerati on of cervical intervertebral disc 20802086 Cervical spondylosis 850814944 Primary fi bromyalgia syndrome 46543274 [id number] MD [facility] [address] [place] [address] [place] [address] 6 11/12/2014 09:04:36 11/12/2014 09:48:25 Chronic pain syndrome 045231221 Degenerati on of cervical intervertebral disc 42707675 Cervical spondylosis 539542870 Primary fi bromyalgia syndrome 22002512 [id number] MD [facility] [address] [place] [address] [place] [address] 6 01/14/2015 09:00:57 01/14/2015 10:13:29 Chronic pain syndrome 024323629 Degenerati on of cervical intervertebral disc 11754208 Cervical spondylosis 114099658 Primary fi bromyalgia syndrome 12325468 [id number] Nikolay Rasmussen MD [facility] [address] [facility] [address] [place] [address] 02/10/2015 16:02:02 02/10/2015 16:15:42 Closed fracture proximal phalanx, toe [id number] R [facility] [id number] MD [facility] [address] [place] [address] [place] [address] 6 03/18/2015 09:10:05 03/18/2015 10:06:52 Chronic pain syndrome 320690659 G89.4 Degenerati on of cervical intervertebral disc 94053856 M50.30 Cervical spondylosis 387 594550 M47.812 Primary fi bromyalgia syndrome 72044527 M79.7 [id number] Yaya Brock III, MD [address] [address] 7 04/06/2015 13:20:18 04/06/2015 13:40:43 Acute bronchitis 60235281 J20.9 Asthma 235960662 J45.90 9 [id number] Primary Care Nurse [address] [address] 7 04/15/2015 13:59:37 04/15/2015 14:21:50 Influenza vaccine needed 0251160580 106 Z23 Pt presents for influenza vaccinatio n. Patient screened with questions from 4836-3865 Flu protocol. Discussed importance of influenza vaccine due to the patient's risk of contractin g the disease. A handout was offered to enchance understand ing of the effects and side effects of the vaccine. [id number] Yaya Brock III, MD [address] [address] 7 05/13/2015 10:03:51 05/13/2015 10:52:11 Degeneration of cervical intervertebral disc 28791898 M50.30 she is not an operative candidate at this time. she has beenthroug h p.t. many times. and some injection therapy. she is managing well from a fucntional standpoint . she will see Dr Uribe next week for her last medication visit with him. I will take over medication management in June. She is aware of my plan as discussed above. Fibromyositis 32456652 M 79.7 on duloxetine at 60mg. will increase to 90 mg Chronic pain syndrome 37 3791984 G89.4 I will see her back in 1 month. Will then have pain contract signed, check UDS, and review [place] [employer]. [id number] Yaya Brock III, MD [address] [address] 06/17/2015 08:16:34 06/17/2015 10:12:05 Chronic pain syndrome 424157781 G89.4 She has done very well minimizing [...] months. Degenerati on of cervical intervertebral disc 65464614 M50.30 she is not an operative candidate at this time. she has beenthroug h p.t. many times. and some injection therapy. she is managing well from a fucntional standpoint . She is in chiropract ic care as well. Fibromyositis 68117369 M 79.7 better on the cymbalta 90mg. [id number] Octavia Gomez [facility] [address] [place] [address] 7 07/17/2015 08:33:07 07/17/2015 09:18:29 Adult health examination 117019782 Z00.00 Full code status. Encouraged patient to [...] minimizing caffeine and alcohol. Screening mammography 24 949615 Z12.31 Iron deficiency 39197764 E61.1 History of. Will recheck. Menopausal flushing 1983 88927 N95.1 Would like FSH checked related to hot flashes. Pt. is getting Mirena taken out soon. Will f/u with results. History of multiple allergies 598682145 Z88.8 Uncontroll ed. Taking Zyrtec/[place] adryl and [...] potential side effects. F/u with no improvemen t. Degenerati on of cervical intervertebral disc 06649677 M50.30 Controlled with Tramadol and Cymbalta. F/u PRN. Fibromyositis 12908149 M 79.7 Controlled with Cymbalta. F/u PRN. [id number] Yaya Brock III, MD [facility] [address] [place] [address] 7 09/23/2015 08:49:36 09/23/2015 10:39:14 Chronic pain syndrome 135670674 G89.4 She had a tough month, has gone through the vicodin a bit faster than she usually does. We will give her 20 tabs today. Her pain has calmed and she is back to baseline. Contract on file. [place] [employer] checked regularly. UDS is utd. Degenerati on of cervical intervertebral disc 72572529 M50.30 she hs new right hand and arm numbness/t ingling. She has weakness as well. We need to check a new MRI. has bee about 2 years since the last. continue chiropract ic and exercises. [id number] Shante Pop PA-C [facility] [address] [place] [address] 7 12/12/2015 13:53:53 12/12/2015 15:48:40 Injury of ankle 880423230 S99.912A Ankle and foot contusion from fall with normal xrays. Advised ankle support brace, RICE therapy, and Motrin/Tyl enol. F/u with PCP if not resolving or worsening over the next 1-2 weeks [id number] Yaya Brock III, MD [facility] [address] [place] [address] 7 12/23/2015 08:54:14 12/23/2015 10:03:48 Chronic pain syndrome 045232830 G89.4 She is stable on her current regimen of tramadol ER 100mg BID, hydrocodon e as needed for breakthrou gh pain. She uses soma as well as a muscle relaxant. She performs regular neck ROM and strengthen ing exercises. She is also followig with neurology and rheumatolo gy Pain contract in place. She needs UDS updated today. [employer] checked regularly. Degenerati on of cervical intervertebral disc 38536951 M50.30 she hs new right hand and arm numbness/t ingling. She has weakness as well. We need to check a new MRI. has bee about 2 years since the last. continue chiropract ic and exercises. Injury of ankle 75067057 6 S99.912D take off ankle stirrup. rom exercises. moist heat to the tender lump medially Abnormal weight gain 161 930859 R63.5 decrease cymbalta from 90mg to 60 mg a day. call back 1 month with progress. [id number] Theresa Eisenberg NP [facility] [address] [address] 02/10/2016 09:31:04 02/25/2016 14:07:59 Contraception care 164809406 Z30.40 [id number] Theresa Eisenberg NP [facility] [address] [address] 7 02/24/2016 09:27:56 02/25/2016 15:26:26 Contraception care 973244339 Z30.40 [id number] Angel Yu MD [address] [address] 7 03/16/2016 10:58:50 03/17/2016 14:51:46 Uses IUD (intrauterine device) contraception 201067588 Z97.5 Insertion of intrauterine contraceptive device 70389698 Z30.585 [id number] Yaya Brock III, MD [facility] [address] [place] [address] 7 04/13/2016 09:05:12 04/13/2016 09:54:25 Chronic pain syndrome 118563994 G89.4 She has to be on the [...] to discuss/ prescribe. repeat uds today. [place] [employer] checked today, appropriat e. And is checked at all rfs. Hypothyroidism 41763214 E03.9 on levothryox ine now. recheck numbers. [id number] Yaya Brock III, MD [facility] [address] [place] [address] 7 04/17/2016 15:17:38 04/17/2016 15:53:14 Pneumonia 308178313 J18.9 rest and hydrate. call me monday f not improved. [id number] Primary Care Nurse [facility] [address] [address] 7 04/23/2016 11:38:59 04/23/2016 12:15:53 Influenza vaccine needed 4663967918 106 Z23 Pt presents for influenza vaccinatio n. Patient screened with questions from 8546-4933 Flu protocol. Discussed importance of influenza vaccine due to the patient's risk of contractin g the disease. A handout was offered to enhance understand ing of the effects and side effects of the vaccine. [id number] Luann Tejeda PA-C [facility] [address] [place] [address] 7 07/20/2016 10:21:13 07/20/2016 12:44:03 Adult health examination 462174010 Z00.00 Full code status. Encouraged patient to [...] adequate calcium, minimizing caffeine and alcohol. Hypothyroidism 61716665 E03.9 Acute asthma 356044890 J 45.901 Will give prednisone taper and then start back on Advair. Follow up as scheduled or sooner PRN. [id number] Yaya Brock III, MD [facility] [address] [place] [address] 7 08/10/2016 08:08:20 08/10/2016 08:53:19 Chronic pain syndrome 092060024 G89.4 secondary to disc disease cervical spine. Contract in place.UDS is utd. [employer] [employer] checked at all rfs. she uses tramadol regularly, soma regularly, and vicodin intermitte ntly for pain exacerbati ons. she needs vicodin today. [place] [employer] check, last fill 07/20/16 20 tabs. Asthma 738537869 J45.90 9 she is still feeling a hit flared.faisal gs clear. add some qvar to advair. At [facility] risk of sexually transmitted infection 088366867 Z20.2 she nad her boyfriend just broke up. she is concerned about risk. [id number] Primary Care Nurse [address] [address] 7 09/29/2016 08:09:11 09/29/2016 11:37:47 Medication monitoring 858791286 Z51.81 [id number] Yaya Brock III, MD [address] [address] 7 01/25/2017 08:14:49 01/25/2017 08:41:55 Chronic pain syndrome 353740087 G89.4 Things are stable. she would like the ability to take an extra soma on days when muscle tightness is severe. is ok. Contract in place. UDS is utd. [place] [employer] checked at all refills. Neuropathy 566179923 G62 .[address] Mora. nothing specific found at this point. Degenerati on of cervical intervertebral disc 10739102 M50.30 underying issue causing the neck pain. Asthma 476897406 J45.90 9 mildinterm ittent. no current ics use. rare recent rescue use. [id number] Primary Care Nurse [address] [address] 7 04/06/2017 08:10:27 04/06/2017 13:00:14 Medication monitoring 159394834 Z51.81 Utox was obtained, temp was 96 degrees and color within normal limits/ka [id number] Primary Care Nurse [address] [address] 7 04/14/2017 13:15:33 04/14/2017 16:20:10 Influenza vaccine needed 9219423833 106 Z23 Pt presents for influenza vaccinatio n. Patient screened with questions from 5361-8183 Flu protocol. Patient presents for influenza vaccinatio n. Patient screened with questions from 4897-8565 Flu Protocol. Discussed importance of influenza vaccine due to the patient's risk of contractin g the disease. A handout was given to enchance understand ing of the effects and side effects of the vaccine. [id number] Yaya Brock III, MD [address] [address] 7 05/31/2017 09:10:20 05/31/2017 09:34:26 Chronic pain syndrome 276767346 G89.4 things are stable. she is using tramadol regularly and hydrocodon e for breakthrou gh. UDS is utd. contract in place. [place] [employer] checked at all rfs. Neuropathy 186475436 G62 .[address] Mora. nothing specific found at this point. he is setting up spinal tap as the last diagnostoc step. Degenerati on of cervical intervertebral disc 88307068 M50.30 underlying issue causing the neck pain. Asthma 552606478 J45.90 9 mild intermitte nt. no current ics use. rare recent rescue use. Gastroesop hageal reflux disease 306830128 K21.9 ppi Plantar fasciitis 749428 003 M72.2 [id number] Yaya Brock III, MD [facility] [address] [place] [address] 7 08/25/2017 07:51:11 08/25/2017 08:15:16 Lower abdominal pain 52971415 R10.30 recurrent spells, but this was the worst she has had. she has had mltpl surgeries. I woul drecommend CT and cscope. Constipation 77204938 K5 9.00 she has had some issues with this chronicall y. start colace daily. Leukocytosis 455112995 D 72.829 recheck wbc. [id number] Mick Wells MD [facility] s [address] [place] [address],[facility] [place] [address] 09/04/2017 10:59:14 09/04/2017 11:54:09 Abdominal pain 94564247 R10.9 Recurring episodes of abdominal pain, sometimes [...] to rule out that as an etiology. [id number] Primary Care Nurse [address] [address] 7 09/28/2017 12:03:39 09/28/2017 13:52:59 Chronic pain syndrome 908533768 G89.4 [id number] Yaya Brock III, MD [address] [address] 7 02/14/2018 14:35:42 02/20/2018 14:31:47 Chronic pain syndrome 251215613 G89.4 things are stable. she is using tramadol regularly and hydrocodon e for breakthrou gh. UDS today. contract in place. [place] [employer] checked at all rfs. she is exercising some, which is great Neuropathy 710147066 G62 .9 stable. Degenerati on of cervical intervertebral disc 86603245 M50.30 underlying issue causing the neck pain. Asthma 541066707 J45.90 9 mild intermitte nt. no current ics use. rare recent rescue use. Gastroesop hageal reflux disease 428160317 K21.9 ppi Intussusce ption of intestine 82245688 K56.1 better. no recurrent sxs. Hypothyroidism 73995715 E03.9 [id number] Yaya Brock III, MD [address] [address] 7 06/15/2018 13:42:29 06/15/2018 16:26:09 Chronic pain syndrome 146327058 G89.4 things are stable. she is using tramadol regularly and hydrocodon e for breakthrou gh. UDS today. contract in place. [place] [employer] checked at all rfs. she is exercising some, which is great Neuropathy 741129879 G62 .9 stable. Degenerati on of cervical intervertebral disc 91077623 M50.30 underlying issue causing the neck pain. Asthma 030494866 J45.90 9 mild intermitte nt. no current ics use. rare recent rescue use. Gastroesop hageal reflux disease 031745077 K21.9 ppi Hypothyroidism 95775404 E03.9 Drug-induc ed constipation 02842209 K59.03 discussed movantik. she will stick with current regimen. Body mass index 30+ - obesity 277289974 Z68.39 she is exercising regularly now. [id number] Yaya Brock III, MD [address] [place] [address] 08/17/2018 08:38:08 08/17/2018 10:39:27 Adult health examination 230263623 Z00.00 labs are pretty much utd. last lipid wth excellent. she needs to lose weight. work on diet and exercise. Screening mammography 24 096282 Z12.31 Pain in right knee 78593 40416 21218 M25.561 correct the fallen arch with arch supports. let me know if that doesnt help. Allergic rhinitis 490442 04 J30.9 perennial allergic rhinitis, skin reactions, asthma. trial montelukas t. Chronic pain syndrome 37 7075312 G89.4 things are stable. she is using tramadol regularly and hydrocodon e for breakthrou gh. UDS today. contract in place. [employer] [employer] checked at all rfs. she is exercising some, which is great Neuropathy 304052433 G62 .9 stable. Degenerati on of cervical intervertebral disc 96413058 M50.30 underlying issue causing the neck pain. Asthma 578427317 J45.90 9 mild intermitte nt. no current ics use. rare recent rescue use. Gastroesop hageal reflux disease 144096182 K21.9 ppi Hypothyroidism 11190628 E03.9 tsh good. Drug-induc ed constipation 44304492 K59.03 discussed movantik. she will stick with current regimen. Body mass index 30+ - obesity 148451110 Z68.39 she is exercising regularly now. [id number] Yaya Brock III, MD [address] [address] 11/30/2018 14:38:25 11/30/2018 15:18:55 Low back pain 514896476 M54.5 walk, stretch, moist heat. will setup pt if that doesnt work. Allergic rhinitis 449635 04 J30.9 better on singulair Chronic pain syndrome 37 7017505 G89.4 things are stable. she is using tramadol regularly and hydrocodon e for breakthrou gh. UDS today. contract in place. [employer] checked at all rfs. she is exercising some, which is great Neuropathy 535350182 G62 .9 stable. Degenerati on of cervical intervertebral disc 82465051 M50.30 underlying issue causing the neck pain. Asthma 070135511 J45.90 9 mild intermitte nt. no current ics use. rare recent rescue use. Gastroesop hageal reflux disease 875028187 K21.9 ppi Hypothyroidism 28297881 E03.9 tsh good. Drug-induc ed constipation 52975475 K59.03 discussed movantik. she will stick with current regimen. Body mass index 30+ - obesity 989222170 Z68.39 she is exercising regularly now. [id number] Yaya Brock III, MD [facility] [address] [place] [address] 04/26/2019 11:27:44 04/26/2019 12:18:51 Allergic rhinitis 75656566 J30.9 better on singulair Chronic pain syndrome 37 6661056 G89.4 neck has flared a bit. she will see how this goes. if doesnt improve soonish-ly , then re mri and referral to pain management for possible injection. she is using tramadol regularly and hydrocodon e for breakthrou gh. UDS today. contract in place. [employer] checked at all rfs. she is exercising some, which is great Neuropathy 482697601 G62 .9 stable. Degenerati on of cervical intervertebral disc 86623751 M50.30 underlying issue causing the neck pain. Asthma 039140397 J45.90 9 mild intermitte nt. no current ics use. rare recent rescue use. Gastroesop hageal reflux disease 917326416 K21.9 ppi Hypothyroidism 44296016 E03.9 tsh good. Drug-induc ed constipation 18707325 K59.03 discussed movantik. she will stick with current regimen. Body mass index 30+ - obesity 912132039 Z68.39 she is exercising regularly now. Adult heal th examination 654256804 Z00.00 labs today Plantar fasciitis 014665 003 M72.2 injected [id number] Yaya Brock III, MD [address] [address] 10/23/2019 10:43:16 10/23/2019 12:07:04 Eruption 625249737 R21 tinea vs eczematous . trial of topical steroid. Chronic constipation 236 821229 K59.09 try lactulose Allergic rhinitis 961257 04 J30.9 better on singulair Chronic pain syndrome 37 8199172 G89.4 neck has flared a bit. she will see how this goes. if doesnt improve soonish-ly , then re mri and referral to pain management for possible injection. she is using tramadol regularly and hydrocodon e for breakthrou gh. UDS today. contract in place. [employer] checked at all rfs. she is exercising some, which is great Neuropathy 403913196 G62 .9 stable. Degenerati on of cervical intervertebral disc 58969627 M50.30 underlying issue causing the neck pain. Asthma 272289526 J45.90 9 mild intermitte nt. no current ics use. rare recent rescue use. Gastroesop hageal reflux disease 793102579 K21.9 ppi Hypothyroidism 09727615 E03.9 tsh good. Body mass index 30+ - obesity 847998679 Z68.39 she is exercising regularly now. Low back pain 822615717 M54.5 check xray. she has a lot of morning stiffness. ok to use some morning alleve. monitor closely for stomach sxs. pt when they open. [id number] Yaya Brock III, MD [facility] [address] [place] [address] 05/04/2020 11:50:31 05/04/2020 12:44:02 Adult health examination 774474350 Z00.00 Clara is having more [pain. see below. continue to work on weight loss, diet, exercise. full labs today. phq9 negative. Screening mammography 24 779701 Z12.31 Screening for malignant neoplasm of cervix 485103781 Z12.4 Chronic pain syndrome 37 6087411 G89.4 a flare. I will increase the strength of her as needed hydrocodon e ( same amt) I will refer her to [facility] to help us with med options. Pityriasis versicolor 56 451664 B36.0 Chronic constipation 236 293789 K59.09 lactulose helps. Allergic rhinitis 434301 04 J30.9 better on singulair Neuropathy 545885373 G62 .9 stable. Degenerati on of cervical intervertebral disc 94665070 M50.30 underlying issue causing the neck pain. Asthma 342407507 J45.90 9 mild intermitte nt. no current ics use. rare recent rescue use. Gastroesop hageal reflux disease 757893027 K21.9 ppi Hypothyroidism 43247989 E03.9 recheck tsh Body mass index 30+ - obesity 005718801 Z68.39 she is exercising regularly now. Low back pain 169625810 M54.5 disc related. [id number] Yaya Brock III, MD [facility] [address] [place] [address] 05/11/2021 11:27:42 05/11/2021 12:07:36 Adult health examination 998399857 Z00.00 Clara is doing ok. labs today. phq9 negative. pap is utd. mammogram is utd.discus s cscope/col on screening. Screening mammography 24 935786 Z12.31 utd. Screening for malignant neoplasm of colon 375844148 Z12.11 I recommende d cscope. she is reluctant. she will consider. Chronic pain syndrome 37 6532018 G89.4 stable,due to cervical disc disease and fibromylag ia.she is functionin g well on current regimen. contract on file.UDS is due Chronic constipation 236 127702 K59.09 I will try some linzess and amitiza Neuropathy 796660163 G62 .9 stable. Degenerati on of cervical intervertebral disc 38630725 M50.30 underlying issue causing the neck pain. Asthma 054504873 J45.90 9 she has had a flare since uri.some prednisone Gastroesop hageal reflux disease 652632212 K21.9 ppi Hypothyroidism 23832628 E03.9 recheck tsh Body mass index 30+ - obesity 824850644 Z68.39 she is exercising regularly now. Right late ral elbow tendinopathy 7507477369 48097 M77.11 brace recommende d [id number] Yaya Brock III, MD [facility] [address] [place] [address] 11/02/2021 14:25:18 11/02/2021 15:43:38 Chronic pain syndrome 832699316 G89.4 stable,due to cervical disc disease and fibromyalg ia.she is functionin g well on current regimen. contract on file.UDS is due Chronic constipation 236 404366 K59.09 we tried amitiza, it didn work.she is doing better with the regular lactulose. Neuropathy 919519567 G62 .9 stable. Degenerati on of cervical intervertebral disc 22886474 M50.30 underlying issue causing the neck pain. Asthma 445945537 J45.90 9 she has had a flare since uri. Gastroesop hageal reflux disease 095454423 K21.9 ppi Hypothyroidism 70193640 E03.9 labs ok May Body mass index 30+ - obesity 958617857 Z68.39 she is exercising regularly now. [id number] Parrish Uribe MD [facility] [address] [place] [address] [place] [address] 12/03/2021 14:44:16 12/03/2021 16:03:19 Chronic pain syndrome 871981918 G89.4 Degenerati on of cervical intervertebral disc 45854296 M50.30 Primary fi bromyalgia syndrome 87672078 M79.7 Low back pain 935219445 M54.50 [id number] Parrish Uribe MD [facility] [address] [place] [address] [place] [address] 01/18/2022 14:22:53 01/18/2022 15:00:23 Chronic pain syndrome 464381189 G89.4 Degenerati on of cervical intervertebral disc 05519512 M50.30 Primary fi bromyalgia syndrome 98134083 M79.7 Degenerati on of lumbar intervertebral disc 55155482 M51.36 Arthropath y of lumbar facet joint 794015203 M47.255 [id number] Parrish Uribe MD [facility] [address] [place] [address] [place] [address] 02/10/2022 14:07:03 02/10/2022 14:33:33 Chronic pain syndrome 632163167 G89.4 Degenerati on of cervical intervertebral disc 63748686 M50.30 Primary fi bromyalgia syndrome 78083983 M79.7 Degenerati on of lumbar intervertebral disc 92889430 M51.36 Arthropath y of lumbar facet joint 886411446 M47.703 [id number] SAIMA RANDLE NP [address] [address] 05/09/2022 10:50:55 05/09/2022 12:05:53 Adult health examination 445856744 Z00.00 She is agreeable to her first [...] or sooner if needed. Screening mammography 24 568533 Z12.31 Mammo done 10/28/20, she is agreeable for a repeat mammogram. Screening for malignant neoplasm of cervix 522115130 Z12.4 Pap smear done 10/28/20 WNL, repeat in 2025. Screening for malignant neoplasm of colon 860583712 Z12.11 She is agreeable to her first colonoscop y. Bilateral wrist pain 704 0943357 5096277 M25.531 Patient has bilateral (R > L) wrist pain/numbn ess. 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 She has been wrist bracing and using NSAIDs prn with mild relief. Will refer to ortho. Body mass index 30+ - obesity 397938462 Z68.38 BMI 38.9 and weight 213lbs 6oz. She reports 20lb weight gain in the past couple of months. Check thyroid levels to rule out thyroid etiology. Continue healthy diet and exercise. Consider referral to medical weight program. Allergic rhinitis 757366 04 J30.9 Well managed with OTC meds. Arthropath y of lumbar facet joint 610866709 M47.816 See above under chronic pain syndrome . Chronic pain syndrome 37 6945[address] G[address] Uribe. She is taking She is taking Lyrica 100mg BID, chlorzoxaz one 500mg BID prn, and tramadol 100mg BID prn. Degenerati on of cervical intervertebral disc 58046789 M50.30 See above under chronic pain syndrome . Degenerati on of lumbar intervertebral disc 39022266 M51.36 See above under chronic pain syndrome . Primary fi bromyalgia syndrome 52354596 M79.7 See above under chronic pain syndrome . Asthma 369734709 J45.90 9 Well managed with Symbicort BID and Ventolin prn. Edema 156685431 R60.9 Continue furosemide 20mg daily prn. Gastroesop hageal reflux disease 393964268 K21.9 Continue omeprazole 40mg daily. Hypothyroidism 15029341 E03.9 Clara is taking levothyrox ine 50mcg daily. Check thyroid levels today. Insomnia 074316605 G47.0 0 Well managed with trazodone 50-100mg nightly prn. Iron deficiency 16179095 E61.1 Continue multivitam in with iron. [id number] Parrish Uribe MD [facility] [address] [place] [address] [place] [address] 05/03/2022 14:42:34 05/03/2022 15:31:40 Chronic pain syndrome 233052626 G89.4 Degenerati on of cervical intervertebral disc 77105085 M50.30 Primary fi bromyalgia syndrome 46585239 M79.7 Degenerati on of lumbar intervertebral disc 13005246 M51.36 Arthropath y of lumbar facet joint 331770130 M47.674 [id number] Parrish Uribe MD [facility] [address] [place] [address] [place] [address] 06/27/2022 10:45:12 06/27/2022 11:18:55 Chronic pain syndrome 133774516 G89.4 Degenerati on of cervical intervertebral disc 89779741 M50.30 Primary fi bromyalgia syndrome 06920446 M79.7 Degenerati on of lumbar intervertebral disc 59441509 M51.36 Arthropath y of lumbar facet joint 026496292 M47.962 [id number] Kishore Miles PA-C [facility] [address] [place] [address] 07/29/2022 13:24:55 07/29/2022 13:53:04 Congestion of nasal sinus 72025252 R09.81 Has had chronic congestion now w/ signficant amount of otc/prescr ibed therapies failed. Recommend we trial nasal steroid not trialed however needs further imaging d/t chronicity of symptoms. Will send to [facility] per pt request. [id number] Parrish Uribe MD [facility] [address] [place] [address] [place] [address] 08/29/2022 11:55:30 08/29/2022 12:43:27 Chronic pain syndrome 411751708 G89.4 Primary fi bromyalgia syndrome 93371938 M79.7 Degenerati on of lumbar intervertebral disc 38762564 M51.36 Arthropath y of lumbar facet joint 020592249 M47.816 Lumbar radiculopathy 128 513640 M54.16 left [id number] SAIMA RANDLE NP [facility] [address] [place] [address] 11/07/2022 15:25:18 11/07/2022 16:21:58 Body mass index 30+ - obesity 323881072 Z68.38 Weight 233lbs 2oz and BMI 39.2. [...] least 3 months. Chronic pain syndrome 37 4250759 G89[address] Uribe. She is taking She is taking Lyrica 100mg BID, chlorzoxaz one 500mg BID prn, and tramadol 100mg TID prn. She has requested to transfer pain management back to her primary care. I advised that since this has been her regimen for some time now, I am willing to take it over. CSRP contract signed today. UTOX obtained today as well. Arthropath y of lumbar facet joint 442939359 M47.816 See above under chronic pain syndrome . Degenerati on of cervical intervertebral disc 31617249 M50.30 See above under chronic pain syndrome . Degenerati on of lumbar intervertebral disc 14035084 M51.36 See above under chronic pain syndrome . Primary fi bromyalgia syndrome 75633227 M79.7 See above under chronic pain syndrome . Edema 085336675 R60.9 Continue furosemide 20mg daily prn. Check CMP & microalbum in today. Hypothyroidism 90073404 E03.9 Clara is taking levothyrox ine 50mcg daily. TSH NL 05/2022, no need to repeat. Iron deficiency 54463870 E61.1 Continue multivitam in with iron. Check iron profiel today. 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 She has an EMG scheduled for the left wrist. Continue to follow with orthopedic s. [id number] Parrish Uribe MD [facility] [address] [place] [address] [place] [address] 10/24/2022 10:59:08 10/24/2022 12:13:15 Chronic pain syndrome 294019910 G89.4 Primary fi bromyalgia syndrome 69163643 M79.7 Degenerati on of lumbar intervertebral disc 67470400 M51.36 Arthropath y of lumbar facet joint 891107438 M47.943 [id number] SAIMA RANDLE NP [address] [address] 01/26/2023 13:26:46 01/26/2023 14:24:38 Body mass index 30+ - obesity 638173117 Z68.38 Weight is 213 pounds 6 ounces [...] Continue Saxenda 3 mg daily. Follow-up at [facility] on 05/15/23. [id number] SAIMA RANDLE NP [address] [address] 07/17/2023 13:50:44 07/17/2023 14:39:27 Adult health examination 130934266 Z00.00 Colonoscop y is pending.Caden p smear 10/2020, repeat in 5 years [...] or sooner if needed. Screening mammography 24 642008 Z12.31 Mammo 06/2022, repeat ordered mammo below. Administra tion of diphtheria, pertussis, and tetanus vaccine 489072270 Z23 Tetanus booster administer ed today. Screening for malignant neoplasm of cervix 940296768 Z12.4 Pap smear done 10/28/20 WNL, repeat in 2025. Screening for malignant neoplasm of colon 324060858 Z12.11 She is agreeable to her first colonoscop y. Body mass index 30+ - obesity 530441449 Z68.38 Weight is 209 pounds and BMI 35.1. He has lost 4 pounds since the previous visit. We have not been able to get Saxenda due to stock issues. She has been taking bupropion XL 150 mg daily and naltrexone 50 mg once daily. She denies any side effects to these. Diet/exerc ise were reviewed. Allergic rhinitis 535128 04 J30.9 She is managing with OTC medication s. However, symptoms are still bothersome . She is seeing ENT, who is advising skin allergy testing. She has to call them to schedule. Chronic pain syndrome 37 7235656 G89.4 Clara no longer sees Dr. Uribe. She is taking She is taking Lyrica 100mg BID, chlorzoxaz one 500mg BID prn, and tramadol 100mg BID prn. CSRP 11/2022, repeat UTOX today. Arthropath y of lumbar facet joint 638974039 M47.816 See above under chronic pain syndrome . Degenerati on of cervical intervertebral disc 42395286 M50.30 See above under chronic pain syndrome . Degenerati on of lumbar intervertebral disc 69822439 M51.36 See above under chronic pain syndrome . Primary fi bromyalgia syndrome 15851821 M79.7 See above under chronic pain syndrome . Asthma 007471690 J45.90 9 Well managed with Symbicort BID and Ventolin prn. Edema 893243097 R60.9 Continue furosemide 20mg daily prn. Gastroesop hageal reflux disease 422947386 K21.9 Continue omeprazole 40mg daily and TUMS prn. Hypothyroidism 78246043 E03.9 Clara is taking levothyrox ine 50mcg daily. Check thyroid levels today. Insomnia 752586638 G47.0 0 Well managed with trazodone 50-100mg nightly prn. Iron deficiency 50785386 E61.1 She is not able to tolerate iron, even Slow Fe. Check CBC, iron profile, and ferritin today. Vitamin D deficiency 347 39088 E55.9 She is currently supplement ing with vitmain D 50,000 units weekly. Check vitamin D today. Sleep disorder 10773663 G47.9 Patient has had a month movement issues and irregular breathing at night when asleep. There is some question of KATHRYN as well as sleep movement disorder. Check home sleep study and referral sent to sleep medicine. [facility] ion care management 877411362 Z30.9 She has had the IUD in for ~7 years, it is time to replace. Referral sent to [employer]. [id number] MD [facility] [address] [place] [address] 08/29/2023 11:27:46 08/29/2023 12:30:20 Iron deficiency anemia 05660009 D50.9 AnemiaIn 2019, the [place] [employer] n has issued recommenda tions regarding GI evaluation of iron deficiency anemia (De GUERRERO, et al. Gastroente rology 2019Jan 17.) Same-day bidirectio nal endoscopy is recommende d. In our pt s case, the etiology is highly likely [...] as explained below. Chronic id iopathic constipation 83086039 K59.04 She has a lifelong history of constipati on and this is probably related to her redundant long colon that of course increases the transfer time and allows for more efficient water absorption . She has previously not had easy results MiraLAX, Senokot, and lactulose and we will try a guanylate cyclase activator (once-adal y linaclotid e (290 g). If that does not work, we could try the chloride channel activator Lubiprosto ne Amitiza. History of bariatric surgical procedure 941557985 Z98.84 After bariatric surgery, patients have a [...] have regular f/u with her bariatric team. [id number] Feroz Potts MD [facility] for [address] [address] 08/29/2023 12:53:11 08/29/2023 13:47:25 Contraception care management 734072911 Z30.9 Wants IUD R&R Risks and side effects explained. [id number] Feroz Potts MD [facility] for [address] [address] 09/26/2023 14:35:09 09/26/2023 15:28:58 Uses IUD (intrauterine device) contraception 304834474 Z97.5 [id number] SAIMA RANDLE NP [facility] [address] [place] [address] 11/15/2023 11:20:54 11/15/2023 14:05:43 Body mass index 30+ - obesity 579167902 Z68.38 Weight is 224lbs 2oz, she has gained 3lbs since last month. She is not responding to naltrexone or buproprion . She has an upcoming appointmen t with the weight program, seeing Saima Sykes 12/13/23. Diet/exerc ise were reviewed. Allergic rhinitis 837363 04 J30.9 She is managing with OTC medication s. She saw ENT who noted a mild deviated septum, but did not recommend surgery. She would like a second opinion, ordered below. Chronic pain syndrome 37 6580863 G89.4 Clara no longer sees Dr. Uribe. She is taking She is taking Lyrica 100mg BID, chlorzoxaz one 500mg BID prn, and tramadol 100mg BID prn. CSRP signed today 11/15/23, repeat UTOX today. Arthropath y of lumbar facet joint 683947078 M47.816 See above under chronic pain syndrome . Degenerati on of cervical intervertebral disc 25828056 M50.30 See above under chronic pain syndrome . Degenerati on of lumbar intervertebral disc 02346199 M51.36 See above under chronic pain syndrome . Primary fi bromyalgia syndrome 41849561 M79.7 See above under chronic pain syndrome . Asthma 019311858 J45.90 9 Well managed with Symbicort BID and Ventolin prn. Edema 942147689 R60.9 Continue furosemide 20mg daily prn. Gastroesop hageal reflux disease 338045241 K21.9 Continue omeprazole 40mg daily (indefinit chato as recommende d by GI) and TUMS prn. She is aware of chronic PPI use risks. Hypothyroidism 98781006 E03.9 Continue levothyrox ine 50mcg daily. Check thyroid levels today. Insomnia 167820006 G47.0 0 Well managed with trazodone 50-100mg nightly prn. Iron deficiency 27105294 E61.1 She is not able to tolerate iron, even Slow Fe. Check CBC, iron profile, and ferritin today. Consider infusions if ferritin is low. Vitamin D deficiency 347 44896 E55.9 She is no longer supplement ing with vitamin D, check vitamin D level today. Deviated nasal septum 12 3573899 J34.2 She has a deviated septum, but her ENT did not think surgery is indicated. She would like a second opinion, ordered below. Pain of le ft hip joint 3630032771 51507 M25.552 Left hip/buttoc k pain could represent sciatica. Symptoms are intermitte nt. Recommende d PT, she is agreeable. Also check left hip x-ray per patient request. If symptoms worsen/per sist, consider ortho referral and/or MRI. Obstructiv e sleep apnea syndrome 38963503 G47.33 Patient with mild KATHRYN per HST done 11/02/23. She is not interested in CPAP at this time, she wants to consider ENT surgery for her deviated septum. In the meantime, recommende d sleeping on the side, with HOB elevated, and continued work on weight loss. [id number] Saima Sykes, YAMILE [facility] [address] [place] [address] 12/13/2023 11:04:18 12/13/2023 11:46:37 Body mass index 30+ - obesity 064727585 Z68.38 Clara presents for OM consult. She [...] minutes today on this patient encounter which included: Preparing to see the patient with review of medical record including prior visits Obtaining history and performing a medically appropriat e exam. Ordering medication s Documentin g clinical informatio n in the health record Obstructiv e sleep apnea syndrome 53730160 G47.33 Had HST but some KATHRYN might be from deviated septum. She is following up with ENT Iron defic iency anemia 80593065 D50.9 She is being referred to hematology for IV iron infusions. Does not tolerate oral iron Insulin resistance 18358 5000 E88.819 We have discussed the adverse health consequenc es of obesity today as well the benefits of weight loss. We have focused on both diet and exercise management strategies in our discussion today. Will continue to monitor and assess. [id number] Saima Sykes NP [address] [address] 01/23/2024 12:24:33 01/23/2024 13:46:53 Obesity [id number] E66.9 Clara returns for follow up. She was able to get Wegovy 1.7mg. [facility] Diet: Coffee, Citizen [place] yogurt, snack, Lunch: lean cuisine, dinner protein, vege. Exercise: She has been walking the dog a few times a week. Weight today 213.8#. She started at 224# so she has lost almost 11#. She denies side effects on Wegovy. On Saxenda she was a little nauseous. Plan: Continue Wegovy 1.7mg and continue with healthy lifestyle changes. RTC in 2 months. [id number] Saima Sykes NP [address] [address] 03/26/2024 12:10:08 03/26/2024 12:20:29 Body mass index 30+ - obesity 577024500 Z68.38 Clara presents for follow up visit. [...] Weight: 224#KAYCEE (last office visit) weight: 213.8#Toda y s weight: 204.4#Olmos ge since KAYCEE:9.4Tot al change:19. 6#Plan: Continue with Wegovy 2.4mg and healthy lifestyle changes. RTC 6 weeks. [id number] Saima Sykes NP [address] [address] 05/14/2024 12:31:48 05/14/2024 12:41:35 Body mass index 30+ - obesity 785769503 Z68.38 Clara presents for follow up visit. [...] Weight: 224#KAYCEE (last office visit) weight: 204.4#Toda y s weight: 198.8#Olmos ge since KAYCEE: 5.6Total change:25. 2#Plan: Continue with Wegovy 2.4mg and healthy lifestyle changes. RTC 6 weeks. [id number] Saima Sykes NP [address] [address] 07/23/2024 12:43:13 07/23/2024 13:19:59 Body mass index 30+ - obesity 802567527 E66.9 [id number] Clara presents for follow up visit. She [...] Weight: 224#KAYCEE (last office visit) weight: 198.8#Toda y s weight: 194,5#Olmos ge since KAYCEE: 4.8Total change:30# Plan: Continue with Wegovy 2.4mg and healthy lifestyle changes. Try to cut back on empty calories such as cereal bars. RTC 12 weeks. [id number] CINTHYA MCDONNELL MD [facility] [address] [place] [phone] 09/05/2024 13:53:02 09/05/2024 14:50:58 Screening mammography 77472390 Z12.31 Has mammo at [facility] in 2 weeks Administra tion of diphtheria, pertussis, and tetanus vaccine 778305067 Z23 Last Tdap 07/17/2023 Screening for malignant neoplasm of cervix 973999347 Z12.4 Last pap 2020 NILM and HPV neg but no endocervic al component, patient would like to reschedule for repeat pap Screening for malignant neoplasm of colon 690413517 Z12.11 Last colonoscop y Advance care planning 71 8628220 Z71.89 HCP form discussed and given to patient. Hepatitis C screening 41 8732234 Z11.59 The USPSTF recommends one time screening for hepatitis C virus (HCV) infection in adults aged 18 to 79 years. Influenza vaccine needed [id number] 106 Z23 Patient recommende d to go to their local pharmacy to have influenza vaccine administer ed. Discussed importance of influenza vaccine due to the patient's risk of contractin g the disease. A handout was offered to enhance understand ing of the effects and side effects of the vaccine. Depression screening 171 302347 Z13.31 [id number] PHQ 9 Score: 1 Result: negative Follow up plan: PHQ9 is negative. Return for PHQ9 with CPE in 1 year. Patient will call sooner if they develop mood changes. General ex amination of patient 416152734 Z00.00 [id number] Patient should discuss medical decisions with Health Care Proxy. Recommende d screenings included colonoscop y screening age 45, earlier based on family history/ri sk factors; annual mammogram age 40, unless earlier based on risk factors and discussion with patient; bone density age 65, unless risk factors for earlier screening; one time screen for hepatitis C if born between 7076-9654 or has risk factors. Reviewed vaccines and current recommenda tions. Basic health topics include aerobic exercise, importance of healthy/ba lanced diet and minimizing caffeine and alcohol. Primary fi bromyalgia syndrome 52156881 M79.7 Patient is taking tramadol 50mg two tablets TID PRN (but is needed to take all medication s) and pregabalin 100mg PO BID. She has ongoing nerve and hip pain, and would like to try increasing pregabalin with the hope of decreasing the tramadol. Will increase pregabalin from 100mg PO BID to 150mg PO BID. Discussed side effects of medication s. Toxassure and controlled substance agreement signed 09/05/24. Vitamin D deficiency 347 00973 E55.9 45134 Repleting with vitamin D 50,000 units (1250 [...] mushrooms) . History of bariatric surgical procedure 547372161 Z98.84 272803 History of bypass surgery; has not been taking vitamins. Encouraged her to take bariatric vitamins. Asthma 348617549 J45.90 9 Taking wixella 1 puff BID and rinsing mouth after use. Has prn albutrol, not using more than monthly. Gastroesop hageal reflux disease 763462030 K21.9 Discussed dietary management of GERD and common triggers (coffee, carbonated drinks including omar vitaliy, peppermint , citrus, tomatoes, chocolate, fatty foods spicy foods, and fried foods). Patient advised to avoid alcohol. Discussed smaller portions, sitting upright during meals, and avoiding meals 3 hours prior to bed time. Hypothyroidism 51225705 E03.9 Levothyrox ine 50mcg PO daily Obstructiv e sleep apnea syndrome 55532038 G47.33 Dr. Chow at [facility] seen sleep medicineHo md sleep study 11/02/23 with mild KATHRYN AHI 5.4 per Sleep Medicine note from [facility] CADEN Barnett [id number] MD [facility] [address] [address] 09/30/2024 07:56:03 09/30/2024 12:34:46 Iron deficiency anemia 64873978 D50.9 GI blood loss has been excluded with EGD and colonoscop y. Iron deficiency anemia is explained by her previous gastric bypass that causes malabsorpt ion. She has responded to iron infusions and no further GI tests are needed. Chronic id iopathic constipation 37847429 K59.04 She has a lifelong history of constipati on and this is probably related to her redundant long colon that of course increases the transfer time and allows for more efficient water absorption . We have tried a guanylate cyclase activator (once-adal y linaclotid e (290 g) with poor results but it may work better with adjusting her use of lactulose from prn to taking 15 mL once daily and to adjust the dose prn. If that does not work, we could try the chloride channel activator Lubiprosto ne Amitiza. History of bariatric surgical procedure 667607014 Z98.84 After bariatric surgery, patients have a [...] have regular f/u with her bariatric team. [id number] MD Yash Hubbard [facility] [address] [address] 10/14/2024 07:43:48 10/15/2024 11:02:37 Chronic idiopathic constipation 23432956 K59.04 She has a lifelong history of constipati on and this is probably related to her redundant long colon that of course increases the transfer time and allows for more efficient water absorption .We have asked her to reduce the dose of linaclotid e (290 g) to qod and to continue lactulose 5 mL daily. If her stool becomes formed, she will increase the dose of lactulose back to 15 mL daily. If that does not work, we could try the chloride channel activator Lubiprosto ne Amitiza. Follow-up in 2 weeks. Iron defic iency anemia 95792965 D50.9 GI blood loss has been excluded with EGD and colonoscop y. Iron deficiency anemia is explained by her previous gastric bypass that causes malabsorpt ion. She has responded to iron infusions and no further GI tests are needed. History of bariatric surgical procedure 512543068 Z98.84 After bariatric surgery, patients have a [...] have regular f/u with her bariatric team. [id number] Saima Sykes NP [facility] [address] [place] [phone] 10/16/2024 12:40:22 10/16/2024 12:59:01 Body mass index 30+ - obesity 621139372 E66.9 [id number] Clara presents for follow up visit.Meds : She continues with no side effects from Wegovy 2.4mg. Depression screen negative. Her diet has not changed since last visit. Still has limited appetite.D iet: No significan t changes. Breakfast: Yogurt with a few snacks during the day. Lunch: WW smart meal or lean cuisine. Dinner: chicken and vege with rice. No eating after 6pm.Exerci se: No significan t changes. She continues walking her new puppy 4x a week. She continues working out with resistance bands.Medi cations to augment weight loss: Wegovy 2.4mg--she has been on this for 2 weeks.Init ial Weight: 224#KAYCEE (last office visit) weight: 194.5#Toda y s weight: 187#Change since KAYCEE: 7#Total change:37. 5#Goal weight: 150#Plan: Continue with Wegovy 2.4mg and healthy lifestyle changes. Add weight training and more protein to daily routine. RTC 16 weeks.My supervisin g provider is Dr. Gaitan for this visit and Dr. Gaitan was not physically present in the office for this office visit. [id number] CINTHYA MCDONNELL MD [facility] [address] [place] [address] 12/19/2024 11:24:47 12/19/2024 12:31:42 Screening for malignant neoplasm of colon 949644190 Z12.11 [id number] Last colonoscop y 10/05/23 overall normal and repeat recommende d 2033 Primary fi bromyalgia syndrome 13938907 M79.7 Patient is taking tramadol 50mg two tablets TID PRN ; found with recent increased pregabalin from 100mg to 150mg BID she is doing better. Will continue pregabalin 150mg PO BID. She is aware that she should not mix opioid medication s with alcohol because of risk of respirator y depression . 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 Both HSV-1 and HSV-2 are most contagious when sores are present, but can also be transmitte d when no symptoms are felt or visible. There can be viral shedding even if she is not having sores. Discussed prodrome symptoms where she may still be contagious , such as tingling/i tching/frank n/soreness even without vesicles. Discussed condoms can reduce risk of spread, but spread is still possible with skin to skin contact where condoms do not cover. Sending another refill in the event of an outbreak but patient will also call use because if she has recurrent outbreaks she may require suppressiv e therapy. Vaginitis 37343332 N76.0 Recent treatment for HSV1, symptoms resolved but there is scarring and discomfort . Will perform nuswab today. Discussed further STI testing for HIV, Hep C, Hep B - holding off for now as patient is low risk. [id number] Saima Sykes, YAMILE [facility] [place] [address] 02/12/2025 10:00:40 02/12/2025 10:13:11 Obese class I [id number] 63803 E66.811 [id number] Clara presents for follow up visit.Meds : She continues with no side effects from Wegovy 2.4mg. She has been stuck at this weight for 2 months. She is s/p gastric bypass 2001. Her lowest weight was 177#. Her diet has not changed since last visit. Still has limited appetite.D iet: No significan t changes. Breakfast: [place] Yogurt. Protein bar for snack. Lunch: WW smart meal or lean cuisine. No afternoon snacking. Dinner: chicken and vege with rice. No eating after 6pm. She is eating 1200 calories a day.Exerci se: She continues walking her new puppy 5x a week. She also wears ankle weights when walking. She continues working out with resistance bands 3x week.Medic ations to augment weight loss: Wegovy 2.4mg--she has been on this for 2 weeks.Init ial Weight: 224#KAYCEE (last office visit) weight: 187#Today s weight: 174#Change since KAYCEE: 13#Total change:50# Goal weight: 150#Plan: Continue with Wegovy 2.4mg and healthy lifestyle changes. Add weight training and more protein to daily routine. RTC 12 weeksMy supervisin g provider is Dr. Gaitan for this visit and Dr. Gaitan was not physically present in the office for this office visit. Health Concerns Section Related Observation LastModified by Organization Detai ls LastModified Time None Recorded Concern Status LastModified by Organization Details LastModified Time None Recorded Advance Directives Directive N: Payers Insurance Date Sequence Insurance Name Policy Number Policy Dunaway Covered Member ID Dunaway Member ID Guarantor Name 06/27/2022 2 [employer] [place] [id number] Rey Bender [id number] Clara Aranda 08/29/2023 1 [employer] [facility] (O) [id number] Clara Mckinnon [id number] Clara Aranda 08/29/2023 2 [facility] [employer] - DIRECT [facility] TYPE II (HMO) Clara Bender [id number] Clara Aranda 01/18/2014 1 [facility] (HMO) Rey Bender [id number] Clara Aranda 10/15/2018 1 [employer] [facility] (PPO) [id number] Rey Bender [id number] Clara Aranda 08/29/2023 2 [place] [facility] Clara Bender [id number] Clara Aranda 08/29/2023 2 [facility] (MEDICAID REPLACEMENT - HMO) Clara Bender [id number] Clara Aranda 09/17/2014 2 [facility]: BLUE [facility] PREFERRED BLUE (PPO) [id number] Rey Bender [id number] Clara Aranda 09/23/2015 1 [employer] [facility] - AET SIGNATURE ADMINISTRATORS (PPO) Rey Bender [id number] Clara Aranda 08/29/2023 2 [facility] [id number] Rey Bender [id number] Clara Aranda 08/29/2023 1 [facility] (O) Clara Bender [id number] Clara Aranda 02/28/2025 1 [facility] [id number] Clara Aranda [id number] Clara Aranda 02/26/2022 2 [employer]PEC[employer]IT [employer] Clara Aranda 08/29/2023 1 [employer] (POS) [id number] Clara Bender [id number] Clara Aranda Notes Date Note Type Note Provider Name and Address Organization Details Recorded Time 09/30/2024 text/html Clarachristopher ARANDA 1975 is a 49 year old [...] several days. The next stool will be Guthrie type -VII with mucus. She never has hard stool. Lactulose causes bloating but not many cramps.She has had a gastric bypass at [facility] and subsequently an operation for an internal [...] as needed. Wegovy.Allergies: amoxicillinSH: . 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 No smoking, EtOH [...] Gastric bypass. Redundant colon. Yaya Reyes MD [address] [place], [phone], [facility] 10/01/2024 05:56:07 10/14/2024 text/html Clara ARANDA 1975 is a 49 year old woman with a long history of severe constipation. Her constipation began during childhood and she has used multiple laxatives.Previously, we had prescribed Linzess 290 mcg daily but this has not helped. She still could have had up to 14 days without spontaneous evacuation. After 3 to 4 days without evacuation, she starts lactulose 30 mL daily and that also often does not work for several days. The next stool would be Guthrie type -VII with mucus. She never has hard stool.At her last visit on 09/30/2024, he had prescribed a combination of the guanylate cyclase activator (once-daily linaclotide (290 g) with lactulose 15 mL once daily.This resulted in alternating bowel habits between no bowel movement for up to 2 days and 7 Guthrie chart 7 stools per day. Lactulose causes bloating but not many cramps. Gradually reducing the dose of lactulose to 5 ml per day helped but she has stool consistency is still Guthrie type VII.She has had a gastric bypass at [facility] and subsequently an operation for an internal [...] ventolin, bupropion, trazodone, vit d, iron, lactulose 5 mL qd. Wegovy.Allergies: amoxicillinSH: . 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 No smoking, EtOH [...] Gastric bypass. Redundant colon. Yaya Reyes MD [address] [place] [address], [phone], [facility] 10/14/2024 13:16:25 10/16/2024 text/html ROS as noted in the HPI Clara presents for follow up visit.Meds: She continues with no side effects from Wegovy 2.4mg. Depression screen negative. Her diet has not changed since last visit. Still has limited appetite.Diet: No significant changes. Breakfast: Yogurt with a few snacks during the day. Lunch: WW smart meal or lean cuisine. Dinner: chicken and vege with rice. No eating after 6pm.Exercise: No significant changes. She continues walking her new puppy 4x a week. She continues working out with resistance bands.Medications to augment weight loss: Wegovy 2.4mg--she has been on this for 2 weeks.Initial Weight: 224#KAYCEE (last office visit) weight: 194.5#Today s weight: 187#Change since KAYCEE: 7#Total change:37.5#Goal weight: 150# Ashley Gaitan MD [address] [place], [phone], [facility] 10/16/2024 15:38:17 12/19/2024 text/html 49 yo F for repeat pap. At prior appt in September we increased pregabalin from 100mg PO BID to 150mg PO BID; since then she has been doing well. Reports fibromyalgia symptoms are improving. No drowsiness, no mood changes. No new swelling, has ongoing swelling in fingers and feet managed with furosemide 20mg PO daily. Has vesicular lesions 2-3 weeks ago on vaginal canal, diagnosed as having HSV 1. Home: She lives with her , 2 biological children (24YO & 18YO), & 22YO step child with the mother. 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 Has resistance bands.Alcohol/Substan demetrius/Smoking: She drinks alcohol rarely/socially. Never smoked/vaped. No other substances.Sexual Health: She stopped getting periods due to her IUD (7 years). CINTHYA MCDONNELL MD [address] [place], [phone], [facility] 12/19/2024 13:45:43 02/12/2025 text/html ROS as noted in the HPI Clara presents for follow up visit.Meds: She continues with no side effects from Wegovy 2.4mg. She has been stuck at this weight for 2 months. She is s/p gastric bypass 2001. Her lowest weight was 177#. Her diet has not changed since last visit. Still has limited appetite.Diet: No significant changes. Breakfast: [place] Yogurt. Protein bar for snack. Lunch: WW smart meal or lean cuisine. No afternoon snacking. Dinner: chicken and vege with rice. No eating after 6pm. She is eating 1200 calories a day.Exercise: She continues walking her new puppy 5x a week. She also wears ankle weights when walking. She continues working out with resistance bands 3x week.Medications to augment weight loss: Wegovy 2.4mg--she has been on this for 2 weeks.Initial Weight: 224#KAYCEE (last office visit) weight: 187#Today s weight: 174#Change since KAYCEE: 13#Total change:50#Goal weight: 150# Ashley Gaitan MD [address] [place] [address], [phone] 02/22/2025 16:14:10 OBGyn Episode Ob Episode Information Episode Created Date Number of Fetuses Patient Bloodtype Patient rh Status Prepregnancy Weight lbs Domestic Partner Domestic Partner Phone Father Name Agricultural Labor Camp Manager Status 06/23/19 07 1 CLOSED Fetus Data [...]
--- OUTSIDE RECORDS SUMMARY | 2025-03-21 11:42 | XMS_ITS | Clinical Summary ---
Author Organization [facility] Address [address] [place] [address] Care Team Providers Care Auto Service Instructor Name Role Phone Yaya Brock MD Primary [...] 118 06/26/2018 9:28 AM EST Temperature 37.1 C (98.8 F) 06/26/2018 9:28 AM EST Respiratory Rate 16 06/26/2018 9:28 AM EST [...] 2015 MAMMOGRAM 2015 BMI CHECK/ADVISE 06/05/2024 INFLUENZA (#1) 2025 03/27/2019 Care Teams Auto Service Instructor Relationship Specialty Start Date End Date Yaya Brock MD PCP - General Family Practice 11/10/23
--- OUTSIDE RECORDS SUMMARY | 2025-03-21 11:42 | XMS_ITS | Encounter Summary ---
Author Organization [facility] Address [address] [place] [address] Care Team Providers Care Barrel Dedenting Machine Operator Name Role Phone Aliya Servin MD Primary Care Provider nathalie Beth, Pcp Primary Care Provider Yaya Farr MD Primary Care Provider Un available Encounter Details Date Type Department Care Team Description 05/23/2018 Release of Information Medical Records [address] [place] [id number] Abstract, Provider Social History Tobacco Use Types [...] on filedocumented in this encounter Care Teams Barrel Dedenting Machine Operator Relationship Specialty Start Date End Date Aliya Servin MD PCP - General Internal Medicine 05/22/1803/06 [facility], Pcp PCP - General Internal Medicine 04/03/23 11/09/23 Yaya Brock MD PCP - General Family Practice 11/10/23 documented as of this encounter
== END 2025-03-21 10:35 | disposition home or self-care (01) ==
LOC: HO.PMC 10:03
PROVIDERS: Visit Provider Registered Nurse Emergency
DX: M54.51 Vertebrogenic low back pain (principal); M54.16 Radiculopathy, lumbar region; M25.559 Pain in unspecified hip
CPT/HCPCS: 99213; G2211